=== PATIENT | male | born 1960 | race Caucasian/White ===

== ENCOUNTER 2019-10-29 07:55 | Outpatient (CLI) | payer BC, SELFPAY ==
[2019-10-29 08:19] LABS: Hemoglobin A1C 8.5 % (<5.7)
[2019-10-29 08:32] LABS: Add Urine Microscopic? YES; Appearance Urine Clear (Clear); Bilirubin Urine Negative (Negative); Blood Urine 1+ (Negative); Color Urine Yellow (Yellow); Glucose Urine UA Trace (Negative); Ketones Urine Negative (Negative); Leukocyte Esterase Ur Negative (Negative); Nitrate Urine Negative (Negative); Protein Urine Negative (Negative); Urobilinogen Urine 0.2 mg/dL (0.2-1.0); pH Urine 5.5 (5.0-8.0)
[2019-10-29 08:38] LABS: Bacteria Urine None seen /hpf; RBC Urine 0-2 /hpf (0-2); WBC Urine 0-3 /hpf (0-3)
[2019-10-29 09:16] LABS: Creatinine Urine 77.84 mg/dL (40-278)
[2019-10-29 09:19] LABS: MALB Creatinine Ratio 180.8 mg/g (0-30); Microalbumin Urine Random 140.8 mg/L
[2019-10-29 09:34] LABS: Alanine Aminotransferase 43 U/L (16-63); Albumin Level 3.9 g/dL (3.4-5.0); Alkaline Phosphatase 54 U/L (46-116); Anion Gap 16.4 mmol/L (7-16); Aspartate Amino Transferase 31 U/L (15-37); Bilirubin,Total 0.4 mg/dL (0.00-1.00); Blood Urea Nitrogen 29 mg/dL (7-18); Calcium 9.2 mg/dL (8.5-10.1); Carbon Dioxide 26 mmol/L (21-32); Chloride 101 mmol/L (98-108); Cholesterol 180 mg/dL (0-200); Creatine Kinase 128 U/L (39-308); Estimated Glomerular Filt Rate > 60; Glucose 192 mg/dL (70-99); HDL Direct 35 mg/dL (40-60); LDL Cholesterol Calculated 83 mg/dL (<130); Osmolality Calculated 298 mOsm/kg (285-295); Potassium 4.4 mmol/L (3.5-5.1); Sodium 139 mmol/L (136-145); Total Protein 8.1 g/dL (6.4-8.2); Triglycerides 311 mg/dL (0-150); Uric Acid 5.7 mg/dL (3.5-7.2)
== END 2019-10-29 07:56 | disposition home or self-care (01) ==
LOC: CHSLAB 07:57
PROVIDERS: PCP Internal Medicine; Visit Provider Internal Medicine
DX: E79.0 Hyperuricemia without signs of inflammatory arthritis and tophaceous disease (principal); E11.65 Type 2 diabetes mellitus with hyperglycemia
CPT/HCPCS: 36415; 80053; 80061; 81001; 82043; 82550; 83036; 84550

== ENCOUNTER 2019-11-09 07:05 | Outpatient (CLI) | payer BC, SELFPAY ==
--- NOTE | 2019-11-09 07:21 | EST_ITS ---
Patient Info Name: Sydney Veloz Age: 59 years : 1960 Gender: Male Ht: 69 in Wt: 220 lbs BSA: 2.24 m2 HR: 78 bpm BP: 134 / 72 mmHg Technical Quality: Good Exam Date: 11/09/2019 8:28 AM Exam Location: [facility] Pulmonary Patient Status: Outpatient Admit Date: 11/09/2019 Staff Ordering Physician: Manuel Easton DO Furniture Rental Consultant: Rico Darby RDCS, RT Attending Provider: MANUEL EASTON Referring Physician: Best RAYA; Exam Type: CA stress echo Study Info Indications R07.89 - Other chest pain Treadmill exercise stress echocardiogram is performed. Summary 1. 1. Negative Edgard exercise stress test for ischemic ST changes by ECG criteria. 2. 2. Good functional capacity, achieving 10 METS of workload. 3. 3. Hypertensive response to exercise. 4. 4. Appropriate HR response to exercise. 5. 5. Appropriate HR recovery at 1 minute post exercise. 6. 6. Negative stress echocardiogram for ischemia by wall motion analysis. 7. 7. Patient informed of the above results. Stress Echo Findings Left Ventricle Appropriate increase in LV endocardial thickening with systole. Appropriate augmentation of contractility with systole. No wall motion abnormality. Left Ventricle Normal LV systolic function, no wall motion abnormality. Protocol: Edgard Stress ECG Details Stage: REST Duration (min): 0 min : 34 sec Speed (mph): 0.0 Grade (%): 0 HR (bpm): 75 SBP (mmHg): --- DBP (mmHg): --- METS: --- Stage: REST Duration (min): 7 min : 14 sec Speed (mph): 0.0 Grade (%): 0 HR (bpm): 87 SBP (mmHg): 134 DBP (mmHg): 72 METS: --- Stage: STAGE 1 Duration (min): 1 min : 0 sec Speed (mph): 1.7 Grade (%): 10 HR (bpm): 109 SBP (mmHg): 134 DBP (mmHg): 72 METS: --- Stage: STAGE 1 Duration (min): 2 min : 0 sec Speed (mph): 1.7 Grade (%): 10 HR (bpm): 119 SBP (mmHg): 134 DBP (mmHg): 72 METS: --- Stage: STAGE 1 Duration (min): 3 min : 0 sec Speed (mph): 1.7 Grade (%): 10 HR (bpm): 121 SBP (mmHg): 172 DBP (mmHg): 60 METS: --- Stage: STAGE 2 Duration (min): 1 min : 0 sec Speed (mph): 2.5 Grade (%): 12 HR (bpm): 132 SBP (mmHg): 172 DBP (mmHg): 60 METS: --- Stage: STAGE 2 Duration (min): 2 min : 0 sec Speed (mph): 2.5 Grade (%): 12 HR (bpm): 136 SBP (mmHg): 168 DBP (mmHg): 59 METS: --- Stage: STAGE 2 Duration (min): 3 min : 0 sec Speed (mph): 2.5 Grade (%): 12 HR (bpm): 143 SBP (mmHg): 168 DBP (mmHg): 59 METS: --- Stage: STAGE 3 Duration (min): 1 min : 0 sec Speed (mph): 3.4 Grade (%): 14 HR (bpm): 149 SBP (mmHg): 176 DBP (mmHg): 68 METS: --- Stage: STAGE 3 Duration (min): 2 min : 0 sec Speed (mph): 3.4 Grade (%): 14 HR (bpm): 153 SBP (mmHg): 176 DBP (mmHg): 68 METS: --- Stage: STAGE 3 Duration (min): 2 min : 1 sec Speed (mph): 0.0 G
--- NOTE | 2019-11-09 07:21 | ECHO_ITS ---
Patient Info Name: Sydney Veloz Age: 59 years : 1960 Gender: Male Ht: 69 in Wt: 220 lbs BSA: 2.24 m2 HR: 85 bpm BP: 134 / 72 mmHg Technical Quality: Good Exam Date: 11/09/2019 7:58 AM Exam Location: [facility] Pulmonary Patient Status: Outpatient Admit Date: 11/09/2019 Staff Ordering Physician: Manuel Jewell DO Web User Experience Strategist: Rico Darby RDCS, RT Attending Provider: Manuel Jewell DO Referring Physician: Best RAYA; Exam Type: CA echo doppler color flow Study Info Indications R07.89 - Other chest pain Complete two-dimensional, color flow and Doppler transthoracic echocardiogram is performed. Summary 1. Left ventricular chamber dimension is normal. 2. Left ventricular systolic function is normal, estimated at 60-65%. 3. There is mildly increased left ventricular wall thickness. 4. The left ventricular diastolic function is grade I diastolic dysfunction. 5. E/e' 7 is not elevated. 6. Global longitudinal strain is mildly abnormal at -16.4%. 7. Dilated inferior vena cava with >50% collapse upon inspiration consistent with elevated right atrial pressure, 10 mmHg. Left Ventricle E/e' 7 is not elevated. Global longitudinal strain is mildly abnormal at -16.4%. Left ventricular chamber dimension is normal. Left ventricular systolic function is normal, estimated at 60-65%. There is mildly increased left ventricular wall thickness. The left ventricular diastolic function is grade I diastolic dysfunction. Right Ventricle Right ventricular chamber dimension is normal. Right ventricular systolic function is normal. Left Atria Left atrial chamber dimension is normal. Right Atria Right atrial chamber dimension is normal. Aortic Valve The aortic valve is trileaflet. There is no aortic valve stenosis. There is no aortic valve regurgitation. Pulmonic Valve There is no pulmonic regurgitation. Mitral Valve There is no mitral valve stenosis. There is no mitral valve regurgitation. Tricuspid Valve There is no tricuspid valve regurgitation. Pericardium/Pleural There is no pericardial effusion. Inferior Vena Cava Dilated inferior vena cava with >50% collapse upon inspiration consistent with elevated right atrial pressure, 10 mmHg. Aorta The aortic root size at the sinus of Valsalva is normal. Left Ventricular Outflow Tract Name Value Normal LVOT 2D LVOT Diameter 2.2 cm LVOT Doppler LVOT Peak Gradient 5 mmHg LVOT Mean Gradient 2 mmHg LVOT VTI 20 cm LVOT VTI/AV VTI Ratio 0.9 LVOT Stroke Volume 76 ml LVOT CO 6.5 l/min LVOT CI 2.9 l/min/m2 Pulmonic Valve Name Value Normal PV Doppler PV Peak Gradient
== END 2019-11-09 07:06 | disposition home or self-care (01) ==
PROVIDERS: PCP Internal Medicine; Visit Provider Internal Medicine Cardiovascular Disease
DX: R06.09 Other forms of dyspnea (principal); R07.9 Chest pain, unspecified
CPT/HCPCS: 93306; 93351

== ENCOUNTER 2019-11-11 06:31 | Day surgery (SDC) | payer BC, SELFPAY ==
[2019-11-11 06:56] LABS: Glucose Point of Care 204 (65-105)
[2019-11-15 14:15] LABS: Glucose Point of Care 194 (65-105)
== END 2019-11-11 08:56 | disposition home or self-care (01) ==
LOC: CHSSURGERY 06:32
PROVIDERS: PCP Internal Medicine; Visit Provider Surgery
DX: Z12.11 Encounter for screening for malignant neoplasm of colon (principal); Z86.010 Personal history of colon polyps; K62.1 Rectal polyp
CPT/HCPCS: 45384; 45380; 812; 88305; J2704; J7120

== ENCOUNTER 2020-01-31 08:38 | Outpatient (CLI) | payer BC, SELFPAY ==
[2020-01-31 09:06] LABS: Hemoglobin A1C 7.6 % (<5.7)
[2020-01-31 09:57] LABS: Anion Gap 15.3 mmol/L (7-16); Blood Urea Nitrogen 47 mg/dL (7-18); Calcium 9.2 mg/dL (8.5-10.1); Carbon Dioxide 25 mmol/L (21-32); Chloride 101 mmol/L (98-108); Estimated Glomerular Filt Rate 57; Glucose 147 mg/dL (70-99); Osmolality Calculated 299 mOsm/kg (285-295); Potassium 4.3 mmol/L (3.5-5.1); Sodium 137 mmol/L (136-145)
== END 2020-01-31 08:39 | disposition home or self-care (01) ==
LOC: CHSLAB 08:40
PROVIDERS: PCP Internal Medicine; Visit Provider Internal Medicine
DX: E11.65 Type 2 diabetes mellitus with hyperglycemia (principal)
CPT/HCPCS: 36415; 80048; 83036

== ENCOUNTER 2020-02-23 12:12 | Outpatient (CLI) | payer BC, SELFPAY ==
[2020-02-23 12:52] LABS: Anion Gap 14.3 mmol/L (7-16); Blood Urea Nitrogen 27 mg/dL (7-18); Calcium 8.9 mg/dL (8.5-10.1); Carbon Dioxide 26 mmol/L (21-32); Chloride 102 mmol/L (98-108); Estimated Glomerular Filt Rate 60; Glucose 226 mg/dL (70-99); Osmolality Calculated 298 mOsm/kg (285-295); Potassium 4.3 mmol/L (3.5-5.1); Sodium 138 mmol/L (136-145)
== END 2020-02-23 12:13 | disposition home or self-care (01) ==
LOC: CHSLAB 12:13
PROVIDERS: PCP Internal Medicine; Visit Provider Internal Medicine
DX: E86.0 Dehydration (principal)
CPT/HCPCS: 36415; 80048

== ENCOUNTER 2020-05-12 10:02 | Outpatient (CLI) | payer BC, SELFPAY ==
[2020-05-12 10:26] LABS: Basophils Absolute Auto 0.04 K/mm3 (0.00-0.10); Basophils Percent Auto 0.6 % (0.0-1.0); Eosinophils Absolute Auto 0.25 K/mm3 (0.02-0.50); Eosinophils Percent Auto 3.6 % (1.0-6.0); Hematocrit 44.8 % (40.0-54.0); Hemoglobin 14.7 g/dL (14.0-18.0); Immature Granulocyte Absolute 0.02 K/mm3 (0.00-0.00); Immature Granulocyte Percent A 0.3 % (0.0-0.0); Lymphocytes Absolute Auto 2.05 K/mm3 (1.10-4.50); Lymphocytes Percent Auto 29.3 % (18.0-42.0); Mean Corpuscular HGB Conc 32.8 g/dL (32.0-36.0); Mean Corpuscular Hemoglobin 32.8 pg (27.0-31.0); Mean Platelet Volume 10.4 fl (8.7-11.0); Monocytes Absolute Auto 0.91 K/mm3 (0.10-0.90); Neutrophils Absolute Auto 3.7 K/mm3 (1.7-7.2); Neutrophils Percent Auto 53.2 % (50.0-70.0); Platelet Count Result 168 K/mm3 (150-420); Red Blood Count 4.48 M/mm3 (4.70-6.10); Red Cell Distribution Width 12.6 % (11.6-14.4)
[2020-05-12 10:33] LABS: Add Urine Microscopic? YES; Appearance Urine Clear (Clear); Bilirubin Urine Negative (Negative); Blood Urine Negative (Negative); Color Urine Yellow (Yellow); Glucose Urine UA Negative (Negative); Ketones Urine Negative (Negative); Leukocyte Esterase Ur Negative LEU/UL (Negative); Nitrate Urine Negative (Negative); Protein Urine Trace (Negative); Specific Grav Ur 1.025 (1.010-1.020); Urobilinogen Urine 0.2 mg/dL (0.2-1.0); pH Urine 5.5 (5.0-8.0)
[2020-05-12 10:38] LABS: Hemoglobin A1C 5.9 % (<5.7)
[2020-05-12 10:45] LABS: RBC Urine 0-2 /hpf (0-2)
[2020-05-12 10:46] LABS: Bacteria Urine Trace /hpf; Mucus Urine Few /lpf; Squamous Epithelial Cell Urine Occasional /hpf (Few); WBC Urine 0-3 /hpf (0-3)
[2020-05-12 10:53] LABS: Alanine Aminotransferase 32 U/L (16-63); Albumin Level 3.7 g/dL (3.4-5.0); Alkaline Phosphatase 54 U/L (46-116); Anion Gap 7 mmol/L (8-16); Aspartate Amino Transferase 21 U/L (15-37); Bilirubin,Total 0.4 mg/dL (0.00-1.00); Blood Urea Nitrogen 27 mg/dL (7-18); Calcium 8.7 mg/dL (8.5-10.1); Carbon Dioxide 28 mmol/L (21-32); Chloride 104 mmol/L (98-108); Cholesterol 150 mg/dL (0-200); Creatine Kinase 100 U/L (39-308); Estimated Glomerular Filt Rate > 60; Glucose 111 mg/dL (70-99); HDL Direct 39 mg/dL (40-60); LDL Cholesterol Calculated 88 mg/dL (<130); Osmolality Calculated 294 mOsm/kg (285-295); Potassium 4.8 mmol/L (3.5-5.1); Sodium 139 mmol/L (136-145); Total Protein 7.8 g/dL (6.4-8.2); Triglycerides 114 mg/dL (0-150); Uric Acid 6.2 mg/dL (3.5-7.2)
[2020-05-12 10:58] LABS: Creatinine Urine 109.18 mg/dL (40-278)
[2020-05-12 11:02] LABS: MALB Creatinine Ratio 100.2 mg/g (0-30); Microalbumin Urine Random 109.4 mg/L
== END 2020-05-12 10:03 | disposition home or self-care (01) ==
PROVIDERS: PCP Internal Medicine; Visit Provider Internal Medicine
DX: E79.0 Hyperuricemia without signs of inflammatory arthritis and tophaceous disease (principal); I10 Essential (primary) hypertension; E78.5 Hyperlipidemia, unspecified; E11.65 Type 2 diabetes mellitus with hyperglycemia
CPT/HCPCS: 36415; 80053; 80061; 81001; 82043; 82550; 83036; 84550; 85025

== ENCOUNTER 2020-11-10 07:02 | Outpatient (CLI) | payer BC, SELFPAY ==
--- NOTE | ~2020-11-10 | CT_ITS ---
EXAMINATION: CT abdomen pelvis w con DATE: 11/10/2020 12:06 INDICATION: Acute abdominal pain. Nausea and diarrhea. TECHNIQUE: Computed tomography (CT) of the abdomen and pelvis was performed with 100 cc Omnipaque 350 intravenous contrast. The dose-length product was 975.46 mGy-cm. Automated exposure control and iter ative reconstruction technique were employed. COMPARISON: CT dated 03/31/2019 FINDINGS: Lung bases are unremarkable. Heart size normal. No significant pleural or pericardial effus ion the liver, spleen, pancreas, right adrenal gland and left kidney are unremarkable. There are smal l right renal cysts, largest measuring 1.7 cm. No significant change to left adrenal myelolipoma chan uring 6 cm. Status post cholecystectomy. Nonobstructive bowel gas pattern. Colonic diverticulosis wit hout evidence for diverticulitis. Normal appendix. No abnormal pelvic masses or fluid collections. Mi ldly prominent prostate gland. Moderate lumbar spondylosis at L5-S1. No acute osseous abnormality. No lymphadenopathy. No free air or free fluid. IMPRESSION: 1. No acute abdominal abnormality. 2: Stable 6 cm left adrenal myelolipoma. Reviewed, dictated and finalized at location A. ATTENDANT
[2020-11-10 07:21] LABS: Basophils Absolute Auto 0.05 K/mm3 (0.00-0.10); Basophils Percent Auto 0.6 % (0.0-1.0); Eosinophils Absolute Auto 0.75 K/mm3 (0.02-0.50); Eosinophils Percent Auto 9.3 % (1.0-6.0); Hematocrit 44.8 % (40.0-54.0); Hemoglobin 14.8 g/dL (14.0-18.0); Immature Granulocyte Absolute 0.06 K/mm3 (0.00-0.00); Immature Granulocyte Percent A 0.7 % (0.0-0.0); Lymphocytes Absolute Auto 2.56 K/mm3 (1.10-4.50); Lymphocytes Percent Auto 31.6 % (18.0-42.0); Mean Corpuscular Hemoglobin 33.5 pg (27.0-31.0); Mean Corpuscular Volume 101.4 fL (78.0-102.0); Mean Platelet Volume 10.3 fl (8.7-11.0); Monocytes Absolute Auto 0.84 K/mm3 (0.10-0.90); Monocytes Percent Auto 10.4 % (2.0-11.0); Neutrophils Absolute Auto 3.8 K/mm3 (1.7-7.2); Neutrophils Percent Auto 47.4 % (50.0-70.0); Platelet Count Result 213 K/mm3 (150-420); Red Blood Count 4.42 M/mm3 (4.70-6.10); Red Cell Distribution Width 12.9 % (11.6-14.4)
[2020-11-10 07:57] LABS: Hemoglobin A1C 5.8 % (<5.7)
[2020-11-10 08:05] LABS: White Blood Count 8.1 K/mm3 (4.8-10.8)
[2020-11-10 08:16] LABS: Alanine Aminotransferase 25 U/L (16-63); Albumin Level 3.6 g/dL (3.4-5.0); Alkaline Phosphatase 49 U/L (46-116); Anion Gap 7 mmol/L (8-16); Aspartate Amino Transferase 28 U/L (15-37); Bilirubin,Total 0.4 mg/dL (0.00-1.00); Blood Urea Nitrogen 40 mg/dL (7-18); Calcium 9.5 mg/dL (8.5-10.1); Carbon Dioxide 27 mmol/L (21-32); Chloride 103 mmol/L (98-108); Cholesterol 141 mg/dL (0-200); Creatine Kinase 139 U/L (39-308); Estimated Glomerular Filt Rate > 60; Glucose 115 mg/dL (70-99); HDL Direct 36 mg/dL (40-60); LDL Cholesterol Calculated 94 mg/dL (<130); Osmolality Calculated 294 mOsm/kg (285-295); Potassium 5.4 mmol/L (3.5-5.1); Prostate Specific Antigen 1.9 ng/mL (< OR = 4.0); Sodium 137 mmol/L (136-145); Total Protein 7.5 g/dL (6.4-8.2); Triglycerides 56 mg/dL (0-150); Uric Acid 5.6 mg/dL (3.5-7.2)
[2020-11-10 08:23] LABS: Creatinine Urine 89.71 mg/dL (40-278); MALB Creatinine Ratio 42.6 mg/g (0-30); Microalbumin Urine Random 38.3 mg/L
[2020-11-10 08:28] LABS: Add Urine Microscopic? NO; Appearance Urine Clear (Clear); Bilirubin Urine Negative (Negative); Blood Urine Negative (Negative); Color Urine Yellow (Yellow); Glucose Urine UA Negative (Negative); Ketones Urine Negative (Negative); Leukocyte Esterase Ur Negative LEU/UL (Negative); Nitrate Urine Negative (Negative); Protein Urine Negative (Negative); Specific Grav Ur 1.025 (1.010-1.020); Urobilinogen Urine 0.2 mg/dL (0.2-1.0)
[2020-11-10 11:43] LABS: Occult Blood Negative (Negative)
[2020-11-19 08:27] LABS: Gliadin AB, IgG 4 Units (<20); Reticulin IgA Negative (Negative); TTG IGA AB 1 U/mL (<4)
== END 2020-11-10 07:03 | disposition home or self-care (01) ==
PROVIDERS: PCP Internal Medicine; Visit Provider Internal Medicine
DX: R10.9 Unspecified abdominal pain (principal); K92.1 Melena; R19.7 Diarrhea, unspecified; E79.0 Hyperuricemia without signs of inflammatory arthritis and tophaceous disease; I10 Essential (primary) hypertension; E11.65 Type 2 diabetes mellitus with hyperglycemia; Z12.5 Encounter for screening for malignant neoplasm of prostate
CPT/HCPCS: 36415; 74177; 80053; 80061; 81003; 82043; 82272; 82550; 83036; 83516; 84153; 84550; 85025; 86255; 87045; 87046; 87324; 87427; G0103; Q9967

== ENCOUNTER 2021-03-21 07:50 | Outpatient (CLI) | payer BC, SELFPAY ==
--- NOTE | ~2021-03-21 | XR_ITS ---
XR chest 2V DATE: 03/21/2021 08:17 INDICATION: Hemoptysis, chest pain, shortness of breath. Smoker. TECHNIQUE: PA and lateral views COMPARISON: 03/31/2019 CTA chest 03/30/2019 2 view chest FINDINGS: Normal heart size. No hilar or mediastinal enlargement. No pulmonary infiltrate or consolid ation, pleural effusion or pulmonary vascular congestion or pneumothorax. Degenerative spurring of the thoracic spine. IMPRESSION: No active cardiopulmonary disease Reviewed, dictated and finalized at location A.
[2021-03-21 08:05] LABS: Hematocrit 43.1 % (40.0-54.0); Hemoglobin 14.4 g/dL (14.0-18.0); Mean Corpuscular HGB Conc 33.4 g/dL (32.0-36.0); Mean Corpuscular Hemoglobin 33.3 pg (27.0-31.0); Mean Corpuscular Volume 99.5 fL (78.0-102.0); Mean Platelet Volume 10.1 fl (8.7-11.0); Platelet Count Result 155 K/mm3 (150-420); Red Blood Count 4.33 M/mm3 (4.70-6.10); Red Cell Distribution Width 12.3 % (11.6-14.4); White Blood Count 6.4 K/mm3 (4.8-10.8)
[2021-03-21 09:02] LABS: Band Neutrophils Percent 0 % (0-6); Basophils Absolute Manual 0.06 K/mm3 (0-0.1); Basophils Percent Manual 1 % (0-1); Eosinophils Absolute Manual 0.44 K/mm3 (0.02-0.5); Eosinophils Percent Manual 7 % (1-6); Lymphocytes Absolute Manual 2.17 K/mm3 (1.1-4.5); Lymphocytes Percent Manual 34 % (18-44); Monocytes Absolute Manual 0.64 K/mm3 (0.1-0.90); Monocytes Percent Manual 10 % (3-9); Neutrophils Absolute Manual 3.07 K/mm3 (1.3-6.7); Neutrophils Percent Manual 48 % (46-73); Platelet Estimate Adequate (Adequate); Total Cells Counted 100
[2021-03-21 09:15] LABS: Albumin Level 3.6 g/dL (3.4-5.0); Alkaline Phosphatase 54 U/L (46-116); Anion Gap 7 mmol/L (8-16); Carbon Dioxide 29 mmol/L (21-32); Chloride 107 mmol/L (98-108); Estimated Glomerular Filt Rate > 60; Potassium 4.5 mmol/L (3.5-5.1); Sodium 143 mmol/L (136-145)
[2021-03-21 09:28] LABS: Alanine Aminotransferase 30 U/L (16-63); Aspartate Amino Transferase 21 U/L (15-37); Bilirubin,Total 0.3 mg/dL (0.00-1.00); Blood Urea Nitrogen 36 mg/dL (7-18); Calcium 9.1 mg/dL (8.5-10.1); Glucose 127 mg/dL (70-99); Osmolality Calculated 306 mOsm/kg (285-295); Total Protein 7.4 g/dL (6.4-8.2)
[2021-03-22 11:19] LABS: Free T4 Free Thyroxine 0.89 ng/dL (0.76-1.46); Magnesium 2.1 mg/dL (1.8-2.4); Thyroid Stimulating Hormone 2.13 uIU/mL (0.36-3.74)
== END 2021-03-21 07:51 | disposition home or self-care (01) ==
LOC: CHSLAB 07:53
PROVIDERS: PCP Internal Medicine; Visit Provider Internal Medicine
DX: R04.2 Hemoptysis (principal); R53.83 Other fatigue
CPT/HCPCS: 36415; 71046; 80053; 83735; 84439; 84443; 85025

== ENCOUNTER 2021-03-26 07:59 | Outpatient (CLI) | payer BC, SELFPAY ==
--- NOTE | ~2021-03-26 | CT_ITS ---
EXAMINATION: CT diagnostic chest w con EXAM DATE: 03/26/2021 08:32 INDICATION: Hemoptysis, right midsternal chest pain. Symptoms one week. TECHNIQUE: Spiral CT of the chest following intravenous injection of 75 mL Omnipaque 350. Axial, cor onal and sagittal images of the chest were reviewed. Coronal maximum intensity pixel images of chest reviewed. The dose-length product (DLP) for this examination was 397.91 mGy-cm. The exposure was t ailored according to patient size (auto mA exposure control), and iterative reconstruction (ASIR) was used as additional dose reduction technique. Comparison is made to prior examination from 03/31/2019. FINDINGS: The lungs are clear. There are no pleural or pericardial effusions. There is 2-3 mm op acity in left upper lobe superior segmental bronchus (axial images 44 and 45), new compared to prior study. Could be small amount of debris, but early bronchogenic carcinoma also possible. Recommend 3 m onth follow-up chest CT. There is mild emphysema. There is no mediastinal, hilar or axillary lymphade nopathy. There is no pneumothorax. Heart normal in size. There is mild coronary arterial calcif ication, arterial sclerosis. Left adrenal myelolipoma measuring 6.4 cm, was about 6.0 on prior study 2019. These are sometimes resected when they reach this size, although only tiny wisps of soft tissue density are present within this. Cholecystectomy. There is thoracic spondylosis without osteoblasti c or osteolytic lesions identified. IMPRESSION: 1. Small left upper lobe superior segmental endobronchial opacity; 3 month follow-up chest CT withou t contrast indicated. 2. Mild emphysema. 3. Left adrenal 6.4 cm myelolipoma. Reviewed, dictated and finalized at location B. IMPRESSION: 1. Small left upper lobe superior segmental endobronchial opacity; 3 month fol low-up chest CT without contrast indicated. 2. Mild emphysema. 3. Left adrenal 6.4 cm myelolipoma.
== END 2021-03-26 08:00 | disposition home or self-care (01) ==
LOC: CHSIMG 08:01
PROVIDERS: PCP Internal Medicine; Visit Provider Internal Medicine
DX: R04.2 Hemoptysis (principal)
CPT/HCPCS: 71260; Q9967

== ENCOUNTER 2021-06-22 08:01 | Outpatient (CLI) | payer BC, SELFPAY ==
[2021-06-22 08:15] LABS: Appearance Urine Clear (Clear); Basophils Absolute Auto 0.03 K/mm3 (0.00-0.10); Basophils Percent Auto 0.5 % (0.0-1.0); Bilirubin Urine Negative (Negative); Color Urine Light Yellow (Yellow); Eosinophils Absolute Auto 0.57 K/mm3 (0.02-0.50); Eosinophils Percent Auto 9.4 % (1.0-6.0); Glucose Urine UA Negative (Negative); Hematocrit 43.8 % (40.0-54.0); Hemoglobin 14.9 g/dL (14.0-18.0); Immature Granulocyte Absolute 0.02 K/mm3 (0.00-0.00); Immature Granulocyte Percent A 0.3 % (0.0-0.0); Ketones Urine Negative (Negative); Leukocyte Esterase Ur Negative LEU/UL (Negative); Lymphocytes Absolute Auto 1.48 K/mm3 (1.10-4.50); Lymphocytes Percent Auto 24.5 % (18.0-42.0); Mean Corpuscular Hemoglobin 33.5 pg (27.0-31.0); Mean Corpuscular Volume 98.4 fL (78.0-102.0); Mean Platelet Volume 9.9 fl (8.7-11.0); Monocytes Absolute Auto 0.85 K/mm3 (0.10-0.90); Neutrophils Absolute Auto 3.1 K/mm3 (1.7-7.2); Neutrophils Percent Auto 51.3 % (50.0-70.0); Nitrate Urine Negative (Negative); Platelet Count Result 159 K/mm3 (150-420); Protein Urine Trace (Negative); Red Blood Count 4.45 M/mm3 (4.70-6.10); Urobilinogen Urine 0.2 mg/dL (0.2-1.0); White Blood Count 6.1 K/mm3 (4.8-10.8)
[2021-06-22 08:43] LABS: Add Urine Microscopic? YES; Bacteria Urine None seen /hpf; Blood Urine Trace-lysed (Negative); RBC Urine 0-2 /hpf (0-2); WBC Urine None seen /hpf (0-3)
[2021-06-22 08:57] LABS: Creatinine Urine 82.13 mg/dL (40-278)
[2021-06-22 09:02] LABS: MALB Creatinine Ratio 148.3 mg/g (0-30); Microalbumin Urine Random 121.8 mg/L
[2021-06-22 09:15] LABS: Alanine Aminotransferase 40 U/L (16-63); Albumin Level 3.7 g/dL (3.4-5.0); Alkaline Phosphatase 58 U/L (46-116); Anion Gap 8 mmol/L (8-16); Aspartate Amino Transferase 24 U/L (15-37); Bilirubin,Total 0.5 mg/dL (0.00-1.00); Blood Urea Nitrogen 27 mg/dL (7-18); Calcium 8.9 mg/dL (8.5-10.1); Carbon Dioxide 29 mmol/L (21-32); Chloride 104 mmol/L (98-108); Cholesterol 173 mg/dL (0-200); Creatine Kinase 186 U/L (39-308); Estimated Glomerular Filt Rate > 60; Glucose 106 mg/dL (70-99); HDL Direct 46 mg/dL (40-60); LDL Cholesterol Calculated 117 mg/dL (<130); Osmolality Calculated 297 mOsm/kg (285-295); Potassium 4.6 mmol/L (3.5-5.1); Sodium 141 mmol/L (136-145); Total Protein 7.5 g/dL (6.4-8.2); Triglycerides 52 mg/dL (0-150)
== END 2021-06-22 08:02 | disposition home or self-care (01) ==
LOC: CHSLAB 08:03
PROVIDERS: PCP Internal Medicine; Visit Provider Internal Medicine
DX: E11.65 Type 2 diabetes mellitus with hyperglycemia (principal); E78.5 Hyperlipidemia, unspecified; I10 Essential (primary) hypertension
CPT/HCPCS: 36415; 80053; 80061; 81001; 82043; 82550; 83036; 85025

== ENCOUNTER 2021-10-17 10:38 | Outpatient (CLI) | payer BC, SELFPAY ==
--- NOTE | ~2021-10-17 | XR_ITS ---
XR hand RT min 3V DATE: 10/17/2021 11:09 INDICATION: First and second digit pain, history of arthritis of third digit. TECHNIQUE: 3 views COMPARISON: 10/07/2016 right hand FINDINGS: There is severe and moderately severe osteoarthritis at second and third metacarpophalangea l joints, respectively. There is osteoarthritis at the interphalangeal joint of the first digit. Previously reported old healed fracture deformity of proximal phalanx, third digit. No recent fracture or dislocation, periosteal reaction or bone destruction, erosive change or chondro calcinosis. IMPRESSION: Old fracture deformity of proximal phalanx of third digit Polyarticular osteoarthritis Reviewed, dictated and finalized at location B. STICKER
--- NOTE | ~2021-10-17 | XR_ITS ---
XR hand LT min 3V DATE: 10/17/2021 11:08 INDICATION: Pain and swelling at distal third and fourth metacarpal areas TECHNIQUE: 3 views COMPARISON: None FINDINGS: There is osteoarthritic change including joint space and spurring at the second and third m etacarpophalangeal joints. There is osteophytic change at the interphalangeal joint of the first digi t. No fracture, dislocation, periosteal reaction or bone destruction is detected. IMPRESSION: Polyarticular osteoarthritis Reviewed, dictated and finalized at location B. CTOR OF PLACEMENT
[2021-10-17 10:52] LABS: Basophils Absolute Auto 0.02 K/mm3 (0.00-0.10); Basophils Percent Auto 0.3 % (0.0-1.0); Eosinophils Absolute Auto 0.21 K/mm3 (0.02-0.50); Eosinophils Percent Auto 3.3 % (1.0-6.0); Hematocrit 43.5 % (40.0-54.0); Hemoglobin 15.2 g/dL (14.0-18.0); Immature Granulocyte Absolute 0.02 K/mm3 (0.00-0.00); Immature Granulocyte Percent A 0.3 % (0.0-0.0); Lymphocytes Absolute Auto 1.76 K/mm3 (1.10-4.50); Lymphocytes Percent Auto 27.4 % (18.0-42.0); Mean Corpuscular HGB Conc 34.9 g/dL (32.0-36.0); Mean Corpuscular Hemoglobin 34.8 pg (27.0-31.0); Mean Corpuscular Volume 99.5 fL (78.0-102.0); Mean Platelet Volume 10.3 fl (8.7-11.0); Monocytes Absolute Auto 0.92 K/mm3 (0.10-0.90); Monocytes Percent Auto 14.3 % (2.0-11.0); Neutrophils Absolute Auto 3.5 K/mm3 (1.7-7.2); Neutrophils Percent Auto 54.4 % (50.0-70.0); Platelet Count Result 148 K/mm3 (150-420); Red Blood Count 4.37 M/mm3 (4.70-6.10); Red Cell Distribution Width 12.9 % (11.6-14.4); White Blood Count 6.4 K/mm3 (4.8-10.8)
[2021-10-17 11:23] LABS: Anion Gap 11 mmol/L (8-16); Blood Urea Nitrogen 27 mg/dL (7-18); Carbon Dioxide 26 mmol/L (21-32); Chloride 102 mmol/L (98-108); Estimated Glomerular Filt Rate > 60; Glucose 158 mg/dL (70-99); Osmolality Calculated 296 mOsm/kg (285-295); Potassium 4.2 mmol/L (3.5-5.1); Sodium 139 mmol/L (136-145); Uric Acid 5.9 mg/dL (3.5-7.2)
[2021-10-17 11:25] LABS: CRP < 0.2 mg/dL (0.0-0.9); RFT Charge Test YES; Rheumatoid Factor Screen Positive (Negative); Rheumatoid Factor Titer 1:4/40 (Negative)
[2021-10-17 11:51] LABS: Erythrocyte Sedimentation Rate 34 mm/hr (0-20)
[2021-10-19 21:17] LABS: Anti Nuclear Antibody Titer 1:40 (Negative)
== END 2021-10-17 10:39 | disposition home or self-care (01) ==
LOC: CHSLAB 10:41
PROVIDERS: PCP Internal Medicine; Visit Provider Internal Medicine
DX: M79.642 Pain in left hand (principal); M79.641 Pain in right hand; R21 Rash and other nonspecific skin eruption
CPT/HCPCS: 36415; 73130; 80048; 84550; 85025; 85652; 86038; 86039; 86140; 86430; 86431; 87102; 87206

== ENCOUNTER 2021-12-17 08:18 | Outpatient (CLI) | payer BC, SELFPAY ==
[2021-12-17 08:32] LABS: Basophils Absolute Auto 0.06 K/mm3 (0.00-0.10); Basophils Percent Auto 0.9 % (0.0-1.0); Eosinophils Absolute Auto 0.42 K/mm3 (0.02-0.50); Eosinophils Percent Auto 6.3 % (1.0-6.0); Hemoglobin 14.2 g/dL (14.0-18.0); Immature Granulocyte Absolute 0.03 K/mm3 (0.00-0.00); Immature Granulocyte Percent A 0.4 % (0.0-0.0); Lymphocytes Absolute Auto 2.42 K/mm3 (1.10-4.50); Mean Corpuscular HGB Conc 33.8 g/dL (32.0-36.0); Mean Corpuscular Hemoglobin 34.1 pg (27.0-31.0); Mean Corpuscular Volume 100.7 fL (78.0-102.0); Mean Platelet Volume 10.3 fl (8.7-11.0); Monocytes Absolute Auto 0.85 K/mm3 (0.10-0.90); Monocytes Percent Auto 12.6 % (2.0-11.0); Neutrophils Absolute Auto 2.9 K/mm3 (1.7-7.2); Neutrophils Percent Auto 43.8 % (50.0-70.0); Platelet Count Result 166 K/mm3 (150-420); Red Blood Count 4.17 M/mm3 (4.70-6.10); Red Cell Distribution Width 13.3 % (11.6-14.4); White Blood Count 6.7 K/mm3 (4.8-10.8)
[2021-12-17 08:33] LABS: Appearance Urine Clear (Clear); Bilirubin Urine Negative (Negative); Color Urine Light Yellow (Yellow); Glucose Urine UA Negative (Negative); Ketones Urine Negative (Negative); Leukocyte Esterase Ur Negative (Negative); Nitrate Urine Negative (Negative); Protein Urine Negative (Negative); Urobilinogen Urine 0.2 mg/dL (0.2-1.0); pH Urine 6.5 (5.0-8.0)
[2021-12-17 08:39] LABS: Add Urine Microscopic? YES; Bacteria Urine Trace /hpf; Blood Urine Trace-Intact (Negative); RBC Urine None seen /hpf (0-2); WBC Urine None seen /hpf (0-3)
[2021-12-17 08:58] LABS: Creatinine Urine 69.89 mg/dL (40-278)
[2021-12-17 09:01] LABS: MALB Creatinine Ratio 157.5 mg/g (0-30); Microalbumin Urine Random 110.1 mg/L
[2021-12-17 09:10] LABS: Alanine Aminotransferase 36 U/L (16-63); Albumin Level 3.6 g/dL (3.4-5.0); Alkaline Phosphatase 53 U/L (46-116); Anion Gap 10 mmol/L (8-16); Aspartate Amino Transferase 24 U/L (15-37); Bilirubin,Total 0.3 mg/dL (0.00-1.00); Blood Urea Nitrogen 28 mg/dL (7-18); Calcium 8.9 mg/dL (8.5-10.1); Carbon Dioxide 26 mmol/L (21-32); Chloride 104 mmol/L (98-108); Cholesterol 156 mg/dL (0-200); Creatine Kinase 112 U/L (39-308); Estimated Glomerular Filt Rate > 60; Glucose 120 mg/dL (70-99); HDL Direct 42 mg/dL (40-60); LDL Cholesterol Calculated 100 mg/dL (<130); Osmolality Calculated 296 mOsm/kg (285-295); Potassium 4.8 mmol/L (3.5-5.1); Prostate Specific Antigen 1.8 ng/mL (< OR = 4.0); Sodium 140 mmol/L (136-145); Total Protein 7.5 g/dL (6.4-8.2); Triglycerides 70 mg/dL (0-150); Uric Acid 6.3 mg/dL (3.5-7.2)
== END 2021-12-17 08:19 | disposition home or self-care (01) ==
LOC: CHSLAB 08:20
PROVIDERS: PCP Internal Medicine; Visit Provider Internal Medicine
DX: E79.0 Hyperuricemia without signs of inflammatory arthritis and tophaceous disease (principal); I10 Essential (primary) hypertension; E78.2 Mixed hyperlipidemia; J44.9 Chronic obstructive pulmonary disease, unspecified; E11.65 Type 2 diabetes mellitus with hyperglycemia; Z12.5 Encounter for screening for malignant neoplasm of prostate
CPT/HCPCS: 36415; 80053; 80061; 81001; 82043; 82550; 83036; 84153; 84550; 85025; G0103

== ENCOUNTER 2022-04-03 09:32 | Outpatient (CLI) | payer BC, SELFPAY ==
--- NOTE | ~2022-04-03 | CT_ITS ---
EXAMINATION:CT diagnostic chest wo con DATE: 04/03/2022 09:55 INDICATION: Left upper lobe endobronchial mass. TECHNIQUE: Computed tomography (CT) of the chest was performed without intravenous contrast. Automate d exposure control and iterative reconstruction technique were employed. The dose-length product (DLP ) was 487.21 mGy-cm. COMPARISON: Chest CT 03/26/2021 FINDINGS: There is mild emphysema. There is no endobronchial mass. No pleural effusion. The heart siz e is normal. There are coronary artery calcifications. No pericardial effusion. There is diffuse hepa tic steatosis. There is a 6.4 cm mass containing fat in left adrenal gland, consistent with a myeloli christine. There are changes of cholecystectomy. There is mild thoracic spondylosis. IMPRESSION: 1. No endobronchial mass. 2. Mild emphysema. Reviewed, dictated and finalized at location A.
== END 2022-04-03 09:33 | disposition home or self-care (01) ==
LOC: CHSIMG 09:34
PROVIDERS: PCP Internal Medicine; Visit Provider Internal Medicine
DX: R91.8 Other nonspecific abnormal finding of lung field (principal)
CPT/HCPCS: 71250

== ENCOUNTER 2022-05-11 10:35 | Outpatient (CLI) | payer BC, SELFPAY ==
[2022-05-11 10:58] LABS: Anion Gap 10 mmol/L (8-16); Blood Urea Nitrogen 32 mg/dL (7-18); Calcium 8.7 mg/dL (8.5-10.1); Carbon Dioxide 27 mmol/L (21-32); Chloride 101 mmol/L (98-108); Estimated Glomerular Filt Rate 60; Glucose 213 mg/dL (70-99); Osmolality Calculated 298 mOsm/kg (285-295); Potassium 3.8 mmol/L (3.5-5.1); Sodium 138 mmol/L (136-145)
== END 2022-05-11 10:36 | disposition home or self-care (01) ==
LOC: CHSLAB 10:37
PROVIDERS: PCP Internal Medicine; Visit Provider Internal Medicine
DX: I10 Essential (primary) hypertension (principal)
CPT/HCPCS: 36415; 80048

== ENCOUNTER 2022-06-06 08:15 | Outpatient (CLI) | payer BC, SELFPAY ==
[2022-06-06 08:34] LABS: Appearance Urine Clear (Clear); Bilirubin Urine Negative (Negative); Glucose Urine UA Negative (Negative); Ketones Urine Negative (Negative); Leukocyte Esterase Ur Negative (Negative); Nitrate Urine Negative (Negative); Protein Urine Negative (Negative); Specific Grav Ur 1.015 (1.010-1.020); Urobilinogen Urine 0.2 mg/dL (0.2-1.0)
[2022-06-06 08:35] LABS: Basophils Absolute Auto 0.04 K/mm3 (0.00-0.10); Basophils Percent Auto 0.6 % (0.0-1.0); Eosinophils Absolute Auto 0.35 K/mm3 (0.02-0.50); Eosinophils Percent Auto 4.9 % (1.0-6.0); Hematocrit 39.7 % (40.0-54.0); Hemoglobin 13.7 g/dL (14.0-18.0); Immature Granulocyte Absolute 0.04 K/mm3 (0.00-0.00); Immature Granulocyte Percent A 0.6 % (0.0-0.0); Lymphocytes Absolute Auto 2.08 K/mm3 (1.10-4.50); Lymphocytes Percent Auto 29.2 % (18.0-42.0); Mean Corpuscular HGB Conc 34.5 g/dL (32.0-36.0); Mean Corpuscular Hemoglobin 34.5 pg (27.0-31.0); Mean Platelet Volume 10.4 fl (8.7-11.0); Monocytes Absolute Auto 0.97 K/mm3 (0.10-0.90); Monocytes Percent Auto 13.6 % (2.0-11.0); Neutrophils Absolute Auto 3.6 K/mm3 (1.7-7.2); Neutrophils Percent Auto 51.1 % (50.0-70.0); Platelet Count Result 190 K/mm3 (150-420); Red Blood Count 3.97 M/mm3 (4.70-6.10); Red Cell Distribution Width 13.1 % (11.6-14.4); White Blood Count 7.1 K/mm3 (4.8-10.8)
[2022-06-06 08:45] LABS: Color Urine Light Yellow (Yellow)
[2022-06-06 08:46] LABS: Add Urine Microscopic? YES; Bacteria Urine None seen /hpf; Blood Urine Trace-lysed (Negative); RBC Urine None seen /hpf (0-2); WBC Urine None seen /hpf (0-3)
[2022-06-06 08:52] LABS: Creatinine Urine 86.79 mg/dL (40-278); MALB Creatinine Ratio 101.6 mg/g (0-30); Microalbumin Urine Random 88.2 mg/L
[2022-06-06 08:54] LABS: Hemoglobin A1C 6.5 % (<5.7)
[2022-06-06 09:31] LABS: Alanine Aminotransferase 35 U/L (16-63); Albumin Level 3.8 g/dL (3.4-5.0); Alkaline Phosphatase 48 U/L (46-116); Anion Gap 9 mmol/L (8-16); Aspartate Amino Transferase 26 U/L (15-37); Bilirubin,Total 0.3 mg/dL (0.00-1.00); Blood Urea Nitrogen 34 mg/dL (7-18); Calcium 9.2 mg/dL (8.5-10.1); Carbon Dioxide 25 mmol/L (21-32); Chloride 104 mmol/L (98-108); Cholesterol 176 mg/dL (0-200); Creatine Kinase 212 U/L (39-308); Estimated Glomerular Filt Rate 56; Free T3 4.02 pg/mL (2.18-3.98); Free T4 Free Thyroxine 0.94 ng/dL (0.76-1.46); Glucose 119 mg/dL (70-99); HDL Direct 39 mg/dL (40-60); LDL Cholesterol Calculated 103 mg/dL (<130); Osmolality Calculated 294 mOsm/kg (285-295); Potassium 5.1 mmol/L (3.5-5.1); Sodium 138 mmol/L (136-145); Thyroid Stimulating Hormone 3.08 uIU/mL (0.36-3.74); Total Protein 7.6 g/dL (6.4-8.2); Triglycerides 170 mg/dL (0-150); Uric Acid 5.5 mg/dL (3.5-7.2)
== END 2022-06-06 08:16 | disposition home or self-care (01) ==
LOC: CHSLAB 08:16
PROVIDERS: PCP Internal Medicine; Visit Provider Internal Medicine
DX: R21 Rash and other nonspecific skin eruption (principal); E78.2 Mixed hyperlipidemia; I10 Essential (primary) hypertension; E79.0 Hyperuricemia without signs of inflammatory arthritis and tophaceous disease; E11.65 Type 2 diabetes mellitus with hyperglycemia
CPT/HCPCS: 36415; 80053; 80061; 81001; 82043; 82550; 83036; 84439; 84443; 84481; 84550; 85025

== ENCOUNTER 2022-06-18 10:27 | Outpatient (CLI) | payer BC, SELFPAY ==
--- NOTE | ~2022-06-18 | XR_ITS ---
EXAM: XR knee RT min 4V, XR knee LT min 4V DATE: 06/18/2022 10:54 HISTORY: bilateral knee pain . COMPARISON: 02/20/2018. FINDINGS: Normal mineralization. No fracture or dislocation. No lytic or blastic lesion. Moderate bi lateral medial joint space narrowing. Mild tricompartmental osteophytosis. No erosion or periosteal c hange. Soft tissues within normal limits. IMPRESSION: Bilateral tricompartmental knee osteoarthritis, moderate in the medial compartments. Reviewed, dictated and finalized at location K. IMPRESSION: Bilateral tricompartmental knee osteoarthritis, moderate in the med ial compartments.
== END 2022-06-18 10:28 | disposition home or self-care (01) ==
PROVIDERS: PCP Internal Medicine; Visit Provider Orthopaedic Surgery
DX: M25.562 Pain in left knee (principal); M25.561 Pain in right knee
CPT/HCPCS: 73562; 73564

== ENCOUNTER 2022-12-05 08:20 | Outpatient (CLI) | payer BC, SELFPAY ==
[2022-12-05 08:44] LABS: Basophils Absolute Auto 0.04 K/mm3 (0.00-0.10); Basophils Percent Auto 0.7 % (0.0-1.0); Eosinophils Absolute Auto 0.24 K/mm3 (0.02-0.50); Eosinophils Percent Auto 4.2 % (1.0-6.0); Hematocrit 39.1 % (40.0-54.0); Hemoglobin 13.1 g/dL (14.0-18.0); Immature Granulocyte Absolute 0.01 K/mm3 (0.00-0.00); Immature Granulocyte Percent A 0.2 % (0.0-0.0); Lymphocytes Absolute Auto 1.48 K/mm3 (1.10-4.50); Lymphocytes Percent Auto 26.1 % (18.0-42.0); Mean Corpuscular HGB Conc 33.5 g/dL (32.0-36.0); Mean Corpuscular Hemoglobin 33.7 pg (27.0-31.0); Mean Corpuscular Volume 100.5 fL (78.0-102.0); Mean Platelet Volume 10.1 fl (8.7-11.0); Monocytes Absolute Auto 0.65 K/mm3 (0.10-0.90); Monocytes Percent Auto 11.5 % (2.0-11.0); Neutrophils Absolute Auto 3.2 K/mm3 (1.7-7.2); Neutrophils Percent Auto 57.3 % (50.0-70.0); Platelet Count Result 152 K/mm3 (150-420); Red Blood Count 3.89 M/mm3 (4.70-6.10); White Blood Count 5.7 K/mm3 (4.8-10.8)
[2022-12-05 08:56] LABS: Appearance Urine Clear (Clear); Bilirubin Urine Negative (Negative); Blood Urine Trace-Intact (Negative); Color Urine Light Yellow (Yellow); Glucose Urine UA Negative (Negative); Ketones Urine Negative (Negative); Leukocyte Esterase Ur Negative LEU/UL (Negative); Nitrate Urine Negative (Negative); Protein Urine Negative (Negative); Urobilinogen Urine 0.2 mg/dL (0.2-1.0)
[2022-12-05 09:00] LABS: Add Urine Microscopic? YES; Hemoglobin A1C 6.3 % (<5.7); RBC Urine 0-2 /hpf (0-2); WBC Urine 0-3 /hpf (0-3)
[2022-12-05 09:01] LABS: Bacteria Urine None seen /hpf; Squamous Epithelial Cell Urine Rare /hpf (Few)
[2022-12-05 09:38] LABS: Alanine Aminotransferase 31 U/L (16-63); Albumin Level 3.7 g/dL (3.4-5.0); Alkaline Phosphatase 46 U/L (46-116); Anion Gap 9 mmol/L (8-16); Aspartate Amino Transferase 25 U/L (15-37); Bilirubin,Total 0.3 mg/dL (0.00-1.00); Blood Urea Nitrogen 40 mg/dL (7-18); Carbon Dioxide 24 mmol/L (21-32); Chloride 107 mmol/L (98-108); Cholesterol 152 mg/dL (0-200); Estimated Glomerular Filt Rate > 60; Free T3 3.64 pg/mL (2.18-3.98); Free T4 Free Thyroxine 0.86 ng/dL (0.76-1.46); Glucose 120 mg/dL (70-99); HDL Direct 41 mg/dL (40-60); LDL Cholesterol Calculated 84 mg/dL (<130); Osmolality Calculated 300 mOsm/kg (285-295); Potassium 5.4 mmol/L (3.5-5.1); Prostate Specific Antigen 1.8 ng/mL (< OR = 4.0); Sodium 140 mmol/L (136-145); Thyroid Stimulating Hormone 3.34 uIU/mL (0.36-3.74); Total Protein 7.7 g/dL (6.4-8.2); Triglycerides 133 mg/dL (0-150)
== END 2022-12-05 08:21 | disposition home or self-care (01) ==
LOC: CHSLAB 08:31
PROVIDERS: PCP Internal Medicine; Visit Provider Internal Medicine
DX: I10 Essential (primary) hypertension (principal); N40.1 Benign prostatic hyperplasia with lower urinary tract symptoms; E11.65 Type 2 diabetes mellitus with hyperglycemia; R53.82 Chronic fatigue, unspecified
CPT/HCPCS: 36415; 80053; 80061; 81001; 83036; 84153; 84439; 84443; 84481; 85025

== ENCOUNTER 2022-12-20 11:02 | Outpatient (CLI) | payer BC, SELFPAY ==
[2022-12-20 11:15] LABS: Immature Reticulocyte Fraction 7.5 % (2.0-16.52); Reticulocyte Hemoglobin Conten 37.5 pg (28.0-35.0); Reticulocytes Absolute 0.09 M/mm3 (0.02-0.1)
[2022-12-20 12:38] LABS: Ferritin 327 ng/mL (26-388); Iron 83 ug/dL (65-175); Vitamin B12 465 pg/mL (193-986)
[2022-12-25 21:13] LABS: Red Blood Cell Folate 683 ng/mL RBC (>280)
== END 2022-12-20 11:03 | disposition home or self-care (01) ==
LOC: CHSLAB 11:03
PROVIDERS: PCP Internal Medicine; Visit Provider Internal Medicine
DX: D64.9 Anemia, unspecified (principal)
CPT/HCPCS: 36415; 82607; 82728; 82747; 83540; 85046

== ENCOUNTER 2022-12-21 11:46 | Outpatient (CLI) | payer BC, SELFPAY ==
[2022-12-21 12:05] LABS: Occult Blood Negative (Negative)
[2022-12-21 12:05] LABS: Occult Blood Negative (Negative)
== END 2022-12-21 11:47 | disposition home or self-care (01) ==
LOC: CHSLAB 11:48
PROVIDERS: PCP Internal Medicine; Visit Provider Internal Medicine
DX: D64.9 Anemia, unspecified (principal)
CPT/HCPCS: 82272

== ENCOUNTER 2023-01-21 11:29 | Outpatient (CLI) | payer BC, SELFPAY ==
[2023-01-21 11:56] LABS: Basophils Absolute Auto 0.04 K/mm3 (0.00-0.10); Basophils Percent Auto 0.6 % (0.0-1.0); Eosinophils Absolute Auto 0.22 K/mm3 (0.02-0.50); Eosinophils Percent Auto 3.3 % (1.0-6.0); Hematocrit 39.3 % (40.0-54.0); Hemoglobin 13.4 g/dL (14.0-18.0); Immature Granulocyte Absolute 0.03 K/mm3 (0.00-0.00); Immature Granulocyte Percent A 0.5 % (0.0-0.0); Lymphocytes Absolute Auto 1.76 K/mm3 (1.10-4.50); Lymphocytes Percent Auto 26.5 % (18.0-42.0); Mean Corpuscular HGB Conc 34.1 g/dL (32.0-36.0); Mean Corpuscular Hemoglobin 34.2 pg (27.0-31.0); Mean Corpuscular Volume 100.3 fL (78.0-102.0); Mean Platelet Volume 10.6 fl (8.7-11.0); Monocytes Absolute Auto 0.82 K/mm3 (0.10-0.90); Monocytes Percent Auto 12.3 % (2.0-11.0); Neutrophils Absolute Auto 3.8 K/mm3 (1.7-7.2); Neutrophils Percent Auto 56.8 % (50.0-70.0); Platelet Count Result 187 K/mm3 (150-420); Red Blood Count 3.92 M/mm3 (4.70-6.10); White Blood Count 6.7 K/mm3 (4.8-10.8)
[2023-01-21 12:47] LABS: Ferritin 396 ng/mL (26-388); Iron 140 ug/dL (65-175)
== END 2023-01-21 11:30 | disposition home or self-care (01) ==
LOC: CHSLAB 11:31
PROVIDERS: PCP Internal Medicine; Visit Provider Internal Medicine
DX: D64.9 Anemia, unspecified (principal)
CPT/HCPCS: 36415; 82728; 83540; 85025

== ENCOUNTER 2023-01-23 14:43 | Outpatient (CLI) | payer BC, SELFPAY ==
--- NOTE | ~2023-01-23 | XR_ITS ---
EXAMINATION: XR chest 2V 01/23/2023 15:06 INDICATION: Cough for 2 weeks PROCEDURE: 2 view chest COMPARISON: Comparison to multiple prior studies sequentially, with oldest reviewed study dated 07/02. FINDINGS: The lungs are clear. The cardiomediastinal silhouette is within normal limits. There are no pleural effusions. There is no pneumothorax suspected. IMPRESSION: 1: NO ACUTE CARDIOPULMONARY DISEASE. Reviewed, dictated and finalized at location L.
[2023-01-23 15:00] LABS: Basophils Absolute Auto 0.04 K/mm3 (0.00-0.10); Basophils Percent Auto 0.5 % (0.0-1.0); Eosinophils Absolute Auto 0.31 K/mm3 (0.02-0.50); Eosinophils Percent Auto 3.9 % (1.0-6.0); Hemoglobin 14.2 g/dL (14.0-18.0); Immature Granulocyte Absolute 0.03 K/mm3 (0.00-0.00); Immature Granulocyte Percent A 0.4 % (0.0-0.0); Lymphocytes Percent Auto 26.4 % (18.0-42.0); Mean Corpuscular HGB Conc 33.8 g/dL (32.0-36.0); Mean Corpuscular Hemoglobin 33.8 pg (27.0-31.0); Mean Platelet Volume 10.3 fl (8.7-11.0); Monocytes Absolute Auto 1.16 K/mm3 (0.10-0.90); Monocytes Percent Auto 14.6 % (2.0-11.0); Neutrophils Absolute Auto 4.3 K/mm3 (1.7-7.2); Neutrophils Percent Auto 54.2 % (50.0-70.0); Platelet Count Result 194 K/mm3 (150-420); Red Cell Distribution Width 12.9 % (11.6-14.4)
[2023-01-23 15:16] LABS: Alanine Aminotransferase 45 U/L (16-63); Albumin Level 3.7 g/dL (3.4-5.0); Alkaline Phosphatase 49 U/L (46-116); Anion Gap 9 mmol/L (8-16); Aspartate Amino Transferase 21 U/L (15-37); Bilirubin,Total 0.2 mg/dL (0.00-1.00); Blood Urea Nitrogen 41 mg/dL (7-18); Calcium 9.2 mg/dL (8.5-10.1); Carbon Dioxide 24 mmol/L (21-32); Chloride 106 mmol/L (98-108); Estimated Glomerular Filt Rate 48; Glucose 127 mg/dL (70-99); Osmolality Calculated 300 mOsm/kg (285-295); Potassium 5.2 mmol/L (3.5-5.1); Sodium 139 mmol/L (136-145); Total Protein 8.5 g/dL (6.4-8.2)
== END 2023-01-23 14:44 | disposition home or self-care (01) ==
LOC: CHSLAB 14:45
PROVIDERS: PCP Internal Medicine; Visit Provider Internal Medicine
DX: R05.9 Cough, unspecified (principal); R06.00 Dyspnea, unspecified
CPT/HCPCS: 36415; 71046; 80053; 85025

== ENCOUNTER 2023-01-31 09:10 | Outpatient (CLI) | payer BC, SELFPAY ==
[2023-01-31 10:24] LABS: Anion Gap 8 mmol/L (8-16); Blood Urea Nitrogen 30 mg/dL (7-18); Carbon Dioxide 26 mmol/L (21-32); Chloride 105 mmol/L (98-108); Estimated Glomerular Filt Rate > 60; Glucose 122 mg/dL (70-99); Osmolality Calculated 295 mOsm/kg (285-295); Potassium 4.7 mmol/L (3.5-5.1); Sodium 139 mmol/L (136-145)
== END 2023-01-31 09:11 | disposition home or self-care (01) ==
PROVIDERS: PCP Internal Medicine; Visit Provider Internal Medicine
DX: E86.0 Dehydration (principal)
CPT/HCPCS: 36415; 80048

== ENCOUNTER 2023-04-17 09:18 | Outpatient (CLI) | payer BC, SELFPAY ==
[2023-04-17 09:37] LABS: Basophils Absolute Auto 0.02 K/mm3 (0.00-0.10); Basophils Percent Auto 0.3 % (0.0-1.0); Eosinophils Percent Auto 6.6 % (1.0-6.0); Hematocrit 42.4 % (40.0-54.0); Hemoglobin 13.8 g/dL (14.0-18.0); Immature Granulocyte Absolute 0.03 K/mm3 (0.00-0.00); Immature Granulocyte Percent A 0.4 % (0.0-0.0); Lymphocytes Absolute Auto 1.81 K/mm3 (1.10-4.50); Lymphocytes Percent Auto 23.8 % (18.0-42.0); Mean Corpuscular HGB Conc 32.5 g/dL (32.0-36.0); Mean Corpuscular Hemoglobin 33.3 pg (27.0-31.0); Mean Corpuscular Volume 102.2 fL (78.0-102.0); Mean Platelet Volume 10.2 fl (8.7-11.0); Monocytes Absolute Auto 0.98 K/mm3 (0.10-0.90); Monocytes Percent Auto 12.9 % (2.0-11.0); Neutrophils Absolute Auto 4.3 K/mm3 (1.7-7.2); Platelet Count Result 176 K/mm3 (150-420); Red Blood Count 4.15 M/mm3 (4.70-6.10); White Blood Count 7.6 K/mm3 (4.8-10.8)
[2023-04-17 10:52] LABS: Anion Gap 10 mmol/L (8-16); Blood Urea Nitrogen 38 mg/dL (7-18); Calcium 8.9 mg/dL (8.5-10.1); Carbon Dioxide 25 mmol/L (21-32); Chloride 109 mmol/L (98-108); Estimated Glomerular Filt Rate 56; Glucose 146 mg/dL (70-99); Osmolality Calculated 310 mOsm/kg (285-295); Potassium 4.9 mmol/L (3.5-5.1); Sodium 144 mmol/L (136-145)
[2023-04-17 10:58] LABS: Hemoglobin A1C 6.5 % (<5.7)
== END 2023-04-17 09:19 | disposition home or self-care (01) ==
LOC: CHSLAB 09:20
PROVIDERS: PCP Internal Medicine; Visit Provider Internal Medicine
DX: D64.0 Hereditary sideroblastic anemia (principal); E11.65 Type 2 diabetes mellitus with hyperglycemia
CPT/HCPCS: 36415; 80048; 83036; 85025

== ENCOUNTER 2023-05-06 10:30 | Outpatient (CLI) | payer BC, SELFPAY ==
--- NOTE | ~2023-05-06 | CT_ITS ---
EXAMINATION: CT lung screening DATE: 05/06/2023 10:44 INDICATION: Personal history of nicotine dependence, prior smoker with 40 to pack year history TECHNIQUE: Computed tomography (CT) of the chest was performed without intravenous contrast. The dose -length product (DLP) was 230.88 mGy-cm. Automated exposure control and iterative reconstruction tech [employer] were employed. COMPARISON: 04/03/2022 FINDINGS: There is mild emphysema. There is a 2 mm nodule of the right lower lobe. The lungs are free of acute opacities. No pleural effusion or pneumothorax. No pathologically enlarged thoracic lymph n odes are identified. The heart size is normal. Bilateral gynecomastia is noted. There is mild thoraci c spondylosis. There is a 6.4 cm fat attenuation mass of the left adrenal gland, consistent with a my elolipoma. IMPRESSION: 1. Lung-RADS category 2: Benign appearance or behavior. Continue annual screening with noncontrast lo w-dose chest CT in 12 months. Reviewed, dictated and finalized at location L. IMPRESSION: 1. Lung-RADS category 2: Benign appearance or behavior. Continue annual screeni ng with noncontrast low-dose chest CT in 12 months.
== END 2023-05-06 10:31 | disposition home or self-care (01) ==
LOC: CHSIMG 10:32
PROVIDERS: PCP Internal Medicine; Visit Provider Internal Medicine
DX: Z12.2 Encounter for screening for malignant neoplasm of respiratory organs (principal); Z87.891 Personal history of nicotine dependence
CPT/HCPCS: 71271

== ENCOUNTER 2023-08-07 10:12 | Outpatient (CLI) | payer BC, SELFPAY ==
--- NOTE | ~2023-08-07 | XR_ITS ---
Right Knee Technique: AP, lateral, and sunrise views were obtained. Clinical History: Pain Findings: No fracture or dislocation is seen. Osseous alignment is anatomic. Minimal spurring at the patella, medial joint line, and intercondylar notch noted. Soft tissues are unremarkable. No joint ef fusion is seen. Impression: Minimal degenerative spurring, as above. Reviewed, dictated and finalized at location . WASHER Impression: Minimal degenerative spurring, as above.
[2023-08-07 10:28] LABS: Basophils Absolute Auto 0.04 K/mm3 (0.00-0.10); Basophils Percent Auto 0.8 % (0.0-1.0); Eosinophils Absolute Auto 0.29 K/mm3 (0.02-0.50); Eosinophils Percent Auto 5.5 % (1.0-6.0); Hematocrit 41.2 % (40.0-54.0); Hemoglobin 13.9 g/dL (14.0-18.0); Immature Granulocyte Absolute 0.02 K/mm3 (0.00-0.00); Immature Granulocyte Percent A 0.4 % (0.0-0.0); Lymphocytes Absolute Auto 1.26 K/mm3 (1.10-4.50); Lymphocytes Percent Auto 23.9 % (18.0-42.0); Mean Corpuscular HGB Conc 33.7 g/dL (32.0-36.0); Mean Corpuscular Hemoglobin 34.1 pg (27.0-31.0); Mean Platelet Volume 10.1 fl (8.7-11.0); Monocytes Absolute Auto 0.66 K/mm3 (0.10-0.90); Monocytes Percent Auto 12.5 % (2.0-11.0); Neutrophils Percent Auto 56.9 % (50.0-70.0); Platelet Count Result 159 K/mm3 (150-420); Red Blood Count 4.08 M/mm3 (4.70-6.10); Red Cell Distribution Width 12.8 % (11.6-14.4); White Blood Count 5.3 K/mm3 (4.8-10.8)
[2023-08-07 10:31] LABS: Appearance Urine Clear (Clear); Bilirubin Urine Negative (Negative); Blood Urine Trace-Intact (Negative); Color Urine Yellow (Yellow); Glucose Urine UA 1+ (Negative); Ketones Urine Negative (Negative); Leukocyte Esterase Ur Negative (Negative); Nitrate Urine Negative (Negative); Protein Urine 1+ (Negative); Specific Grav Ur 1.015 (1.010-1.020); Urobilinogen Urine 0.2 mg/dL (0.2-1.0); pH Urine 6.5 (5.0-8.0)
[2023-08-07 10:42] LABS: Add Urine Microscopic? YES; Bacteria Urine Rare /hpf; RBC Urine None seen /hpf (0-2); Squamous Epithelial Cell Urine Occasional /hpf (Few); WBC Urine None seen /hpf (0-3)
[2023-08-07 10:53] LABS: Creatinine Urine 91.12 mg/dL (40-278)
[2023-08-07 10:54] LABS: MALB Creatinine Ratio 242.3 mg/g (0-30); Microalbumin Urine Random 220.8 mg/L
[2023-08-07 10:56] LABS: Hemoglobin A1C 6.2 % (<5.7)
[2023-08-07 12:30] LABS: Erythrocyte Sedimentation Rate 44 mm/hr (0-20)
[2023-08-07 12:37] LABS: Alanine Aminotransferase 38 U/L (16-63); Albumin Level 3.5 g/dL (3.4-5.0); Alkaline Phosphatase 49 U/L (46-116); Anion Gap 6 mmol/L (8-16); Aspartate Amino Transferase 25 U/L (15-37); Bilirubin,Total 0.3 mg/dL (0.00-1.00); Blood Urea Nitrogen 26 mg/dL (7-18); CRP 0.5 mg/dL (0.0-0.9); Calcium 8.8 mg/dL (8.5-10.1); Carbon Dioxide 28 mmol/L (21-32); Chloride 102 mmol/L (98-108); Estimated Glomerular Filt Rate 55; Glucose 186 mg/dL (70-99); Osmolality Calculated 291 mOsm/kg (285-295); Potassium 4.5 mmol/L (3.5-5.1); Sodium 136 mmol/L (136-145); Total Protein 7.5 g/dL (6.4-8.2)
== END 2023-08-07 10:13 | disposition home or self-care (01) ==
LOC: CHSIMG 10:15
PROVIDERS: PCP Internal Medicine; Visit Provider Internal Medicine
DX: E79.0 Hyperuricemia without signs of inflammatory arthritis and tophaceous disease (principal); E11.65 Type 2 diabetes mellitus with hyperglycemia; E78.2 Mixed hyperlipidemia
CPT/HCPCS: 36415; 73564; 80053; 81001; 82043; 83036; 84550; 85025; 85652; 86140

== ENCOUNTER 2023-09-08 09:57 | Outpatient (CLI) | payer BC, SELFPAY ==
[2023-09-08 10:14] LABS: Appearance Urine Clear (Clear); Bilirubin Urine Negative (Negative); Color Urine Light Yellow (Yellow); Glucose Urine UA Negative (Negative); Ketones Urine Negative (Negative); Leukocyte Esterase Ur Negative LEU/UL (Negative); Nitrate Urine Negative (Negative); Protein Urine Trace (Negative); Urobilinogen Urine 0.2 mg/dL (0.2-1.0)
[2023-09-08 10:18] LABS: Add Urine Microscopic? YES; Bacteria Urine Trace /hpf; Blood Urine Trace-lysed (Negative); RBC Urine None seen /hpf (0-2); WBC Urine None seen /hpf (0-3)
[2023-09-08 10:59] LABS: Anion Gap 11 mmol/L (8-16); Blood Urea Nitrogen 37 mg/dL (7-18); Calcium 9.3 mg/dL (8.5-10.1); Carbon Dioxide 25 mmol/L (21-32); Chloride 104 mmol/L (98-108); Estimated Glomerular Filt Rate 55; Glucose 147 mg/dL (70-99); Osmolality Calculated 301 mOsm/kg (285-295); Potassium 4.2 mmol/L (3.5-5.1); Sodium 140 mmol/L (136-145)
== END 2023-09-08 09:58 | disposition home or self-care (01) ==
LOC: CHSLAB 09:59
PROVIDERS: PCP Internal Medicine; Visit Provider Internal Medicine
DX: E86.0 Dehydration (principal); N39.0 Urinary tract infection, site not specified
CPT/HCPCS: 36415; 80048; 81001

== ENCOUNTER 2023-10-28 14:26 | Outpatient (CLI) | payer BC, SELFPAY ==
[2023-10-28 15:28] LABS: Anion Gap 12 mmol/L (8-16); Blood Urea Nitrogen 29 mg/dL (7-18); Calcium 9.1 mg/dL (8.5-10.1); Carbon Dioxide 25 mmol/L (21-32); Chloride 102 mmol/L (98-108); Estimated Glomerular Filt Rate 55; Glucose 88 mg/dL (70-99); Osmolality Calculated 292 mOsm/kg (285-295); Potassium 4.4 mmol/L (3.5-5.1); Sodium 139 mmol/L (136-145)
== END 2023-10-28 14:27 | disposition home or self-care (01) ==
LOC: CHSLAB 14:27
PROVIDERS: PCP Internal Medicine; Visit Provider Internal Medicine
DX: I10 Essential (primary) hypertension (principal)
CPT/HCPCS: 36415; 80048

== ENCOUNTER 2023-12-05 10:38 | Outpatient (CLI) | payer BC, SELFPAY ==
[2023-12-05 10:58] LABS: Hematocrit 44.4 % (37.0-46.0); Hemoglobin 14.8 g/dL (12.4-15.3); Mean Corpuscular HGB Conc 33.3 g/dL (32-36); Mean Corpuscular Hemoglobin 33.1 pg (27.0-31.0); Mean Corpuscular Volume 99.3 fL (78.0-102.0); Platelet Count Result 184 K/mm3 (150-420); Red Blood Count 4.47 M/mm3 (4.70-6.10); Red Cell Distribution Width 13.2 % (11.6-14.4); White Blood Count 6.9 K/mm3 (4.8-10.8)
[2023-12-05 11:00] LABS: Appearance Urine Clear (Clear); Bilirubin Urine Negative (Negative); Blood Urine Negative (Negative); Color Urine Yellow (Yellow); Glucose Urine UA Negative (Negative); Ketones Urine Negative (Negative); Leukocyte Esterase Ur Negative (Negative); Nitrate Urine Negative (Negative); Protein Urine 1+ (Negative); Specific Grav Ur 1.025 (1.010-1.020); Urobilinogen Urine 0.2 mg/dL (0.2-1.0)
[2023-12-05 11:06] LABS: Add Urine Microscopic? NO; Bacteria Urine None seen /hpf; RBC Urine None seen /hpf (0-2); WBC Urine None seen /hpf (0-3)
[2023-12-05 11:54] LABS: Alanine Aminotransferase 36 U/L (16-63); Albumin Level 3.7 g/dL (3.4-5.0); Alkaline Phosphatase 52 U/L (46-116); Anion Gap 11 mmol/L (4-12); Aspartate Amino Transferase 20 U/L (15-37); Bilirubin,Total 0.4 mg/dL (0.00-1.00); Blood Urea Nitrogen 30 mg/dL (7-18); Carbon Dioxide 24 mmol/L (21-32); Chloride 104 mmol/L (98-108); Cholesterol 153 mg/dL (0-200); Creatine Kinase 53 U/L (39-308); Estimated Glomerular Filt Rate > 60; Ferritin 295 ng/mL (26-388); Free T3 3.58 pg/mL (2.18-3.98); Glucose 129 mg/dL (70-99); HDL Direct 49 mg/dL (40-60); Iron 98 ug/dL (65-175); LDL Cholesterol Calculated 75 mg/dL (<130); Osmolality Calculated 296 mOsm/kg (285-295); Potassium 4.5 mmol/L (3.5-5.1); Prostate Specific Antigen 2.8 ng/mL (< OR = 4.0); Sodium 139 mmol/L (136-145); Thyroid Stimulating Hormone 3.25 uIU/mL (0.36-3.74); Total Protein 7.5 g/dL (6.4-8.2); Triglycerides 143 mg/dL (0-150); Uric Acid 6.3 mg/dL (3.5-7.2)
[2023-12-06 17:49] LABS: Basophils Absolute Auto 0.05 K/mm3 (0.00-0.10); Basophils Percent Auto 0.7 % (0.0-1.0); Eosinophils Absolute Auto 0.35 K/mm3 (0.02-0.50); Eosinophils Percent Auto 5.2 % (1.0-6.0); Free T4 Free Thyroxine 0.97 ng/dL (0.76-1.46); Immature Granulocyte Absolute 0.04 K/mm3 (0.00-0.00); Immature Granulocyte Percent A 0.6 % (0.0-0.0); Lymphocytes Absolute Auto 1.69 K/mm3 (1.10-4.50); Lymphocytes Percent Auto 25.1 % (18.0-42.0); Monocytes Absolute Auto 0.73 K/mm3 (0.10-0.90); Monocytes Percent Auto 10.8 % (2.0-11.0); Neutrophils Absolute Auto 3.88 K/mm3 (1.70-7.20); Neutrophils Percent Auto 57.6 % (50.0-70.0)
== END 2023-12-05 10:39 | disposition home or self-care (01) ==
LOC: CHSLAB 10:44
PROVIDERS: PCP Internal Medicine; Visit Provider Internal Medicine
DX: I10 Essential (primary) hypertension (principal); E78.2 Mixed hyperlipidemia; E11.9 Type 2 diabetes mellitus without complications; D86.9 Sarcoidosis, unspecified; N18.2 Chronic kidney disease, stage 2 (mild)
CPT/HCPCS: 36415; 80053; 80061; 81003; 82550; 82728; 83540; 84153; 84439; 84443; 84481; 84550; 85025; 85027; G0103

== ENCOUNTER 2024-05-25 10:23 | Outpatient (CLI) | payer BC, SELFPAY ==
[2024-05-25 10:46] LABS: Mean Corpuscular HGB Conc 34.1 g/dL (32-36); Mean Corpuscular Hemoglobin 33.6 pg (27.0-31.0); Mean Corpuscular Volume 98.3 fL (78.0-102.0); Mean Platelet Volume 9.7 fl (8.7-11.0); Platelet Count Result 155 K/mm3 (150-420); Red Blood Count 4.17 M/mm3 (4.70-6.10); Red Cell Distribution Width 13.2 % (11.6-14.4); White Blood Count 6.9 K/mm3 (4.8-10.8)
[2024-05-25 10:47] LABS: Add Urine Microscopic? YES; Appearance Urine Clear (Clear); Bilirubin Urine Negative (Negative); Blood Urine Negative (Negative); Color Urine Light Yellow (Yellow); Glucose Urine UA Negative (Negative); Ketones Urine Negative (Negative); Leukocyte Esterase Ur Negative (Negative); Nitrate Urine Negative (Negative); Protein Urine 2+ (Negative); Specific Grav Ur 1.025 (1.010-1.020); Urobilinogen Urine 0.2 mg/dL (0.2-1.0); pH Urine 6.5 (5.0-8.0)
[2024-05-25 10:56] LABS: Bacteria Urine Trace /hpf; RBC Urine None seen /hpf (0-2); Squamous Epithelial Cell Urine Occasional /hpf (Few); WBC Urine None seen /hpf (0-3)
[2024-05-25 11:29] LABS: Band Neutrophils Percent 0 % (0-6); Eosinophils Absolute Manual 0.69 K/mm3 (0.02-0.50); Eosinophils Percent Manual 10 % (1-6); Lymphocytes Absolute Manual 1.86 K/mm3 (1.1-4.5); Lymphocytes Percent Manual 27 % (18-44); Monocytes Absolute Manual 0.89 K/mm3 (0.1-0.90); Monocytes Percent Manual 13 % (3-9); Neutrophils Absolute Manual 3.45 K/mm3 (1.3-6.7); Neutrophils Percent Manual 50 % (46-73); Platelet Estimate Adequate (Adequate); Total Cells Counted 100
[2024-05-25 12:47] LABS: Alanine Aminotransferase 34 U/L (16-63); Albumin Level 3.4 g/dL (3.4-5.0); Alkaline Phosphatase 42 U/L (46-116); Anion Gap 6 mmol/L (4-12); Aspartate Amino Transferase 23 U/L (15-37); Bilirubin,Total 0.4 mg/dL (0.00-1.00); Blood Urea Nitrogen 23 mg/dL (7-18); Calcium 8.9 mg/dL (8.5-10.1); Carbon Dioxide 30 mmol/L (21-32); Chloride 101 mmol/L (98-108); Cholesterol 153 mg/dL (0-200); Creatine Kinase 74 U/L (39-308); Estimated Glomerular Filt Rate 57; Free T3 3.35 pg/mL (2.18-3.98); Free T4 Free Thyroxine 0.96 ng/dL (0.76-1.46); Glucose 124 mg/dL (70-99); HDL Direct 49 mg/dL (40-60); LDL Cholesterol Calculated 84 mg/dL (<130); Osmolality Calculated 288 mOsm/kg (285-295); Potassium 4.3 mmol/L (3.5-5.1); Sodium 137 mmol/L (136-145); Thyroid Stimulating Hormone 2.03 uIU/mL (0.36-3.74); Total Protein 7.2 g/dL (6.4-8.2); Triglycerides 101 mg/dL (0-150)
== END 2024-05-25 10:24 | disposition home or self-care (01) ==
LOC: CHSLAB 10:25
PROVIDERS: PCP Internal Medicine; Visit Provider Internal Medicine
DX: E79.0 Hyperuricemia without signs of inflammatory arthritis and tophaceous disease (principal); I10 Essential (primary) hypertension; E78.2 Mixed hyperlipidemia; E11.42 Type 2 diabetes mellitus with diabetic polyneuropathy; L20.84 Intrinsic (allergic) eczema
CPT/HCPCS: 36415; 80053; 80061; 81001; 82550; 84439; 84443; 84481; 85025

== ENCOUNTER 2024-06-09 13:24 | Outpatient (CLI) | payer BC, SELFPAY ==
--- NOTE | ~2024-06-09 | CT_ITS ---
EXAMINATION:CT lung screening DATE: 06/09/2024 13:47 INDICATION: Personal history of nicotine dependence. TECHNIQUE: Computed tomography (CT) of the chest was performed without intravenous contrast. Automate d exposure control and iterative reconstruction technique were employed. The dose-length product (DLP ) was 176.19 mGy-cm. COMPARISON: Chest CT 05/06/2023 FINDINGS: There is mild emphysema. There is a 2 mm nodule in left upper lobe. No pleural effusion. Th e heart size is normal. No pericardial effusion. There are calcifications of the aortic valve. There is a 6.2 cm mass containing fat in left adrenal gland, consistent with a myelolipoma. There is mild t horacic spondylosis. IMPRESSION: 1. Lung-RADS category 2: Benign appearance or behavior. Continue annual screening with noncontrast lo w-dose chest CT in 12 months. Reviewed, dictated and finalized at location A. IMPRESSION: 1. Lung-RADS category 2: Benign appearance or behavior. Continue annual screeni ng with noncontrast low-dose chest CT in 12 months.
== END 2024-06-09 13:25 | disposition home or self-care (01) ==
LOC: CHSIMG 13:25
PROVIDERS: PCP Internal Medicine; Visit Provider Internal Medicine
DX: Z12.2 Encounter for screening for malignant neoplasm of respiratory organs (principal); Z87.891 Personal history of nicotine dependence
CPT/HCPCS: 71271

== ENCOUNTER 2024-09-02 11:07 | Outpatient (CLI) | payer BC, MEDICARE, SELFPAY ==
[2024-09-02 12:36] LABS: Alanine Aminotransferase 26 U/L (16-63); Aspartate Amino Transferase 15 U/L (15-37)
== END 2024-09-02 11:08 | disposition home or self-care (01) ==
PROVIDERS: PCP Internal Medicine; Visit Provider Internal Medicine
DX: Z79.899 Other long term (current) drug therapy (principal)
CPT/HCPCS: 36415; 84450; 84460

== ENCOUNTER 2024-10-30 09:27 | Outpatient (CLI) | payer BC, MEDICARE, SELFPAY ==
[2024-10-30 09:47] LABS: Basophils Absolute Auto 0.05 K/mm3 (0.00-0.10); Basophils Percent Auto 0.6 % (0.0-1.0); Eosinophils Absolute Auto 0.73 K/mm3 (0.02-0.50); Eosinophils Percent Auto 9.3 % (1.0-6.0); Hematocrit 41.9 % (37.0-46.0); Hemoglobin 13.8 g/dL (12.4-15.3); Immature Granulocyte Absolute 0.03 K/mm3 (0.00-0.00); Immature Granulocyte Percent A 0.4 % (0.0-0.0); Lymphocytes Absolute Auto 1.91 K/mm3 (1.10-4.50); Lymphocytes Percent Auto 24.2 % (18.0-42.0); Mean Corpuscular HGB Conc 32.9 g/dL (32-36); Mean Corpuscular Hemoglobin 32.9 pg (27.0-31.0); Mean Corpuscular Volume 99.8 fL (78.0-102.0); Mean Platelet Volume 10.2 fl (8.7-11.0); Monocytes Absolute Auto 1.01 K/mm3 (0.10-0.90); Monocytes Percent Auto 12.8 % (2.0-11.0); Neutrophils Absolute Auto 4.15 K/mm3 (1.70-7.20); Neutrophils Percent Auto 52.7 % (50.0-70.0); Platelet Count Result 193 K/mm3 (150-420); Red Cell Distribution Width 13.3 % (11.6-14.4); White Blood Count 7.9 K/mm3 (4.8-10.8)
[2024-10-30 09:56] LABS: Add Urine Microscopic? YES; Appearance Urine Clear (Clear); Bacteria Urine Rare /hpf; Bilirubin Urine Negative (Negative); Blood Urine Trace-intact (Negative); Color Urine Light Yellow (Yellow); Glucose Urine UA Negative (Negative); Ketones Urine Negative (Negative); Leukocyte Esterase Ur Negative (Negative); Nitrate Urine Negative (Negative); Protein Urine 2+ (Negative); RBC Urine None seen /hpf (0-2); Specific Grav Ur 1.025 (1.010-1.020); Urobilinogen Urine 0.2 mg/dL (0.2-1.0); WBC Urine None seen /hpf (0-3); pH Urine 5.5 (5.0-8.0)
[2024-10-30 10:15] LABS: Creatinine Urine 129.55 mg/dL (40-278)
[2024-10-30 10:16] LABS: MALB Creatinine Ratio 308.7 mg/g (0-30); Microalbumin Urine Random > 400.0 mg/L
[2024-10-30 10:50] LABS: Alanine Aminotransferase 31 U/L (16-63); Albumin Level 3.5 g/dL (3.4-5.0); Alkaline Phosphatase 56 U/L (46-116); Anion Gap 11 mmol/L (4-12); Aspartate Amino Transferase 25 U/L (15-37); Bilirubin,Total 0.3 mg/dL (0.00-1.00); Blood Urea Nitrogen 26 mg/dL (7-18); Calcium 9.1 mg/dL (8.5-10.1); Carbon Dioxide 29 mmol/L (21-32); Chloride 103 mmol/L (98-108); Cholesterol 141 mg/dL (0-200); Creatine Kinase 82 U/L (39-308); Estimated Glomerular Filt Rate > 60; Free T4 Free Thyroxine 0.83 ng/dL (0.76-1.46); Glucose 122 mg/dL (70-99); HDL Direct 47 mg/dL (40-60); LDL Cholesterol Calculated 78 mg/dL (<130); Osmolality Calculated 301 mOsm/kg (285-295); Potassium 4.1 mmol/L (3.5-5.1); Prostate Specific Antigen 2.1 ng/mL (< OR = 4.0); Sodium 143 mmol/L (136-145); Thyroid Stimulating Hormone 2.16 uIU/mL (0.36-3.74); Total Protein 7.3 g/dL (6.4-8.2); Triglycerides 81 mg/dL (0-150); Uric Acid 6.7 mg/dL (3.5-7.2)
== END 2024-10-30 09:28 | disposition home or self-care (01) ==
LOC: CHSLAB 09:31
PROVIDERS: PCP Internal Medicine; Visit Provider Nurse Practitioner Family
DX: I10 Essential (primary) hypertension (principal); E78.2 Mixed hyperlipidemia; E79.0 Hyperuricemia without signs of inflammatory arthritis and tophaceous disease; J31.0 Chronic rhinitis; R53.82 Chronic fatigue, unspecified
CPT/HCPCS: 36415; 80053; 80061; 81001; 82043; 82550; 84153; 84439; 84443; 84550; 85025; G0103

== ENCOUNTER 2024-11-18 12:43 | Outpatient (CLI) | payer BC, MEDICARE, SELFPAY ==
--- NOTE | ~2024-11-18 | US_ITS ---
EXAMINATION: US carotid duplex BI DATE: 11/18/2024 13:28 INDICATION: Right carotid bruit TECHNIQUE: Grayscale, color Doppler, and pulsed Doppler images of the cervical carotid arteries were obtained. The degree of vessel stenosis is placed in one of the following categories: normal, <50%, 5 0-69%, >=70% but less than near-occlusion, near-occlusion, or total occlusion. Note that percent sten osis relative to normal distal artery lumen diameter is indirectly measured from velocity measurement s as described by Familia, et al. Radiology 2003; 229:340-346. Notes: Normal: Peak systolic velocity <125 centimeters/sec and no plaque <50%. Peak systolic velocity <125 ( EDV <40; ICA/CCA PSV ratio <2.0; used these factors only a tandem lesions or low cardiac output or co ntralateral disease) 50-69 %: PSV 125-230 (EDV 40-100; ratio 2-4) >= 70% but less than near occlusion: PSV greater than 230 (EDV > 100; ratio> 4.0) Near Occlusion: PSV that is variable; markedly narrowed lumen Occlusion: Absent flow on color/spectral Doppler and no lumen on jones scale. COMPARISON: None. FINDINGS: RIGHT: The right common carotid artery (CCA) peak systolic velocity (PSV) is 92 cm/s. The right internal car otid artery (ICA) PSV is 98 cm/s. The right ICA end-diastolic velocity (EDV) is 13 cm/s. The right IC A/CCA PSV ratio is 1.1. The external carotid artery (ECA) PSV is 116 cm/s. There is antegrade flow in the right vertebral artery. LEFT: The left CCA PSV is 113 cm/s. The left ICA PSV is 127 cm/s. The left ICA EDV is 48 cm/s. The left ICA /CCA PSV ratio is 1.1. The ECA PSV is 111 cm/s. There is antegrade flow in the left vertebral artery . IMPRESSION: 1. Less than 50% stenosis in the right internal carotid artery by sonographic criteria. 2. 50-69% stenosis in the left internal carotid artery by sonographic criteria. Reviewed, dictated and finalized at location B. IMPRESSION: 1. Less than 50% stenosis in the right internal carotid artery by sonographic c riteria. 2. 50-69% stenosis in the left internal carotid artery by sonographic criteria.
--- NOTE | ~2024-11-18 | US_ITS ---
EXAMINATION: US arterial ankle brachial ind DATE: 11/18/2024 13:27 INDICATION: Peripheral arterial occlusive disease TECHNIQUE: Segmental pressures and plethysmographic and Doppler waveforms of the brachial and lower e xtremity arteries were obtained. COMPARISON: None. FINDINGS: Right and left brachial artery pressures of 174 mm Hg and 183 mm Hg, respectively, are concordant (no rmal difference <= 30 mmHg). The right ankle-brachial index (CESAR) is 1.17 (normal >= 0.9-1.0). The right great toe-brachial index (TBI) is 0.90 (normal >= 0.65). Arterial Doppler waveforms are triphasic with brisk systolic upstroke s at both right posterior tibial and dorsalis pedis arteries. The left CESAR is 1.15. The left TBI is 0.81. Arterial Doppler waveforms are triphasic at the left post erior tibial artery and biphasic at the left dorsalis pedis artery, both with brisk systolic upstroke s. IMPRESSION: 1. No significant arterial occlusive disease to either lower limb with normal bilateral ABIs and TBIs . Reviewed, dictated and finalized at location A. IMPRESSION: 1. No significant arterial occlusive disease to either lower limb with normal b ilateral ABIs and TBIs.
--- OUTSIDE RECORDS SUMMARY | 2024-11-18 13:05 | XMS_ITS | Clinical Summary ---
Author Organization [facility] Address [address] [place] [address] Care Team Providers Care Assembly Manager Name Role Phone Unavailable Primary Care Provider Unavailabl e Source Comments [facility],non-owned Affiliates and Associated Physician Practices is amultiple site organization consisting of ambulatory clinics and hospital sitesin [place], [place]. This disclosure is being madepursuant to the Care Everywhere program and may not contain all information available regarding this patient. Last updated 18.[facility] [employer] Social History Tobacco Use Types Packs/Day Years Used Date Smoking Tobacco: Never Assessed Sex and Gender Information Value Date Recorded Sex Assigned at Not on file Gender Identity Not on file Sexual Orientation Not on file Plan of Treatment Health Maintenance Due Date Last Done Comments COLOGUARD (AGES 45-75) - COL ON CA SCREENING 1960 COLON MONITORING 1960 COLONOSCOPY - COLON CA SCREENING 1960 CT COLONOGRAPHY - COLON CA SCREENING 1960 Colorectal Cancer Screening 1960 FIT - COLON CA SCREENING 1960 FLEX SIG - COLON CA SCREENING 1960 LIPID TESTING 1960 HIV SCREENING 1973 HEPATITIS C SCREENING 10/29/1976 DTAP/TDAP/TD VACCINES (1 - Tdap) 1977 PNEUMOCOCCAL VACCINE 50+ (1 of 1 - PCV) 2008 ZOSTER VACCINE (1 of 2) 2008 COVID-19 VACCINE ( - 2023-2 5 season) 2024 INFLUENZA VACCINE (#1) 2024 DEPRESSION SCREENING 09/01/2024 Respiratory Syncytial Virus (RSV) Vaccine Pt: or over 60 yrs (1 - 1-dose 75+ series) 2033 HEPATITIS B VACCINE Aged Out No longe r eligible based on patient's age to complete this topic HIB VACCINE Aged Out No longer eligi ble based on patient's age to complete this topic HPV VACCINE Aged Out No longer eligi ble based on patient's age to complete this topic MENINGOCOCCAL (Group B) VACC INE SHARED DECISION-MAKING Aged Out No longer eligibl e based on patient's age to complete this topic MENINGOCOCCAL GROUPS A/C/Y/W VACCINE Aged Out No longer eligible b ased on patient's age to complete this topic
--- OUTSIDE RECORDS SUMMARY | 2024-11-18 13:05 | XMS_ITS | Clinical Summary ---
Author Organization [facility] Address [address] [place] [address] Care Team Providers Care Job Compositor Name Role Phone Mitra Garcia MD Primary Care Provider [phone] Allergies No known active allergies Medications fenofibrate (TRIGLIDE) 160 mg tablet Take 1 tablet (160 mg total) by mouth daily 1 Active meloxicam (MOBIC) 15 mg tablet Take 1 tablet (15 mg total) by mouth daily 1 Active tamsulosin (FLOMAX) 0.4 mg extended release capsule Take 1 capsule (0.4 mg total) by mouth daily 1 Active allopurinoL (ZYLOPRIM) 100 mg tablet Take 1 tablet (100 mg total) by mouth daily Active lisinopril-hyd roCHLOROthiazi de (ZESTORETIC) 20-12.5 mg per tabletIndicati ons:hypertensi on Take 1 tablet by mouth daily Active aspirin 81 mg enteric coated tablet Take 1 tablet (81 mg total) by mouth daily Active diltiaZEM CD (CARDIZEM CD) 360 mg 24 hr capsule 3 Active indapamide (LOZOL) 2.5 mg tablet 3 Active FreeStyle Mary 3 Sensor deviceIndicati ons:Type 2 diabetes mellitus with microalbuminur ia, with long-term current use of insulin (HCC) One sensor every 14 days 2 each 11 4 Active insulin glargine (SEMGLEE-yfgn) 100 unit/mL (3 mL) pen for injection Inject 40 Units under the skin nightly 45 mL 2 4 Active albuterol HFA (PROVENTIL HFA,VENTOLIN HFA,PROAIR HFA) 90 mcg/actuation inhaler 4 Active carvediloL (COREG) 25 mg tablet 4 Active clotrimazole-b etamethasone (LOTRISONE) cream 1 Application every 12 hours 4 Active Trelegy Ellipta 100-62.5-25 mcg inhaler 4 Active Monovisc 88 mg/4 mL syringe 4 Active lisinopriL (PRINIVIL,ZEST RIL) 40 mg tablet 4 Active BD Leah 2nd Gen Pen Needle 32 gauge x 5/32 needle 4 Active zolpidem (AMBIEN) 5 mg tablet 4 Active indapamide (LOZOL) 1.25 mg tablet 4 Active blood-glucose sensor device One sensor every 14 days 2 each 11 4 Active atorvastatin (LIPITOR) 20 mg tabletIndicati ons:Hyperlipid emia associated with type 2 diabetes mellitus (HCC) TAKE ONE TABLET BY MOUTH BEDTIME 90 tablet 3 5 Active HumaLOG 100 unit/mL pen for injection INJECT 15 UNITS UNDER THE SKIN 3 (THREE) TIMES A DAY WITH MEALS SLIDING SCALE 15 mL 3 5 Active fluticasone propionate (FLONASE) 50 mcg/actuation nasal spray 5 Active ipratropium (ATROVENT) 42 mcg (0.06 %) nasal spray 5 Active terbinafine (LamiSIL) 250 mg tablet 4 Active zolpidem CR (AMBIEN CR) 12.5 mg CR tablet 5 Active tirzepatide (Mounjaro) 2.5 mg/0.5 mL pen injector injectionIndic ations:type 2 diabetes mellitus Inject 0.5 mL (2.5 mg total) under the skin once a week 2 mL 11 5 10/18/19 26 Active LANTUS 100 unit/mL (3 mL) pen for injection Inject 40 Units under the skin With main meal 1 09/17/19 24 Discontin ued(Thera py completed ) Active Problems Patient Care Coordination No te Formatting of this note migh t be different from the original. Referring provider: Dr. Mitra Garcia Mr. Sydney Veloz is a 60-year-old with a lung nodule. The patient initially presented scented with symptoms of hemoptysis and right midsternal chest pain. On 03/26/2021 the patient underwent a chest CT with IV contrast which noted a new 2-3 mm opacity in the left upper lobe superior segmental bronchus. This was new compared to the prior study. This could be a small amount of debris but early bronchogenic carcinoma as possible. Patient is a former smoker who quit in July 2019. He has a history of a DVT in the past. Problem Noted Date Diagnosed Date Type 2 diabetes mellitus wit h microalbuminuria, with long-term current use of insulin 09/17/2023 Assessment & Plan (10/18/2024 1:34 PM PERINATAL EDUCATOR): Chronic problem. A1c improved from 6.1% 08/07/04/07/2423 to now 5.7% without hypoglycemia. Would like to switch back to Mounjaro for weight loss. Will finish out his Trulicity & then switch to Mounjaro. Will send me a mychart after week 2 or 3 to see if he wants to stay at 2.5mg or increase to 5mg. Reviewed GI symptoms as possibility. May need to start decreasin insulin once Mounjaro started. -If lows overnight: decrease lantus by 2 units weekly. -If lows after meals: decrease humalog (depending on blood sugar). May need 5 units lower depending on carb intake. Current medications: Mounjaro 2.5mg weekly Semglee 40 units daily Humalog 15 units with meals DM eye exam (09/2023). Has appt 10/25/24 at [facility]. Letter sent to get copy of report. Will update labs. Does not mychart. Verified phone #/address to contact re: results. Discussed with Sydney Veloz: Strive for regular exercise (30min most days) and diet (get at least 4-5 servings of fruit and veggies daily, avoid processed foods, increase lean protein intake and decrease carb portions as well as fruit juices, regular soda & desserts). Watch carbs and simple sugars. Check the blood sugar: Freestyle mary 3. Check the feet daily for skin breakdown and infection. Assessment & Plan (04/07/2024 3:02 PM CDT): Chronic problem. A1c improved from 6.2% 08/07/23 to now 6.1%. Decrease Semglee 2 units weekly if you're having consistent lows. Current medications: Trulicity 1.5mg weekly Semglee 40 units daily Humalog 15 units with meals UTD on DM eye exam (09/2023) UTD on labs. Discussed with Sydney Veloz: Strive for regular exercise (30min most days) and diet (get at least 4-5 servings of fruit and veggies daily, avoid processed foods, increase lean protein intake and decrease carb portions as well as fruit juices, regular soda & desserts). Watch carbs and simple sugars. Check the blood sugar: Freestyle mary 3. Check the feet daily for skin breakdown and infection. Assessment & Plan (09/17/2023 10:44 AM PERINATAL EDUCATOR): Chronic, overall well controlled A1c 6.2% Counseled on diet and exercise Advised to increase healthy lifestyle habits Patient willing to try GLP 1 agonist therapy Start Mounjaro 2.5 mg subQ weekly for 4 weeks then increase to 5 mg subQ weekly ( discussed about mechanism of action, side effects, benefits ) Also send prescription for freestyle Mary 3 sensor Advised to cutback on insulin doses to keep his blood sugars between 90-130 range Labs up to date Will try to obtain patient last eye exam Advised to see electromechanical engineer Follow-up in 6 months Hyperlipidemia associated with type 2 diabetes delilah hinojosa 09/17/2023 Assessment & Plan (10/18/2024 1:09 PM PERINATAL EDUCATOR): Chronic problem. Controlled on current Atorvastatin 20mg & fenofibrate 160mg. Last lipid panel: 08/07/23 LDL=>160, MK=489. Will update labs. Does not mychart. Verified phone #/address to contact re: results. Assessment & Plan (04/07/2024 2:48 PM CDT): Chronic problem. Controlled on current Atorvastatin 20mg & fenofibrate 160mg. Last lipid panel: 08/07/23 LDL=>160, ZB=397. Assessment & Plan (09/17/2023 10:43 AM PERINATAL EDUCATOR): Start pt on statin therapy Continue Fenofibrate Hypertension associated with diabetes 09/17/2023 Assessment & Plan (10/18/2024 1:08 PM PERINATAL EDUCATOR): Chronic problem. Controlled on current lisinopril 40mg daily, diltiazem CD 360mg daily, lozol 2.5mg daily, carvedilol 25mg bid Will update labs. Does not mychart. Verified phone #/address to contact re: results. Assessment & Plan (04/07/2024 2:47 PM CDT): Chronic problem. Controlled on current lisinopril-HCTZ 20-12.5mg daily, diltiazem CD 360mg daily, lozol 2.5mg daily Assessment & Plan (09/17/2023 10:43 AM PERINATAL EDUCATOR): Chronic, well controlled Continue lisinopril/hydrochlorothiazide Class 1 obesity due to exces s calories with serious comorbidity and body mass index (BMI) of 34.0 to 34.9 in adult 09/17/2023 Assessment & Plan (09/17/2023 10:43 AM PERINATAL EDUCATOR): Chronic, progressively worsening Counseled on diet and exercise Hemoptysis 04/06/2021 Overview (04/06/2021): Added automatically from request for surgery [id number] Encounters Date Type Department Care Team Description 11/02/2024 Results Follow-Up [facility] Medical [facility] Diabetes and Endocrinology [address] [place] [phone] Fely Faust NP 10/22/2024 Telephone [facility] Diabetes and Endocrinology [address] [place] [phone] Fely Faust NP Prior Auth ([place]) 10/18/2024 1:00 PM PERINATAL EDUCATOR Office Visit [facility] Diabetes and Endocrinology [address] [place] [phone] Fely Faust NP Type 2 diabetes mellitus with microalbuminuria, with long-term current use of insulin (HCC) (Primary Dx); Hypertension associated with diabetes (HCC); Hyperlipidemia associated with type 2 diabetes mellitus (HCC) 10/18/2024 Telephone [facility] Diabetes and Endocrinology [address] [place] [phone] Fely Faust NP Lab orders from Last 3 Months Surgical History Surgery Date Site/Laterality Comments CHOLECYSTECTOMY 09/01/2015 - 08/31/2016 TONSILLECTOMY EAR SURGERY whole in ear tdrum Medical History Medical History Date Comments Sleep apnea Mixed hyperlipidemia DM2 (diabetes mellitus, type 2) (HCC) HTN (hypertension) TAMRA (obstructive sleep apnea) BPH with obstruction/lower u rinary tract symptoms 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 2-3 times a week 04/18/2021 Q2: How many drinks containi ng alcohol do you have on a typical day when you are drinking? 1 or 2 04/18/2021 Q3: How often do you have si x or more drinks on one occasion? Never 04/18/2021 Sex and Gender Information Value Date Recorded Sex Assigned at Not on file Legal Sex Male 12:31 AM PERINATAL EDUCATOR Gender Identity Not on file Sexual Orientation Not on file Obstetrics History Last Filed Vital Signs Vital Sign Reading Time Taken Comments Blood Pressure 136/86 10/18/2024 12:56 PM PERINATAL EDUCATOR Pulse 80 10/18/2024 12:56 PM PERINATAL EDUCATOR Temperature 36.1 C (97 F) 04/18/2021 10:25 AM CDT Respiratory Rate 18 10/18/2024 12:56 PM PERINATAL EDUCATOR Oxygen Saturation 94% 04/18/2021 11:30 AM CDT Inhaled Oxygen Concentration - - Weight 102.5 kg (226 lb) 10/18/2024 12:56 PM PERINATAL EDUCATOR Height 175.3 cm (5' 9.02 ) 10/18/2024 12:[address] Body Mass Index 33.36 10/18/2024 12:56 PM PERINATAL EDUCATOR Plan of Treatment Health Maintenance Due Date Last Done Comments Colon Cancer Screening-Colonoscopy 1960 Depression Screening 1958 Hepatitis C Screening 1958 Prostate Cancer Screening-PSA 1958 DTaP/Tdap/Td Vaccine (1 - Tdap) 1969 Hepatitis B Screening 1976 Lung Cancer Screening 2008 Pneumococcal vaccine 65+ (3 of 3 - PCV20 or PCV21) 06/17/2021 06/17/2016, 06/07/2015 Fall Risk Assessment 04/18/2022 04/18/2021 Abdominal Aortic Aneurysm (A AA) Screen 11/04/2023 Well Visit 65+ 11/04/2023 Influenza Vaccine (#1) 2024 , 07/28/2019, 06/24/2018, Additional history exists Dilated Eye Exam 09/24/2024 09/24/2023 Hemoglobin A1C 04/17/2025 10/18/2024, 08/0 03/2024, 08/07/2023 Foot Exam 10/18/2025 10/18/2024, 09/17/2023 Albumin Creatinine Ratio, Urine 10/30/2025 Lipid Panel 10/30/2025 10/30/2024, 09/01, 09/17/2023, Additional history exists eGFR 10/30/2025 10/30/2024 Zoster Vaccine Completed 08/28/2020, 05/22/2020 Procedures Procedure Name Priority Date/Time Associated Diagnosis Comments ALBUMIN CREATININE RATIO, URINE Routine 10/30/2024 9:41 AM PERINATAL EDUCATOR Type 2 diabetes mellitus with microalbuminuria, with long-term current use of insulin (HCC) COMPREHENSIVE METABOLIC PANEL Routine 10/30/2024 9:41 AM PERINATAL EDUCATOR Type 2 diabetes mellitus with microalbuminuria, with long-term current use of insulin (HCC) Hypertension associated with diabetes (HCC) LIPID PANEL Routine 10/30/2024 9:41 AM PERINATAL EDUCATOR Type 2 diabetes mellitus with microalbuminuria, with long-term current use of insulin (HCC) Hyperlipidemia associated with type 2 diabetes mellitus (HCC) POCT GLUCOSE Routine 10/18/2024 1:00 PM PERINATAL EDUCATOR Type 2 diabetes mellitus with microalbuminuria, with long-term current use of insulin (HCC) POCT HEMOGLOBIN A1C Routine 10/18/2024 1 :00 PM PERINATAL EDUCATOR Type 2 diabetes mellitus with microalbuminuria, with long-term current use of insulin (HCC) DIABETES EYE EXAM Routine 09/24/2023 8:05 AM PERINATAL EDUCATOR from Last 3 Months or Most Recently Relevant to Health Maintenance Results * (ABNORMAL) Albumin Creatinine Ratio, Urine (10/30/2024 9:41 AM PERINATAL EDUCATOR) SCRIBED Creatinine, Urine 129.55 40 - 278 EXTERNAL LAB SCRIBED Microalbumin >400.0 NA - NA EXTERNAL LAB SCRIBED Microalb/Creat Ratio 308.7(A) 0 - 30 EXTERNAL LAB Urine 10/30/2024 9:41 AM PERINATAL EDUCATOR us Fely Faust NP LAB URINE ORDERABLES Michaela grace Result EXTERNAL LAB * Lipid panel (10/30/2024 9:41 AM PERINATAL EDUCATOR) SCRIBED Cholesterol, Total 141 0 - 200 EXTERNAL LAB SCRIBED HDL 47 40 - 60 EXTERNAL LAB SCRIBED LDL 74 <130 - NA EXTERNAL LAB SCRIBED Triglycerides 81 0 - 150 EXTERNAL LAB Blood 10/30/2024 9:41 AM PERINATAL EDUCATOR us Fely Faust NP LAB BLOOD ORDERABLES Michaela l Result EXTERNAL LAB * (ABNORMAL) Comprehensive metabolic panel (10/30/2024 9:41 AM PERINATAL EDUCATOR) SCRIBED Sodium 143 136 - 145 mmol/L EXTERNAL LAB SCRIBED Potassium 4.1 3.5 - 5.1 mmol/L EXTERNAL LAB SCRIBED Chloride 103 98 - 108 mmol/L EXTERNAL LAB SCRIBED Carbon Dioxide 29 21 - 32 mmol/L EXTERNAL LAB SCRIBED Anion Gap 11 4 - 12 mmol/L EXTERNAL LAB SCRIBED Urea Nitrogen (BUN) 26(A) 7 - 18 mg/dl EXTERNAL LAB SCRIBED Creatinine 1.20 0.70 - 1.30 mg/dl EXTERNAL LAB SCRIBED Glucose 122(A) 70 - 99 mg/dl EXTERNAL LAB SCRIBED Calcium 9.1 8.5 - 10.1 mg/dl EXTERNAL LAB SCRIBED Bilirubin 0.3 0.00 - 1.00 mg/dl EXTERNAL LAB SCRIBED Plasma Protein 7.3 6.4 - 8.2 g/dl EXTERNAL LAB SCRIBED Albumin 3.5 3.4 - 5.0 g/dl EXTERNAL LAB SCRIBED Alkaline Phosphatase 56 46 - 116 Units/L EXTERNAL LAB SCRIBED Alanine Transaminase (ALT) 31 16 - 63 Units/L EXTERNAL LAB SCRIBED Aspartate Transaminase (AST) 25 15 - 37 Units/L EXTERNAL LAB SCRIBED eGFR in NonAfrican Tunisian >60 >=60 - NA EXTERNAL LAB Blood 10/30/2024 9:41 AM PERINATAL EDUCATOR us Fely Faust NP LAB BLOOD ORDERABLES Michaela l Result EXTERNAL LAB * (ABNORMAL) POCT hemoglobin A1c (10/18/2024 1:00 PM PERINATAL EDUCATOR) Hemoglobin A1C, POC 5.7 4.0 - 5.6 % Blood 10/18/2024 1:00 PM PERINATAL EDUCATOR Fely Faust NP POINT OF CARE TEST ORDERA BLES Final Result * (ABNORMAL) POCT glucose (10/18/2024 1:00 PM PERINATAL EDUCATOR) Glucose Blood, POC 166 mg/dL Blood 10/18/2024 1:00 PM PERINATAL EDUCATOR us Fely Faust NP POINT OF CARE TEST ORDERA BLES Final Result * (ABNORMAL) DIABETES EYE EXAM (09/24/2023 8:05 AM PERINATAL EDUCATOR) Historical Provider HEALTH MAINTENANCE Final Result from Last 3 Months or Most Recently Relevant to Health Maintenance Insurance [employer] OOS [employer] OOS Care Teams Job Compositor Relationship Specialty Start Date End Date Mitra Garcia MD [address] [place] [address] PCP - General 06/29/07
--- OUTSIDE RECORDS SUMMARY | 2024-11-18 13:05 | XMS_ITS | Referral Summary ---
Author Organization [facility] Address [facility] [place] [address] Care Team Providers Care Returned Goods Receiving Clerk Name Role Phone Mitra Garcia MD Primary Care Provider Encounters Date Type Department Care Team Description 11/02/2024 Results Follow-Up [facility] Diabetes and Endocrinology [address] [place] [phone] Fely Faust NP 10/22/2024 Telephone [facility] Diabetes and Endocrinology [address] [place] [phone] Fely Faust NP Prior Auth (Mounjaro) 10/18/2024 Telephone [facility] Diabetes and Endocrinology [address] [place] [phone] Fely Faust NP Lab orders 10/18/2024 1:00 PM SPONSORSHIP MANAGER Office Visit [facility] Diabetes and Endocrinology [address] [place] [phone] Fely Faust NP Type 2 diabetes mellitus with microalbuminuria, with long-term current use of insulin (HCC) (Primary Dx); Hypertension associated with diabetes (HCC); Hyperlipidemia associated with type 2 diabetes mellitus (HCC) from Last 3 Months Allergies No known active allergies Medications fenofibrate (TRIGLIDE) 160 mg tablet Take 1 tablet (160 mg total) by mouth daily Active meloxicam (MOBIC) 15 mg tablet Take [...] One sensor every 14 days 2 each 4 Active insulin glargine (SEMGLEE-yfgn) 100 unit/mL [...] 09/17/2023 Assessment & Plan (10/18/2024 1:34 PM SPONSORSHIP MANAGER): Chronic problem. A1c improved from 6.1% 08/07/04/07/2423 [...] eye exam (09/2023). Has appt 10/25/24 at [facility]. Letter sent to get copy of report. [...] infection. Assessment & Plan (09/17/2023 10:44 AM SPONSORSHIP MANAGER): Chronic, overall well controlled A1c 6.2% Counseled [...] patient last eye exam Advised to see display fabricator Follow-up in 6 months Hyperlipidemia associated with type 2 diabetes delilah hinojosa 09/17/2023 Assessment & Plan (10/18/2024 1:09 PM SPONSORSHIP MANAGER): Chronic problem. Controlled on current Atorvastatin 20mg & fenofibrate 160mg. Last lipid panel: 08/07/23 LDL=>160, VS=291. Will update labs. Does not mychart. Verified phone #/address to contact re: results. Assessment & Plan (04/07/2024 2:48 PM CDT): Chronic problem. Controlled on current Atorvastatin 20mg & fenofibrate 160mg. Last lipid panel: 08/07/23 LDL=>160, MW=447. Assessment & Plan (09/17/2023 10:43 AM SPONSORSHIP MANAGER): Start pt on statin therapy Continue Fenofibrate Hypertension associated with diabetes 09/17/2023 Assessment & Plan (10/18/2024 1:08 PM SPONSORSHIP MANAGER): Chronic problem. Controlled on current lisinopril 40mg daily, diltiazem CD 360mg daily, lozol 2.5mg daily, carvedilol 25mg bid Will update labs. Does not mychart. Verified phone #/address to contact re: results. Assessment & Plan (04/07/2024 2:47 PM CDT): Chronic problem. Controlled on current lisinopril-HCTZ 20-12.5mg daily, diltiazem CD 360mg daily, lozol 2.5mg daily Assessment & Plan (09/17/2023 10:43 AM SPONSORSHIP MANAGER): Chronic, well controlled Continue lisinopril/hydrochlorothiazide Class 1 obesity due to exces s calories with serious comorbidity and body mass index (BMI) of 34.0 to 34.9 in adult 09/17/2023 Assessment & Plan (09/17/2023 10:43 AM SPONSORSHIP MANAGER): Chronic, progressively worsening Counseled on diet and exercise Hemoptysis 04/06/2021 Overview (04/06/2021): Added automatically from request for surgery [id number] Social History Tobacco Use Types Packs/Day Years Used Date Smoking Tobacco: Former Cigarettes 1 43 1 976 - 2018 Smokeless Tobacco: Never AUDIT-C Answer Date Recorded [...] on file Legal Sex Male 12:31 AM SPONSORSHIP MANAGER Gender Identity Not on file Sexual Orientation Not on file Last Filed Vital Signs Vital Sign Reading Time Taken Comments Blood Pressure 136/86 10/18/2024 12:56 PM SPONSORSHIP MANAGER Pulse 80 10/18/2024 12:56 PM SPONSORSHIP MANAGER Temperature 36.1 C (97 F) 04/18/2021 10:25 AM CDT Respiratory Rate 18 10/18/2024 12:56 PM SPONSORSHIP MANAGER Oxygen Saturation 94% 04/18/2021 11:30 AM CDT Inhaled Oxygen Concentration - - Weight 102.5 kg (226 lb) 10/18/2024 12:56 PM SPONSORSHIP MANAGER Height 175.3 cm (5' 9.02 ) 10/18/2024 12:[address] Body Mass Index 33.36 10/18/2024 12:56 PM SPONSORSHIP MANAGER Plan of Treatment Not on file Procedures Procedure Name Priority Date/Time Associated Diagnosis Comments ALBUMIN CREATININE RATIO, URINE Routine 10/30/2024 9:41 AM SPONSORSHIP MANAGER Type 2 diabetes mellitus with microalbuminuria, with long-term current use of insulin (HCC) COMPREHENSIVE METABOLIC PANEL Routine 10/30/2024 9:41 AM SPONSORSHIP MANAGER Type 2 diabetes mellitus with microalbuminuria, with long-term current use of insulin (HCC) Hypertension associated with diabetes (HCC) LIPID PANEL Routine 10/30/2024 9:41 AM SPONSORSHIP MANAGER Type 2 diabetes mellitus with microalbuminuria, with long-term current use of insulin ([facility]) Hyperlipidemia associated with type 2 diabetes mellitus (HCC) POCT GLUCOSE Routine 10/18/2024 1:00 PM SPONSORSHIP MANAGER Type 2 diabetes mellitus with microalbuminuria, with long-term current use of insulin ([facility]) POCT HEMOGLOBIN A1C Routine 10/18/2024 1 :00 PM SPONSORSHIP MANAGER Type 2 diabetes mellitus with microalbuminuria, with long-term current use of insulin ([facility]) DIABETES EYE EXAM Routine 09/24/2023 8:05 AM SPONSORSHIP MANAGER from Last 3 Months or Most Recently Relevant to Health Maintenance Results * (ABNORMAL) Albumin Creatinine Ratio, Urine (10/30/2024 9:41 AM SPONSORSHIP MANAGER) SCRIBED Creatinine, Urine 129.55 40 - 278 EXTERNAL LAB SCRIBED Microalbumin >400.0 NA - NA EXTERNAL LAB SCRIBED Microalb/Creat Ratio 308.7(A) 0 - 30 EXTERNAL LAB Urine 10/30/2024 9:41 AM SPONSORSHIP MANAGER us Fely Faust NP LAB URINE ORDERABLES Michaela grace Result EXTERNAL LAB * Lipid panel (10/30/2024 9:41 AM SPONSORSHIP MANAGER) SCRIBED Cholesterol, Total 141 0 - 200 EXTERNAL LAB SCRIBED HDL 47 40 - 60 EXTERNAL LAB SCRIBED LDL 74 <130 - NA EXTERNAL LAB SCRIBED Triglycerides 81 0 - 150 EXTERNAL LAB Blood 10/30/2024 9:41 AM SPONSORSHIP MANAGER us Fely Faust ARCH SUPPORT TECHNICIAN LAB BLOOD ORDERABLES Michaela l Result EXTERNAL LAB * (ABNORMAL) Comprehensive metabolic panel (10/30/2024 9:41 AM SPONSORSHIP MANAGER) SCRIBED Sodium 143 136 - 145 mmol/L [...] Units/L EXTERNAL LAB SCRIBED eGFR in NonAfrican Samoan >60 >=60 - NA EXTERNAL LAB Blood 10/30/2024 9:41 AM SPONSORSHIP MANAGER us Fely Faust ARCH SUPPORT TECHNICIAN LAB BLOOD ORDERABLES Michaela l Result EXTERNAL LAB * (ABNORMAL) POCT hemoglobin A1c (10/18/2024 1:00 PM SPONSORSHIP MANAGER) Hemoglobin A1C, POC 5.7 4.0 - 5.6 % Blood 10/18/2024 1:00 PM SPONSORSHIP MANAGER Fely Faust ARCH SUPPORT TECHNICIAN POINT OF CARE TEST ORDERA BLES Final Result * (ABNORMAL) POCT glucose (10/18/2024 1:00 PM SPONSORSHIP MANAGER) Glucose Blood, POC 166 mg/dL Blood 10/18/2024 1:00 PM SPONSORSHIP MANAGER us Fely Faust NP POINT OF CARE TEST ORDERA BLES Final Result * (ABNORMAL) DIABETES EYE EXAM (09/24/2023 8:05 AM SPONSORSHIP MANAGER) Historical Provider HEALTH MAINTENANCE Final Result from Last 3 Months or Most Recently Relevant to Health Maintenance Insurance [employer] OOS [employer] O[employer] Care Teams Returned Goods Receiving Clerk Relationship Specialty Start Date End Date Mitra Garcia MD [address] [place] [address] PCP - General 06/29/07
== END 2024-11-18 12:44 | disposition home or self-care (01) ==
PROVIDERS: PCP Internal Medicine; Visit Provider Internal Medicine
DX: I73.9 Peripheral vascular disease, unspecified (principal); I77.89 Other specified disorders of arteries and arterioles; I65.23 Occlusion and stenosis of bilateral carotid arteries
CPT/HCPCS: 93880; 93922

== ENCOUNTER 2024-12-22 09:37 | Outpatient (CLI) | payer BC, MEDICARE, SELFPAY ==
--- NOTE | 2024-12-22 09:37 | PC.NURSE ---
Report to the Outpatient Waiting Room, entrance under the green pavilion located off [facility], at time __6:00AM on date ___01/05/25____. Planned Procedure Time: __7:30AM .? Time changes happen often and if your time is changed the preop area will call you the afternoon before. - You and your visitor will be asked to self-screen and do not enter if you have any COVID symptoms. Please call surgeon if you need to reschedule. - A mask is optional within the hospital at this time. Patients may have clear liquids (water, carbonated beverages, clear teas, apple juice) until 3 hours prior to surgery (4:30AM) with a maximum of 20 ounces. - No food from midnight until time of surgery and no smoking, or chewing tobacco (or any form of nicotine). No chewing gum, candy or mints. Take only the following medications with a SIP of water on the morning of surgery: ____TRELEGY ELLIPTA INHALER, CARVEDILOL, DILTIAZEM, HYDRALAZINE. MAY USE ALBUTEROL INHALER AND TRAMADOL NEEDED. DO NOT STOP ANY OF YOUR OTHER PRESCRIPTION MEDICATIONS PRIOR TO SURGERY EXCEPT THE FOLLOWING Hold all vitamins and supplements for 3 days per anesthesiologist.-01/01/25 Medications to discontinue per physician HOLD ASPIRIN AND NSAIDS(MELOXICAM, ADVIL) 7 DAYS PRE-OP PER DR VILLA Date to take last dose 12/28/24 Please no make-up, nail serbian, hairspray, perfume, deodorant, or body powder the day of surgery.? No jewelry (including any body piercings) or valuables the day of surgery, leave them at home.? Please take a shower or bath the night before, or the morning of, surgery with an antibacterial soap.? Wear comfortable, loose fitting clothing.? - Jewelry must be removed prior to entering the operating room.? Rings and piercings that are not removed may be cut off. - The hospital will not accept responsibility for valuables.? - Please leave all valuables, including medications, at home the day of surgery. If you are going home after surgery, a licensed escort vehicle driver must drive you home.? - NO public transportation without another adult if you receive anesthesia. - We recommend that an adult stay with you for 24 hours following discharge. - We also recommend that you do not drive, make important decision, drink alcoholic beverages, or take any drugs that were not prescribed by your health care provider for at least 24 hours after your discharge time. Follow any additional instructions given to you from your surgeon. Telephone instructions given to ____PATIENT and asked if any additional questions and then verbalized understanding. Patient advised to call surgeon office or pre surgery nurse liaison [phone] if any additional questions.
--- OUTSIDE RECORDS SUMMARY | 2024-12-22 10:54 | XMS_ITS | Clinical Summary ---
Author Organization [facility] Address [facility] [place] [address] Care Team Providers Care Billet Checker Name Role Phone Mitra Garcia MD Primary Care Provider + [phone] Allergies No known active allergies Medications fenofibrate (TRIGLIDE) 160 mg tablet Take 1 tablet (160 mg total) by mouth daily 03/22/20 21 Active meloxicam (MOBIC) 15 mg tablet Take 1 tablet (15 mg total) by mouth daily 03/22/20 21 Active tamsulosin (FLOMAX) 0.4 mg extended release capsule Take 1 capsule (0.4 mg total) by mouth daily 03/22/20 21 Active allopurinoL (ZYLOPRIM) 100 mg tablet Take 1 tablet (100 mg total) by mouth daily Active lisinopril-hy droCHLOROthia zide (ZESTORETIC) 20-12.5 mg per tabletIndicat ions:hyperten rosemarie Take 1 tablet by mouth daily Active aspirin 81 mg enteric coated tablet Take 1 tablet (81 mg total) by mouth daily Active diltiaZEM CD (CARDIZEM CD) 360 mg 24 hr capsule 08/22/20 23 Active indapamide (LOZOL) 2.5 mg tablet 08/22/20 23 Active FreeStyle Mary 3 Sensor deviceIndicat ions:Type 2 diabetes mellitus with microalbuminu chano, with long-term current use of insulin (HCC) One sensor every 14 days 2 each 09/17/19 24 Active insulin glargine (SEMGLEE-yfgn ) 100 unit/mL (3 mL) pen for injection Inject 40 Units under the skin nightly 45 mL 2 03/05/20 24 Active albuterol HFA (PROVENTIL HFA,VENTOLIN HFA,PROAIR HFA) 90 mcg/actuation inhaler 03/13/20 24 Active carvediloL (COREG) 25 mg tablet 03/30/20 24 Active clotrimazole- betamethasone (LOTRISONE) cream 1 Application every 12 hours 12/04/19 24 Active Trelegy Ellipta 100-62.5-25 mcg inhaler 03/29/20 24 Active Monovisc 88 mg/4 mL syringe 04/06/20 24 Active lisinopriL (PRINIVIL,ZES TRIL) 40 mg tablet 03/29/20 24 Active BD Leah 2nd Gen Pen Needle 32 gauge x 32 needle 03/03/20 24 Active zolpidem (AMBIEN) 5 mg tablet 03/05/20 24 Active indapamide (LOZOL) 1.25 mg tablet 03/29/20 24 Active blood-glucose sensor device One sensor every 14 days 2 each 11 07/07/20 24 Active atorvastatin (LIPITOR) 20 mg tabletIndicat ions:Hyperlip idemia associated with type 2 diabetes mellitus (HCC) TAKE ONE TABLET BY MOUTH BEDTIME 90 tablet 3 09/15/19 25 Active HumaLOG 100 unit/mL pen for injection INJECT 15 UNITS UNDER THE SKIN 3 (THREE) TIMES A DAY WITH MEALS SLIDING SCALE 15 mL 3 10/18/19 25 Active fluticasone propionate (FLONASE) 50 mcg/actuation nasal spray 09/15/19 25 Active ipratropium (ATROVENT) 42 mcg (0.06 %) nasal spray 09/15/19 25 Active terbinafine (LamiSIL) 250 mg tablet 08/06/20 24 Active zolpidem CR (AMBIEN CR) 12.5 mg CR tablet 10/10/19 25 Active Mounjaro 2.5 mg/0.5 mL pen injector injectionIndi cations:type 2 diabetes mellitus INJECT 0.5 ML (2.5 MG TOTAL) UNDER THE SKIN ONCE A WEEK 2 mL 11 12/18/19 25 026 Active LANTUS 100 unit/mL (3 mL) pen for injection Inject 40 Units under the skin With main meal 03/20/20 21 024 Discontinued(Th erapy completed) tirzepatide (Mounjaro) 2.5 mg/0.5 mL pen injector injectionIndi cations:type 2 diabetes mellitus Inject 0.5 mL (2.5 mg total) under the skin once a week 2 mL 11 10/18/19 25 025 Discontinued Active Problems Patient Care Coordination No te [...] 09/17/2023 Assessment & Plan (10/18/2024 1:34 PM COMPLIANCE OFFICER): Chronic problem. A1c improved from 6.1% 08/07/04/07/2423 [...] eye exam (09/2023). Has appt 10/25/24 at [facility]. Letter sent to get copy of report. [...] simple sugars. Check the blood sugar: Freestyle amry 3. Check the feet daily for skin breakdown and infection. Assessment & Plan (09/17/2023 10:44 AM COMPLIANCE OFFICER): Chronic, overall well controlled A1c 6.2% Counseled [...] patient last eye exam Advised to see arson and bomb investigator Follow-up in 6 months Hyperlipidemia associated with type 2 diabetes delilah hinojosa 09/17/2023 Assessment & Plan (10/18/2024 1:09 PM COMPLIANCE OFFICER): Chronic problem. Controlled on current Atorvastatin 20mg & fenofibrate 160mg. Last lipid panel: 08/07/23 LDL=>160, TS=684. Will update labs. Does not mychart. Verified phone #/address to contact re: results. Assessment & Plan (04/07/2024 2:48 PM CDT): Chronic problem. Controlled on current Atorvastatin 20mg & fenofibrate 160mg. Last lipid panel: 08/07/23 LDL=>160, BE=305. Assessment & Plan (09/17/2023 10:43 AM COMPLIANCE OFFICER): Start pt on statin therapy Continue Fenofibrate Hypertension associated with diabetes 09/17/2023 Assessment & Plan (10/18/2024 1:08 PM COMPLIANCE OFFICER): Chronic problem. Controlled on current lisinopril 40mg daily, diltiazem CD 360mg daily, lozol 2.5mg daily, carvedilol 25mg bid Will update labs. Does not mychart. Verified phone #/address to contact re: results. Assessment & Plan (04/07/2024 2:47 PM CDT): Chronic problem. Controlled on current lisinopril-HCTZ 20-12.5mg daily, diltiazem CD 360mg daily, lozol 2.5mg daily Assessment & Plan (09/17/2023 10:43 AM COMPLIANCE OFFICER): Chronic, well controlled Continue lisinopril/hydrochlorothiazide Class 1 obesity due to exces s calories with serious comorbidity and body mass index (BMI) of 34.0 to 34.9 in adult 09/17/2023 Assessment & Plan (09/17/2023 10:43 AM COMPLIANCE OFFICER): Chronic, progressively worsening Counseled on diet and exercise Hemoptysis 04/06/2021 Overview (04/06/2021): Added automatically from request for surgery [id number] Encounters Date Type Department Care Team Description 12/08/2024 Telephone [facility] Diabetes and Endocrinology [address] [place] [phone] Fely Faust NP surgical clearance request 11/02/2024 Results Follow-Up [facility] Diabetes and Endocrinology [address] [place] [phone] Fely Faust NP 10/22/2024 Telephone [facility] Diabetes and Endocrinology [address] [place] [phone] Fely Faust NP Prior Auth (Mounjaro) 10/18/2024 1:00 PM COMPLIANCE OFFICER Office Visit [facility] Diabetes and Endocrinology [address] [place] [phone] Fely Faust NP Type 2 diabetes mellitus with microalbuminuria, with long-term current use of insulin (HCC) (Primary Dx); Hypertension associated with diabetes (HCC); Hyperlipidemia associated with type 2 diabetes mellitus (HCC) 10/18/2024 Telephone [facility] Diabetes and Endocrinology [address] [place] [phone] Fely Faust NP Lab orders from Last 3 Months Surgical History Surgery Date Site/Laterality Comments CHOLECYSTECTOMY 09/01/2015 - 08/31/2016 TONSILLECTOMY EAR SURGERY whole in ear tdrum Medical History Medical History Date Comments Sleep apnea Mixed hyperlipidemia DM2 (diabetes mellitus, type 2) (HCC) HTN (hypertension) TAMRA (obstructive sleep apnea) BPH with obstruction/lower u rinary tract symptoms 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 Adrenal myelolipoma L adrenal my elolipoma measuring [...] on file Legal Sex Male 12:31 AM COMPLIANCE OFFICER Gender Identity Not on file Sexual Orientation Not on file Obstetrics History Last Filed Vital Signs Vital Sign Reading Time Taken Comments Blood Pressure 136/86 10/18/2024 12:56 PM COMPLIANCE OFFICER Pulse 80 10/18/2024 12:56 PM COMPLIANCE OFFICER Temperature 36.1 C (97 F) 04/18/2021 10:25 AM CDT Respiratory Rate 18 10/18/2024 12:56 PM COMPLIANCE OFFICER Oxygen Saturation 94% 04/18/2021 11:30 AM CDT Inhaled Oxygen Concentration - - Weight 102.5 kg (226 lb) 10/18/2024 12:56 PM COMPLIANCE OFFICER Height 175.3 cm (5' 9.02 ) 10/18/2024 12:[address] Body Mass Index 33.36 10/18/2024 12:56 PM COMPLIANCE OFFICER Plan of Treatment Health Maintenance Due Date [...] AA) Screen 11/04/2023 Well Visit 65+ 11/04/2023 Dilated Eye Exam 09/24/2024 09/24/2023 Hemoglobin A1C 04/17/2025 10/18/2024, 08/0 03/2024, 08/07/2023 Influenza Vaccine (Season Ended) 2025 05/22/2020, 07/28/2019, 06/24/2018, Additional history exists Foot Exam 10/18/2025 10/18/2024, 09/17/2023 Albumin Creatinine Ratio, Urine 10/30/2025 Lipid Panel 10/30/2025 10/30/2024, 09/01, 09/17/2023, Additional history exists eGFR 10/30/2025 10/30/2024 Zoster Vaccine Completed 08/28/2020, 05/22/2020 Procedures Procedure Name Priority Date/Time Associated Diagnosis Comments ALBUMIN CREATININE RATIO, URINE Routine 10/30/2024 9:41 AM COMPLIANCE OFFICER Type 2 diabetes mellitus with microalbuminuria, with long-term current use of insulin (HCC) COMPREHENSIVE METABOLIC PANEL Routine 10/30/2024 9:41 AM COMPLIANCE OFFICER Type 2 diabetes mellitus with microalbuminuria, with long-term current use of insulin (HCC) Hypertension associated with diabetes (HCC) LIPID PANEL Routine 10/30/2024 9:41 AM COMPLIANCE OFFICER Type 2 diabetes mellitus with microalbuminuria, with long-term current use of insulin (HCC) Hyperlipidemia associated with type 2 diabetes mellitus (HCC) POCT GLUCOSE Routine 10/18/2024 1:00 PM COMPLIANCE OFFICER Type 2 diabetes mellitus with microalbuminuria, with long-term current use of insulin (HCC) POCT HEMOGLOBIN A1C Routine 10/18/2024 1 :00 PM COMPLIANCE OFFICER Type 2 diabetes mellitus with microalbuminuria, with long-term current use of insulin ([facility]) DIABETES EYE EXAM Routine 09/24/2023 8:05 AM COMPLIANCE OFFICER from Last 3 Months or Most Recently Relevant to Health Maintenance Results * (ABNORMAL) Albumin Creatinine Ratio, Urine (10/30/2024 9:41 AM COMPLIANCE OFFICER) SCRIBED Creatinine, Urine 129.55 40 - 278 EXTERNAL LAB SCRIBED Microalbumin >400.0 NA - NA EXTERNAL LAB SCRIBED Microalb/Creat Ratio 308.7(A) 0 - 30 EXTERNAL LAB Urine 10/30/2024 9:41 AM COMPLIANCE OFFICER us Fely Fuast [facility] LAB URINE ORDERABLES Michaela l Result EXTERNAL LAB * Lipid panel (10/30/2024 9:41 AM COMPLIANCE OFFICER) SCRIBED Cholesterol, Total 141 0 - 200 EXTERNAL LAB SCRIBED HDL 47 40 - 60 EXTERNAL LAB SCRIBED LDL 74 <130 - NA EXTERNAL LAB SCRIBED Triglycerides 81 0 - 150 EXTERNAL LAB Blood 10/30/2024 9:41 AM COMPLIANCE OFFICER us Fely Kaity Faust [facility] LAB BLOOD ORDERABLES Michaela l Result Performing Organization Address [facility]/ZIP Co de Phone Number EXTERNAL LAB * (ABNORMAL) Comprehensive metabolic panel (10/30/2024 9:41 AM COMPLIANCE OFFICER) SCRIBED Sodium 143 136 - 145 mmol/L [...] Units/L EXTERNAL LAB SCRIBED eGFR in NonAfrican Latvian >60 >=60 - NA EXTERNAL LAB Blood 10/30/2024 9:41 AM COMPLIANCE OFFICER us Fely Faust [facility] LAB BLOOD ORDERABLES Michaela l Result EXTERNAL LAB * (ABNORMAL) POCT hemoglobin A1c (10/18/2024 1:00 PM COMPLIANCE OFFICER) Hemoglobin A1C, POC 5.7 4.0 - 5.6 % Blood 10/18/2024 1:00 PM COMPLIANCE OFFICER us Felynamita Faust NP POINT OF CARE TEST ORDERA BLES Final Result * (ABNORMAL) POCT glucose (10/18/2024 1:00 PM COMPLIANCE OFFICER) Glucose Blood, POC 166 mg/dL Blood 10/18/2024 1:00 PM COMPLIANCE OFFICER us Fely Faust NP POINT OF CARE TEST ORDERA BLES Final Result * (ABNORMAL) DIABETES EYE EXAM (09/24/2023 8:05 AM COMPLIANCE OFFICER) Historical Provider HEALTH MAINTENANCE Final Result from Last 3 Months or Most Recently Relevant to Health Maintenance Insurance [employer] Care Teams Billet Checker Relationship Specialty Start Date End Date Mitra Garcia MD [address] [place] [address] PCP - General 06/29/07
--- OUTSIDE RECORDS SUMMARY | 2024-12-22 10:54 | XMS_ITS | Patient Health Record ---
Author Organization [facility] Address [address] [place], [place] [id number] Care Team Providers Care Hog Worker Name Role Phone GRADY LINN Unavailable [phone] Mitra Garcia Unavailable Unavailable VIRY FIGUEROA Unavailable [phone] Allergies No Known Allergies Reason For Referral No Information Medications Medication SIG (Take, Route, Frequency, Duration) Notes Start Date End Date Status Clotrimazole-Betamethasone 1-0.05 % 1 application Externally Twice a day 08/19/2024 Active Clotrimazole-Betamethasone 1-0.05 % 1 application Externally Twice a day 12/04/2023 Active Vital Signs Height-cm 175.26 cm 02/05/2024 Weight-kg 103.42 kg 02/05/2024 Height 69 in 02/05/2024 Weight 228 lbs 02/05/2024 BMI 33.67 kg/m2 02/05/2024 Encounters Encounter Location Date Provider Diagnosis [facility] [address] [place], [place] [id number] 08/19/2024 VIRY FIGUEROA Tinea unguium B35.1 ; Pain in left toe(s) M79.675 ; Pain in right toe(s) M79.674 ; Unspecified atherosclerosis of chilkat arteries of extremities, bilateral legs I70.203 ; Acquired keratosis [keratoderma] palmaris et plantaris L85.1 and Type 2 diabetes mellitus with diabetic peripheral angiopathy without gangrene E11.[address] [id number] 02/05/2024 VIRY FIGUEROA Other hammer toe(s) (acquired), right foot M20.41 ; Tinea unguium B35.1 ; Other hammer toe(s) (acquired), left foot M20.42 ; Acquired keratosis [keratoderma] palmaris et plantaris L85.1 ; Unspecified atherosclerosis of chilkat arteries of extremities, bilateral legs I70.203 ; Pain in left toe(s) M79.675 ; Pain in right toe(s) M79.674 ; Pain in right foot M79.671 ; Pain in left foot M79.672 and Type 2 diabetes mellitus with diabetic peripheral angiopathy without gangrene E11.[address] [id number] 04/08/2024 VIRY FIGUEROA Other hammer toe(s) (acquired), right foot M20.41 ; Tinea unguium B35.1 ; Other hammer toe(s) (acquired), left foot M20.42 ; Acquired keratosis [keratoderma] palmaris et plantaris L85.1 ; Unspecified atherosclerosis of chilkat arteries of extremities, bilateral legs I70.203 ; Pain in left toe(s) M79.675 ; Pain in right toe(s) M79.674 ; Pain in right foot M79.671 ; Pain in left foot M79.672 and Type 2 diabetes mellitus with diabetic peripheral angiopathy without gangrene E11.51 [facility] [address] [place], [place] [id number] 06/17/2024 VIRY FIGUEROA Tinea unguium B35.1 ; Pain in left toe(s) M79.675 ; Pain in right toe(s) M79.674 ; Unspecified atherosclerosis of chilkat arteries of extremities, bilateral legs I70.203 ; Acquired keratosis [keratoderma] palmaris et plantaris L85.1 and Type 2 diabetes mellitus with diabetic peripheral angiopathy without gangrene E11.[address] [id number] 10/21/2024 GRADY LINN Tinea unguium B35.1 ; Acquired keratosis [keratoderma] palmaris et plantaris L85.1 ; Atherosclerosis of chilkat arteries of extremities with intermittent claudication, bilateral legs I70.213 ; Pain in right foot M79.671 and Pain in left foot M79.672 Assessments Encounter Date Diagnosis (ICD Code) Assessment Notes Treatment Notes Treatment Clinical Notes Section Notes 02/05/2024 Tinea unguium (ICD-10 - B35.1) Aseptic debridement of elongated thickened nails x 10 using sterile nippers, nails were debrided in length and thickness by 30% utilizing a nail nipper without incident. The patient was educated regarding all treatment options that include topical and oral antifungal treatments. I discussed the options of taking a sample of the nail to confirm diagnosis. Nail clippings were not sent for pathology analysis. The patient was educated why and how the fungal infection evolved in their feet and the patient was given information regarding how to prevent further infection. The patient was told to keep feet dry and change socks. The patient was told to be careful with old shoes and excessive sweating. The patient was educated regarding both OTC and prescription treatments. 02/05/2024 Other hammer toe(s) (acquired), right foot (ICD-10 - M20.41) The patient was educated regarding how to mechanically stabilize their deformity. The patient was given education about shoe recommendations specific for the condition. The patient was educated about custom orthotics and how appropriate shoes and orthotics can prevent further worsening of the deformity. The patient was educated about how bad shoe habits can worsen the condition. NSAIDS, P.T., injections and other conservative treatments were discussed. Both surgical and non surgical treatments were discussed, but conservative options were emphasized. 04/08/2024 Tinea unguium (ICD-10 - B35.1) Aseptic debridement of elongated thickened nails x 10 using sterile nippers, nails were debrided in length and thickness by 30% utilizing a nail nipper without incident. The patient was educated regarding all treatment options that include topical and oral antifungal treatments. I discussed the options of taking a sample of the nail to confirm diagnosis. Nail clippings were not sent for pathology analysis. The patient was educated why and how the fungal infection evolved in their feet and the patient was given information regarding how to prevent further infection. The patient was told to keep feet dry and change socks. The patient was told to be careful with old shoes and excessive sweating. The patient was educated regarding both OTC and prescription treatments. 04/08/2024 Other hammer toe(s) (acquired), right foot (ICD-10 - M20.41) The patient was educated regarding how to mechanically stabilize their deformity. The patient was given education about shoe recommendations specific for the condition. The patient was educated about custom orthotics and how appropriate shoes and orthotics can prevent further worsening of the deformity. The patient was educated about how bad shoe habits can worsen the condition. NSAIDS, P.T., injections and other conservative treatments were discussed. Both surgical and non surgical treatments were discussed, but conservative options were emphasized. 06/17/2024 Tinea unguium (ICD-10 - B35.1) Aseptic debridement of elongated thickened nails x 10 using sterile nippers, nails were debrided in length and thickness by 30% utilizing a nail nipper without incident. The patient was educated regarding all treatment options that include topical and oral antifungal treatments. I discussed the options of taking a sample of the nail to confirm diagnosis. Nail clippings were not sent for pathology analysis. The patient was educated why and how the fungal infection evolved in their feet and the patient was given information regarding how to prevent further infection. The patient was told to keep feet dry and change socks. The patient was told to be careful with old shoes and excessive sweating. The patient was educated regarding both OTC and prescription treatments. 06/17/2024 Pain in left toe(s) (ICD-10 - M79.675) 08/19/2024 Tinea unguium (ICD-10 - B35.1) Aseptic debridement of elongated thickened nails x 10 using sterile nippers, nails were debrided in length and thickness by 30% utilizing a nail nipper without incident. The patient was educated regarding all treatment options that include topical and oral antifungal treatments. I discussed the options of taking a sample of the nail to confirm diagnosis. Nail clippings were not sent for pathology analysis. The patient was educated why and how the fungal infection evolved in their feet and the patient was given information regarding how to prevent further infection. The patient was told to keep feet dry and change socks. The patient was told to be careful with old shoes and excessive sweating. The patient was educated regarding both OTC and prescription treatments. 08/19/2024 Pain in left toe(s) (ICD-10 - M79.675) 10/21/2024 Tinea unguium (ICD-10 - B35.1) Nails 1-5 Bilateral were debrided extensively with nail nippers and emery board, reducing length and girth to pink healthy tissue with any subungual debris and necrotic tissue removed 10/21/2024 Acquired keratosis [keratoderma] palmaris et plantaris (ICD-10 - L85.1) A total of 2 corns or calluses, as described in the note above, were cut and pared utilizing a #15 blade 10/21/2024 Atherosclerosis of chilkat arteries of extremities with intermittent claudication, bilateral legs (ICD-10 - I70.213) 06/17/2024 Pain in right toe(s) (ICD-10 - M79.674) 08/19/2024 Pain in right toe(s) (ICD-10 - M79.674) 04/08/2024 Other hammer toe(s) (acquired), left foot (ICD-10 - M20.42) 02/05/2024 Other hammer toe(s) (acquired), left foot (ICD-10 - M20.42) 02/05/2024 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 After removal of overlying extensive hyperkeratosis, healthy tissue was noted and care was taken to assure that no undermining or probing was present. It should be noted that no probing was noted and no infection or drainage was noted. 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 After removal of overlying extensive hyperkeratosis, healthy tissue was noted and care was taken to assure that no undermining or probing was present. It should be noted that no probing was noted and no infection or drainage was noted. 08/19/2024 Unspecified atherosclerosis of chilkat arteries of extremities, bilateral legs (ICD-10 - I70.203) Patient educated on risks and aggravating factors of PVD, including conservative treatment options such as a diet and exercise regimen to aid in slowing progression of vascular disease 06/17/2024 Unspecified atherosclerosis of chilkat arteries of extremities, bilateral legs (ICD-10 - I70.203) Patient educated on risks and aggravating factors of PVD, including conservative treatment options such as a diet and exercise regimen to aid in slowing progression of vascular disease 10/21/2024 Pain in right foot (ICD-10 - M79.671) 10/21/2024 Pain in left foot (ICD-10 - M79.672) 06/17/2024 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 After removal of overlying extensive hyperkeratosis, healthy tissue was noted and care was taken to assure that no undermining or probing was present. It should be noted that no probing was noted and no infection or drainage was noted. 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 After removal of overlying extensive hyperkeratosis, healthy tissue was noted and care was taken to assure that no undermining or probing was present. It should be noted that no probing was noted and no infection or drainage was noted. 04/08/2024 Unspecified atherosclerosis of chilkat arteries of extremities, bilateral legs (ICD-10 - I70.203) Patient educated on risks and aggravating factors of PVD, including conservative treatment options such as a diet and exercise regimen to aid in slowing progression of vascular disease 02/05/2024 Unspecified atherosclerosis of chilkat arteries of extremities, bilateral legs (ICD-10 - I70.203) Patient educated on risks and aggravating factors of PVD, including conservative treatment options such as a diet and exercise regimen to aid in slowing progression of vascular disease 02/05/2024 Pain in left toe(s) (ICD-10 - M79.675) 04/08/2024 Pain in left toe(s) (ICD-10 - M79.675) 08/19/2024 Type 2 diabetes mellitus with diabetic peripheral angiopathy without gangrene (ICD-10 - E11.51) Patient educated on proper diabetic foot care and the importance of tight glycemic control in regards to the prevention of diabetic manifestations and symptomatology in lower extremity. Explained to patient the importance of keeping interdigital spaces dry, not walking bare foot, having supportive shoe gear, using moisturizer to skin on feet daily especially in winter months, and checking feet daily for any new lesions or areas suspicious of trauma infection or ulceration. Explained to patient to return to ED if any change in foot health associated with signs of systemic infection including but not limited to nausea, vomiting, fever. a 06/17/2024 Type 2 diabetes mellitus with diabetic peripheral angiopathy without gangrene (ICD-10 - E11.51) Patient educated on proper diabetic foot care and the importance of tight glycemic control in regards to the prevention of diabetic manifestations and symptomatology in lower extremity. Explained to patient the importance of keeping interdigital spaces dry, not walking bare foot, having supportive shoe gear, using moisturizer to skin on feet daily especially in winter months, and checking feet daily for any new lesions or areas suspicious of trauma infection or ulceration. Explained to patient to return to ED if any change in foot health associated with signs of systemic infection including but not limited to nausea, vomiting, fever. a 04/08/2024 Pain in right toe(s) (ICD-10 - M79.674) 02/05/2024 Pain in right toe(s) (ICD-10 - M79.674) 02/05/2024 Pain in right foot (ICD-10 - M79.671) 04/08/2024 Pain in right foot (ICD-10 - M79.671) 04/08/2024 Pain in left foot (ICD-10 - M79.672) 02/05/2024 Pain in left foot (ICD-10 - M79.672) 04/08/2024 Type 2 diabetes mellitus with diabetic peripheral angiopathy without gangrene (ICD-10 - E11.51) Patient educated on proper diabetic foot care and the importance of tight glycemic control in regards to the prevention of diabetic manifestations and symptomatology in lower extremity. Explained to patient the importance of keeping interdigital spaces dry, not walking bare foot, having supportive shoe gear, using moisturizer to skin on feet daily especially in winter months, and checking feet daily for any new lesions or areas suspicious of trauma infection or ulceration. Explained to patient to return to ED if any change in foot health associated with signs of systemic infection including but not limited to nausea, vomiting, fever. a 02/05/2024 Type 2 diabetes mellitus with diabetic peripheral angiopathy without gangrene (ICD-10 - E11.51) Patient educated on proper diabetic foot care and the importance of tight glycemic control in regards to the prevention of diabetic manifestations and symptomatology in lower extremity. Explained to patient the importance of keeping interdigital spaces dry, not walking bare foot, having supportive shoe gear, using moisturizer to skin on feet daily especially in winter months, and checking feet daily for any new lesions or areas suspicious of trauma infection or ulceration. Explained to patient to return to ED if any change in foot health associated with signs of systemic infection including but not limited to nausea, vomiting, fever. a 06/17/2024 Other The patient was educated regarding how to mechanically stabilize their deformity. The patient was given education about shoe recommendations specific for the condition. The patient was educated about custom orthotics and how appropriate shoes and orthotics can prevent further worsening of the deformity. The patient was educated about how bad shoe habits can worsen the condition. NSAIDS, P.T., injections and other conservative treatments were discussed. Both surgical and non surgical treatments were discussed, but conservative options were emphasized. Plan Of Treatment Next Appt Details Provider Name:ALEXIS HUMPHREY, 12/30/2024 11:20:00 AM, [address] [place] [address], [phone], Insurance Providers Payer Name Payer Address Payer Phone Subscriber Number Group Number Insured Name Patient Relationship to Insured Coverage Start Date Coverage End Date [facility] ([facility]) ATTN CLAIMS [address] [place] [address] [id number] Sydney Veloz Self - patient is the insured
--- OUTSIDE RECORDS SUMMARY | 2024-12-22 10:54 | XMS_ITS ---
Author Organization [facility] Address [address] [place], [place] [address] Care Team Providers Care Slate Worker Name Role Phone GRADY LINN Unavailable [phone] Mitra Garcia Unavailable Unavailable VIRY FIGUERAO Unavailable [phone] REASON FOR VISIT *General care Medications Medication SIG (Take, Route, Frequency, Duration) Notes Start Date End Date Status Clotrimazole-Betamethasone 1-0.05 % 1 application Externally Twice a day 08/19/2024 Active Clotrimazole-Betamethasone 1-0.05 % 1 application Externally Twice a day 12/04/2023 Active Encounters Encounter Location Date Provider Diagnosis [facility] [address] [place], [place] [id number] 08/19/2024 VIRY FIGUEROA Tinea unguium B35.1 ; Pain in left toe(s) M79.675 ; Pain in right toe(s) M79.674 ; Unspecified atherosclerosis of [place] arteries of extremities, bilateral legs I70.203 ; Acquired keratosis [keratoderma] palmaris et plantaris L85.1 and Type 2 diabetes mellitus with diabetic peripheral angiopathy without gangrene E11.51 Assessments Encounter Date Diagnosis (ICD Code) Assessment Notes Treatment Notes Treatment Clinical Notes Section Notes 08/19/2024 Tinea unguium (ICD-10 - B35.1) Aseptic [...] in left toe(s) (ICD-10 - M79.675) 08/19/2024 Pain in right toe(s) (ICD-10 - M79.674) 08/19/2024 Unspecified atherosclerosis of [place] arteries of extremities, bilateral legs (ICD-10 - I70.203) Patient educated on risks and aggravating factors of PVD, including conservative treatment options such as a diet and exercise regimen to aid in slowing progression of vascular disease 08/19/2024 Acquired keratosis [keratoderma] palmaris et plantaris [...] no infection or drainage was noted. 08/19/2024 Type 2 diabetes mellitus with diabetic [...] not limited to nausea, vomiting, fever. a Plan Of Treatment Medication Medication Name Sig Start Date Stop Date Notes Clotrimazole-Betamethasone 1-0.05 % 1 application Externally Twice a day 08/19/2024 Treatment Notes Assessment Notes Tinea unguium Aseptic debridement of elongated thickened nails x [...] educated regarding both OTC and prescription treatments. 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 After removal of overlying extensive hyperkeratosis, healthy tissue was noted and care was taken to assure that no undermining or probing was present. It should be noted that no probing was noted and no infection or drainage was noted. Type 2 diabetes mellitus wit h diabetic peripheral angiopathy without gangrene Patient educated on proper diabetic foot care [...] not limited to nausea, vomiting, fever. a Next Appt Details Follow Up: 3 Months, Reason: Provider Name:ALEXIS HUMPHREY, 12/30/2024 11:20:00 AM, [address] [place] [address], [id number], Progress Notes * Elida VELOZ: 9 (64 yo M)Acc No.[id number]:08/19/2024 Patient: Sydney CAIN Provider: Jerry FIGUEROA :1960 A ge:63 Y S ex:Male Date:08/19/2024 Address[id number] Subjective: * Chief Complaints: * 1 . *General care. * HPI: H PI: General care P atient presents to the office for diabetic foot care. Patient states that their nails are thickened, elongated and painful. Patient states that it is aggravated by shoe gear. Onset is gradual., Patient denies taking prescription blood thinners but does take a daily aspirin., Date last seen by Dr. Garcia was 06/2024., Initials mca. * ROS: G eneral / Constitutional: Patient denies w eakness. R espiratory: Patient denies c hronic cough, shortness of breath, sputum production. C ardiovascular: Patient denies c hest pain, history of NE, irregular heartbeat. M usculoskeletal: Patient denies a rthritis, joint stiffness. ? P eripheral Vascular: Patient denies b lanching of skin, cold extremities, decreased sensation in extremities. S kin: Patient complains of n ail changes, discoloration, fungal nails. N eurologic: Patient denies d izziness, gait abnormality, headache. * Medical History: * Medications: T aking Clotrimazole-Betamethasone 1-0.05 % Cream 1 application Externally Twice a day Objective: * Vitals: * Examination: P hysical Examination: V ascular: Dorsalis Pedis pulse noted at 1/4 right foot and 1/4 left foot and Posterior Tibial pulse noted at 1/4 right foot and 1/4 left foot, Capillary refill times noted to be less than three seconds x ten, Temperature gradient noted to be warm to cool to bilateral foot, pedal hair present to bilateral foot and no varicosities are noted Dermatologic: there are no open lesions, no signs of active clinical infection, no erythema noted, no ecchymoses, nails are elongated thickened and dystrophic with subungual debris x ten, hyperkeratotic tissue plantar fifth metatarsal head bilateral foot Musculoskeletal: there is pain to palpation onto nail plate x ten, no calf pain noted bilaterally, arch height noted at 2/5 non-weight bearing bilaterally, first metatarsophalangeal joint range of motion 30 deg non-weight bearing bilaterally, flexible fifth digit hammer toe deformity noted to bilateral foot reducible with kelikian push up test, pain to palpation sub fifth metatarsal head hyperkeratotic tissue bilateral foot Neurology: protective sensation intact to light touch bilateral digits one through five, vibratory sensation intact to first metatarsophalangeal joint bilaterally. Assessment: * Assessment: 1. T inea unguium - B35.1 (Primary) 2 . P ain in left toe(s) - M79.675 3 . P ain in right toe(s) - M79.674 4 . U nspecified atherosclerosis of [place] arteries of extremities, bilateral legs - I70.203 5 . A cquired keratosis [keratoderma] palmaris et plantaris - L85.1 6 . T ype 2 diabetes mellitus with diabetic peripheral angiopathy without gangrene - E11.51 Plan: * Treatment: 2. U nspecified atherosclerosis of [place] arteries of extremities, bilateral legs Notes: Patient educated on risks and aggravating factors of PVD, including conservative treatment options such as a diet and exercise regimen to aid in slowing progression of vascular disease ? 3. 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 After removal of overlying extensive hyperkeratosis, healthy tissue was noted and care was taken to assure that no undermining or probing was present. It should be noted that no probing was noted and no infection or drainage was noted. 4. T ype 2 diabetes mellitus with diabetic peripheral angiopathy without gangrene Start Clotrimazole-Betamethasone Cream, 1-0.05 %, 1 application, Externally, Twice a day, 1, Refills 2. Notes: Patient educated on proper diabetic foot care [...] not limited to nausea, vomiting, fever. a * Follow Up: 3 Months * Billing Information: * Visit Code: 93924 Office Visit, Est Pt., Level 3. * Procedure Codes: * Electronic signature of REBECCA FIGUEROA DPM on 12/22/2024 at 10:53 AM CDT Sign off status: Pending * Provider: Jerry FIGUEROA Date: 1 10/20/2023 Generated for Ruel fisher/Delano/Myron on: 0 12/22/2024 10:53 AM CDT History and Physical Notes * HPI (History of Present Illness) Category Sub-Category Detail Notes Category Not es HPI General care Patient presents to the office for diabetic foot care. Patient states that their nails are thickened, elongated and painful. Patient states that it is aggravated by shoe gear. Onset is gradual., Patient denies taking prescription blood thinners but does take a daily aspirin., Date last seen by Dr. Garcia was 06/2024., Initials mca Examination Category Sub-Category Detail Notes Category Not es Physical Examination Vascular: Dorsalis Pedis pulse noted at 1/4 right foot and 1/4 left foot and Posterior Tibial pulse noted at 1/4 right foot and 1/4 left foot, Capillary refill times noted to be less than three seconds x ten, Temperature gradient noted to be warm to cool to bilateral foot, pedal hair present to bilateral foot and no varicosities are noted Dermatologic: there are no open lesions, no signs of active clinical infection, no erythema noted, no ecchymoses, nails are elongated thickened and dystrophic with subungual debris x ten, hyperkeratotic tissue plantar fifth metatarsal head bilateral foot Musculoskeletal: there is pain to palpation onto nail plate x ten, no calf pain noted bilaterally, arch height noted at 2/5 non-weight bearing bilaterally, first metatarsophalangeal joint range of motion 30 deg non-weight bearing bilaterally, flexible fifth digit hammer toe deformity noted to bilateral foot reducible with kelikian push up test, pain to palpation sub fifth metatarsal head hyperkeratotic tissue bilateral foot Neurology: protective sensation intact to light touch bilateral digits one through five, vibratory sensation intact to first metatarsophalangeal joint bilaterally
--- OUTSIDE RECORDS SUMMARY | 2024-12-22 10:54 | XMS_ITS | Referral Summary ---
Author Organization [facility] Address [address] [place] [address] Care Team Providers Care Premium Representative Name Role Phone Mitra Garcia MD Primary Care Provider [phone] Encounters Date Type Department Care Team Description 12/08/2024 Telephone [facility] End[facility] [address] [place] [phone] Fely Faust NP surgical clearance request 11/02/2024 Results Follow-Up [facility] Diabetes [facility] Endocr[facility]ology [address] [place] [phone] Fely Faust NP 10/22/2024 Telephone [facility] End[facility] [address] [place] [phone] Fely Faust NP Prior Auth (Mounjaro) 10/18/2024 Telephone [facility] Endocr[facility]ology [address] [place] [phone] Fely Faust NP Lab orders 10/18/2024 1:00 PM PIE CRIMPING MACHINE OPERATOR Office Visit [facility] End[facility] [address] [place] [phone] Fely Faust NP Type 2 diabetes [...] Pen Needle 32 gauge x 5/32 needle 03/03/20 24 Active zolpidem (AMBIEN) 5 mg tablet 03/05/20 24 Active indapamide (LOZOL) 1.25 mg tablet 03/29/20 24 Active blood-glucose sensor device One sensor every 14 days 2 each 07/07/20 24 Active atorvastatin (LIPITOR) 20 mg [...] THE SKIN ONCE A WEEK 2 mL 12/18/19 25 026 Active LANTUS 100 unit/mL (3 mL) pen for injection Inject 40 Units under the skin With main meal 03/20/20 21 024 Discontinued( erapy completed) tirzepatide (Mounjaro) 2.5 mg/0.5 mL pen injector injectionIndi cations:type 2 diabetes mellitus Inject 0.5 mL (2.5 mg total) under the skin once a week 2 mL 10/18/19 25 025 Discontinued Active Problems Patient [...] 09/17/2023 Assessment & Plan (10/18/2024 1:34 PM PIE CRIMPING MACHINE OPERATOR): Chronic problem. A1c improved from 6.1% 04/07/2423 to now 5.7% without hypoglycemia. Would like [...] eye exam (09/2023). Has appt 10/25/24 at [facility]. Letter sent to get copy of [...] infection. Assessment & Plan (09/17/2023 10:44 AM PIE CRIMPING MACHINE OPERATOR): Chronic, overall well controlled A1c 6.2% Counseled [...] patient last eye exam Advised to see scale installer Follow-up in 6 months Hyperlipidemia associated with type 2 diabetes delilah hinojosa 09/17/2023 Assessment & Plan (10/18/2024 1:09 PM PIE CRIMPING MACHINE OPERATOR): Chronic problem. Controlled on current Atorvastatin 20mg & fenofibrate 160mg. Last lipid panel: 08/07/23 LDL=>160, ZU=023. Will update labs. Does not mychart. Verified phone #/address to contact re: results. Assessment & Plan (04/07/2024 2:48 PM CDT): Chronic problem. Controlled on current Atorvastatin 20mg & fenofibrate 160mg. Last lipid panel: 08/07/23 LDL=>160, QI=332. Assessment & Plan (09/17/2023 10:43 AM PIE CRIMPING MACHINE OPERATOR): Start pt on statin therapy Continue Fenofibrate Hypertension associated with diabetes 09/17/2023 Assessment & Plan (10/18/2024 1:08 PM PIE CRIMPING MACHINE OPERATOR): Chronic problem. Controlled on current lisinopril 40mg daily, diltiazem CD 360mg daily, lozol 2.5mg daily, carvedilol 25mg bid Will update labs. Does not mychart. Verified phone #/address to contact re: results. Assessment & Plan (04/07/2024 2:47 PM CDT): Chronic problem. Controlled on current lisinopril-HCTZ 20-12.5mg daily, diltiazem CD 360mg daily, lozol 2.5mg daily Assessment & Plan (09/17/2023 10:43 AM PIE CRIMPING MACHINE OPERATOR): Chronic, well controlled Continue lisinopril/hydrochlorothiazide Class 1 obesity due to exces s calories with serious comorbidity and body mass index (BMI) of 34.0 to 34.9 in adult 09/17/2023 Assessment & Plan (09/17/2023 10:43 AM PIE CRIMPING MACHINE OPERATOR): Chronic, progressively worsening Counseled on diet and exercise Hemoptysis 04/06/2021 Overview (04/06/2021): Added automatically from request for surgery [id number] Social History Tobacco Use Types Packs/Day Years Used Date Smoking Tobacco: Former Cigarettes 1 43 1 2018 Smokeless Tobacco: Never AUDIT-C Answer Date [...] on file Legal Sex Male 12:31 AM PIE CRIMPING MACHINE OPERATOR Gender Identity Not on file Sexual Orientation Not on file Last Filed Vital Signs Vital Sign Reading Time Taken Comments Blood Pressure 136/86 10/18/2024 12:56 PM PIE CRIMPING MACHINE OPERATOR Pulse 80 10/18/2024 12:56 PM PIE CRIMPING MACHINE OPERATOR Temperature 36.1 C (97 F) 04/18/2021 10:25 AM CDT Respiratory Rate 18 10/18/2024 12:56 PM PIE CRIMPING MACHINE OPERATOR Oxygen Saturation 94% 04/18/2021 11:30 AM CDT Inhaled Oxygen Concentration - - Weight 102.5 kg (226 lb) 10/18/2024 12:56 PM PIE CRIMPING MACHINE OPERATOR Height 175.3 cm (5' 9.02 ) 10/18/2024 12:[address] Body Mass Index 33.36 10/18/2024 12:56 PM PIE CRIMPING MACHINE OPERATOR Plan of Treatment Not on file Procedures Procedure Name Priority Date/Time Associated Diagnosis Comments ALBUMIN CREATININE RATIO, URINE Routine 10/30/2024 9:41 AM PIE CRIMPING MACHINE OPERATOR Type 2 diabetes mellitus with microalbuminuria, with long-term current use of insulin (HCC) COMPREHENSIVE METABOLIC PANEL Routine 10/30/2024 9:41 AM PIE CRIMPING MACHINE OPERATOR Type 2 diabetes mellitus with microalbuminuria, with long-term current use of insulin (HCC) Hypertension associated with diabetes (HCC) LIPID PANEL Routine 10/30/2024 9:41 AM PIE CRIMPING MACHINE OPERATOR Type 2 diabetes mellitus with microalbuminuria, with long-term current use of insulin ([facility]) Hyperlipidemia associated with type 2 diabetes mellitus (HCC) POCT GLUCOSE Routine 10/18/2024 1:00 PM PIE CRIMPING MACHINE OPERATOR Type 2 diabetes mellitus with microalbuminuria, with long-term current use of insulin (HCC) POCT HEMOGLOBIN A1C Routine 10/18/2024 1 :00 PM PIE CRIMPING MACHINE OPERATOR Type 2 diabetes mellitus with microalbuminuria, with long-term current use of insulin ([facility]) DIABETES EYE EXAM Routine 09/24/2023 8:05 AM PIE CRIMPING MACHINE OPERATOR from Last 3 Months or Most Recently Relevant to Health Maintenance Results * (ABNORMAL) Albumin Creatinine Ratio, Urine (10/30/2024 9:41 AM PIE CRIMPING MACHINE OPERATOR) SCRIBED Creatinine, Urine 129.55 40 - 278 EXTERNAL LAB SCRIBED Microalbumin >400.0 NA - NA EXTERNAL LAB SCRIBED Microalb/Creat Ratio 308.7(A) 0 - 30 EXTERNAL LAB Urine 10/30/2024 9:41 AM PIE CRIMPING MACHINE OPERATOR us Fely Faust [facility] URINE ORDERABLES Michaela l Result EXTERNAL LAB * Lipid panel (10/30/2024 9:41 AM PIE CRIMPING MACHINE OPERATOR) SCRIBED Cholesterol, Total 141 0 - 200 EXTERNAL LAB SCRIBED HDL 47 40 - 60 EXTERNAL LAB SCRIBED LDL 74 <130 - NA EXTERNAL LAB SCRIBED Triglycerides 81 0 - 150 EXTERNAL LAB Blood 10/30/2024 9:41 AM PIE CRIMPING MACHINE OPERATOR us Fely Faust [employer] [facility] BLOOD ORDERABLES Michaela l Result Performing Organization Address [facility]/ZIP Co de Phone Number EXTERNAL LAB * (ABNORMAL) Comprehensive metabolic panel (10/30/2024 9:41 AM PIE CRIMPING MACHINE OPERATOR) SCRIBED Sodium 143 136 - 145 mmol/L [...] Units/L EXTERNAL LAB SCRIBED eGFR in NonAfrican Wallisian >60 >=60 - NA EXTERNAL LAB Blood 10/30/2024 9:41 AM PIE CRIMPING MACHINE OPERATOR us Fely Faust [employer] [employer] BLOOD ORDERABLES Michaela l Result EXTERNAL LAB * (ABNORMAL) POCT hemoglobin A1c (10/18/2024 1:00 PM PIE CRIMPING MACHINE OPERATOR) Hemoglobin A1C, POC 5.7 4.0 - 5.6 % Blood 10/18/2024 1:00 PM PIE CRIMPING MACHINE OPERATOR us Fely Faust NP POINT OF CARE TEST ORDERA BLES Final Result * (ABNORMAL) POCT glucose (10/18/2024 1:00 PM PIE CRIMPING MACHINE OPERATOR) Glucose Blood, POC 166 mg/dL Blood 10/18/2024 1:00 PM PIE CRIMPING MACHINE OPERATOR Fely Faust NP POINT OF CARE TEST ORDERA BLES Final Result * (ABNORMAL) DIABETES EYE EXAM (09/24/2023 8:05 AM PIE CRIMPING MACHINE OPERATOR) Historical Provider HEALTH MAINTENANCE Final Result from Last 3 Months or Most Recently Relevant to Health Maintenance Insurance [employer] [facility] Address: [facility] [id number] [place] [address] Care Teams Premium Representative Relationship Specialty Start Date End Date Mitra Garcia MD [address] [place] [address] PCP - General 06/29/07
--- OUTSIDE RECORDS SUMMARY | 2024-12-22 10:54 | XMS_ITS ---
Author Organization [facility] Address [address] [place], [place] [id number] Care Team Providers Care Carver And Checkerer Specials Name Role Phone GRADY LINN Unavailable [phone] Mitra Garcia Unavailable Unavailable REASON FOR VISIT Patient presents for at-risk foot care . The patient has painful toenails and calluses that are causing difficulty with ambulation and shoegear. The onset is gradual Medications Medication SIG (Take, Route, Frequency, Duration) Notes Start Date End Date Status Clotrimazole-Betamethasone 1-0.05 % 1 application Externally Twice a day 08/19/2024 Active Clotrimazole-Betamethasone 1-0.05 % 1 application Externally Twice a day 12/04/2023 Active Encounters Encounter Location Date Provider Diagnosis [address] [id number] 10/21/2024 GRADY LINN Tinea unguium B35.1 ; Acquired keratosis [keratoderma] palmaris et plantaris L85.1 ; Atherosclerosis of big sandy arteries of extremities with intermittent claudication, bilateral legs I70.213 ; Pain in right foot M79.671 and Pain in left foot M79.672 Assessments Encounter Date Diagnosis (ICD Code) Assessment Notes Treatment Notes Treatment Clinical Notes Section Notes 10/21/2024 Tinea unguium (ICD-10 - B35.1) Nails [...] utilizing a #15 blade 10/21/2024 Atherosclerosis of big sandy arteries of extremities with intermittent claudication, bilateral legs (ICD-10 - I70.213) 10/21/2024 Pain in right foot (ICD-10 - M79.671) 10/21/2024 Pain in left foot (ICD-10 - M79.672) Plan Of Treatment Treatment Notes Assessment Notes Tinea unguium Nails 1-5 Bilateral were debrided extensively with nail nippers and emery board, reducing length and girth to pink healthy tissue with any subungual debris and necrotic tissue removed Acquired keratosis [keratode rma] palmaris et plantaris A total of 2 corns or calluses, as described in the note above, were cut and pared utilizing a #15 blade Next Appt Details Follow Up: 10 - 12 weeks, Re ason: At-Risk Foot care, sooner if problems develop. Provider Name:ALEXIS HUMPHREY, 12/30/2024 11:20:00 AM, [address] [place] [address], [id number], Progress Notes * Darnell VELOZOB: 9 (64 yo M)Acc No.[id number]:10/21/2024 Patient: Sydney CAIN Provider: Dotty Linn DPM :1960 A ge:63 Y S ex:Male Date:10/21/2024 Address:[id number] Subjective: * Chief Complaints: * Nafisa patricio presents for at-risk foot care . The patient has painful toenails and calluses that are causing difficulty with ambulation and shoegear. The onset is gradual * HPI: H PI: General care Nafisa patricio presents to the office for diabetic foot care. Patient states that their nails are thickened, elongated and painful. Patient states that it is aggravated by shoe gear. Onset is gradual., Patient denies taking prescription blood thinners but does take a daily aspirin., Date last seen by Dr. Garcia was 07/2024., Initials [facility]. * Medical History: * Surgical History: * Hospitalization/Major Diagno stic Procedure: * Medications: T akingClotrimazole-Betamethasone 1-0.05 % Cream 1 application Externally Twice a day Clotrimazole-Betamethasone 1-0.05 % Cream 1 application Externally Twice a day Medication List reviewed and reconciled with the patientTaking Clotrimazole-Betamethasone 1-0.05 % Cream 1 application Externally Twice a day Taking Clotrimazole-Betamethasone 1-0.05 % Cream 1 application Externally Twice a day Medication List reviewed and reconciled with the patient Objective: * Vitals: * Examination: P hysical Examination: General appearance: A lert, pleasant, well-nourished and in no acute distress. D ermatologic: Skin findings: S kin is thin, atrophic and lacking pedal hair. Hypertrophic / hyperkeratotic lesion: p lantar aspect of the 1st metatarsal head of the left and right foot. Nail pathology: N ails 1, 2, 3, 4, and 5 bilateral are elongated, thick, discolored, and dystrophic with subungual debris. They are painful to palpation. ? V ascular: Dorsalis pedis pulse: 1 /4 b ilateral. Posterior tibial pulse: 0 /4 bilateral. Capillary refill: g reater than 3 seconds. Edema: N o edema bilateral. N eurologic: Gross sensation G rossly intact to light touch. There is negative Tinel's sign. M usculoskeletal: Muscle Strength M uscle strength is 5/5 in regards to dorsiflexion, plantarflexion, inversion, and eversion in bilateral lower extremities. ? Assessment: * Assessment: 1. T inea unguium - B35.1 (Primary) 2 . A cquired keratosis [keratoderma] palmaris et plantaris - L85.1 3 . A therosclerosis of big sandy arteries of extremities with intermittent claudication, bilateral legs - I70.213 4 . P ain in right foot - M79.671 5 . P ain in left foot - M79.672 Plan: * Treatment: 2. A cquired keratosis [keratoderma] palmaris et plantaris Notes: A total of 2 corns or calluses, as described in the note above, were cut and pared utilizing a #15 blade * Procedure Codes: * Follow Up: 1 0 - 12 weeks (Reason: At-Risk Foot care, sooner if problems develop.) * Billing Information: * Visit Code: 65500 Office Visit, Est Pt., Level 3. * Procedure Codes: * Sign off status: Completed true * Provider: Dotty Linn DPM Date: 0 10/21/2024 Generated for Ruel fisher/Delano/Myron on: 0 12/22/2024 10:54 AM CDT History and Physical Notes * [...] Date last seen by Dr. Garcia was 07/2024., Initials mca Examination Category Sub-Category Detail Notes Category Not es Dermatologic Skin findings: Skin is thin, at rophic and lacking pedal hair Nail pathology: Nails 1, 2, 3, 4, an d 5 bilateral are elongated, thick, discolored, and dystrophic with subungual debris. They are painful to palpation Hypertrophic / hyperkeratotic lesion: pl cindi aspect of the 1st metatarsal head of the left and right foot Neurologic Gross sensation Grossly intact t o light touch. There is negative Tinel's sign Vascular Dorsalis pedis pulse: 1/4 bilateral Edema: No edema bilateral Capillary refill: greater than 3 secon ds Posterior tibial pulse: 0/4 bilateral Physical Examination General appearance: Alert, pleasant, well-nourished and in no acute distress Musculoskeletal Muscle Strength Muscle strength is 5/5 in regards to dorsiflexion, plantarflexion, inversion, and eversion in bilateral lower extremities
--- OUTSIDE RECORDS SUMMARY | 2024-12-22 10:54 | XMS_ITS | Clinical Summary ---
Author Organization [facility] Address [address] [place] [address] Care Team Providers Care Licensed Surveyor Name Role Phone Unavailable Primary Care Provider Unavailabl e Source Comments [facility],non-owned Affiliates and Associated Physician Practices is amultiple site organization consisting of ambulatory clinics and hospital sitesin [place], [place], [place] and [place]. This disclosure is being madepursuant to the Care Everywhere program and may not contain all information available regarding this patient. Last updated 18.[facility] [employer] Social History Tobacco Use Types Packs/Day Years Used Date Smoking Tobacco: Never Assessed Sex and Gender Information Value Date Recorded Sex Assigned at Not on file Legal Sex Male 10:47 AM CDT Gender Identity Not on file Sexual Orientation [...] VACCINE ( - 2023-2 5 season) 2024 DEPRESSION SCREENING 09/01/2024 INFLUENZA VACCINE (Season Ended) 2025 Respiratory Syncytial Virus (RSV) Vaccine Pt: or [...] on patient's age to complete this topic Insurance [facility]
--- OUTSIDE RECORDS SUMMARY | 2024-12-22 10:54 | XMS_ITS ---
Author Organization [facility] Address [address] [place], [place] [address] Care Team Providers Care Government Auditor Name Role Phone GRADY LINN Unavailable [phone] Mitra Garcia Unavailable Unavailable VIRY FIGUEROA Unavailable [phone] REASON FOR VISIT *General care Medications Medication SIG (Take, Route, Frequency, Duration) Notes Start Date End Date Status Clotrimazole-Betamethasone 1-0.05 % 1 application Externally Twice a day 12/04/2023 Active Encounters Encounter Location Date Provider Diagnosis [address] [place], [place] [id number] 06/17/2024 VIRY FIGUEROA Tinea unguium B35.1 ; Pain in left toe(s) M79.675 ; Pain in right toe(s) M79.674 ; Unspecified atherosclerosis of [place] arteries of extremities, bilateral legs I70.203 ; Acquired keratosis [keratoderma] palmaris et plantaris L85.1 and Type 2 diabetes mellitus with diabetic peripheral angiopathy without gangrene E11.51 Assessments Encounter Date Diagnosis (ICD Code) Assessment Notes Treatment Notes Treatment Clinical Notes Section Notes 06/17/2024 Tinea unguium (ICD-10 - B35.1) Aseptic [...] Pain in left toe(s) (ICD-10 - M79.675) 06/17/2024 Pain in right toe(s) (ICD-10 - M79.674) 06/17/2024 Unspecified atherosclerosis of [place] arteries of extremities, bilateral legs (ICD-10 - I70.203) Patient educated on risks and aggravating factors of PVD, including conservative treatment options such as a diet and exercise regimen to aid in slowing progression of vascular disease 06/17/2024 Acquired keratosis [keratoderma] palmaris et plantaris [...] and no infection or drainage was noted. 06/17/2024 Type 2 diabetes mellitus with diabetic [...] conservative options were emphasized. Plan Of Treatment Treatment Notes Assessment Notes Tinea unguium Aseptic [...] OTC and prescription treatments. Unspecified atherosclerosis of [place] arteries of extremities, bilateral legs Patient educated [...] not limited to nausea, vomiting, fever. a Other The patient was educ ated regarding how to mechanically stabilize their deformity. [...] were discussed, but conservative options were emphasized. Next Appt Details Follow Up: 3 Months, Reason: Provider Name:ALEXIS HUMPHREY, 12/30/2024 11:20:00 AM, [address] [place] [address], [id number], Progress Notes * Darnell VELOZOB: 9 (63 yo M)Acc No.[id number]:06/17/2024 Patient: Sydney CAIN Provider: Jerry FIGUEROA :1960 A ge:63 Y S ex:Male Date:06/17/2024 Address:[address] [place], [place] [id number] Subjective: * Chief Complaints: * 1 . [...] seen by Dr. Garcia was 06/2024., Initials [facility]. * ROS: G eneral / Constitutional: Patient denies w eakness. R espiratory: Patient denies c hronic cough, shortness of breath, sputum production. C ardiovascular: Patient denies c hest pain, history of [place], irregular heartbeat. M usculoskeletal: Patient denies a [...] M79.674 4 . U nspecified atherosclerosis of [place] arteries of extremities, bilateral legs - I70.203 5 . A cquired keratosis [keratoderma] palmaris et plantaris - L85.1 6 . T ype 2 diabetes mellitus with diabetic peripheral angiopathy without gangrene - E11.51 Plan: * Treatment: 2. U nspecified atherosclerosis of [place] arteries of extremities, bilateral legs Notes: Patient [...] mellitus with diabetic peripheral angiopathy without gangrene Notes: Patient educated on proper diabetic foot [...] not limited to nausea, vomiting, fever. a 5. O thers Notes: The patient was educated regarding how to [...] were discussed, but conservative options were emphasized. * Follow Up: 3 Months * Billing Information: * Visit Code: 88878 Office Visit, Est Pt., Level 3. * Procedure Codes: * Sign off status: Completed true * Provider: Jerry FIGUEROA Date: Generated for Ruel fisher/Delano/Myron on: 0 12/22/2024 [...]
[2024-12-22 12:59] LABS: Basophils Percent Auto 0.4 % (0.2-1.2); Eosinophils Absolute Auto 0.5 K/mm3 (0-0.3); Hematocrit 40.1 % (42.0-52.0); Hemoglobin 12.8 g/dL (14.0-18.0); Immature Granulocyte Absolute 0.05 K/mm3 (0.00-0.031); Immature Granulocyte Percent A 0.5 % (0-0.5); Lymphocytes Absolute Auto 1.68 K/mm3 (0.9-3.2); Lymphocytes Percent Auto 17.1 % (18.3-44.2); Mean Corpuscular HGB Conc 31.9 g/dl (32-36); Mean Corpuscular Hemoglobin 32.6 pg (26-34); Mean Platelet Volume 10.4 fl (7.4-10.4); Monocytes Absolute Auto 1.2 K/mm3 (0.1-0.6); Monocytes Percent Auto 11.9 % (2.6-8.5); Neutrophils Absolute Auto 6.4 K/mm3 (1.3-6.7); Neutrophils Percent Auto 65.1 % (45.5-73.1); Platelet Count Result 186 k/mm3 (150-375); Red Blood Count 3.93 M/mm3 (4.6-6.20); Red Cell Distribution Width 13.4 % (11.5-14.5); White Blood Count 9.8 K/mm3 (4.5-10.0)
[2024-12-22 13:05] LABS: Add Urine Microscopic? YES; Appearance Urine Clear (Clear); Bacteria Urine None Seen /hpf; Bilirubin Urine Negative (Negative); Blood Urine Negative (Negative); Color Urine Yellow (Yellow); Glucose Urine UA 1+ mg/dL (Negative); Ketones Urine Negative (Negative); Leukocyte Esterase Ur Negative LEU/UL (Negative); Nitrate Urine Negative (Negative); Non Pathogenic Casts 0-2; Protein Urine 1+ mg/dL (Negative); RBC Urine 0-2 /hpf (0-2); Specific Grav Ur 1.021 (1.001-1.035); Squamous Epithelial Cell Urine None Seen /hpf (Few); Urobilinogen Urine 0.2 mg/dL (<2.0); WBC Urine 0-5 /hpf (0-3); pH Urine 5.5 (5.0-9.0)
[2024-12-22 13:09] LABS: Urine Cotinine NEGATIVE
[2024-12-22 13:17] LABS: Prothrombin Time 13.7 Seconds (11.1-14.7)
[2024-12-22 13:19] LABS: Partial Thromboplastin Time 29.4 Seconds (22.3-36.8)
[2024-12-22 13:51] LABS: Albumin Level 4.3 g/dL (3.5-5.1); Anion Gap 14 mmol/L (4-12); Blood Urea Nitrogen 33 mg/dL (9-20); Calcium 9.3 mg/dL (8.4-10.2); Carbon Dioxide 21 mmol/L (22-30); Chloride 103 mmol/L (98-107); Estimated Glomerular Filt Rate 50; Glucose 147 mg/dL (65-110); Sodium 138 mmol/L (137-145)
[2024-12-22 14:12] LABS: MRSA (PCR) NOT DETECTED (NOT DETECTE)
[2024-12-22 17:29] LABS: Hemoglobin A1C 6.3 % (<5.7)
== END 2024-12-22 09:38 | disposition home or self-care (01) ==
LOC: ANHSURGERY 09:45
PROVIDERS: PCP Internal Medicine; Visit Provider Orthopaedic Surgery
DX: Z01.812 Encounter for preprocedural laboratory examination (principal); M17.12 Unilateral primary osteoarthritis, left knee
CPT/HCPCS: 80048; 80307; 81001; 82040; 83036; 85025; 85610; 85730; 87641

== ENCOUNTER 2025-01-06 16:58 | Observation (INO) | payer MEDICARE, SELFPAY ==
[2024-12-22 10:20] VITALS: BP 133/62; PULSE 77; RESP 16; TEMP 36.9; O2SAT 99; BMI 34.2
--- NOTE | 2024-12-24 08:06 | PC.NURSE ---
Report to the Outpatient Waiting Room, entrance under the green pavilion located off [facility], at time ___6:00AM ____ on date ___01/05/25____. Planned Procedure Time: ___7:30AM .? Time changes happen often and if your time is changed the preop area will call you the afternoon before. - You and your visitor will be asked to self-screen and do not enter if you have any COVID symptoms. Please call surgeon if you need to reschedule. - A mask is optional within the hospital at this time. Patients may have clear liquids (water, carbonated beverages, clear teas, apple juice) until 3 hours prior to surgery (4:30AM) with a maximum of 20 ounces. - No food from midnight until time of surgery and no smoking, or chewing tobacco (or any form of nicotine). No chewing gum, candy or mints. Take only the following medications with a SIP of water on the morning of surgery: ____TRELEGY ELLIPTA INHALER, CARVEDILOL, DILTIAZEM, HYDRALAZINE. MAY USE ALBUTEROL INHALER AND TRAMADOL NEEDED DO NOT STOP ANY OF YOUR OTHER PRESCRIPTION MEDICATIONS PRIOR TO SURGERY EXCEPT THE FOLLOWING Hold all vitamins and supplements for 3 days per anesthesiologist.-LAST DOSE 01/01/25 Medications to discontinue per physician ___HOLD ASPIRIN AND NSAIDS(MELOXICAM) 7 DAYS PRE-OP PER DR VILLA Date to take last dose 12/28/24 Please no make-up, nail haitian, hairspray, perfume, deodorant, or body powder the day of surgery.? No jewelry (including any body piercings) or valuables the day of surgery, leave them at home.? Please take a shower or bath the night before, or the morning of, surgery with an antibacterial soap.? Wear comfortable, loose fitting clothing.? Children are encouraged to wear pajamas. HIBICLENS SHOWERS PER DR VILLA. - Jewelry must be removed prior to entering the operating room.? Rings and piercings that are not removed may be cut off. - The hospital will not accept responsibility for valuables.? - Please leave all valuables, including medications, at home the day of surgery. If you are going home after surgery, a licensed hazmat truck driver must drive you home.? - NO public transportation without another adult if you receive anesthesia. - We recommend that an adult stay with you for 24 hours following discharge. - We also recommend that you do not drive, make important decision, drink alcoholic beverages, or take any drugs that were not prescribed by your health care provider for at least 24 hours after your discharge time. For Pediatric surgeries, we recommend two adults accompany the child home. Follow any additional instructions given to you from your surgeon. Telephone instructions given to ____PATIENT and asked if any additional questions and then verbalized understanding. Patient advised to call surgeon office or pre surgery nurse liaison [phone] if any additional questions.
[2025-01-05] VITALS (17 sets, daily range): BP systolic 93–155; BP diastolic 49–71; PULSE 57–84; RESP 11–23; TEMP 36.1–36.7; O2SAT 93–100
--- OUTSIDE RECORDS SUMMARY | 2025-01-05 00:52 | XMS_ITS ---
Author Organization [facility] Address [address] [place], [place] [address] Care Team Providers Care Cna Ltc Name Role Phone GRADY LINN Unavailable [phone] Mitra Garcia Unavailable Unavailable VIRY FIGUEROA Unavailable [phone] REASON FOR VISIT *General care Medications Medication SIG (Take, Route, Frequency, Duration) Notes Start Date End Date Status Clotrimazole-Betamethasone 1-0.05 % 1 application Externally Twice a day 08/19/2024 Active Clotrimazole-Betamethasone 1-0.05 % 1 application Externally Twice a day 12/04/2023 Active Encounters Encounter Location Date Provider Diagnosis [address] [place], [place] [id number] 08/19/2024 VIRY FIGUEROA Tinea unguium B35.1 ; Pain in left toe(s) M79.675 ; Pain in right toe(s) M79.674 ; Unspecified atherosclerosis of [place] arteries of extremities, bilateral legs I70.203 ; [...] (ICD-10 - M79.674) 08/19/2024 Unspecified atherosclerosis of [place] arteries of extremities, bilateral legs (ICD-10 - [...] OTC and prescription treatments. Unspecified atherosclerosis of [place] arteries of extremities, bilateral legs Patient educated [...] Up: 3 Months, Reason: Provider Name:ALEXIS HUMPHREY, 01/27/2025 10:10:00 AM, [address] [place] [address], [id number], Progress Notes * Elida VELOZ: 9 (64 yo M)Acc No.[id number]:08/19/2024 Patient: Sydney CAIN Provider: Jerry FIGUEROA :1960 A ge:63 Y S ex:Male Date:08/19/2024 Address:[facility] Subjective: * Chief Complaints: * 1 . [...] Patient denies c hest pain, history of [place], irregular heartbeat. M usculoskeletal: Patient denies a [...] M79.674 4 . U nspecified atherosclerosis of [place] arteries of extremities, bilateral legs - I70.203 5 . A cquired keratosis [keratoderma] palmaris et plantaris - L85.1 6 . T ype 2 diabetes mellitus with diabetic peripheral angiopathy without gangrene - E11.51 Plan: * Treatment: 2. U nspecified atherosclerosis of [place] arteries of extremities, bilateral legs Notes: Patient [...] Months * Billing Information: * Visit Code: 64081 Office Visit, Est Pt., Level 3. * Procedure Codes: * Electronic signature of REBECCA FIGUEROA DPM on 01/05/2025 at 12:51 AM CDT Sign off status: Pending * Provider: Jerry FIGUEROA Date: 1 10/20/2023 Generated for Ruel fisher/Delano/Myron on: 0 01/05/2025 12:51 AM CDT History and Physical Notes * [...]
--- OUTSIDE RECORDS SUMMARY | 2025-01-05 00:52 | XMS_ITS | Clinical Summary ---
Author Organization [facility] Address [address] [address] Care Team Providers Care Health Care Law Specialist Name Role Phone Unavailable Primary Care Provider Unavailabl e Source Comments [facility],non-owned Affiliates and Associated Physician Practices is amultiple site organization consisting of ambulatory clinics and hospital sitesin [place], [place], [place] and [place]. This disclosure is being madepursuant to the Care Everywhere program and may not contain all information available regarding this patient. Last updated 18.[facility] [employer] Social History Tobacco Use Types Packs/Day Years [...] COLON CA SCREENING 1960 LIPID TESTING 1960 HEPATITIS C SCREENING 10/29/1976 DTAP/TDAP/TD VACCINES (1 [...] patient's age to complete this topic Insurance [facility]
--- OUTSIDE RECORDS SUMMARY | 2025-01-05 00:52 | XMS_ITS ---
Author Organization [facility] Address [address] [place], [place] [address] Care Team Providers Care Piano Regulator Name Role Phone GRADY LINN Unavailable [phone] Mitra Garcia Unavailable Unavailable REASON FOR VISIT [...] Active Encounters Encounter Location Date Provider Diagnosis [address] [id number] 10/21/2024 GRADY LINN Tinea unguium B35.1 ; Acquired keratosis [keratoderma] palmaris et plantaris L85.1 ; Atherosclerosis of [place] arteries of extremities with intermittent claudication, bilateral [...] utilizing a #15 blade 10/21/2024 Atherosclerosis of [place] arteries of extremities with intermittent claudication, bilateral [...] sooner if problems develop. Provider Name:ALEXIS HUMPHREY, 01/27/2025 10:10:00 AM, [address] [place] [address], [id number], Progress Notes * Darnell VELOZOB: 9 (64 yo M)Acc No.[id number]:10/21/2024 Patient: Sydney CAIN Provider: Dotty Linn DPM :1960 A ge:63 Y S ex:Male Date:10/21/2024 Address:[facility] [address] [id number] Subjective: * Chief Complaints: * Nafisa patricio [...] seen by Dr. Garcia was 07/2024., Initials [facility]. * Medical History: * Surgical History: * [...] - L85.1 3 . A therosclerosis of [place] arteries of extremities with intermittent claudication, bilateral [...] develop.) * Billing Information: * Visit Code: 96643 Office Visit, Est Pt., Level 3. * Procedure Codes: * Sign off status: Completed true * Provider: Dotty Linn DPM Date: 0 10/21/2024 Generated for Ruel fisher/Delano/Myron on: 0 01/05/2025 12:52 AM CDT History and Physical Notes * [...]
--- OUTSIDE RECORDS SUMMARY | 2025-01-05 00:52 | XMS_ITS | Patient Health Record ---
Author Organization [facility] Address [address] [place], [place] [address] Care Team Providers Care Irrigation Worker Name Role Phone GRADY LINN Unavailable [phone] Mitra Garcia Unavailable Unavailable VIRY FIUGEROA Unavailable [phone] ALEXIS LY Unavailable [phone] Allergies No Known Allergies Reason For Referral [...] 02/05/2024 Encounters Encounter Location Date Provider Diagnosis [facility] [address] [place], [place] [id number] 08/19/2024 VIRY FIGUEROA Tinea unguium B35.1 ; Pain in left toe(s) M79.675 ; Pain in right toe(s) M79.674 ; Unspecified atherosclerosis of [place] arteries of extremities, bilateral legs I70.203 ; Acquired keratosis [keratoderma] palmaris et plantaris L85.1 and Type 2 diabetes mellitus with diabetic peripheral angiopathy without gangrene E11.[address] [id number] 02/05/2024 VIRY FIGUEROA Other hammer toe(s) (acquired), right foot M20.41 ; Tinea unguium B35.1 ; Other hammer toe(s) (acquired), left foot M20.42 ; Acquired keratosis [keratoderma] palmaris et plantaris L85.1 ; Unspecified atherosclerosis of [place] arteries of extremities, bilateral legs I70.203 ; Pain in left toe(s) M79.675 ; Pain in right toe(s) M79.674 ; Pain in right foot M79.671 ; Pain in left foot M79.672 and Type 2 diabetes mellitus with diabetic peripheral angiopathy without gangrene E11.[address] [id number] 04/08/2024 VIRY FIGUEROA Other hammer toe(s) (acquired), right foot M20.41 ; Tinea unguium B35.1 ; Other hammer toe(s) (acquired), left foot M20.42 ; Acquired keratosis [keratoderma] palmaris et plantaris L85.1 ; Unspecified atherosclerosis of [place] arteries of extremities, bilateral legs I70.203 ; Pain in left toe(s) M79.675 ; Pain in right toe(s) M79.674 ; Pain in right foot M79.671 ; Pain in left foot M79.672 and Type 2 diabetes mellitus with diabetic peripheral angiopathy without gangrene E11.51 [address] [place], [place] [id number] 06/17/2024 VIRY FIGUEROA Tinea unguium B35.1 ; Pain in left toe(s) M79.675 ; Pain in right toe(s) M79.674 ; Unspecified atherosclerosis of [place] arteries of extremities, bilateral legs I70.203 ; Acquired keratosis [keratoderma] palmaris et plantaris L85.1 and Type 2 diabetes mellitus with diabetic peripheral angiopathy without gangrene E11.[address] [id number] 10/21/2024 GRADY LINN Tinea unguium B35.1 ; Acquired keratosis [keratoderma] palmaris et plantaris L85.1 ; Atherosclerosis of [place] arteries of extremities with intermittent claudication, bilateral [...] utilizing a #15 blade 10/21/2024 Atherosclerosis of [place] arteries of extremities with intermittent claudication, bilateral [...] drainage was noted. 08/19/2024 Unspecified atherosclerosis of [place] arteries of extremities, bilateral legs (ICD-10 - I70.203) Patient educated on risks and aggravating factors of PVD, including conservative treatment options such as a diet and exercise regimen to aid in slowing progression of vascular disease 06/17/2024 Unspecified atherosclerosis of [place] arteries of extremities, bilateral legs (ICD-10 - [...] drainage was noted. 04/08/2024 Unspecified atherosclerosis of [place] arteries of extremities, bilateral legs (ICD-10 - I70.203) Patient educated on risks and aggravating factors of PVD, including conservative treatment options such as a diet and exercise regimen to aid in slowing progression of vascular disease 02/05/2024 Unspecified atherosclerosis of [place] arteries of extremities, bilateral legs (ICD-10 - [...] Treatment Next Appt Details Provider Name:ALEXIS HUMPHREY, 01/27/2025 10:10:00 AM, [address] [place] [address], [id number], Insurance Providers Payer Name Payer Address Payer Phone Subscriber Number Group Number Insured Name Patient Relationship to Insured Coverage Start Date Coverage End Date [facility] ATTN CLAIMS [address] [place] [address] [id number] Sydney Veloz Self - patient is the insured
--- OUTSIDE RECORDS SUMMARY | 2025-01-05 00:52 | XMS_ITS ---
Author Organization [facility] Address [address] [place], [place] [phone] Care Team Providers Care Handwriting Expert Name Role Phone GRADY LINN Unavailable [phone] Mitra Garcia Unavailable Unavailable ALEXIS LY Unavailable [phone] REASON FOR VISIT *General care Encounters Encounter Location Date Provider Diagnosis [address] [id number] 12/30/2024 ALEXIS LY Plan Of Treatment Next Appt Details Provider Name:ALEXIS HUMPHREY, 01/27/2025 10:10:00 AM, [address] [place] [address], [id number], Progress Notes * KALYAN BrittanieDavOB: (64 yo M)Acc No.[id number]:12/30/2024 Patient: Sydney CAIN Provider: Sheldon LY :1960 A ge:64 Y S ex:Male Date:12/30/2024 Address:[address] [place], [id number] Subjective: * Chief Complaints: * 1 . *General care. * Medical History: Objective: * Vitals: Assessment: Plan: * Treatment: * Billing Information: * Visit Code: * Procedure Codes: * Electronic signature of ELIZABETH LY DPM on 01/05/2025 at 12:52 AM CDT Sign off status: Pending * Provider: Sheldon LY Date: 0 12/30/2024 Generated for Ruel Smith/Myron on: 0 01/05/2025 12:52 AM CDT
[2025-01-05] MEDS: TRANEXAMIC ACID 1,000MG/ISO100 1,000 MG/100 ML BAG 200 MG IVPB (07:00)
[2025-01-05] MEDS: ACETAMINOPHEN 500 MG TABLET 1000 MG PO (07:00)
[2025-01-05] MEDS: LACTATED RINGERS 1,000 ML 30 ML IV CONT ×3 (07:00→11:09)
[2025-01-05 07:07] LABS: Glucose Point of Care 138 mg/dl (65-105)
--- NOTE | 2025-01-05 07:16 | P.PNAN_ITS ---
Anes - Initial Pre Proc Eval Procedure: Operation Date: 01/05/25 07:30 Proposed Procedures p Left Total Knee Arthroplasty - Parish Alexandre MD Date/Time: 01/05/25 07:16 Surgeon: Parish Alexandre MD Pre Op Diagnosis: left knee DJD Patient Data Age: 64 Gender: M Height: 1.73 m Weight: 102.3 kg Last Vital Signs Temp 98.5 F 12/22/24 10:20 Pulse 77 12/22/24 10:20 Resp 16 12/22/24 10:20 BP 133/62 12/22/24 10:20 Pulse Ox 99 12/22/24 10:20 O2 Del Method Room Air 12/22/24 10:20 Allergies Allergy/AdvReac Type Severity Reaction Status Date / Time No Known Allergies Allergy Verified 12/27/24 10:07 Home Medications ?Medication ?Instructions ?Recorded ?Confirmed ?Type meloxicam 15 mg tablet 15 mg PO DAILY 09/13/19 12/27/24 History tamsulosin 0.4 mg capsule 0.4 mg PO DAILY 09/13/19 12/27/24 History tramadol 50 mg tablet 50 mg PO Q8H PRN pain #30 tabs 11/12/24 12/27/24 Rx chlorhexidine gluconate 4 % 1 applic topical DAILY #237 mL 12/15/24 12/27/24 Rx topical liquid (Hibiclens) albuterol sulfate 90 mcg/actuation 2 puff inhalation Q4-6H PRN 12/22/24 12/27/24 History aerosol inhaler shortness of breath or wheezing allopurinol 200 mg tablet 200 mg PO QAM 12/22/24 12/27/24 History aspirin 81 mg tablet,delayed 81 mg PO DAILY 12/22/24 12/27/24 History release (Adult Aspirin Regimen) atorvastatin 20 mg tablet 20 mg PO QAM 12/22/24 12/27/24 History carvedilol 25 mg tablet 25 mg PO Q12H 12/22/24 12/27/24 History clotrimazole-betamethasone 1 1 applic topical Q12H PRN ECZEMA 12/22/24 12/27/24 History %-0.05 % topical cream diltiazem HCl 360 mg 360 mg PO QAM 12/22/24 12/27/24 History capsule,extended release 24 hr fenofibrate 160 mg tablet 160 mg PO QAM 12/22/24 12/27/24 History fluticasone fur. 100 mcg-umeclid 1 inh inhalation QA 12/22/24 12/27/24 History 62.5 mcg-vilant 25 mcg inhalat.powder (Trelegy Ellipta) fluticasone propionate 50 2 spray intranasal HS 12/22/24 12/27/24 History mcg/actuation nasal spray,suspension hydralazine 25 mg tablet 25 mg PO Q12H 12/22/24 12/27/24 History indapamide 1.25 mg tablet 1.25 mg PO QAM 12/22/24 12/27/24 History insulin glargine-yfgn 100 unit/mL 34 unit subcut QPM 12/22/24 12/27/24 History (3 mL) subcutaneous pen insulin lispro 100 unit/mL 15 unit subcut AC 12/22/24 12/27/24 History subcutaneous pen (Humalog KwikPen (U-100) Insulin) ipratropium bromide 42 mcg (0.06 2 spray intranasal 12/22/24 12/27/24 History %) nasal spray lisinopril 40 mg tablet 40 mg PO QAM 12/22/24 12/27/24 History multivitamin (Daily Multi-Vitamin 1 tablet PO DAILY 12/22/24 12/27/24 History tablet) pantoprazole 40 mg tablet,delayed 40 mg PO DAILY 12/22/24 12/27/24 History release tirzepatide 2.5 mg/0.5 mL 2.5 mg subcut WEEKLY 12/22/24 12/27/24 History subcutaneous pen injector (Mounjaro) Laboratory Tests 01/05/25 07:02 POC Capillary Glucose 138 H mg/dl (65-105) Patient hx anesthesia problems: none Family hx anesthesia problems: none Results Review: All pre-operative results and documents have been reviewed as part of the pre- operative evaluation. [facility] Past Medical History Medical History Arthritis Essential hypertension Diabetes Abnormal findings on imaging of biliary tract Chondromalacia of right knee Chronic cholecystitis RUQ abdominal pain Surgical History Surgical History History of cholecystectomy Family History Family History Father Diabetes mellitus Family history of gout Family history of arthritis Unknown Asthma Heart disease Lung disease Neuropathy Other Family history of kidney disease Family history of malignant neoplasm Hypertension Social History Social History Social History: caffeine use Smoking packs per day: 1 Smoking cigarettes per day: 20.0 Years smoked: 43 Smoking pack-years: 43.00 Smoking status: Former smoker Tobacco type: cigarettes Smoking end date: 03/01/20 Alcohol intake: current Drinks per week: 3 Substance use type: does not use Living arrangements: with family Additional living arrangements comments: Occupation/Education: occupation Additional occupation/education comments: [employer] Gender identity (if verbalized by the patient): Male Spiritual care concerns: No Anes - Eval Final PreProcedure Day of Procedure 01/05/25 07:16 Patient weight: obese Lungs: normal air movement Airway: Mallampati scale class II Neurological: alert and oriented Last oral intake: >/= 8 hours ASA classification: III Emergent: no Anesthetic plan: proceed Anesthesia type and monitoring: general ETT and standard monitoring Results Review: All pre-operative results and documents have been reviewed as part of the pre- operative evaluation. HTN, hyperlipidemia, DM fsbs 138, EKG w NSR. Informed Consent: The patient's anesthetic plan and its attendant risks and benefits were discussed with the patient/family/POA. Questions were solicited and answers provided to the satisfaction of the patient/family/POA.
--- NOTE | 2025-01-05 07:21 | WPDHPUPDATE1 ---
History and Physical Update Update Date/Time: 01/05/25 07:21 History and Physical has been reviewed, including an updated exam of the patient. There are NO changes in the patient's condition. Risks, benefits, and alternatives have been discussed and questions answered. Patient agrees to proceed with procedure.
[2025-01-05] MEDS: ceFAZolin 2 GM/D5W 50 ML 2 GM/50 ML BAG IVPB ×2 (08:27→17:02)
[2025-01-05] MEDS: SODIUM CHLORIDE 0.9% IV 37.7 ML, MORPHINE SULFATE INJ (*CRX) 2 MG, ROPivacaine HCL 1% 2... INFILTRATE (08:28)
--- NOTE | 2025-01-05 08:38 | WPDANESPNB ---
Anes - Peripheral Nerve Block Date/Time: 01/05/25 08:38 I have discussed with the patient/family/POA the placement of a peripheral nerve block for post-operative pain management, including associated risks, benefits, complications, and side effects. Alternative methods of post-operative analgesia were detailed. Questions were solicited and answers provided to the satisfaction of the patient/family/POA. Time-Out: A pre-procedural Time-Out was completed immediately before starting the procedure and confirmed: Patient Identification, Site, Procedure, Patient Position and the Availability of Requisite Equipment. Clinical Indications: Acute post-operative pain management requested by the operative surgeon. Nerve Block Insertion Note Anes-nerve block: adductor canal left Patient position: supine Skin prep: chlorhexidine Needle: 22 gauge, stimulating, insulated echogenic needle. Needle length: 80 mm Technique: ultrasound Injectate: other (Bupiv 0.5% 20 mls. ) Observations: tolerated well Complications: none Procedure start time:: 722 Procedure end time:: 728
[2025-01-05] MEDS: TRANEXAMIC ACID 1,000 MG/10 ML AMPUL 1000 MG IV PUSH (09:55)
--- NOTE | 2025-01-05 10:07 | W.PM.PROC2 ---
Procedure Note - Detailed Date of Procedure 01/05/25 Pre-op Diagnosis left knee DJD Post-op Diagnosis Same Procedure Performed L TKA Surgeon Parish Alexandre MD Anesthesia General Description of Procedure THE LEFT KNEE WAS PREPPED AND DRAPED IN THE STERILE FASHION. THERE WAS A 10 DEGREE FLEXION CONTRACTURE. A MIDLINE SKIN INCISION WAS MADE. A MEDIAL PARAPATELLAR ARTHROTOMY WAS MADE. THE PATELLA WAS EVERTED. THERE WAS TRICOMPARTMENT DJD. THERE WAS MINIMAL PATELLA DJD. AN INTRAMEDULLARY KATHRYN WAS PLACED IN THE FEMUR. A DISTAL FEMORAL CUT WAS MADE IN 5 DEGREES OF VALGUS REMOVING APPROXIMATELY 9 MM OF BONE FROM THE DISTAL FEMUR. THE FEMUR WAS SIZED TO 65. A 65 FEMORAL CUTTING BLOCK WAS PLACED IN 3 DEGREES OF EXTERNAL ROTATION AND IN ALIGNMENT WITH VIDHI'S LINE AND THE TRANSEPICONDYLAR AXIS. ANTERIOR POSTERIOR AND CHAMFER CUTS WERE MADE. THE CUTS WERE EXCELLENT. NEXT AN INTRAMEDULLARY CUTTING GUIDE WAS PLACED IN THE TIBIA. A TRANS TIBIAL CUT WAS MADE ALONG THE LONG AXIS OF THE TIBIA. APPROXIMATELY 10 MM OF BONE WAS REMOVED FROM THE HIGH SIDE OF THE TIBIA. THE TIBIA WAS THEN PLANED TO A SMOOTH SURFACE. POSTERIOR FEMORAL OSTEOPHYTES WERE REMOVED FROM THE FEMORAL CONDYLES. A 75 TIBIAL TRIAL WAS PLACED IN ALIGNMENT WITH THE 1/3 MEDIAL ASPECT OF THE TIBIAL TUBERCLE. THEN A 65 FEMORAL TRIAL COMPONENT WAS PLACED. BOTH HAD EXCELLENT FITS. EVENTUALLY A 10 MM CR POLYETHYLENE TRIAL COMPONENT WAS PLACED. THE KNEE WAS TAKEN THROUGH A RANGE OF MOTION. THE KNEE CAME OUT TO FULL EXTENSION. THERE WAS NO ABNORMAL TILT TO THE PATELLA. THERE WAS GOOD A/P AND VARUS/VALGUS STABILITY. THERE WAS NO EXCESSIVE ROLL BACK WITH FLEXION. THE TRIAL COMPONENTS WERE REMOVED. THEN A 65 FEMORAL COMPONENT AND 75 TIBIAL COMPONENT WITH A 10 CR POLYETHYLENE COMPONENT WERE CEMENTED INTO PLACE. ONCE THE CEMENT WAS HARD THE KNEE WAS TAKEN THROUGH A ROM AGAIN AND FOUND TO BE STABLE WITH NO PATELLA TILT NO EXCESSIVE ROLL BACK WITH FLEXION AND GOOD STABILITY WITH COMPLETE AND FULL EXTENSION. THE KNEE WAS IRRIGATED WITH STERILE BETADINE AND WATER FOR ABOUT 3 MINUTES. THE BLEEDERS WERE CAUTERIZED. THE ARTHROTOMY WAS REPAIRED WITH NUMBER 1 VICRYL. THE SUB CUTANEOUS LAYER WITH 2-0 VICRYL AND THE SKIN WITH REN. THE WOUND WAS WASHED AND A STERILE DRESSING WAS APPLIED. PATIENT WAS EXTUBATED. Estimated Blood Loss -150.0 Pathology None sent Complications No immediate complications Condition Stable Disposition PACU
[2025-01-05] MEDS: fentaNYL CITRATE INJ (*CRX) 100 MCG/2 ML VIAL 25 MCG IV PUSH ×4 (10:34→11:55)
[2025-01-05 10:55] LABS: Glucose Point of Care 184 mg/dl (65-105)
[2025-01-05] MEDS: KETOROLAC 15 MG/ML VIAL (*BKC) IV PUSH ×3 (11:18→17:22)
--- NOTE | 2025-01-05 12:40 | ADMGEN ---
This patient, Sydney Veloz, was admitted to [facility] Surg Room 309-01. Patient/family oriented to hospital policies and general routines including ID bracelet, bed and alarms, visiting hours, pain management, procedures, bathroom and other care routines, personal items, smoking policy, room service/diet, and visiting hours. Information on how to activate the Rapid Response Team has been discussed. Patient/Family are encouraged to report perceived risks to care and to ask questions if they do not understand what they are told or what they should do.
[2025-01-05] MEDS: oxyCODONE/ACETAMINOPHEN (*CRX) 10-325 MG TABLET 1 TAB PO ×2 (12:53→21:18)
[2025-01-05 13:02] LABS: Glucose Point of Care 180 mg/dl (65-105)
[2025-01-05] MEDS: INSULIN ASPART (*BKC) 100 UNITS/ML 15 UNITS SUB-Q ×2 (13:02→17:08)
[2025-01-05] MEDS: SODIUM CHLORIDE 0.9% IV 1,000 ML 125 ML IV CONT (17:03)
[2025-01-05] MEDS: SENNA/DOCUSATE SODIUM TABLET 2 TAB PO (17:03)
[2025-01-05] MEDS: oxyCODONE/ACETAMINOPHEN (*CRX) 5-325 MG TABLET 1 TABLET PO (17:07)
[2025-01-05] MEDS: INSULIN GLARGINE (*BKC) 100 UNITS/ML 34 UNITS SUB-Q (17:12)
[2025-01-05] MEDS: carvediloL 25 MG TABLET PO (21:20)
[2025-01-05] MEDS: FAMOTIDINE 20 MG TABLET PO (21:21)
[2025-01-05] MEDS: ASPIRIN 81 MG ENTERIC TABLET PO (21:21)
[2025-01-05] MEDS: hydrALAZINE HCL 25 MG TABLET PO (21:28)
[2025-01-05] MEDS: FLUTICASONE PROPIONATE 0.05% NA SPR 16 GM BTL (*BKC) 2 SPRAY NASAL (21:29)
[2025-01-05] MEDS: IPRATROPIUM NASAL SPRAY 0.06% 15 ML BOTTLE 2 SPRAY NASAL (21:29)
--- NOTE | ~2025-01-06 | XR_ITS ---
EXAMINATION: [id number] DATE: 01/05/2025 10:44 INDICATION: Postoperative evaluation following left total knee arthroplasty. TECHNIQUE: Anteroposterior and lateral views of the left knee were obtained. COMPARISON: None. FINDINGS: Left total knee arthroplasty without patellar resurfacing appears well seated and in near anatomic al ignment. No fractures identified. Anterior skin isha and expected postoperative subcutaneous, int ramedullary and intra-articular gas. IMPRESSION: 1. Left total knee arthroplasty, negative for postoperative purposes. Reviewed, dictated and finalized at location A.
[2025-01-06] MEDS: KETOROLAC 15 MG/ML VIAL (*BKC) IV PUSH ×3 (01:00→12:27)
[2025-01-06] MEDS: ceFAZolin 2 GM/D5W 50 ML 2 GM/50 ML BAG IVPB ×2 (01:00→12:28)
[2025-01-06 06:00] VITALS: BP 121/66; PULSE 80; RESP 16; TEMP 37; O2SAT 100
[2025-01-06 06:13] LABS: Basophils Percent Auto 0.4 % (0.2-1.2); Eosinophils Absolute Auto 0.2 K/mm3 (0-0.3); Eosinophils Percent Auto 2.2 % (0-4.4); Hematocrit 35.9 % (42.0-52.0); Hemoglobin 11.5 g/dL (14.0-18.0); Immature Granulocyte Absolute 0.04 K/mm3 (0.00-0.031); Immature Granulocyte Percent A 0.4 % (0-0.5); Lymphocytes Absolute Auto 1.66 K/mm3 (0.9-3.2); Mean Corpuscular Hemoglobin 32.7 pg (26-34); Mean Platelet Volume 9.9 fl (7.4-10.4); Monocytes Absolute Auto 1.3 K/mm3 (0.1-0.6); Monocytes Percent Auto 14.2 % (2.6-8.5); Neutrophils Percent Auto 64.8 % (45.5-73.1); Platelet Count Result 216 k/mm3 (150-375); Red Blood Count 3.52 M/mm3 (4.6-6.20); Red Cell Distribution Width 13.3 % (11.5-14.5); White Blood Count 9.2 K/mm3 (4.5-10.0)
[2025-01-06 06:24] LABS: Anion Gap 9 mmol/L (4-12); Blood Urea Nitrogen 36 mg/dL (9-20); Calcium 8.8 mg/dL (8.4-10.2); Carbon Dioxide 26 mmol/L (22-30); Chloride 106 mmol/L (98-107); Estimated CRCL calculation 49 ml/min; Estimated Glomerular Filt Rate 46; Glucose 114 mg/dL (65-110); Potassium 4.8 mmol/L (3.4-5.0); Sodium 141 mmol/L (137-145)
[2025-01-06 08:00] VITALS: BP 134/67; PULSE 88; RESP 16; TEMP 36.2; O2SAT 99
[2025-01-06] MEDS: FLUTICASONE/UMECLIDIN/VILANTER 100-62.5-25 MCG ELLIPTA 1 PUFF INHALATION (08:29)
[2025-01-06] MEDS: INDAPAMIDE 1.25 MG TABLET PO (08:51)
[2025-01-06] MEDS: allopurinoL 100 MG TABLET 200 MG PO (08:51)
[2025-01-06 08:52] VITALS: PULSE 86
[2025-01-06] MEDS: TAMSULOSIN HCL 0.4 MG CAPSULE PO (08:52)
[2025-01-06] MEDS: ATORVASTATIN 20 MG TABLET PO (08:52)
[2025-01-06] MEDS: lisinopriL 20 MG TABLET 40 MG PO (08:52)
[2025-01-06] MEDS: carvediloL 25 MG TABLET PO (08:52)
[2025-01-06] MEDS: dilTIAZem HCL CD 180 MG CAP.24HR 360 MG PO (08:52)
[2025-01-06] MEDS: PANTOPRAZOLE 40 MG TABLET PO (08:53)
[2025-01-06] MEDS: MELOXICAM 7.5 MG TABLET 15 MG PO (08:53)
[2025-01-06] MEDS: FAMOTIDINE 20 MG TABLET PO (08:53)
[2025-01-06] MEDS: ASPIRIN 81 MG ENTERIC TABLET PO (08:53)
[2025-01-06] MEDS: MULTIVITAMINS THERAPEUTIC TAB (*BKC) 1 TABLET PO (08:53)
[2025-01-06] MEDS: hydrALAZINE HCL 25 MG TABLET PO (08:54)
[2025-01-06] MEDS: oxyCODONE/ACETAMINOPHEN (*CRX) 10-325 MG TABLET 1 TAB PO ×2 (08:54→18:03)
[2025-01-06] MEDS: INSULIN ASPART (*BKC) 100 UNITS/ML 15 UNITS SUB-Q ×3 (08:55→17:32)
--- NOTE | 2025-01-06 09:36 | WPDANESPN ---
Anes - Prog Note Post-Op Date/Time: 01/06/25 09:36 Cardiovascular status: normal Respiratory status: normal Airway patency: baseline Mental status: baseline Post-Op hydration status: normal Vital Signs: Last Vital Signs Temp 36.2 C L 01/06/25 08:00 Pulse 86 01/06/25 08:52 Resp 16 01/06/25 08:00 BP 134/67 01/06/25 08:00 Pulse Ox 99 01/06/25 08:00 O2 Del Method Autopap 01/05/25 22:26 O2 Flow Rate 8 01/05/25 10:45 Pain Score (VAS): 11/08 I/O: Intake & Output 01/05/25 01/06/25 01/06/25 23:59 07:59 15:59 Intake Total 250 240 Balance 250 240 Laboratory Tests 01/06/25 05:38 01/06/25 05:38 01/05/25 01/05/25 01/05/25 06:34 10:41 12:59 WBC RBC Hgb Hct MCV MCH MCHC RDW Plt Count MPV Immature Gran % (Auto) Neut % (Auto) Lymph % (Auto) [place] % (Auto) Eos % (Auto) Baso % (Auto) Lymph # (Auto) [place] # (Auto) Eos # (Auto) Baso # (Auto) Abs Immat Gran (auto) Absolute Neuts (auto) Absolute Nucleated RBC Nucleated RBC % Sodium Potassium Chloride Carbon Dioxide Anion Gap BUN Creatinine Estim Creat Clear Calc Estimated GFR Glucose POC Capillary Glucose 184 H 180 H Calcium Blood Type A Positive Antibody Screen Negative 01/06/25 05:38 WBC 9.2 RBC 3.52 L Hgb 11.5 L Hct 35.9 L MCV 102.0 H MCH 32.7 MCHC 32.0 RDW 13.3 Plt Count 216 MPV 9.9 Immature Gran % (Auto) 0.4 Neut % (Auto) 64.8 Lymph % (Auto) 18.0 L [place] % (Auto) 14.2 H Eos % (Auto) 2.2 Baso % (Auto) 0.4 Lymph # (Auto) 1.66 [place] # (Auto) 1.3 H Eos # (Auto) 0.2 Baso # (Auto) 0.0 Abs Immat Gran (auto) 0.04 H Absolute Neuts (auto) 6.0 Absolute Nucleated RBC 0.000 Nucleated RBC % 0.0 Sodium 141 Potassium 4.8 Chloride 106 Carbon Dioxide 26 Anion Gap 9 BUN 36 H Creatinine 1.52 H Estim Creat Clear Calc 49 Estimated GFR 46 L Glucose 114 H POC Capillary Glucose Calcium 8.8 Blood Type Antibody Screen Post-procedural complaints: none Patient Feedback: Patient satisfied with anesthetic care.
[2025-01-06 12:00] VITALS: BP 120/52; PULSE 93; RESP 18; TEMP 36.2; O2SAT 99
[2025-01-06] MEDS: oxyCODONE/ACETAMINOPHEN (*CRX) 5-325 MG TABLET 1 TABLET PO (12:30)
[2025-01-06 16:00] VITALS: BP 141/70; PULSE 88; RESP 14; TEMP 36.6; O2SAT 100
[2025-01-06] MEDS: INSULIN GLARGINE (*BKC) 100 UNITS/ML 34 UNITS SUB-Q (17:34)
--- NOTE | 2025-01-06 17:45 | P.PNOP_ITS ---
Progress Note: A&P Assessment and Plan (1) Right knee DJD: Code(s): M17.11 - Unilateral primary osteoarthritis, right knee Status: Acute (2) Left knee DJD: Code(s): M17.12 - Unilateral primary osteoarthritis, left knee Status: Acute Assessment and Plan: POD 1 DOING WELL. OK TO DC HOME F/U IN 3 WEEKS. Subjective Subjective Date/Time Seen: 01/06/25 17:45 Interval history: POD 1 DOING WELL. GOOD PROGRESS WITH PT, NO CALF PAIN Exam Extrem: Other: VSS AFEBRILE DRESSING DRY NV INTACT NEGATIVE HOMANS SIGN, CALF AND THIGH SOFT Objective Data Vital Signs Vital Signs: Vital Signs - 24 hr 01/05/25 17:47 01/05/25 21:20 01/05/25 21:37 Temperature 36.1 C L 36.7 C Pulse Rate 67 81 84 Respiratory Rate 18 16 Blood Pressure 129/64 155/71 H Pulse Oximetry 99 100 Oxygen Delivery 01/05/25 22:26 01/06/25 06:00 01/06/25 08:00 Temperature 37.0 C 36.2 C L Pulse Rate 77 80 88 Respiratory Rate 16 16 Blood Pressure 121/66 134/67 Pulse Oximetry 95 100 99 Oxygen Delivery Autopap 01/06/25 08:52 01/06/25 12:00 01/06/25 16:00 Temperature 36.2 C L 36.6 C Pulse Rate 86 93 88 Respiratory Rate 18 14 Blood Pressure 120/52 L 141/70 H Pulse Oximetry 99 100 Oxygen Delivery Intake/Output Intake/Output: Intake & Output 01/03/25 01/04/25 01/05/25 01/06/25 23:59 23:59 23:59 23:59 Intake Total 600 780 Balance 600 780 Meds/Results Medications: Active Medications Generic Name Dose Route Start Last Admin Trade Name Freq PRN Reason Stop Dose Admin Acetaminophen 500 mg 01/05/25 12:02 Acetaminophen 500 Mg Tablet PO Q6H PRN Pain Rated 1-3 Albuterol 2 puff 01/05/25 12:02 Albuterol Sulfate (*Sp) Aerosol 1 Puff INHALATION Q4-6H PRN shortness of breath or wheezing Allopurinol 200 mg 01/06/25 09:00 01/06/25 08:51 Allopurinol 100 Mg Tablet PO 200 mg QAM AYANA Administration Aspirin 81 mg 01/05/25 21:00 01/06/25 08:53 Aspirin 81 Mg Enteric Tablet PO 81 mg Q12HR AYANA Administration Atorvastatin Calcium 20 mg 01/06/25 09:00 01/06/25 08:52 Atorvastatin 20 Mg Tablet PO 20 mg QAM AYANA Administration Carvedilol 25 mg 01/05/25 21:00 01/06/25 08:52 Carvedilol 25 Mg Tablet PO 25 mg Q12H AYANA Administration Diazepam 5 mg 01/05/25 12:02 Diazepam (*Crx) 5 Mg Tablet PO Q8H PRN Spasms Diltiazem HCl 360 mg 01/06/25 09:00 01/06/25 08:52 Diltiazem Hcl Cd 180 Mg Cap.24hr PO 360 [facility] Administration Diphenhydramine HCl 25 mg 01/05/25 12:02 Diphenhydramine Hcl Inj 50 Mg/Ml Vial IV PUSH Q6H PRN Itching Famotidine 20 mg 01/05/25 21:00 01/06/25 08:53 Famotidine 20 Mg Tablet PO 20 mg Q12HR [facility] Administration Fluticasone Propionate 2 spray 01/05/25 21:00 01/05/25 21:29 Fluticasone Propionate 0.05% Na Spr 16 Gm Btl (*Bkc) NASAL 2 spray HS [facility] Administration Fluticasone/Umeclidinium/Vilanterol 1 puff 01/06/25 09:00 01/06/25 08:29 Fluticasone/Umeclidin/Vilanter 100-62.5-25 Mcg Ellipta INHALATION 1 puff [facility] Administration Hydralazine HCl 25 mg 01/05/25 21:00 01/06/25 08:54 Hydralazine Hcl 25 Mg Tablet PO 25 mg Q12HR AYANA Administration Hydromorphone HCl 1 mg 01/05/25 12:16 Hydromorphone Hcl Inj (*Crx) 2 Mg/Ml Vial IV PUSH Q2H PRN Pain Rated 7-10 Hydromorphone HCl 0.5 mg 01/05/25 12:16 Hydromorphone Hcl Inj (*Crx) 2 Mg/Ml Vial IV PUSH Q2H PRN Breakthrough Pain Rated 4-6 or NPO Ibuprofen 800 mg in 200 mls @ 400 mls/hr 01/05/25 12:02 Caldolor 800 Mg/200 Ml IVPB Q6H PRN Breakthrough Pain Rated 1-3 or NPO Indapamide 1.25 mg 01/06/25 09:00 01/06/25 08:51 Indapamide 1.25 Mg Tablet PO 1.25 mg QAM AYANA Administration Insulin Aspart 15 units 01/05/25 12:00 01/06/25 17:32 Insulin Aspart (*Bkc) 100 Units/Ml SUB-Q 15 units TIDWM AYANA Administration Insulin Glargine 34 units 01/05/25 18:00 01/06/25 17:34 Insulin Glargine (*Bkc) 100 Units/Ml SUB-Q 34 units QPM AYANA Administration Ipratropium [place] 2 spray 01/05/25 21:00 01/05/25 21:29 Ipratropium Nasal [place] 0.06% 15 Ml Bottle NASAL 2 spray HS AYANA Administration Lisinopril 40 mg 01/06/25 09:00 01/06/25 08:52 Lisinopril 20 Mg Tablet PO 40 mg QAM AYANA Administration Meloxicam 15 mg 01/06/25 09:00 01/06/25 08:53 Meloxicam 7.5 Mg Tablet PO 15 mg QAM AYANA Administration Miscellaneous Information 1 each 01/05/25 00:01 Tramadol Prn Pain Is A Vague Order And Patient Already Has Post Op Pain Meds Covering Th XX 02/04/25 00:00 CLARIFY [facility] Miscellaneous Information 1 each 01/05/25 00:01 Mounjaro On Fridays Is Nonformulary. Hold While Hospitalized? Or Use Home Supply? XX 02/04/25 00:00 CLARIFY [facility] Multivitamins Therapeutic 1 tablet 01/06/25 09:00 01/06/25 08:53 Multivitamins Therapeutic Tab (*Bkc) PO 1 tablet DAILY AYANA Administration Naloxone HCl 0.1 mg 01/05/25 12:02 Naloxone Hcl 0.4 Mg/Ml Vial IV PUSH Q2M PRN Opiate Reversal Non-Formulary Medication 2.5 mg 01/12/25 09:00 Tirzepatide [Mounjaro] SUB-Q 02/11/25 08:59 WEEKLY [facility] Ondansetron HCl 4 mg 01/05/25 12:02 Ondansetron Inj 4 Mg/2 Ml Vial IV PUSH Q4H PRN Nausea And Vomiting Oxycodone/Acetaminophen 1 tablet 01/05/25 12:02 01/06/25 12:30 Oxycodone/Acetaminophen (*Crx) 5-325 Mg Tablet PO 1 tablet Q4H PRN Administration Pain Rated 4-6 Oxycodone/Acetaminophen 1 tab 01/05/25 12:02 01/06/25 08:54 Oxycodone/Acetaminophen (*Crx) 10-325 Mg Tablet PO 1 tab Q6H PRN Administration Pain Rated 7-10 Pantoprazole Sodium 40 mg 01/06/25 09:00 01/06/25 08:53 Pantoprazole 40 Mg Tablet PO 40 mg DAILY AYANA Administration Polyethylene Glycol 17 gm 01/06/25 09:00 01/06/25 10:50 Polyethylene Glycol 3350 17 Gm Powd.Pack PO Not Given QAM AYANA Senna/Docusate Sodium 2 tab 01/05/25 17:00 01/06/25 10:50 Senna/Docusate Sodium Tablet PO Not Given BID AYANA Tamsulosin HCl 0.4 mg 01/06/25 09:00 01/06/25 08:52 Tamsulosin Hcl 0.4 Mg Capsule PO 0.4 mg DAILY AYANA Administration Tramadol HCl 50 mg 01/05/25 12:02 Tramadol Hcl (*Crx) 50 Mg Tablet PO Q8H PRN pain Radiology Results: ITS Impressions Knee X-Ray 01/05/25 10:50 IMPRESSION: 1. Left total knee arthroplasty, negative for postoperative purposes. Labs Labs: Laboratory Results - last 24 hr 01/06/25 05:38 WBC 9.2 RBC 3.52 L Hgb 11.5 L Hct 35.9 L MCV 102.0 H MCH 32.7 MCHC 32.0 RDW 13.3 Plt Count 216 MPV 9.9 Immature Gran % (Auto) 0.4 Neut % (Auto) 64.8 Lymph % (Auto) 18.0 L [place] % (Auto) 14.2 H Eos % (Auto) 2.2 Baso % (Auto) 0.4 Lymph # (Auto) 1.66 [place] # (Auto) 1.3 H Eos # (Auto) 0.2 Baso # (Auto) 0.0 Abs Immat Gran (auto) 0.04 H Absolute Neuts (auto) 6.0 Absolute Nucleated RBC 0.000 Nucleated RBC % 0.0 Sodium 141 Potassium 4.8 Chloride 106 Carbon Dioxide 26 Anion Gap 9 BUN 36 H Creatinine 1.52 H Estim Creat Clear Calc 49 Estimated GFR 46 L Glucose 114 H Calcium 8.8
--- NOTE | 2025-02-08 14:10 | P.DS_ITS ---
DS: Admitting Diagnosis Discharge Date 01/06/25 Admitting Diagnosis LEFT KNEE DJD DS: Discharge Diagnosis Discharge Diagnosis (1) Left knee DJD: Code(s): M17.12 - Unilateral primary osteoarthritis, left knee Status: Acute Assessment and Plan: POD 1 DOING WELL. OK TO DC HOME F/U IN 3 WEEKS. DS: Summary Hospital Course Reason for hospitalization: LEFT TKA Hospital Course: 64 year old male admitted s/p Left TKA for postoperative medical management, pain control and mobilization with PT/OT. Patient progressed well with PT/OT. Pain and vitals remained stable throughout. The patient has been cleared to be discharged home with home health at this time. All discharge care instructions reviewed at depth. New medications reviewed. ?Follow up planned for 3 weeks in the outpatient orthopedic clinic.? Status at Discharge Functional status at discharge: uses cane/walker Overall status at discharge: patient is progressing back to baseline Time Spent with Patient Time attestation: Total time spent providing and/or coordinating discharge services: Exam Extrem: Other: VSS AFEBRILE DRESSING DRY NV INTACT NEGATIVE HOMANS SIGN, CALF AND THIGH SOFT Discharge Plan Discharge Attending physician on discharge: Parish Villa Consulting providers: Tramaine Severino; Pilar Dhillon; Jason Marcelino Discharging Clinician: Parish Villa Anticipated Discharge Date/Time: 01/06/25 17:48 Patient Disposition: Home with Home Health Service Activity: may shower, no driving and follow weight bearing status Diet: as tolerated Wound Care Instructions: follow printed instructions Discharge Instructions: Per Care Coordination. Patient to have [facility] for RN/PT/OT eval and treat [phone]. They will contact patient to schedule first visit. [facility]A [facility] [address] [place] [address] POST OPERATIVE DISCHARGE INSTRUCTIONS FOLLOWING TOTAL KNEE REPLACEMENT SURGERY ? Your dressing will be changed prior to your discharge. You will be sent home with one additional dressing to be changed on post op day 7 by the home health RN. Your isha will be removed on the 14th day after surgery and steri-strips will be placed. Please practice good hand hygiene and do not touch your incision in order to prevent infection. ? You may shower with your dressing but do not submerge in a bath tub. ? Do not drive or operate machinery until you are released by Dr. Villa. ? Do not walk without a walker for any reason until you are released by Dr. Villa. ? Continue to use your ice machine. Please use a towel or pillow case to protect your skin before applying your ice machine. ? Do NOT place a pillow under your knee. You may use a pillow from the calf down if needed. This will prevent a flexion contracture postoperatively. ? You may begin use of your CPM machine at home if you have been given one pre- operatively. DO NOT USE WHILE YOU ARE SLEEPING. ? Your first post op appointment was sent to you via mail preoperatively. If you have any questions or are unable to make your appointment, please contact our office for scheduling questions. ? Your medications have been sent to your pharmacy. You have been sent home with pain medication. We have also sent you with a stool softener as narcotics can cause constipation. Please keep this in mind during your postoperative recovery. If you are not experiencing regular bowel movements, please contact our office for further instruction. ? Please contact our office with any questions/concerns regarding your knee at [phone]. TAKE 2 ADULT STRENGTH ASPIRIN EAC DAY X 3 WEEKS FOR PREVENTION OF BLOOD CLOTS Patient Instructions: Antibiotic Form Patient Language: Irish Stand Alone Forms: General Discharge Information Follow-up/Referrals: Parish Villa MD [Physician] - Discharge Medications: Continued tamsulosin 0.4 mg capsule 0.4 mg PO DAILY Patient Comments: QAM meloxicam 15 mg tablet 15 mg PO DAILY Patient Comments: QAM tramadol 50 mg tablet 50 mg PO Q8H PRN (Reason: pain) Qty: 30 0RF insulin lispro [Humalog KwikPen Insulin] 100 unit/mL insulin pen 15 unit SUBCUT AC Patient Comments: 15 UNITS EACH MEAL, ALSO USES SLIDING SCALE insulin glargine-yfgn 100 unit/mL (3 mL) insulin pen 34 unit SUBCUT QPM Mounjaro 2.5 mg/0.5 mL pen injector 2.5 mg SUBCUT WEEKLY Patient Comments: FRIDAYS Trelegy Ellipta 100-62.5-25 mcg blister with device 1 inh INHALATION QAM albuterol sulfate 90 mcg/actuation HFA aerosol inhaler 2 puff INHALATION Q4-6H PRN (Reason: shortness of breath or wheezing) ipratropium bromide 42 mcg (0.06 %) spray,non-aerosol 2 spray INTRANASAL HS Patient Comments: USES PRIOR TO APPLYING CPAP fluticasone propionate 50 mcg/actuation spray,suspension 2 spray INTRANASAL HS Patient Comments: USES PRIOR TO APPLYING CPAP indapamide 1.25 mg tablet 1.25 mg PO QAM atorvastatin 20 mg tablet 20 mg PO QAM diltiazem HCl 360 mg capsule,extended release 24hr 360 mg PO QAM pantoprazole 40 mg tablet,delayed release (DR/EC) 40 mg PO DAILY Patient Comments: QAM fenofibrate 160 mg tablet 160 mg PO QAM lisinopril 40 mg tablet 40 mg PO QAM allopurinol 200 mg tablet 200 mg PO QAM carvedilol 25 mg tablet 25 mg PO Q12H hydralazine 25 mg tablet 25 mg PO Q12H aspirin [Adult Aspirin Regimen] 81 mg tablet,delayed release (DR/EC) 81 mg PO DAILY multivitamin [Daily Multi-Vitamin] Tablet 1 tablet PO DAILY clotrimazole-betamethasone 1-0.05 % cream 1 applic TOPICAL Q12H PRN (Reason: ECZEMA) chlorhexidine gluconate [Hibiclens] 4 % liquid 1 applic topical DAILY Qty: 237 0RF Rx Instructions: cleanse operative extremity every day for 7 days prior to procedure No Action sulfamethoxazole-trimethoprim [Bactrim DS] 800-160 mg tablet 1 tablet PO Q12H 14 Days Qty: 28 0RF oxycodone-acetaminophen [Percocet] 5-325 mg tablet 1 tablet PO Q6H PRN (Reason: pain) Qty: 40 0RF Date of admission: 01/06/25 16:58 Primary Care Provider: Mitra Garcia Admitting Provider: Parish Villa Attending physician on admission: Parish Villa Condition: Stable
== END 2025-01-06 18:30 | disposition home health service (06) ==
LOC: ANHSURGERY 17:01 → ANH3MEDSUR 17:01
PROVIDERS: Admitting Provider Orthopaedic Surgery; PCP Internal Medicine; Visit Provider Orthopaedic Surgery
PROC: (CPT 27447; principal; 2025-01-05 07:30)
DX: M17.12 Unilateral primary osteoarthritis, left knee (principal); G89.18 Other acute postprocedural pain; E66.9 Obesity, unspecified; Z68.33 Body mass index [BMI] 33.0-33.9, adult; I10 Essential (primary) hypertension; E11.9 Type 2 diabetes mellitus without complications; Z79.4 Long term (current) use of insulin; Z79.51 Long term (current) use of inhaled steroids; Z79.82 Long term (current) use of aspirin; Z79.85 Long-term (current) use of injectable non-insulin antidiabetic drugs; Z79.899 Other long term (current) drug therapy; Z90.49 Acquired absence of other specified parts of digestive tract; Z87.891 Personal history of nicotine dependence
CPT/HCPCS: 64447; 27447; 36415; 73560; 80048; 82948; 85025; 86850; 86900; 86901; 94640; 97110; 97116; 97161; 97165; 97530; 97535; A9270; C1713; C1776; G0378; G0379; J0171; J0690; J1815; J1885; J2003; J2250; J2270; J2405; J2704; J2795; J3010; J7030; J7120

== ENCOUNTER 2025-02-01 10:29 | Outpatient (RCR) | payer MEDICARE, SELFPAY ==
--- NOTE | 2025-02-01 11:45 | OPREHPOC ---
Outpatient Therapy Plan of Care This is a Multidisciplinary Plan of Care that may contain components documented by all disciplines (PT, OT, and ST.) PT Problem 1 PT Problem #1 Knowledge Deficit PT Goal 1 Goal / Goal Update The patient will be independent in a home exercise program. Target Visit 2 PT Problem 2 PT Problem #2 Pain PT Goal 1 Goal / Goal Update The patient will report no greater than 2/10 left knee pain with all daily activities including standing for 30+ minutes. Target Visit 10 PT Problem 3 PT Problem #3 Impaired Range of Motion PT Goal 1 Goal / Goal Update The patient will demonstrate 0-120 degrees left knee AROM to improve gait and daily function. Target Visit 10 PT Problem 4 PT Problem #4 Impaired Functional Mobility PT Goal 1 Goal / Goal Update The patient will demonstrate 40% or less self perceived disability per the LEFS questionnaire. The patient will ambulate 1,000 feet with the least restrictive assistive device and no left knee pain to improve community ambulation. The patient will ascend/descend stairs reciprocally without left knee pain. Target Visit 10
--- NOTE | 2025-02-01 11:45 | PTOPEVAL1 ---
Assessment and note entered by Trinidad Lorenzana, PT Evaluation Information Assessment Status Evaluation Onset 01/05/25 Subjective Information Sydney Veloz reports he had his left knee replaced on 01/05/25. He had home health PT for 2 weeks with his last visit being . He states he was able to bend to 100 degrees at his last home PT appointment. He has been using a wheeled walker for ambulation but feels he is ready to start using a cane instead. He has been performing home exercises daily as well. He notes increased stiffness at night and first thing in the morning. Pain wakes him at night and he has to use pain medication. He is trying to use just OTC Tylenol but occasionally will use an oxycodone. He has 4 steps to enter his home with a handrail on one side. He has been using the handrail and a cane taking one step at a time. He retired recently but enjoys woodworking which requires him to stand for long periods. He is unable to stand for long periods at this time. Reported Pain Level Pain Score 4: Self Report Assessment PT Clinical Summary Sydney Veloz presents nearly 4 weeks s/p L TKA. He is reporting stiffness, difficulty sleeping, decreased standing tolerance, and decreased ability to walk and go up and down stairs. He demonstrates decreased left knee AROM, decreased left knee and hip strength, altered gait, decreased balance, and decreased standing tolerance. He will benefit from skilled PT to address these limitations and return to his PLOF. Plan of Care Interventions Electrical Stimulation,Gait Training,Hot Pack/Cold Pack,Manual Therapy,Neuro Re-education,Patient/ Caregiver Education,Therapeutic Activities, Therapeutic Exercise PT Services Indicated Yes Treatment Frequency and 2 times a week for 10 visits Duration These treatments will address the objective and functional deficits as defined above. The patient will be advanced safely and appropriately in order for the patient to progress towards his/her prior level of function. Additional exercises will be introduced and as well as a comprehensive home exercise program upon discharge, if needed, ?to ensure carryover of functional gains achieved in the clinic. This treatment plan has been reviewed and agreement upon by the patient.
--- NOTE | 2025-03-31 14:15 | OPREHPOC ---
Outpatient Therapy Plan of Care This is a Multidisciplinary Plan of Care that may contain components documented by all disciplines (PT, OT, and ST.) PT Problem 1 PT Problem #1 Knowledge Deficit PT Goal 1 Goal / Goal Update The patient will be independent in a home exercise program. Target Visit 2 Progress Met PT Problem 2 PT Problem #2 Pain PT Goal 1 Goal / Goal Update The patient will report no greater than 2/10 left knee pain with all daily activities including standing for 30+ minutes. Target Visit 10 Progress Met PT Problem 3 PT Problem #3 Impaired Range of Motion PT Goal 1 Goal / Goal Update The patient will demonstrate 0-120 degrees left knee AROM to improve gait and daily function. Target Visit 10 Progress Met PT Problem 4 PT Problem #4 Impaired Functional Mobility PT Goal 1 Goal / Goal Update The patient will demonstrate 40% or less self perceived disability per the LEFS questionnaire. The patient will ambulate 1,000 feet with the least restrictive assistive device and no left knee pain to improve community ambulation. The patient will ascend/descend stairs reciprocally without left knee pain. Target Visit 10 Progress Met
--- NOTE | 2025-03-31 14:15 | PTOPDC ---
Assessment and note entered by JT File, PT Evaluation Information Assessment Status Discharge Onset 01/05/25 Subjective Information patient reports he is moving well and feels good. he reports the knee feels stable. he is walking without an AD, and able to go up and down steps. he reports little to no soreness in the L knee. he reports he is back to all prior level functional activities. Assessment PT Clinical Summary mr. meyers presents to skilled PT for his 10th skilled PT visit today. he has met all goals for skilled PT, and reports no limitations in his daily activities. he will DC skilled PT today, and continue with HEP independent at home. Plan of Care PT Services Indicated Yes
== END 2025-03-03 20:00 | disposition home or self-care (01) ==
LOC: CHSPT 10:29
PROVIDERS: Visit Provider Orthopaedic Surgery
DX: Z96.652 Presence of left artificial knee joint (principal)
CPT/HCPCS: 97014; 97110; 97112; 97116; 97150; 97161; 97530; G0283

== ENCOUNTER 2025-02-14 12:28 | Outpatient (CLI) | payer MEDICARE, SELFPAY ==
--- OUTSIDE RECORDS SUMMARY | 2025-02-14 13:21 | XMS_ITS ---
Author Organization [facility] Address [address] [place], [place] [id number] Care Team Providers Care Mobility Architect Manager Name Role Phone GRADY LINN Unavailable [phone] Mitra Garcia Unavailable Unavailable ALEXIS LY Unavailable [phone] REASON FOR VISIT *Diabetic foot exam, GC Medications Medication SIG (Take, Route, Frequency, Duration) Notes Start Date End Date Status Clotrimazole-Betamethason e 1-0.05 % 1 application Externally Twice a day 08/19/2024 Active Mounjaro 2.5 MG/0.5ML as directed Subcutaneous Active Meloxicam 7.5 MG 1 tablet Orally Once a day Active Clotrimazole 1 % 1 application Morphologist ally Once a day for 30 days 02/03/2025 08/01/2025 Active Atorvastatin Calcium 10 MG 1 tablet Orally Once a day Active Clotrimazole-Betamethason e 1-0.05 % 1 application Externally Twice a day 12/04/2023 Active Vital Signs Height 69 in 02/03/2025 Weight 228 lbs 02/03/2025 BMI 33.67 kg/m2 02/03/2025 Height-cm 175.26 cm 02/03/2025 Weight-kg 103.42 kg 02/03/2025 Encounters Encounter Location Date Provider Diagnosis [address] [id number] 02/03/2025 ALEXIS LY Tinea unguium B35.1 ; Acquired keratosis [keratoderma] palmaris et plantaris L85.1 ; Atherosclerosis of [place] arteries of extremities with intermittent claudication, bilateral [...] utilizing a #15 blade 02/03/2025 Atherosclerosis of [place] arteries of extremities with intermittent claudication, bilateral legs (ICD-10 - I70.213) 02/03/2025 Pain in right foot (ICD-10 - M79.671) 02/03/2025 Pain in left foot (ICD-10 - M79.672) Plan Of Treatment Medication Medication Name Sig Start Date Stop Date Notes Clotrimazole 1 % 1 application Morphologist ally Once a day for 30 days 02/03/2025 08/01/2025 Treatment Notes Assessment [...] Months, Reason: General Care Provider Name:ALEXIS HUMPHREY, 04/07/2025 01:10:00 PM, [address] [place] [address], [phone], Progress Notes * Darnell VELOZOB: 9 (64 yo M)Acc No.[id number]:02/03/2025 Patient: Curt MICHELLESydney Provider: Sheldon LY DOB:1960 A ge:64 Y S ex:Male Date:02/03/2025 Address:[address], [id number] Subjective: * Chief Complaints: * 1 [...] seen by Dr. Garcia was 10/2024., Initials [facility]. * ROS: G eneral / Constitutional: Patient denies w eakness. R espiratory: Patient denies c hronic cough, shortness of breath, sputum production. C ardiovascular: Patient denies c hest pain, history of [place], irregular heartbeat. M usculoskeletal: Patient denies a [...] - L85.1 3 . A therosclerosis of [place] arteries of extremities with intermittent claudication, bilateral [...] Care) * Billing Information: * Visit Code: * Procedure Codes: * Electronic signature of ELIZABETH LY DPM on 02/14/2025 at 01:21 PM CDT Sign off status: Pending * Provider: Sheldon LY Date: 02/03/2025 Generated for Ruel fisher/Delano/Myron on: 02/14/2025 01:21 PM CDT History and Physical Notes * [...]
--- OUTSIDE RECORDS SUMMARY | 2025-02-14 13:21 | XMS_ITS | Referral Summary ---
Author Organization [facility] Address [address] [place] [address] Care Team Providers Care Director Of Education And Training Name Role Phone Mitra Garcia MD Primary Care Provider Encounters Date Type Department Care Team Description 02/09/[address] [facility] [id number] [place] [phone] Fely Faust NP Meter 02/09/2025 Results Follow-Up [facility] Diabetes and Endocrinology [address] [place] [phone] Fely Faust NP TSH, T4, free 02/08/2025 4:36 PM CDT - 02/08/2025 11:59 PM CDT Hospital Encounter [facility] [id number] [place] [id number] Exophthalmos of both eyes Discharge Disposition: Discharge to home or self care 02/08/2025 2:00 PM CDT Lab [facility] Outpatient Lab at [address] [phone] 02/08/2025 Telephone [facility] Diabetes and Endocrinology [address] [place] [phone] Fely Faust NP Med Management ([facility] Pt Assistance) 02/08/2025 1:00 PM CDT Office Visit [facility] Diabetes and Endocrinology [address] [place] [phone] Fely Faust NP Type 2 diabetes mellitus with microalbuminuria, with long-term current use of insulin (HCC) (Primary Dx); Hypertension associated with diabetes (HCC); Hyperlipidemia associated with type 2 diabetes mellitus (HCC); Exophthalmos of both eyes 01/31/2025 Telephone [facility] [address] [place] [phone] Trino Jordan MD 01/13/2025 Telephone [facility] [address] [place] [phone] Trino Jordan MD 01/07/2025 Telephone [facility] of [address] [phone] Fely Faust NP 12/08/2024 Telephone [facility] Diabetes and Endocrinology [address] [place] [phone] Fely Faust NP surgical clearance request from Last 3 Months Allergies No known [...] 08/22/20 23 Active FreeStyle Mary 3 Sensor deviceIndicati ons:Type 2 diabetes mellitus with microalbuminur ia, with long-term current use of insulin (HCC) One sensor every 14 days 2 each 09/17/19 24 Active insulin glargine (SEMGLEE-yfgn) 100 unit/mL (3 mL) pen for injection Inject 40 Units under the skin nightly 45 mL 2 03/05/20 24 Active Additional Information Patient taking differently: 34 Unitssubcutaneous Nightly, Reported on 02/08/2025 albuterol HFA (PROVENTIL HFA,VENTOLIN HFA,PROAIR HFA) 90 mcg/actuation inhaler 03/13/20 24 Active carvediloL (COREG) 25 mg tablet 03/30/20 24 Active clotrimazole-b etamethasone (LOTRISONE) cream 1 Application every 12 hours 12/04/19 24 Active Trelegy Ellipta 100-62.5-25 mcg inhaler 03/29/20 24 Active Monovisc 88 mg/4 mL syringe 04/06/20 24 Active lisinopriL (PRINIVIL,ZEST RIL) 40 mg tablet 03/29/20 24 Active zolpidem (AMBIEN) 5 mg tablet 03/05/20 24 Active indapamide (LOZOL) 1.25 mg tablet 03/29/20 24 Active blood-glucose sensor device One sensor every 14 days 2 each 07/07/20 24 Active atorvastatin (LIPITOR) 20 mg tabletIndicati ons:Hyperlipid emia associated with type 2 diabetes mellitus (HCC) TAKE ONE TABLET BY MOUTH BEDTIME 90 tablet 3 09/15/19 25 Active fluticasone propionate (FLONASE) 50 mcg/actuation nasal spray 09/15/19 25 Active ipratropium (ATROVENT) 42 mcg (0.06 %) nasal spray 09/15/19 25 Active terbinafine (LamiSIL) 250 mg tablet 08/06/20 24 Active zolpidem CR (AMBIEN CR) 12.5 mg CR tablet 10/10/19 25 Active BD Leah 2nd Gen Pen Needle 32 gauge x 32 needleIndicati ons:Type 2 diabetes mellitus with microalbuminur ia, with long-term current use of insulin (HCC) Use to inject insulin 4 times a day as instructed. 120 each 3 01/11/20 25 Active ADMELOG 100 unit/mL pen for injectionIndic ations:Type 2 diabetes mellitus with microalbuminur ia, with long-term current use of insulin ([facility]),Class 1 obesity due to excess calories with serious comorbidity and body mass index (BMI) of 34.0 to 34.9 in adult Inject 15 units under the skin 3 times a day with meals. Max daily dose: 50 units 15 mL 3 02/04/20 25 Active clotrimazole 1 % cream 1 Application daily 02/04/20 25 025 Active hydrALAZINE (APRESOLINE) 25 mg tablet Take 1 tablet (25 mg total) by mouth 01/11/20 25 Active oxyCODONE-acet aminophen (PERCOCET) 5-325 mg per tablet Take by mouth every 6 (six) hours as needed 01/14/[address] (PROTONIX) 40 mg EC tablet Take 1 tablet (40 mg total) by mouth daily 01/11/20 25 Active polymyxin B-trimethoprim (POLYTRIM) ophthalmic solution INSTILL 1 DROP INTO AFFECTED EYE EVERY 6 HOURS 01/28/20 25 Active sulfamethoxazo le-trimethopri m (BACTRIM DS) 800-160 mg per tablet 02/08/20 25 Active traMADoL (ULTRAM) 50 mg tablet 0 11/13/19 25 Active blood glucose diagnostic (OneTouch Verio test strips) stripIndicatio ns:Type 2 diabetes mellitus with microalbuminur ia, with long-term current use of insulin ([facility]) Check blood sugar 4 times daily and/or if CGM failure 400 strip 3 02/09/20 25 Active blood-glucose meter (OneTouch Verio Flex meter) miscIndication s:Type 2 diabetes mellitus with microalbuminur ia, with long-term current use of insulin ([facility]) Check blood sugar 4 times daily if any CGM failure 1 each 02/09/20 25 Active lancing device with lancets (Social Projectuch Delica Plus Lanc Dev) kitIndications :Type 2 diabetes mellitus with microalbuminur ia, with long-term current use of insulin ([facility]) Check blood sugar 4 times daily 1 kit 02/09/20 25 Active lancets (LV SensorsTouch Delica Plus Lancet) 33 gauge miscIndication s:Type 2 diabetes mellitus with microalbuminur ia, with long-term current use of insulin ([facility]) Check blood sugar 4 times daily if CGM failure 400 each 3 02/09/20 25 Active LANTUS 100 unit/mL (3 mL) pen for injection Inject 40 Units under the skin With main meal 03/20/20 21 024 Disconti nued(The rapy complete d) Mounjaro 2.5 mg/0.5 mL pen injector injectionIndic ations:type 2 diabetes mellitus INJECT 0.5 ML (2.5 MG TOTAL) UNDER THE SKIN ONCE A WEEK 2 mL 11 12/18/19 25 025 Disconti nued(Pat ient Reported ) ADMELOG 100 unit/mL pen for injectionIndic ations:Type 2 diabetes mellitus with microalbuminur ia, with long-term current use of insulin ([facility]),Class 1 obesity due to excess calories with serious comorbidity and body mass index (BMI) of 34.0 to 34.9 in adult Inject 15 units under the skin 3 times a day with meals. 15 mL 3 01/14/20 25 025 Disconti nued(Reo rder) ADMELOG 100 unit/mL pen for injectionIndic ations:Type 2 diabetes mellitus with microalbuminur ia, with long-term current use of insulin ([facility]),Class 1 obesity due to excess calories with serious comorbidity and body mass index (BMI) of 34.0 to 34.9 in adult Inject 15 units under the skin 3 times a day with meals. Max daily dose: 50 units 15 mL 3 02/04/20 25 025 Disconti nued(Reo rder) Active Problems Patient Care Coordination No te [...] the past. Problem Noted Date Diagnosed Date Exophthalmos of both eyes 02/08/2025 Assessment & Plan (02/08/2025 1:56 PM CDT): New problem in past 2.5 weeks. Mild hand tremors, looser stool. Exopthalmos bilat. Watery, injected. Will check thyroid labs to r/o hyperthyroidism. Type 2 diabetes mellitus wit h microalbuminuria, with long-term current use of insulin 09/17/2023 Assessment & Plan (02/08/2025 1:51 PM CDT): Chronic problem. A1c at goal but increased slightly from 5.7% 10/18/24 to now 5.8% Will fill out PAP for Jo Ann to see if he qualifies. Unable to afford any GLP1s since residential & on Medicare. Current medications: Semglee 34 units daily Humalog 15 units with mealss DM eye exam (09/2023). Has appt 10/25/24 at [facility]. Letter sent to get copy of report. UTD on labs. Discussed with Sydney Veloz: [...] skin breakdown and infection. Assessment & Plan (10/18/2024 1:34 PM RECEPTION): Chronic problem. A1c improved from 6.1% 08/07/04/07/2423 [...] infection. Assessment & Plan (09/17/2023 10:44 AM RECEPTION): Chronic, overall well controlled A1c 6.2% Counseled on diet and exercise Advised to increase healthy lifestyle habits Patient willing to try GLP 1 agonist therapy Start Mounjaro 2.5 mg subQ weekly for 4 weeks then increase to 5 mg subQ weekly ( discussed about mechanism of action, side effects, benefits ) Also send prescription for freestyle Mayr 3 sensor Advised to cutback on insulin doses to keep his blood sugars between 90-130 range Labs up to date Will try to obtain patient last eye exam Advised to see accounting director Follow-up in 6 months Hyperlipidemia associated with type 2 diabetes delilah hinojosa 09/17/2023 Assessment & Plan (02/08/2025 12:51 PM CDT): Chronic problem. Controlled on current Atorvastatin 20mg & fenofibrate 160mg. Last lipid panel: 10/30/24 LDL=74, TG=81. Assessment & Plan (10/18/2024 1:09 PM RECEPTION): Chronic problem. Controlled on current Atorvastatin 20mg & fenofibrate 160mg. Last lipid panel: 08/07/23 LDL=>160, IK=262. Will update labs. Does not mychart. Verified phone #/address to contact re: results. Assessment & Plan (04/07/2024 2:48 PM CDT): Chronic problem. Controlled on current Atorvastatin 20mg & fenofibrate 160mg. Last lipid panel: 08/07/23 LDL=>160, QN=432. Assessment & Plan (09/17/2023 10:43 AM RECEPTION): Start pt on statin therapy Continue Fenofibrate Hypertension associated with diabetes 09/17/2023 Assessment & Plan (02/08/2025 12:51 PM CDT): Chronic problem. Controlled on current lisinopril 40mg daily, diltiazem CD 360mg daily, lozol 2.5mg daily, carvedilol 25mg bid Assessment & Plan (10/18/2024 1:08 PM RECEPTION): Chronic problem. Controlled on current lisinopril 40mg daily, diltiazem CD 360mg daily, lozol 2.5mg daily, carvedilol 25mg bid Will update labs. Does not mychart. Verified phone #/address to contact re: results. Assessment & Plan (04/07/2024 2:47 PM CDT): Chronic problem. Controlled on current lisinopril-HCTZ 20-12.5mg daily, diltiazem CD 360mg daily, lozol 2.5mg daily Assessment & Plan (09/17/2023 10:43 AM RECEPTION): Chronic, well controlled Continue lisinopril/hydrochlorothiazide Class 1 obesity due to exces s calories with serious comorbidity and body mass index (BMI) of 34.0 to 34.9 in adult 09/17/2023 Assessment & Plan (09/17/2023 10:43 AM RECEPTION): Chronic, progressively worsening Counseled on diet and exercise Hemoptysis 04/06/2021 Overview (04/06/2021): Added automatically from request for surgery [id number] Social History Tobacco Use Types Packs/Day Years Used Date Smoking Tobacco: Former Cigarettes 1 43 1 97 - 2018 Smokeless Tobacco: Never AUDIT-C Answer [...] on file Legal Sex Male 12:31 AM RECEPTION Gender Identity Not on file Sexual Orientation Not on file Last Filed Vital Signs Vital Sign Reading Time Taken Comments Blood Pressure 128/66 02/08/2025 1:08 PM CDT Pulse 80 02/08/2025 1:08 PM CDT Temperature 36.1 C (97 F) 04/18/2021 10:25 AM CDT Respiratory Rate 18 02/08/2025 1:08 PM CDT Oxygen Saturation 94% 04/18/2021 11:30 AM CDT Inhaled Oxygen Concentration - - Weight 101.6 kg (224 lb) 02/08/2025 1:08 PM CDT Height 175.3 cm (5' 9.02) 02/08/2025 1:08 PM CD T Body Mass Index 33.06 02/08/2025 1:08 PM CDT Plan of Treatment Not on file Procedures Procedure Name Priority Date/Time Associated Diagnosis Comments POCT HEMOGLOBIN A1C Routine 02/08/2025 1 :12 PM CDT Type 2 diabetes mellitus with microalbuminuria, with long-term current use of insulin (HCC) POCT GLUCOSE Routine 02/08/2025 1:12 PM CDT Type 2 diabetes mellitus with microalbuminuria, with long-term current use of insulin (HCC) T4, FREE Routine 02/08/2025 12:00 PM CDT Exophthalmos of both eyes TSH Routine 02/08/2025 12:00 PM CDT Exophthalmos of both eyes COMPREHENSIVE METABOLIC PANEL Routine 10/30/2024 9:41 AM RECEPTION Type 2 diabetes mellitus with microalbuminuria, with long-term current use of insulin (HCC) Hypertension associated with diabetes (HCC) LIPID PANEL Routine 10/30/2024 9:41 AM RECEPTION Type 2 diabetes mellitus with microalbuminuria, with long-term current use of insulin (HCC) Hyperlipidemia associated with type 2 diabetes mellitus (HCC) ALBUMIN CREATININE RATIO, URINE Routine 10/30/2024 9:41 AM RECEPTION Type 2 diabetes mellitus with microalbuminuria, with long-term current use of insulin (HCC) DIABETES EYE EXAM Routine 09/24/2023 8:05 AM RECEPTION from Last 3 Months or Most Recently Relevant to Health Maintenance Results * (ABNORMAL) POCT hemoglobin A1c (02/08/2025 1:12 PM CDT) Hemoglobin A1C, POC 5.8(A) 4.0 - 5.6 % Blood 02/08/2025 1:12 PM CDT Fely Faust NP POINT OF CARE TEST ORDERA BLES Final Result * (ABNORMAL) POCT glucose (02/08/2025 1:12 PM CDT) [facility] Glucose Blood, POC 236 Normal Fasting 70 - 100, Random <200 mg/dL Blood 02/08/2025 1:12 PM CDT Fely Faust PECAN HULLER POINT OF CARE TEST ORDERA BLES Final Result * TSH (02/08/2025 12:00 PM CDT) [facility] Thyroid Stimulating Hormone 1.71 0.30 - 4.20 mcIUnit/mL Blood 02/08/2025 12:0 0 PM CDT 02/08/2025 5:54 PM CDT Fely Faust PECAN HULLER LAB BLOOD ORDERABLES Michaela l Result Performing Organization Address City/[facility] Co de Phone Number MYRANDA [address] [address] [place] [address] * (ABNORMAL) T4, free (02/08/2025 12:00 PM CDT) [facility] Free T4 0.83(L) 0.90 - 1.70 ng/dL Blood 02/08/2025 12:0 0 PM CDT 02/08/2025 5:54 PM CDT Fely Faust NP LAB BLOOD ORDERABLES Michaela l Result Performing Organization Address [facility] [place] [address] [address] [place] [address] * (ABNORMAL) Albumin Creatinine Ratio, Urine (10/30/2024 9:41 AM RECEPTION) [facility] SCRIBED Creatinine, Urine 129.55 40 - 278 EXTERNAL LAB SCRIBED Microalbumin >400.0 NA - NA EXTERNAL LAB SCRIBED Microalb/Creat Ratio 308.7(A) 0 - 30 EXTERNAL LAB Urine 10/30/2024 9:41 AM RECEPTION us Fely Faust PECAN [facility]ULLER LAB URINE ORDERABLES Michaela l Result EXTERNAL LAB * Lipid panel (10/30/2024 9:41 AM RECEPTION) SCRIBED Cholesterol, Total 141 0 - 200 EXTERNAL LAB SCRIBED HDL 47 40 - 60 EXTERNAL LAB SCRIBED LDL 74 <130 - NA EXTERNAL LAB SCRIBED Triglycerides 81 0 - 150 EXTERNAL LAB Blood 10/30/2024 9:41 AM RECEPTION us Fely Faust PECAN HULLER LAB BLOOD ORDERABLES Michaela l Result Performing Organization Address [facility] Co de Phone Number EXTERNAL LAB * (ABNORMAL) Comprehensive metabolic panel (10/30/2024 9:41 AM RECEPTION) SCRIBED Sodium 143 136 - 145 mmol/L [...] Units/L EXTERNAL LAB SCRIBED eGFR in NonAfrican Indian >60 >=60 - NA EXTERNAL LAB Blood 10/30/2024 9:41 AM RECEPTION Fely Faust PECAN [facility]ULLER LAB BLOOD ORDERABLES Michaela l Result EXTERNAL LAB * (ABNORMAL) DIABETES EYE EXAM (09/24/2023 8:05 AM RECEPTION) Historical Provider HEALTH MAINTENANCE Final Result from Last 3 Months or Most Recently Relevant to Health Maintenance Insurance [employer] [facility] MEDICARE [facility] Care Teams Director Of Education And Training Relationship Specialty Start Date End Date Mitra Garcia MD [address] [place] [address] PCP - General 06/29/07
--- OUTSIDE RECORDS SUMMARY | 2025-02-14 13:21 | XMS_ITS | Patient Health Record ---
Author Organization [facility] Address [address] [place], [place] [id number] Care Team Providers Care Visitor Services Information Assistant Name Role Phone GRADY LINN Unavailable [phone] Mitra Garcia Unavailable Unavailable VIRY FIGUEROA Unavailable [phone] ALEXIS LY Unavailable [phone] Allergies No Known Allergies Reason For Referral No Information Medications Medication SIG (Take, Route, Frequency, Duration) Notes Start Date End Date Status Clotrimazole-Betamethason e 1-0.05 % 1 application Externally Twice a day 08/19/2024 Active Clotrimazole-Betamethason e 1-0.05 % 1 application Externally Twice a day 12/04/2023 Active Mounjaro 2.5 MG/0.5ML as directed Subcutaneous Active Meloxicam 7.5 MG 1 tablet Orally Once a day Active Clotrimazole 1 % 1 application Last Scourer ally Once a day for 30 days 02/03/2025 08/01/2025 Active Atorvastatin Calcium 10 MG 1 tablet Orally Once a day Active Vital Signs Height-cm 175.26 cm 02/03/2025 Weight-kg 103.42 kg 02/03/2025 Height 69 in 02/03/2025 Weight 228 lbs 02/03/2025 BMI 33.67 kg/m2 02/03/2025 Encounters Encounter Location Date Provider Diagnosis [facility] [address] [place], [place] [id number] 08/19/2024 VIRY FIGUEROA Tinea unguium B35.1 ; Pain in left toe(s) M79.675 ; Pain in right toe(s) M79.674 ; Unspecified atherosclerosis of [place] arteries of extremities, bilateral legs I70.203 ; Acquired keratosis [keratoderma] palmaris et plantaris L85.1 and Type 2 diabetes mellitus with diabetic peripheral angiopathy without gangrene E11.[address] [id number] 02/03/2025 ALEXIS LY Tinea unguium B35.1 ; Acquired keratosis [keratoderma] palmaris et plantaris L85.1 ; Atherosclerosis of [place] arteries of extremities with intermittent claudication, bilateral legs I70.213 ; Pain in right foot M79.671 and Pain in left foot M79.[address] [id number] 04/08/2024 VIRY FIGUEROA Other hammer toe(s) (acquired), right foot M20.41 ; Tinea unguium B35.1 ; Other hammer toe(s) (acquired), left foot M20.42 ; Acquired keratosis [keratoderma] palmaris et plantaris L85.1 ; Unspecified atherosclerosis of [place] arteries of extremities, bilateral legs I70.203 ; Pain in left toe(s) M79.675 ; Pain in right toe(s) M79.674 ; Pain in right foot M79.671 ; Pain in left foot M79.672 and Type 2 diabetes mellitus with diabetic peripheral angiopathy without gangrene E11.51 [facility] [address] [place], [place] [id number] 06/17/2024 VIRY FIGUEROA Tinea unguium B35.1 ; Pain in left toe(s) M79.675 ; Pain in right toe(s) M79.674 ; Unspecified atherosclerosis of [place] arteries of extremities, bilateral legs I70.203 ; Acquired keratosis [keratoderma] palmaris et plantaris L85.1 and Type 2 diabetes mellitus with diabetic peripheral angiopathy without gangrene E11.[address] [id number] 10/21/2024 GRADY SNOOK Tinea unguium B35.1 ; Acquired keratosis [keratoderma] palmaris et plantaris L85.1 ; Atherosclerosis of [place] arteries of extremities with intermittent claudication, bilateral legs I70.213 ; Pain in right foot M79.671 and Pain in left foot M79.672 Assessments Encounter Date Diagnosis (ICD Code) Assessment Notes Treatment Notes Treatment Clinical Notes Section Notes 04/08/2024 Tinea unguium (ICD-10 - B35.1) Aseptic [...] and pared utilizing a #15 blade 02/03/2025 Tinea unguium (ICD-10 - B35.1) Nails [...] utilizing a #15 blade 02/03/2025 Atherosclerosis of [place] arteries of extremities with intermittent claudication, bilateral legs (ICD-10 - I70.213) 10/21/2024 Atherosclerosis of [place] arteries of extremities with intermittent claudication, bilateral legs (ICD-10 - I70.213) 06/17/2024 Pain in right toe(s) (ICD-10 - M79.674) 08/19/2024 Pain in right toe(s) (ICD-10 - M79.674) 04/08/2024 Other hammer toe(s) (acquired), left foot (ICD-10 - M20.42) 04/08/2024 Acquired keratosis [keratoderma] palmaris et plantaris [...] drainage was noted. 08/19/2024 Unspecified atherosclerosis of [place] arteries of extremities, bilateral legs (ICD-10 - I70.203) Patient educated on risks and aggravating factors of PVD, including conservative treatment options such as a diet and exercise regimen to aid in slowing progression of vascular disease 06/17/2024 Unspecified atherosclerosis of [place] arteries of extremities, bilateral legs (ICD-10 - I70.203) Patient educated on risks and aggravating factors of PVD, including conservative treatment options such as a diet and exercise regimen to aid in slowing progression of vascular disease 10/21/2024 Pain in right foot (ICD-10 - M79.671) 02/03/2025 Pain in right foot (ICD-10 - M79.671) 02/03/2025 Pain in left foot (ICD-10 - M79.672) 10/21/2024 Pain in left foot (ICD-10 - [...] drainage was noted. 04/08/2024 Unspecified atherosclerosis of [place] arteries of extremities, bilateral legs (ICD-10 - I70.203) Patient educated on risks and aggravating factors of PVD, including conservative treatment options such as a diet and exercise regimen to aid in slowing progression of vascular disease 04/08/2024 Pain in left toe(s) (ICD-10 - [...] in right toe(s) (ICD-10 - M79.674) 04/08/2024 Pain in right foot (ICD-10 - [...] Of Treatment Next Appt Details Provider Name:ALEXIS Elisha HUMPHREY, 04/07/2025 01:10:00 PM, [address] [place] [address], [phone], Insurance Providers Payer Name Payer Address Payer Phone Subscriber Number Group Number Insured Name Patient Relationship to Insured Coverage Start Date Coverage End Date [facility] [place] [facility] [place]) ATTN CLAIMS [address] [place] [address] [id number] Sydney Veloz Self - patient is the insured Medical (General) History Medical History History ICD Code Diabetic Surgical History Surgery Date(Month/Year) replacement
--- OUTSIDE RECORDS SUMMARY | 2025-02-14 13:21 | XMS_ITS ---
Author Organization [facility] Address [address] [place], [place] [id number] Care Team Providers Care Diet Aide Name Role Phone GRADY LINN Unavailable [phone] Mitra Garcia Unavailable Unavailable ALEXIS LY Unavailable [phone] REASON FOR VISIT *General care Encounters Encounter Location Date Provider Diagnosis [address] [id number] 01/27/2025 ALEXIS LY Plan Of Treatment Next Appt Details Provider Name:ALEXIS HUMPHREY, 04/07/2025 01:10:00 PM, [address] [place] [address], [phone], Progress Notes * KALYAN, MariDavOB: (64 yo M)Acc No.[id number]:01/27/2025 Patient: Sydney CAIN Provider: Sheldon LY :1960 A ge:64 Y S ex:Male Date:01/27/2025 Address:[address] [place], [phone] Subjective: * Chief Complaints: * 1 . *General care. * Medical History: Objective: * Vitals: Assessment: Plan: * Treatment: * Billing Information: * Visit Code: * Procedure Codes: * Electronic signature of ELIZABETH LY DPM on 02/14/2025 at 01:21 PM CDT Sign off status: Pending * Provider: Sheldon LY Date: 0 01/27/2025 Generated for Ruel Smith/Myron on: 0 02/14/2025 01:21 PM CDT
--- OUTSIDE RECORDS SUMMARY | 2025-02-14 13:21 | XMS_ITS | Clinical Summary ---
Author Organization [facility] Address [address] [place] [address] Care Team Providers Care Crate Tier Name Role Phone Unavailable Primary Care Provider Unavailabl e Source Comments [facility],non-owned Affiliates and Associated Physician Practices is amultiple site organization consisting of ambulatory clinics and hospital sitesin [place], [place], [place] and [place]. This disclosure is being madepursuant to the Care Everywhere program and may not contain all information available regarding this patient. Last updated 18.[facility] [employer] Social History Tobacco Use Types Packs/Day Years [...] patient's age to complete this topic Insurance [facility]
--- OUTSIDE RECORDS SUMMARY | 2025-02-14 13:21 | XMS_ITS | Encounter Summary ---
Author Organization [facility] Healthcare Address [address] [place] [address] Care Team Providers Care Casino Operations Supervisor Name Role Phone Mitra Garcia MD Primary Care Provider [phone] Encounter Details Date Type Department Care Team (Late st Contact Info) Description 02/09/2025 Results Follow-Up [facility] Medical Group Diabetes and Endocrinology [address] [place] [phone] Fely Faust, GREIGE GOODS MARKER [address] [facility][1] [address], [place] [id number] TSH, T4, free Social History Tobacco Use Types Packs/Day Years [...] on file Legal Sex Male 12:31 AM DISCHARGE RN Gender Identity Not on file Sexual Orientation Not on file documented as of this encounter Miscellaneous Notes * Result Encounter Note - Fely Faust NP - 02/09/2025 1:13 PM CDT [phone] N/A. LMOVM re: thyroid results normal. Eye issues not r/t hyperthyroidism. Labs forwarded to Dr Garcia's office as discussed yesterday. Office # given if return call needed. documented in this encounter Plan of Treatment Not on file documented as of this encounter Visit Diagnoses Not on filedocumented in this encounter Care Teams Casino Operations Supervisor Relationship Specialty Start Date End Date Mitra Garcia MD [address] [place] [address] PCP - General 06/29/07 documented as of this encounter
--- OUTSIDE RECORDS SUMMARY | 2025-02-14 13:21 | XMS_ITS ---
Author Organization [facility] Address [address] [place], [place] [id number] Care Team Providers Care Silk Screen Frame Assembler Name Role Phone GRADY LINN Unavailable [phone] Mitra Garcia Unavailable Unavailable ALEXIS LY Unavailable [phone] REASON FOR VISIT *General care Encounters Encounter Location Date Provider Diagnosis [address] [id number] 12/30/2024 ALEXIS LY Plan Of Treatment Next Appt Details Provider Name:ALEXIS HUMPHREY, 04/07/2025 01:10:00 PM, [address] [place] [address], [id number], Progress Notes * KALYAN, MariDavOB: (64 yo M)Acc No.[id number]:12/30/2024 Patient: Sydney CAIN Provider: Sheldon LY :1960 A ge:64 Y S ex:Male Date:12/30/2024 Address:[address] [place], [id number] Subjective: * Chief Complaints: * 1 . *General care. * Medical History: Objective: * Vitals: Assessment: Plan: * Treatment: * Billing Information: * Visit Code: * Procedure Codes: * Electronic signature of ELIZABETH LY DPM on 02/14/2025 at 01:21 PM CDT Sign off status: Pending * Provider: Sheldon LY Date: 0 12/30/2024 Generated for Ruel Smith/Myron on: 0 02/14/2025 01:21 PM CDT
--- OUTSIDE RECORDS SUMMARY | 2025-02-14 13:22 | XMS_ITS | Clinical Summary ---
Author Organization [facility] Address [address] [place] [address] Care Team Providers Care Side Boss Name Role Phone Mitra Garcia MD Primary Care Provider [phone] Allergies No known active allergies Medications fenofibrate [...] Gen Pen Needle 32 gauge x 5/32 needleIndicati ons:Type 2 diabetes mellitus with microalbuminur ia, with long-term current use of insulin (HCC) Use to inject insulin 4 times a day as instructed. 120 each 3 01/11/20 25 Active ADMELOG 100 unit/mL pen for injectionIndic ations:Type 2 diabetes mellitus with microalbuminur ia, with long-term current use of insulin ([facility]),Class 1 obesity due to excess calories with [...] ia, with long-term current use of insulin ([facility]) Check blood sugar 4 times daily and/or if CGM failure 400 strip 3 02/09/20 25 Active blood-glucose meter (OneTouch Verio Flex meter) miscIndication s:Type 2 diabetes mellitus with microalbuminur ia, with long-term current use of insulin ([facility]) Check blood sugar 4 times daily if any CGM failure 1 each 02/09/20 25 Active lancing device with lancets (Fixed - Parking Ticketsuch Delica Plus Lanc Dev) kitIndications :Type 2 diabetes mellitus with microalbuminur ia, with long-term current use of insulin ([facility]) Check blood sugar 4 times daily 1 kit 02/09/20 25 Active lancets (Fast AssetTouch Delica Plus Lancet) 33 gauge miscIndication s:Type 2 diabetes mellitus with microalbuminur ia, with long-term current use of insulin ([facility]) Check blood sugar 4 times daily if CGM failure 400 each 3 02/09/20 25 Active LANTUS 100 unit/mL (3 mL) pen for injection Inject 40 Units under the skin With main meal 03/20/20 21 024 Disconti nued(The rapy complete d) Letha 2.5 mg/0.5 mL pen injector injectionIndic ations:type 2 diabetes mellitus INJECT 0.5 ML (2.5 MG TOTAL) UNDER THE SKIN ONCE A WEEK 2 mL 11 12/18/19 025 Disconti nued(Pat ient Reported ) ADMELOG 100 unit/mL pen for injectionIndic ations:Type 2 diabetes mellitus with microalbuminur ia, with long-term current use of insulin (HCC),Class 1 obesity due to excess calories with serious comorbidity and body mass index (BMI) of 34.0 to 34.9 in adult Inject 15 units under the skin 3 times a day with meals. 15 mL 3 01/14/20 25 025 Disconti nued(Reo rder) ADMELOG 100 unit/mL pen for injectionIndic ations:Type 2 diabetes mellitus with microalbuminur ia, with long-term current use of insulin (HCC),Class 1 obesity due to excess calories with [...] eye exam (09/2023). Has appt 10/25/[address] [facility] [place]. Letter sent to get copy of report. [...] infection. Assessment & Plan (10/18/2024 1:34 PM BOILER REPAIRMAN): Chronic problem. A1c improved from 6.1% 08/07/04/07/2423 [...] eye exam (09/2023). Has appt 10/25/[address] [facility] [place]. Letter sent to get copy of report. [...] infection. Assessment & Plan (09/17/2023 10:44 AM BOILER REPAIRMAN): Chronic, overall well controlled A1c 6.2% Counseled [...] patient last eye exam Advised to see polisher numeral Follow-up in 6 months Hyperlipidemia associated with type 2 diabetes delilah hinojosa 09/17/2023 Assessment & Plan (02/08/2025 12:51 PM CDT): Chronic problem. Controlled on current Atorvastatin 20mg & fenofibrate 160mg. Last lipid panel: 10/30/24 LDL=74, TG=81. Assessment & Plan (10/18/2024 1:09 PM BOILER REPAIRMAN): Chronic problem. Controlled on current Atorvastatin 20mg & fenofibrate 160mg. Last lipid panel: 08/07/23 LDL=>160, YX=481. Will update labs. Does not mychart. Verified phone #/address to contact re: results. Assessment & Plan (04/07/2024 2:48 PM CDT): Chronic problem. Controlled on current Atorvastatin 20mg & fenofibrate 160mg. Last lipid panel: 08/07/23 LDL=>160, OX=315. Assessment & Plan (09/17/2023 10:43 AM BOILER REPAIRMAN): Start pt on statin therapy Continue Fenofibrate Hypertension associated with diabetes 09/17/2023 Assessment & Plan (02/08/2025 12:51 PM CDT): Chronic problem. Controlled on current lisinopril 40mg daily, diltiazem CD 360mg daily, lozol 2.5mg daily, carvedilol 25mg bid Assessment & Plan (10/18/2024 1:08 PM BOILER REPAIRMAN): Chronic problem. Controlled on current lisinopril 40mg daily, diltiazem CD 360mg daily, lozol 2.5mg daily, carvedilol 25mg bid Will update labs. Does not mychart. Verified phone #/address to contact re: results. Assessment & Plan (04/07/2024 2:47 PM CDT): Chronic problem. Controlled on current lisinopril-HCTZ 20-12.5mg daily, diltiazem CD 360mg daily, lozol 2.5mg daily Assessment & Plan (09/17/2023 10:43 AM BOILER REPAIRMAN): Chronic, well controlled Continue lisinopril/hydrochlorothiazide Class 1 obesity due to exces s calories with serious comorbidity and body mass index (BMI) of 34.0 to 34.9 in adult 09/17/2023 Assessment & Plan (09/17/2023 10:43 AM BOILER REPAIRMAN): Chronic, progressively worsening Counseled on diet and exercise Hemoptysis 04/06/2021 Overview (04/06/2021): Added automatically from request for surgery [id number] Encounters Date Type Department Care Team Description 02/09/2025 Telephone [facility] [id number] [place] [phone] Fely Fauts NP Meter 02/09/2025 Results Follow-Up [facility] Medical Group Diabetes and Endocrinology [address] [place] [phone] Fely Faust NP TSH, T4, free 02/08/2025 4:36 PM CDT - 02/08/2025 11:59 PM CDT Hospital Encounter [facility] [id number] [place] [phone] Exophthalmos of both eyes Discharge Disposition: Discharge to home or self care 02/08/2025 2:00 PM CDT Lab [facility] Outpatient Lab at [address] [phone] 02/08/2025 1:00 PM CDT Office Visit [facility] Diabetes and Endocrinology [address] [place] [phone] Fely Faust NP Type 2 diabetes mellitus with microalbuminuria, with long-term current use of insulin (HCC) (Primary Dx); Hypertension associated with diabetes (HCC); Hyperlipidemia associated with type 2 diabetes mellitus (HCC); Exophthalmos of both eyes 02/08/2025 Telephone [facility] Medical Group Diabetes and Endocrinology [address] [place] [phone] Fely Faust NP Med Management ([facility] Pt Assistance) 01/31/2025 Telephone [facility] Specialists of [address] [place] [phone] Trino Jordan MD 01/13/2025 Telephone [facility] of [address] [place] [phone] Trino Jordan MD 01/07/2025 Telephone [facility] of [address] [place] [phone] Fely Faust NP 12/08/2024 Telephone [facility] Medical Group Diabetes and Endocrinology [address] [place] [phone] Fely Faust NP surgical clearance request from Last 3 Months Surgical History Surgery Date Site/Laterality Comments CHOLECYSTECTOMY 09/01/2015 - 08/31/2016 TONSILLECTOMY EAR SURGERY whole in ear tdrum Medical History Medical History Date Comments Sleep apnea Mixed hyperlipidemia DM2 (diabetes mellitus, type 2) (HCC) HTN (hypertension) TAMRA (obstructive sleep apnea) BPH with obstruction/lower u rinary tract symptoms 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 Adrenal myelolipoma L [...] on file Legal Sex Male 12:31 AM BOILER REPAIRMAN Gender Identity Not on file Sexual Orientation [...] 02/08/2025 1:08 PM CDT Plan of Treatment Health Maintenance Due Date [...] 65+ 11/04/2023 Dilated Eye Exam 09/24/2024 09/24/2023 Influenza Vaccine (Season Ended) 2025 05/22/2020, 07/28/2019, 06/24/2018, Additional history exists Hemoglobin A1C 08/10/2025 02/08/2025, 10/02, 04/07/2024, Additional history exists Foot Exam 10/18/2025 10/18/2024, [...] COMPREHENSIVE METABOLIC PANEL Routine 10/30/2024 9:41 AM BOILER REPAIRMAN Type 2 diabetes mellitus with microalbuminuria, with long-term current use of insulin (HCC) Hypertension associated with diabetes (HCC) LIPID PANEL Routine 10/30/2024 9:41 AM BOILER REPAIRMAN Type 2 diabetes mellitus with microalbuminuria, with long-term current use of insulin (HCC) Hyperlipidemia associated with type 2 diabetes mellitus (HCC) ALBUMIN CREATININE RATIO, URINE Routine 10/30/2024 9:41 AM BOILER REPAIRMAN Type 2 diabetes mellitus with microalbuminuria, with long-term current use of insulin (HCC) DIABETES EYE EXAM Routine 09/24/2023 8:05 AM BOILER REPAIRMAN from Last 3 Months or Most Recently Relevant to Health Maintenance Results * (ABNORMAL) POCT hemoglobin A1c (02/08/2025 1:12 PM CDT) Hemoglobin A1C, POC 5.8(A) 4.0 - 5.6 % Blood 02/08/2025 1:12 PM CDT us Fely Faust NP POINT OF CARE TEST ORDERA BLES Final Result * (ABNORMAL) POCT glucose (02/08/2025 1:12 PM CDT) [facility] Glucose Blood, POC 236 Normal Fasting 70 - 100, Random <200 mg/dL Blood 02/08/2025 1:12 PM CDT Fely Faust [facility] POINT OF CARE TEST ORDERA BLES Final Result * TSH (02/08/2025 12:00 PM CDT) [facility] Thyroid Stimulating Hormone 1.71 0.30 - 4.20 mcIUnit/mL Blood 02/08/2025 12:0 0 PM CDT 02/08/2025 5:54 PM CDT Fely Faust [facility] LAB BLOOD ORDERABLES Michaela l Result Performing Organization Address City/[facility] Co de Phone Number MYRANDA CABRERA [address] [address] [place] [address] * (ABNORMAL) T4, free (02/08/2025 12:00 PM CDT) [facility] Free T4 0.83(L) 0.90 - 1.70 ng/dL Blood 02/08/2025 12:0 0 PM CDT 02/08/2025 5:54 PM CDT Fely Faust [facility] LAB BLOOD ORDERABLES Michaela l Result Performing Organization Address City/[facility] Co de Phone Number MYRANDA [address] [address] [place] [address] * (ABNORMAL) Albumin Creatinine Ratio, Urine (10/30/2024 9:41 AM BOILER REPAIRMAN) [facility] SCRIBED Creatinine, Urine 129.55 40 - 278 EXTERNAL LAB SCRIBED Microalbumin >400.0 NA - NA EXTERNAL LAB SCRIBED Microalb/Creat Ratio 308.7(A) 0 - 30 EXTERNAL LAB Urine 10/30/2024 9:41 AM BOILER REPAIRMAN us Fely Faust [facility] URINE ORDERABLES Michaela l Result EXTERNAL LAB * Lipid panel (10/30/2024 9:41 AM BOILER REPAIRMAN) SCRIBED Cholesterol, Total 141 0 - 200 EXTERNAL LAB SCRIBED HDL 47 40 - 60 EXTERNAL LAB SCRIBED LDL 74 <130 - NA EXTERNAL LAB SCRIBED Triglycerides 81 0 - 150 EXTERNAL LAB Blood 10/30/2024 9:41 AM BOILER REPAIRMAN us Fely Faust [facility] LAB BLOOD ORDERABLES Michaela l Result Performing Organization Address City/[facility]/ZIP Co de Phone Number EXTERNAL LAB * (ABNORMAL) Comprehensive metabolic panel (10/30/2024 9:41 AM BOILER REPAIRMAN) SCRIBED Sodium 143 136 - 145 mmol/L [...] Units/L EXTERNAL LAB SCRIBED eGFR in NonAfrican [place] >60 >=60 - NA EXTERNAL LAB Blood 10/30/2024 9:41 AM BOILER REPAIRMAN Fely Faust [facility] LAB BLOOD ORDERABLES Michaela grace Result EXTERNAL LAB * (ABNORMAL) DIABETES EYE EXAM (09/24/2023 8:05 AM BOILER REPAIRMAN) Historical Provider HEALTH MAINTENANCE Final Result from Last 3 Months or Most Recently Relevant to Health Maintenance Insurance [employer] [facility] T MEDICARE [facility] Care Teams Side Boss Relationship Specialty Start Date End Date Mitra Garcia MD [address] [place] [address] PCP - General 06/29/07
[2025-02-14 13:31] LABS: Anion Gap 9 mmol/L (4-12); Blood Urea Nitrogen 35 mg/dL (9-20); Calcium 9.2 mg/dL (8.4-10.2); Carbon Dioxide 18 mmol/L (22-30); Chloride 111 mmol/L (98-107); Estimated Glomerular Filt Rate 43; Glucose 169 mg/dL (65-110); Osmolality Calculated 298 mOsm/kg (285-295); Potassium 5.8 mmol/L (3.4-5.0); Sodium 138 mmol/L (137-145)
== END 2025-02-14 12:29 | disposition home or self-care (01) ==
LOC: CHSLAB 12:30
PROVIDERS: PCP Internal Medicine; Visit Provider Internal Medicine
DX: I10 Essential (primary) hypertension (principal)
CPT/HCPCS: 36415; 80048

== ENCOUNTER 2025-03-01 13:27 | Outpatient (CLI) | payer MEDICARE, SELFPAY ==
--- NOTE | ~2025-03-01 | US_ITS ---
EXAMINATION: US venous doppler [facility] DATE: 03/01/2025 14:16 INDICATION: Left lower limb swelling TECHNIQUE: Grayscale ultrasound images without and with compression and Doppler ultrasound images of the left lower extremity veins were obtained. COMPARISON: None. FINDINGS: The visualized portions of left common femoral vein, profunda (deep) femoral vein, femoral vein, popl iteal vein, peroneal veins, posterior tibial veins, gastrocnemius vein and greater saphenous vein out flow are patent. IMPRESSION: 1. No deep venous thrombosis in the left lower limb. Reviewed, dictated and finalized at location B.
--- OUTSIDE RECORDS SUMMARY | 2025-03-01 13:33 | XMS_ITS ---
Author Organization [facility] Address [address] [place], [place] [phone] Care Team Providers Care Fast Food Crew Member Name Role Phone GARDY LINN Unavailable [phone] Mitra Garcia Unavailable Unavailable ALEXIS LY Unavailable [phone] REASON FOR VISIT *General care Encounters Encounter Location Date Provider Diagnosis [address] [phone] 12/30/2024 ALEXIS LY Plan Of Treatment Next Appt Details Provider Name:ALEXIS HUMPHREY, 04/07/2025 01:10:00 PM, [address] [place] [phone], Progress Notes * KALYAN, MariDavOB: (64 yo M)Acc No.[id number]:12/30/2024 Patient: Sydney CAIN Provider: Sheldon LY :1960 A ge:64 Y S ex:Male Date:12/30/2024 Address:[address] [place], [id number] Subjective: * Chief Complaints: * 1 . *General care. * Medical History: Objective: * Vitals: Assessment: Plan: * Treatment: * Billing Information: * Visit Code: * Procedure Codes: * Electronic signature of ELIZABETH LY DPM on 03/01/2025 at 01:32 PM CDT Sign off status: Pending * Provider: Sheldon LY Date: 0 12/30/2024 Generated for Ruel Smith/Myron on: 0 03/01/2025 01:32 PM CDT
--- OUTSIDE RECORDS SUMMARY | 2025-03-01 13:33 | XMS_ITS | Referral Summary ---
Author Organization [facility] Address [address] [place] [address] Care Team Providers Care Sweater Operator Name Role Phone Mitra Garcia MD Primary Care Provider Encounters Date Type Department Care Team Description 02/09/2025 Telephone [facility] [id number] [place] [phone] Fely Faust NP Meter 02/09/2025 Results Follow-Up [facility] Diabetes and Endocrinology [address] [place] [phone] Fely Faust NP TSH, T4, free, Thyroid stimulating immunoglobulin 02/08/2025 4:36 PM CDT - 02/08/2025 11:59 PM CDT Hospital Encounter [facility] [id number] [place] [address] Exophthalmos of both eyes Discharge Disposition: Discharge to home or self care 02/08/2025 2:00 PM CDT Lab [facility] Outpatient Lab at [address] [phone] 02/08/2025 Telephone [facility] Diabetes and Endocrinology [address] [place] [phone] Fely Faust NP Med Management ([facility] Pt Assistance) 02/08/2025 1:00 PM CDT Office Visit [facility] Diabetes and Endocrinology [address] [place] [phone] Fely Faust NP Type 2 diabetes mellitus with microalbuminuria, with long-term current use of insulin (HCC) (Primary Dx); Hypertension associated with diabetes (HCC); Hyperlipidemia associated with type 2 diabetes mellitus (HCC); Exophthalmos of both eyes 01/31/2025 Telephone [facility] [address] [place] [phone] Trino Jordan MD 01/13/2025 Telephone [facility] [address] [place] [phone] Trino Jordan MD 01/07/2025 Telephone [facility] [address] [place] [phone] Fely Faust NP 12/08/2024 Telephone [facility] Diabetes and Endocrinology [address] [place] [phone] Fely Faust NP surgical clearance request [...] 2nd Gen Pen Needle 32 gauge x 532 needleIndicati ons:Type 2 diabetes mellitus with microalbuminur ia, with long-term current use of insulin (HCC) Use to inject insulin 4 times a day as instructed. 120 each 3 01/11/20 25 Active ADMELOG 100 unit/mL pen for injectionIndic ations:Type 2 diabetes mellitus with microalbuminur ia, with long-term current use of insulin ([facility]),Class 1 obesity due to excess calories with [...] 50 mg tablet 0 11/13/19 25 Active lancing device with lancets (500Shopsuch Delica Plus Lanc Dev) kitIndications :Type 2 diabetes mellitus with microalbuminur ia, with long-term current use of insulin ([facility]) Check blood sugar 4 times daily 1 kit 02/09/20 25 Active blood-glucose meter (OneTouch Verio Flex meter) miscIndication s:Type 2 diabetes mellitus with microalbuminur ia, with long-term current use of insulin ([facility]) Check blood sugar 4 times daily if any CGM failure 1 each 02/24/20 25 Active lancets (Re.MuTouch Delica Plus Lancet) 33 gauge miscIndication s:Type 2 diabetes mellitus with microalbuminur ia, with long-term current use of insulin ([facility]) Check blood sugar 4 times daily if CGM failure 400 each 3 02/24/20 25 Active blood glucose diagnostic (OneTouch Verio test strips) stripIndicatio ns:Type 2 diabetes mellitus with microalbuminur ia, with long-term current use of insulin ([facility]) Check blood sugar 3 times daily and/or if CGM failure 400 strip 3 02/29/20 25 Active LANTUS 100 unit/mL (3 mL) pen for injection Inject 40 Units under the skin With main meal 03/20/20 21 024 Disconti nued(The brittanie complete d) Mounjaro 2.5 mg/0.5 mL pen injector injectionIndic ations:type 2 diabetes mellitus INJECT 0.5 ML (2.5 MG TOTAL) UNDER THE SKIN ONCE A WEEK 2 mL 11 12/18/19 25 025 Disconti nued(Pat ient Reported ) ADMELOG 100 unit/mL pen for injectionIndic ations:Type 2 diabetes mellitus with microalbuminur ia, with long-term current use of insulin ([facility]),Class 1 obesity due to excess calories with serious comorbidity and body mass index (BMI) of 34.0 to 34.9 in adult Inject 15 units under the skin 3 times a day with meals. 15 mL 3 01/14/20 25 025 Disconti nued(Reo rder) ADMELOG 100 unit/mL pen for injectionIndic ations:Type 2 diabetes mellitus with microalbuminur ia, with long-term current use of insulin ([facility]),Class 1 obesity due to excess calories with serious comorbidity and body mass index (BMI) of 34.0 to 34.9 in adult Inject 15 units under the skin 3 times a day with meals. Max daily dose: 50 units 15 mL 3 02/04/20 25 025 Disconti nued(Reo rder) blood glucose diagnostic (OneTouch Verio test strips) stripIndicatio ns:Type 2 diabetes mellitus with microalbuminur ia, with long-term current use of insulin ([facility]) Check blood sugar 4 times daily and/or if CGM failure 400 strip 3 02/09/20 25 025 Disconti nued(Reo rder) blood-glucose meter (OneTouch Verio Flex meter) miscIndication s:Type 2 diabetes mellitus with microalbuminur ia, with long-term current use of insulin ([facility]) Check blood sugar 4 times daily if any CGM failure 1 each 02/09/20 025 Disconti nued(Reo rder) lancets (OneTouch Delica Plus Lancet) 33 gauge miscIndication s:Type 2 diabetes mellitus with microalbuminur ia, with long-term current use of insulin (HCC) Check blood sugar 4 times daily if CGM failure 400 each 3 02/09/20 25 025 Disconti nued(Reo rder) blood glucose diagnostic (OneTouch Verio test strips) stripIndicatio ns:Type 2 diabetes mellitus with microalbuminur ia, with long-term current use of insulin (HCC) Check blood sugar 4 times daily and/or if CGM failure 400 strip 3 02/24/20 25 025 Disconti nued(Reo rder) Active Problems [...] now 5.8% Will fill out PAP for Ozempic to see if he qualifies. Unable to afford any GLP1s since custodial & on Medicare. Current medications: Semglee 34 units daily Humalog 15 units with mealss DM eye exam (09/2023). Has appt 10/25/24 at [facility]. Letter sent to get copy of [...] infection. Assessment & Plan (10/18/2024 1:34 PM CREDIT UNION EXAMINER): Chronic problem. A1c improved from 6.1% 08/07/04/07/2423 [...] eye exam (09/2023). Has appt 10/25/24 at [facility]. Letter sent to get copy of [...] infection. Assessment & Plan (09/17/2023 10:44 AM CREDIT UNION EXAMINER): Chronic, overall well controlled A1c 6.2% Counseled [...] patient last eye exam Advised to see medical resident Follow-up in 6 months Hyperlipidemia associated with type 2 diabetes delilah hinojosa 09/17/2023 Assessment & Plan (02/08/2025 12:51 PM CDT): Chronic problem. Controlled on current Atorvastatin 20mg & fenofibrate 160mg. Last lipid panel: 10/30/24 LDL=74, TG=81. Assessment & Plan (10/18/2024 1:09 PM CREDIT UNION EXAMINER): Chronic problem. Controlled on current Atorvastatin 20mg & fenofibrate 160mg. Last lipid panel: 08/07/23 LDL=>160, ZJ=783. Will update labs. Does not mychart. Verified phone #/address to contact re: results. Assessment & Plan (04/07/2024 2:48 PM CDT): Chronic problem. Controlled on current Atorvastatin 20mg & fenofibrate 160mg. Last lipid panel: 08/07/23 LDL=>160, LT=366. Assessment & Plan (09/17/2023 10:43 AM CREDIT UNION EXAMINER): Start pt on statin therapy Continue Fenofibrate Hypertension associated with diabetes 09/17/2023 Assessment & Plan (02/08/2025 12:51 PM CDT): Chronic problem. Controlled on current lisinopril 40mg daily, diltiazem CD 360mg daily, lozol 2.5mg daily, carvedilol 25mg bid Assessment & Plan (10/18/2024 1:08 PM CREDIT UNION EXAMINER): Chronic problem. Controlled on current lisinopril 40mg daily, diltiazem CD 360mg daily, lozol 2.5mg daily, carvedilol 25mg bid Will update labs. Does not mychart. Verified phone #/address to contact re: results. Assessment & Plan (04/07/2024 2:47 PM CDT): Chronic problem. Controlled on current lisinopril-HCTZ 20-12.5mg daily, diltiazem CD 360mg daily, lozol 2.5mg daily Assessment & Plan (09/17/2023 10:43 AM CREDIT UNION EXAMINER): Chronic, well controlled Continue lisinopril/hydrochlorothiazide Class 1 obesity due to exces s calories with serious comorbidity and body mass index (BMI) of 34.0 to 34.9 in adult 09/17/2023 Assessment & Plan (09/17/2023 10:43 AM CREDIT UNION EXAMINER): Chronic, progressively worsening Counseled on diet and exercise Hemoptysis 04/06/2021 Overview (04/06/2021): Added automatically from request for surgery [id number] Social History Tobacco Use Types Packs/Day Years [...] on file Legal Sex Male 12:31 AM CREDIT UNION EXAMINER Gender Identity Not on file Sexual Orientation [...] with long-term current use of insulin (HCC) THYROID STIMULATING IMMUNOGLOBULIN Routine 02/08/2025 12:00 PM CDT Exophthalmos of both eyes T4, FREE Routine 02/08/2025 12:00 PM CDT Exophthalmos of both eyes TSH Routine 02/08/2025 12:00 PM CDT Exophthalmos of both eyes COMPREHENSIVE METABOLIC PANEL Routine 10/30/2024 9:41 AM CREDIT UNION EXAMINER Type 2 diabetes mellitus with microalbuminuria, with long-term current use of insulin (HCC) Hypertension associated with diabetes (HCC) LIPID PANEL Routine 10/30/2024 9:41 AM CREDIT UNION EXAMINER Type 2 diabetes mellitus with microalbuminuria, with long-term current use of insulin (HCC) Hyperlipidemia associated with type 2 diabetes mellitus (HCC) ALBUMIN CREATININE RATIO, URINE Routine 10/30/2024 9:41 AM CREDIT UNION EXAMINER Type 2 diabetes mellitus with microalbuminuria, with long-term current use of insulin (HCC) HM DIABETES EYE EXAM Routine 09/24/2023 8:05 AM CREDIT UNION EXAMINER from Last 3 Months or Most Recently Relevant to Health Maintenance Results * (ABNORMAL) POCT hemoglobin A1c (02/08/2025 1:12 PM CDT) Pathologist [facility] Hemoglobin A1C, POC 5.8(A) 4.0 - 5.6 % Blood 02/08/2025 1:12 PM CDT us Fely Faust NP POINT OF CARE TEST ORDERA BLES Final Result * (ABNORMAL) POCT glucose (02/08/2025 1:12 PM CDT) [facility] Glucose Blood, POC 236 Normal Fasting 70 - 100, Random <200 mg/dL Blood 02/08/2025 1:12 PM CDT us Fely Faust NP POINT OF CARE TEST ORDERA BLES Final Result * Thyroid stimulating immunoglobulin (02/08/2025 12:00 PM CDT) Pathologist [facility] TSIG <1.0 <=1.3 [facility] ref Lab Comment: Test Performed by: [facility] [address] [place] [address] Pmo Manager: Alma Delia Brannon Ph.D.; CLIA# [id number] Blood 02/08/2025 12:0 0 PM CDT 02/08/2025 5:54 PM CDT us Felynamita Faust LUMBER INSPECTOR LAB BLOOD ORDERABLES Michaela l Result Performing Organization Address City/[facility]/ZIP Co de Phone Number MYRANDA REES [address] [employer] [place], [place] [phone] [facility] ref Lab * TSH (02/08/2025 12:00 PM CDT) Pathologist [facility] Thyroid Stimulating Hormone 1.71 0.30 - 4.20 mcIUnit/mL Blood 02/08/2025 12:0 0 PM CDT 02/08/2025 5:54 PM CDT us Felynamita Faust LUMBER INSPECTOR LAB BLOOD ORDERABLES Michaela l Result Performing Organization Address [facility] Co de Phone Number MYRANDA CABRERA [address] [address] [employer] [place], [place] [phone] * (ABNORMAL) T4, free (02/08/2025 12:00 PM CDT) Free T4 0.83(L) 0.90 - 1.70 ng/dL Blood 02/08/2025 12:0 0 PM CDT 02/08/2025 5:54 PM CDT us Fely Faust NP LAB BLOOD ORDERABLES Michaela l Result Performing Organization Address [facility] Co de Phone Number SHYANNESHANELLE REES [address] [address] [facility] [address] [place], [place] [phone] * (ABNORMAL) Albumin Creatinine Ratio, Urine (10/30/2024 9:41 AM CREDIT UNION EXAMINER) SCRIBED Creatinine, Urine 129.55 40 - 278 EXTERNAL LAB SCRIBED Microalbumin >400.0 NA - NA EXTERNAL LAB SCRIBED Microalb/Creat Ratio 308.7(A) 0 - 30 EXTERNAL LAB Urine 10/30/2024 9:41 AM CREDIT UNION EXAMINER us Fely aFust LUMBER INSPECTOR LAB URINE ORDERABLES Michaela l Result Performing Organization Address City/[facility]/ZIP Co de Phone Number EXTERNAL LAB * Lipid panel (10/30/2024 9:41 AM CREDIT UNION EXAMINER) SCRIBED Cholesterol, Total 141 0 - 200 EXTERNAL LAB SCRIBED HDL 47 40 - 60 EXTERNAL LAB SCRIBED LDL 74 <130 - NA EXTERNAL LAB SCRIBED Triglycerides 81 0 - 150 EXTERNAL LAB Blood 10/30/2024 9:41 AM CREDIT UNION EXAMINER us Fely Faust LUMBER INSPECTOR LAB BLOOD ORDERABLES Michaela l Result Performing Organization Address [facility] de Phone Number EXTERNAL LAB * (ABNORMAL) Comprehensive metabolic panel (10/30/2024 9:41 AM CREDIT UNION EXAMINER) SCRIBED Sodium 143 136 - 145 mmol/L [...] NA EXTERNAL LAB Blood 10/30/2024 9:41 AM CREDIT UNION EXAMINER us Fely Faust LUMBER INSPECTOR LAB BLOOD ORDERABLES Michaela l Result EXTERNAL LAB * (ABNORMAL) DIABETES EYE EXAM (09/24/2023 8:05 AM CREDIT UNION EXAMINER) Historical Provider HEALTH MAINTENANCE Final Result from Last 3 Months or Most Recently Relevant to Health Maintenance Insurance [employer] [facility] AET[employer] MEDICARE GOLD Care Teams Sweater Operator Relationship Specialty Start Date End Date Mitra Garcia MD [address] [place] [address] PCP - General 06/29/07
--- OUTSIDE RECORDS SUMMARY | 2025-03-01 13:33 | XMS_ITS ---
Author Organization [facility] Address [address] [place], [place] [phone] Care Team Providers Care Submarine Worker Name Role Phone GRADY LINN Unavailable [phone] Mitra Garcia Unavailable Unavailable ALEXIS LY Unavailable [phone] REASON FOR VISIT *Diabetic foot exam, GC Medications Medication SIG (Take, Route, Frequency, Duration) Notes Start Date End Date Status Clotrimazole-Betamethason e 1-0.05 % 1 application Externally Twice a day 08/19/2024 Active Mounjaro 2.5 MG/0.5ML as directed Subcutaneous Active Meloxicam 7.5 MG 1 tablet Orally Once a day Active Clotrimazole 1 % 1 application Bobbin Trucker ally Once a day; Duration: 30 days 02/03/2025 08/01/2025 Active Atorvastatin Calcium 10 MG 1 tablet Orally Once a day Active Clotrimazole-Betamethason e 1-0.05 % 1 application Externally Twice a day 12/04/2023 Active Vital Signs Height 69 in 02/03/2025 Weight 228 lbs 02/03/2025 BMI 33.67 kg/m2 02/03/2025 Height-cm 175.26 cm 02/03/2025 Weight-kg 103.42 kg 02/03/2025 Encounters Encounter Location Date Provider Diagnosis [address] [id number] 02/03/2025 ALEXIS LY Tinea unguium B35.1 ; Acquired keratosis [keratoderma] palmaris et plantaris L85.1 ; Atherosclerosis of nome arteries of extremities with intermittent claudication, bilateral [...] utilizing a #15 blade 02/03/2025 Atherosclerosis of nome arteries of extremities with intermittent claudication, bilateral legs (ICD-10 - I70.213) 02/03/2025 Pain in right foot (ICD-10 - M79.671) 02/03/2025 Pain in left foot (ICD-10 - M79.672) Plan Of Treatment Medication Medication Name Sig Start Date Stop Date Notes Clotrimazole 1 % 1 application Bobbin Trucker ally Once a day; Duration: 30 days [...] Care Provider Name:ALEXIS HUMPHREY, 04/07/2025 01:10:00 PM, [address] [place] [address], [phone], Progress Notes * Darnell VELOZOB: 9 (64 yo M)Acc No.[id number]:02/03/2025 Patient: Sydney CAIN Provider: Sheldon LY :1960 A ge:64 Y S ex:Male Date:02/03/2025 Address:[address], [facility] Subjective: * Chief Complaints: * 1 [...] Patient denies c hest pain, history of OH, irregular heartbeat. M usculoskeletal: Patient denies a [...] - L85.1 3 . A therosclerosis of nome arteries of extremities with intermittent claudication, bilateral [...] Care) * Billing Information: * Visit Code: 01966 Office Visit, Est Pt., Level 3. * Procedure Codes: * Electronic signature of ELIZABETH LY DPM on 03/01/2025 at 01:32 PM CDT Sign off status: Pending * Provider: Sheldon LY Date: 02/03/2025 Generated for Ruel fisher/Delano/Myron on: 03/01/2025 01:32 PM CDT History and Physical Notes * [...]
--- OUTSIDE RECORDS SUMMARY | 2025-03-01 13:33 | XMS_ITS ---
Author Organization [facility] Address [address] [place], [place] [phone] Care Team Providers Care Post Office Manager Name Role Phone GRADY LINN Unavailable [phone] Mitra Garcia Unavailable Unavailable ALEXIS LY Unavailable [phone] REASON FOR VISIT *General care Encounters Encounter Location Date Provider Diagnosis [address] [id number] 01/27/2025 ALEXIS LY Plan Of Treatment Next Appt Details Provider Name:ALEXIS HUMPHREY, 04/07/2025 01:10:00 PM, [address] [place] [address], [phone], Progress Notes * KALYAN, MariDavOB: (64 yo M)Acc No.[id number]:01/27/2025 Patient: Sydney CAIN Provider: Sheldon LY :1960 A ge:64 Y S ex:Male Date:01/27/2025 Address:[address] [place] [place], [place] Subjective: * Chief Complaints: * 1 . *General care. * Medical History: Objective: * Vitals: Assessment: Plan: * Treatment: * Billing Information: * Visit Code: * Procedure Codes: * Electronic signature of ELIZABETH LY DPM on 03/01/2025 at 01:33 PM CDT Sign off status: Pending * Provider: Sheldon LY Date: 0 01/27/2025 Generated for Ruel Smith/Myron on: 0 03/01/2025 01:33 PM CDT
--- OUTSIDE RECORDS SUMMARY | 2025-03-01 13:33 | XMS_ITS | Encounter Summary ---
Author Organization [facility] Address [address] [place] [address] Care Team Providers Care Registered Diet Technician Name Role Phone Mitra Garcia MD Primary Care Provider [phone] Encounter Details Date Type Department Care Team (Latest Contact Info) Description 02/09/2025 Results Follow-Up [facility] Diabetes and Endocrinology [address] [place] [phone] Fely Faust, WAYS OPERATOR [address] [facility] [address], [place] [phone] TSH, T4, free, Thyroid stimulating immunoglobulin Social History Tobacco Use Types Packs/Day Years Used Date Smoking Tobacco: Former Cigarettes 1 43 1 - 2019 Smokeless Tobacco: Never AUDIT-C Answer [...] on file Legal Sex Male 12:31 AM CUT OFF SAW GRADER Gender Identity Not on file Sexual Orientation Not on file documented as of this encounter Miscellaneous Notes * Result Encounter Note - Maura Zhang LPN - 02/23/2025 12:16 PM CDT Pt aware of all lab results. Pt stated he has no questions or concerns at this time. * Result Encounter Note - Fely Faust NP - 02/16/2025 8:34 AM CDT Moncho Roy, The TSIG (thyroid stimulating immunoglobulin) is normal--you do not have Grave's disease (hyperthyroidism). Please call or send a [employer] message if any questions. Thank you, Artemio Rincon * Result Encounter Note - Fely Faust NP - 02/09/2025 1:13 PM CDT [phone] N/A. LMOVM re: thyroid results normal. Eye issues not r/t hyperthyroidism. Labs forwarded to Dr Garcia's office as discussed yesterday. Office # given if return call needed. documented in this encounter Plan of Treatment Not on file documented as of this encounter Visit Diagnoses Not on filedocumented in this encounter Care Teams Registered Diet Technician Relationship Specialty Start Date End Date Mitra Garcia MD [address] [place] [address] PCP - General 06/29/07 documented as of this encounter
--- OUTSIDE RECORDS SUMMARY | 2025-03-01 13:33 | XMS_ITS | Patient Health Record ---
Author Organization [facility] Address [address] [place], [place] [phone] Care Team Providers Care Bird Cage Assembler Name Role Phone GRADY LINN Unavailable [phone] Mitra Garcia Unavailable Unavailable VIRY FIGUEROA Unavailable [phone] ALEXIS LY Unavailable [phone] Allergies No Known Allergies Reason For Referral [...] day Active Clotrimazole 1 % 1 application Fish Liver Sorter ally Once a day; Duration: 30 days 02/03/2025 08/01/2025 Active Atorvastatin Calcium 10 MG 1 tablet Orally Once a day Active Vital Signs Height-cm 175.26 cm 02/03/2025 Weight-kg 103.42 kg 02/03/2025 Height 69 in 02/03/2025 Weight 228 lbs 02/03/2025 BMI 33.67 kg/m2 02/03/2025 Encounters Encounter Location Date Provider Diagnosis [facility] [address] [place], [place] [phone] 08/19/2024 VIRY DAVYDOV Tinea unguium B35.1 ; Pain in left toe(s) M79.675 ; Pain in right toe(s) M79.674 ; Unspecified atherosclerosis of [place] arteries of extremities, bilateral legs I70.203 ; Acquired keratosis [keratoderma] palmaris et plantaris L85.1 and Type 2 diabetes mellitus with diabetic peripheral angiopathy without gangrene E11.[address] [id number] 02/03/2025 ALEXIS LY Tinea unguium B35.1 ; Acquired keratosis [keratoderma] palmaris et plantaris L85.1 ; Atherosclerosis of [place] arteries of extremities with intermittent claudication, bilateral legs I70.213 ; Pain in right foot M79.671 and Pain in left foot M79.[address] [id number] 04/08/2024 VIRYROCK ROBINSJOSE Other hammer toe(s) (acquired), right foot M20.41 ; Tinea unguium B35.1 ; Other hammer toe(s) (acquired), left foot M20.42 ; Acquired keratosis [keratoderma] palmaris et plantaris L85.1 ; Unspecified atherosclerosis of [place] arteries of extremities, bilateral legs I70.203 ; Pain in left toe(s) M79.675 ; Pain in right toe(s) M79.674 ; Pain in right foot M79.671 ; Pain in left foot M79.672 and Type 2 diabetes mellitus with diabetic peripheral angiopathy without gangrene E11.51 [address] [place], [place] [id number] 06/17/2024 VIRYROCK ROBINSJOSE Tinea unguium B35.1 ; Pain in left toe(s) M79.675 ; Pain in right toe(s) M79.674 ; Unspecified atherosclerosis of [place] arteries of extremities, bilateral legs I70.203 ; Acquired keratosis [keratoderma] palmaris et plantaris L85.1 and Type 2 diabetes mellitus with diabetic peripheral angiopathy without gangrene E11.[address] [id number] 10/21/2024 GRADY LINN Tinea unguium B35.1 ; Acquired keratosis [keratoderma] palmaris et plantaris L85.1 ; Atherosclerosis of [place] arteries of extremities with intermittent claudication, bilateral [...] utilizing a #15 blade 02/03/2025 Atherosclerosis of [place] arteries of extremities with intermittent claudication, bilateral legs (ICD-10 - I70.213) 10/21/2024 Atherosclerosis of [place] arteries of extremities with intermittent claudication, bilateral [...] drainage was noted. 08/19/2024 Unspecified atherosclerosis of [place] arteries of extremities, bilateral legs (ICD-10 - I70.203) Patient educated on risks and aggravating factors of PVD, including conservative treatment options such as a diet and exercise regimen to aid in slowing progression of vascular disease 06/17/2024 Unspecified atherosclerosis of [place] arteries of extremities, bilateral legs (ICD-10 - [...] drainage was noted. 04/08/2024 Unspecified atherosclerosis of [place] arteries of extremities, bilateral legs (ICD-10 - [...] Of Treatment Next Appt Details Provider Name:ALEXIS Tello JOSSUE MILAGRO, 04/07/2025 01:10:00 PM, [address] [place] [address], [phone], Insurance Providers Payer Name Payer Address Payer Phone Subscriber Number Group Number Insured Name Patient Relationship to Insured Coverage Start Date Coverage End Date [employer] [address] [place] [phone] [id number] Sydney Veloz Self - patient is the insured Medical (General) History Medical History History ICD Code Diabetic Surgical History Surgery Date(Month/Year) replacement
--- OUTSIDE RECORDS SUMMARY | 2025-03-01 13:33 | XMS_ITS | Encounter Summary ---
Author Organization [facility] Healthcare Address [address] [place] [address] Care Team Providers Care Lead Network Engineer Name Role Phone Mitra Garcia MD Primary Care Provider + [phone] Reason for Visit * Reason Onset Date Comments Meter 02/09/2025 Encounter Details Date Type Department Care Team (Late st Contact Info) Description 02/09/2025 [place] [facility] [id number] [place] [phone] Fely Faust, TEACHER PHYSICALLY IMPAIRED [id number] [address] Meter Social History Tobacco Use Types Packs/Day Years [...] on file 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 Gender Identity Not on file Sexual Orientation Not on file documented as of this encounter Ordered Prescriptions Prescription Sig Dispense Quantity Refills Last Filled Start Date End Date blood glucose diagnostic (OneTouch Verio test strips) stripIndications:T ype 2 diabetes mellitus with microalbuminuria, with long-term current use of insulin (HCC) Check blood sugar 3 times daily and/or if CGM failure 400 strip 3 02/28/2025 lancets (OneTouch Delica Plus Lancet) 33 gauge miscIndications:Ty pe 2 diabetes mellitus with microalbuminuria, with long-term current use of insulin (HCC) Check blood sugar 4 times daily if CGM failure 400 each 3 02/23/2025 blood-glucose meter (OneTouch Verio Flex meter) miscIndications:Ty pe 2 diabetes mellitus with microalbuminuria, with long-term current use of insulin (HCC) Check blood sugar 4 times daily if any CGM failure 1 each 02/23/2025 blood glucose diagnostic (OneTouch Verio test strips) stripIndications:T ype 2 diabetes mellitus with microalbuminuria, with long-term current use of insulin (HCC) Check blood sugar 4 times daily and/or if CGM failure 400 strip 3 02/23/2025 documented in this encounter Miscellaneous Notes * Telephone Encounter - Ramsey Crain - 03/01/2025 9:23 AM CDT The previous message has been provided verbatim and understanding was acknowledged by the recipient. rx was updated to 3x's and sent to the pharmacy * Addendum Note - Liliana Vega LPN - 02/28/2025 8:58 AM CDTAddended by: LILIANA VEGA on: 02/28/2025 08:58 AM Modules accepted: Orders * Telephone Encounter - Liliana Vega LPN - 02/28/2025 8:57 AM CDT Rx changed to 3x's a day. Rx sent to pharmacy. * Telephone Encounter - Chayito Buck - 02/28/2025 8:20 AM CDT Pt called regarding test strips, pt stated the RX is for 4 times a day & the insurance will notpay for anything over 3 times a day, pt is asking if the RX can be call over differently so he can get the strips. * Addendum Note - Liliana Vega LPN - 02/23/2025 12:10 PM CDTAddended by: LILIANA VEGA on: 02/23/2025 12:10 PM Modules accepted: Orders * Telephone Encounter - Liliana Vega LPN - 02/23/2025 12:04 PM CDT Called pharmacy to confirm. Pharmacist stated that she did not have an order for the meter, lancets, or testing strips. I explained to the pharmacist that we have a receipt confirmation from 02/08/25 at 1338. Pharmacist again stated that they have no order for pt. New script sent over. * Telephone Encounter - Chayito Buck - 02/09/2025 3:16 PM CDT Pt called, stated he had an appointment yesterday with Fely, pt asked about the meter, informed pt meter, test strips & lancets was called into the pharmacy. documented in this encounter Plan of Treatment Not on file documented as of this encounter Visit Diagnoses Diagnosis Type 2 diabetes mellitus with microalbuminuria, with long-term current use of insulin (HCC) documented in this encounter Discontinued Medications Medication Sig Discontinue Reason Start Date End Da te blood glucose diagnostic (OneTouch Verio test strips) stripIndications:Type 2 diabetes mellitus with microalbuminuria, with long-term current use of insulin (HCC) Check blood sugar 4 times daily and/or if CGM failure Reorder 02/08/2025 02/23/2025 blood-glucose meter (OneTouch Verio Flex meter) miscIndications:Type 2 diabetes mellitus with microalbuminuria, with long-term current use of insulin (HCC) Check blood sugar 4 times daily if any CGM failure Reorder 02/08/2025 02/23/2025 lancets (OneTouch Delica Plus Lancet) 33 gauge miscIndications:Type 2 diabetes mellitus with microalbuminuria, with long-term current use of insulin (HCC) Check blood sugar 4 times daily if CGM failure Reorder 02/08/2025 02/23/2025 blood glucose diagnostic (OneTouch Verio test strips) stripIndications:Type 2 diabetes mellitus with microalbuminuria, with long-term current use of insulin (HCC) Check blood sugar 4 times daily and/or if CGM failure Reorder 02/23/2025 02/28/2025 documented as of this encounter Care Teams Lead Network Engineer Relationship Specialty Start Date End Date Mitra Garcia MD [address] [place] [address] PCP - General 06/29/07 documented as of this encounter
--- OUTSIDE RECORDS SUMMARY | 2025-03-01 13:33 | XMS_ITS | Clinical Summary ---
Author Organization [facility] Address [address] [place] [address] Care Team Providers Care Clinical Studies Specialist Name Role Phone Unavailable Primary Care Provider Unavailabl e Source Comments [facility],non-owned Affiliates and Associated Physician Practices is amultiple site organization consisting of ambulatory clinics and hospital sitesin [place], [place], [place] and [place]. This disclosure is being madepursuant to the Care Everywhere program and may not contain all information available regarding this patient. Last updated 18.[facility] Check I'm Here Social History Tobacco Use Types Packs/Day Years [...] patient's age to complete this topic Insurance [facility]
--- OUTSIDE RECORDS SUMMARY | 2025-03-01 13:34 | XMS_ITS | Clinical Summary ---
Author Organization [facility] Address [facility] [place] [address] Care Team Providers Care Grades 9 Through 12 Teacher Name Role Phone Mitra Garcia MD Primary Care Provider + [phone] Allergies No known active allergies Medications fenofibrate [...] ia, with long-term current use of insulin ([facility]),Class 1 obesity due to excess calories [...] 11/13/19 25 Active lancing device with lancets ([employer] Delica Plus Lanc Dev) kitIndications :Type 2 diabetes mellitus with microalbuminur ia, with long-term current use of insulin ([facility]) Check blood sugar 4 times daily 1 kit 02/09/20 25 Active blood-glucose meter (OneTouch Verio Flex meter) miscIndication s:Type 2 diabetes mellitus with microalbuminur ia, with long-term current use of insulin ([facility]) Check blood sugar 4 times daily if any CGM failure 1 each 02/24/20 25 Active lancets (GreenPoint PartnersTouch Delica Plus Lancet) 33 gauge miscIndication s:Type 2 diabetes mellitus with microalbuminur ia, with long-term current use of insulin ([facility]) Check blood sugar 4 times daily if CGM failure 400 each 3 02/24/20 25 Active blood glucose diagnostic (OneTouch Verio test strips) stripIndicatio ns:Type 2 diabetes mellitus with microalbuminur ia, with long-term current use of insulin ([facility]) Check blood sugar 3 times daily [...] SKIN ONCE A WEEK 2 mL 12/18/19 025 Disconti nued(Pat robertnt Reported ) ADMELOG 100 unit/mL pen for injectionIndic ations:Type 2 diabetes mellitus with microalbuminur ia, with long-term current use of insulin ([facility]),Class 1 obesity due to excess calories with serious comorbidity and body mass index (BMI) of 34.0 to 34.9 in adult Inject 15 units under the skin 3 times a day with meals. 15 mL 01/14/20 25 025 Disconti nued(Reo rder) ADMELOG 100 unit/mL pen for injectionIndic ations:Type 2 diabetes mellitus with microalbuminur ia, with long-term current use of insulin ([facility]),Class 1 obesity due to excess calories with serious comorbidity and body mass index (BMI) of 34.0 to 34.9 in adult Inject 15 units under the skin 3 times a day with meals. Max daily dose: 50 units 15 mL 02/04/20 025 Disconti nued(Reo rder) blood glucose diagnostic (OneTouch Verio test strips) stripIndicatio ns:Type 2 diabetes mellitus with microalbuminur ia, with long-term current use of insulin ([facility]) Check blood sugar 4 times daily and/or if CGM failure 400 strip 02/09/20 25 025 Disconti nued(Reo rder) blood-glucose meter (OneTouch Verio Flex meter) miscIndication s:Type 2 diabetes mellitus with microalbuminur ia, with long-term current use of insulin ([facility]) Check blood sugar 4 times daily if any CGM failure 1 each 02/09/20 25 025 Disconti nued(Reo rder) lancets (OneTouch Delica Plus Lancet) 33 gauge miscIndication s:Type 2 diabetes mellitus with microalbuminur ia, with long-term current use of insulin ([facility]) Check blood sugar 4 times daily [...] qualifies. Unable to afford any GLP1s since snf & on Medicare. Current medications: Semglee 34 units daily Humalog 15 units with mealss DM eye exam (09/2023). Has appt 10/25/24 at [facility]. Letter sent to get copy [...] infection. Assessment & Plan (10/18/2024 1:34 PM CARPENTRY TEACHER): Chronic problem. A1c improved from 6.1% 08/07/04/07/2423 [...] eye exam (09/2023). Has appt 10/25/24 at [facility]. Letter sent to get copy [...] infection. Assessment & Plan (09/17/2023 10:44 AM CARPENTRY TEACHER): Chronic, overall well controlled A1c 6.2% Counseled [...] patient last eye exam Advised to see toll bridge attendant Follow-up in 6 months Hyperlipidemia associated with type 2 diabetes delilah hinojosa 09/17/2023 Assessment & Plan (02/08/2025 12:51 PM CDT): Chronic problem. Controlled on current Atorvastatin 20mg & fenofibrate 160mg. Last lipid panel: 10/30/24 LDL=74, TG=81. Assessment & Plan (10/18/2024 1:09 PM CARPENTRY TEACHER): Chronic problem. Controlled on current Atorvastatin 20mg & fenofibrate 160mg. Last lipid panel: 08/07/23 LDL=>160, PY=344. Will update labs. Does not mychart. Verified phone #/address to contact re: results. Assessment & Plan (04/07/2024 2:48 PM CDT): Chronic problem. Controlled on current Atorvastatin 20mg & fenofibrate 160mg. Last lipid panel: 08/07/23 LDL=>160, IT=619. Assessment & Plan (09/17/2023 10:43 AM CARPENTRY TEACHER): Start pt on statin therapy Continue Fenofibrate Hypertension associated with diabetes 09/17/2023 Assessment & Plan (02/08/2025 12:51 PM CDT): Chronic problem. Controlled on current lisinopril 40mg daily, diltiazem CD 360mg daily, lozol 2.5mg daily, carvedilol 25mg bid Assessment & Plan (10/18/2024 1:08 PM CARPENTRY TEACHER): Chronic problem. Controlled on current lisinopril 40mg daily, diltiazem CD 360mg daily, lozol 2.5mg daily, carvedilol 25mg bid Will update labs. Does not mychart. Verified phone #/address to contact re: results. Assessment & Plan (04/07/2024 2:47 PM CDT): Chronic problem. Controlled on current lisinopril-HCTZ 20-12.5mg daily, diltiazem CD 360mg daily, lozol 2.5mg daily Assessment & Plan (09/17/2023 10:43 AM CARPENTRY TEACHER): Chronic, well controlled Continue lisinopril/hydrochlorothiazide Class 1 obesity due to exces s calories with serious comorbidity and body mass index (BMI) of 34.0 to 34.9 in adult 09/17/2023 Assessment & Plan (09/17/2023 10:43 AM CARPENTRY TEACHER): Chronic, progressively worsening Counseled on diet and exercise Hemoptysis 04/06/2021 Overview (04/06/2021): Added automatically from request for surgery [id number] Encounters Date Type Department Care Team Description 02/09/2025 Telephone [facility] [address] [phone] Fely Faust NP [facility] 02/09/2025 Results Follow-Up [facility] Diabetes and Endocrinology [address] [place] [phone] Fely Faust NP TSH, T4, free, Thyroid stimulating immunoglobulin 02/08/2025 4:36 PM CDT - 02/08/2025 11:59 PM CDT Hospital Encounter [address] [address] Exophthalmos of both eyes Discharge Disposition: Discharge to home or self care 02/08/2025 2:[address] [facility] Outpatient Lab at [address] [phone] 02/08/2025 1:00 PM CDT Office Visit [facility] Endocrinology [address] [place] [phone] Fely Faust NP Type 2 diabetes mellitus with microalbuminuria, with long-term current use of insulin (HCC) (Primary Dx); Hypertension associated with diabetes (HCC); Hyperlipidemia associated with type 2 diabetes mellitus (HCC); Exophthalmos of both eyes 02/08/2025 Telephone [facility] [address] [place] [phone] Fely Faust NP Med Management ([facility] Pt Assistance) 01/31/2025 Telephone [facility] [address] [phone] Trino Jordan MD 01/13/2025 Telephone [facility] [address] [phone] Trino Jordan MD 01/07/2025 Telephone [facility] [address] [phone] Fely Faust NP 12/08/[address] 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 Adrenal myelolipoma L [...] Smoking Tobacco: Former Cigarettes 1 43 1 6 - 2018 Smokeless Tobacco: Never AUDIT-C Answer [...] on file Legal Sex Male 12:31 AM CARPENTRY TEACHER Gender Identity Not on file Sexual Orientation [...] Dilated Eye Exam 09/24/2024 09/24/2023 Influenza Vaccine (#1) 2025 , 07/28/2019, 06/24/2018, Additional history exists Hemoglobin A1C [...] COMPREHENSIVE METABOLIC PANEL Routine 10/30/2024 9:41 AM CARPENTRY TEACHER Type 2 diabetes mellitus with microalbuminuria, with long-term current use of insulin (HCC) Hypertension associated with diabetes (HCC) LIPID PANEL Routine 10/30/2024 9:41 AM CARPENTRY TEACHER Type 2 diabetes mellitus with microalbuminuria, with long-term current use of insulin (HCC) Hyperlipidemia associated with type 2 diabetes mellitus (HCC) ALBUMIN CREATININE RATIO, URINE Routine 10/30/2024 9:41 AM CARPENTRY TEACHER Type 2 diabetes mellitus with microalbuminuria, with long-term current use of insulin (HCC) HM DIABETES EYE EXAM Routine 09/24/2023 8:05 AM CARPENTRY TEACHER from Last 3 Months or Most Recently Relevant to Health Maintenance Results * (ABNORMAL) POCT hemoglobin A1c (02/08/2025 1:12 PM CDT) Pathologist [facility] Hemoglobin A1C, POC 5.8(A) 4.0 - 5.6 % Blood 02/08/2025 1:12 PM CDT us Fely Faust NP POINT OF CARE TEST ORDERA BLES Final Result * (ABNORMAL) POCT glucose (02/08/2025 1:12 PM CDT) [facility] Glucose Blood, POC 236 Normal Fasting 70 - 100, Random <200 mg/dL Blood 02/08/2025 1:12 PM CDT us Fely Faust NP POINT OF CARE TEST ORDERA BLES Final Result * Thyroid stimulating immunoglobulin (02/08/2025 12:00 PM CDT) [facility] TSIG <1.0 <=1.3 [place] ref Lab Comment: Test Performed by: [facility] [address] [place] [id number] [employer]er: Alma Delia Brannon Ph.D.; IA# [id number] Blood 02/08/2025 12:0 0 PM CDT 02/08/2025 5:54 PM CDT us Felynamita Faust SHACTOR HELPER LAB BLOOD ORDERABLES Michaela l Result Performing Organization Address [facility]/ZIP Co de Phone Number MYRANDA REES [address] [place] [address] [facility] ref Lab * TSH (02/08/2025 12:00 PM CDT) Thyroid Stimulating Hormone 1.71 0.30 - 4.20 mcIUnit/mL Blood 02/08/2025 12:0 0 PM CDT 02/08/2025 5:54 PM CDT us Felynamita Faust SHACTOR HELPER LAB BLOOD ORDERABLES Michaela l Result Performing Organization Address [facility] Co de Phone Number SHYANNESHANELLE REES [address] Department [employer] [place], [place] [phone] * (ABNORMAL) T4, free (02/08/2025 12:00 PM CDT) Free T4 0.83(L) 0.90 - 1.70 ng/dL Blood 02/08/2025 12:0 0 PM CDT 02/08/2025 5:54 PM CDT us Fely Faust NP LAB BLOOD ORDERABLES Michaela l Result Performing Organization Address [facility] Co de Phone Number MYRANDA REES [address] [facility] [employer] [place], [place] [phone] * (ABNORMAL) Albumin Creatinine Ratio, Urine (10/30/2024 9:41 AM CARPENTRY TEACHER) SCRIBED Creatinine, Urine 129.55 40 - 278 EXTERNAL LAB SCRIBED Microalbumin >400.0 NA - NA EXTERNAL LAB SCRIBED Microalb/Creat Ratio 308.7(A) 0 - 30 EXTERNAL LAB Urine 10/30/2024 9:41 AM CARPENTRY TEACHER us Fely Faust SHACTOR HELPER LAB URINE ORDERABLES Michaela l Result Performing Organization Address City/[facility]/ZIP Co de Phone Number EXTERNAL LAB * Lipid panel (10/30/2024 9:41 AM CARPENTRY TEACHER) SCRIBED Cholesterol, Total 141 0 - 200 EXTERNAL LAB SCRIBED HDL 47 40 - 60 EXTERNAL LAB SCRIBED LDL 74 <130 - NA EXTERNAL LAB SCRIBED Triglycerides 81 0 - 150 EXTERNAL LAB Blood 10/30/2024 9:41 AM CARPENTRY TEACHER us Fely Faust SHACTOR HELPER LAB BLOOD ORDERABLES Michaela l Result Performing Organization Address [facility] Co de Phone Number EXTERNAL LAB * (ABNORMAL) Comprehensive metabolic panel (10/30/2024 9:41 AM CARPENTRY TEACHER) SCRIBED Sodium 143 136 - 145 mmol/L [...] Units/L EXTERNAL LAB SCRIBED eGFR in NonAfrican Nigerien >60 >=60 - NA EXTERNAL LAB Blood 10/30/2024 9:41 AM CARPENTRY TEACHER us Fely Faust SHACTOR HELPER LAB BLOOD ORDERABLES Michaela l Result EXTERNAL LAB * (ABNORMAL) DIABETES EYE EXAM (09/24/2023 8:05 AM CARPENTRY TEACHER) Historical Provider HEALTH MAINTENANCE Final Result from Last 3 Months or Most Recently Relevant to Health Maintenance Insurance [place] [place] [employer] [facility] [employer]ETNA MEDICARE GOLD Care Teams Grades 9 Through 12 Teacher Relationship Specialty Start Date End Date Mitra Garcia MD [address] [place], [place] [phone] PCP - General 06/29/07
[2025-03-01 14:04] LABS: Anion Gap 6 mmol/L (4-12); Blood Urea Nitrogen 26 mg/dL (9-20); Calcium 9.1 mg/dL (8.4-10.2); Carbon Dioxide 23 mmol/L (22-30); Chloride 110 mmol/L (98-107); Estimated Glomerular Filt Rate 56; Glucose 153 mg/dL (65-110); Osmolality Calculated 295 mOsm/kg (285-295); Potassium 4.5 mmol/L (3.4-5.0); Sodium 139 mmol/L (137-145)
== END 2025-03-01 13:28 | disposition home or self-care (01) ==
LOC: CHSLAB 13:29
PROVIDERS: PCP Internal Medicine; Visit Provider Internal Medicine
DX: I10 Essential (primary) hypertension (principal); M79.89 Other specified soft tissue disorders
CPT/HCPCS: 36415; 80048; 93971

== ENCOUNTER 2025-03-29 09:31 | Outpatient (CLI) | payer MEDICARE, SELFPAY ==
--- OUTSIDE RECORDS SUMMARY | 2025-03-29 09:41 | XMS_ITS | Encounter Summary ---
Author Organization [facility] Healthcare Address [address] [place] [address] Care Team Providers Care Public Relations Analyst Name Role Phone Mitra Garcia MD Primary Care Provider [phone] Encounter Details Date Type Department Care Team (Latest Contact Info) Description 02/09/2025 Results Follow-Up 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 Please call or send a Octavian message if any questions. Thank you, Artemio Rincon * Result Encounter Note - Fely Faust NP - 02/09/2025 1:13 PM CDT [phone] N/A. LMOVM re: thyroid results normal. Eye issues not r/t hyperthyroidism. Labs forwarded to Dr Garcia's office as discussed yesterday. Office # given if return call needed. documented in this encounter Plan of Treatment Not on file documented as of this encounter Visit Diagnoses Not on filedocumented in this encounter Care Teams Public Relations Analyst Relationship Specialty Start Date End Date Mitra Garcia MD [address] [place] [address] PCP - General 06/29/07 documented as of this encounter
--- OUTSIDE RECORDS SUMMARY | 2025-03-29 09:41 | XMS_ITS | Referral Summary ---
Author Organization [facility] Address [address] [place] [address] Care Team Providers Care Cleaner Touch Up Worker Name Role Phone Mitra Garcia MD Primary Care Provider [phone] Encounters Date Type Department Care Team Description 03/09/2025 Telephone [facility] Medical [facility] Diabetes and Endocrinology [address] [place] [phone] Fely Faust NP Medication Administration (Insulin Glargine) 03/01/2025 Telephone [facility] Diabetes and Endocrinology [address] [place] [phone] Fely Faust NP Med Refill 02/09/2025 Telephone [facility] Specialists [facility] [id number] [place] [phone] Fely Faust, SLEEVE BOTTOM FELLER Meter 02/09/2025 Results Follow-Up [facility] Diabetes and Endocrinology [address] [place] [phone] Fely Faust, SLEEVE BOTTOM FELLER TSH, T4, free, Thyroid stimulating immunoglobulin 02/08/2025 4:36 PM CDT - 02/08/2025 11:59 PM CDT Hospital Encounter [address] [address] Exophthalmos of both eyes Discharge Disposition: Discharge to home or self care 02/08/2025 2:00 PM CDT Lab [facility] Outpatient Lab at [address] [phone] 02/08/2025 Telephone [facility] Diabetes and Endocrinology [address] [place] [phone] Fely Faust NP Med Management (Clark Nordisk Pt Assistance) 02/08/2025 1:00 PM CDT Office Visit [facility] Diabetes and Endocrinology [address] [place] [phone] Fely Faust NP Type 2 diabetes mellitus with microalbuminuria, with long-term current use of insulin (HCC) (Primary Dx); Hypertension associated with diabetes (HCC); Hyperlipidemia associated with type 2 diabetes mellitus (HCC); Exophthalmos of both eyes 01/31/2025 Telephone [facility] Specialists of [address] [phone] Trino Jordan MD 01/13/2025 Telephone [facility] Specialists of [address] [phone] Trino Jordan MD 01/07/2025 Telephone [facility] Specialists of [address] [phone] Fely Faust NP from Last 3 Months Allergies No known [...] (100 mg total) by mouth daily Active lisinopril-hydr oCHLOROthiazide (ZESTORETIC) 20-12.5 mg per tabletIndicatio ns:hypertension Take 1 tablet by mouth daily Active aspirin 81 mg enteric coated tablet Take 1 tablet (81 mg total) by mouth daily Active diltiaZEM CD (CARDIZEM CD) 360 mg 24 hr capsule 3 Active indapamide (LOZOL) 2.5 mg tablet 3 Active FreeStyle Mary 3 Sensor deviceIndicatio ns:Type 2 diabetes mellitus with microalbuminuri a, with long-term current use of insulin (HCC) One sensor every 14 days 2 each 4 Active albuterol HFA (PROVENTIL HFA,VENTOLIN HFA,PROAIR HFA) 90 mcg/actuation inhaler 4 Active carvediloL (COREG) 25 mg tablet 4 Active clotrimazole-be tamethasone (LOTRISONE) cream 1 Application every 12 hours 4 Active Trelegy Ellipta 100-62.5-25 mcg inhaler 4 Active Monovisc 88 mg/4 mL syringe 4 Active lisinopriL (PRINIVIL,ZESTR IL) 40 mg tablet 4 Active zolpidem (AMBIEN) 5 mg tablet 4 Active indapamide (LOZOL) 1.25 mg tablet 4 Active blood-glucose sensor device One sensor every 14 days 2 each 11 4 Active atorvastatin (LIPITOR) 20 mg tabletIndicatio ns:Hyperlipidem ia associated with type 2 diabetes mellitus (HCC) TAKE ONE TABLET BY MOUTH BEDTIME 90 tablet 3 5 Active fluticasone propionate (FLONASE) 50 mcg/actuation nasal spray 5 Active ipratropium (ATROVENT) 42 mcg (0.06 %) nasal spray 5 Active terbinafine (LamiSIL) 250 mg tablet 4 Active zolpidem CR (AMBIEN CR) 12.5 mg CR tablet 5 Active BD Leah 2nd Gen Pen Needle 32 gauge x 32 needleIndicatio ns:Type 2 diabetes mellitus with microalbuminuri a, with long-term current use of insulin (HCC) Use to inject insulin 4 times a day as instructed. 120 each 3 5 Active ADMELOG 100 unit/mL pen for injectionIndica tions:Type 2 diabetes mellitus with microalbuminuri a, with long-term current use of insulin ([facility]),Class 1 obesity due to excess calories with serious comorbidity and body mass index (BMI) of 34.0 to 34.9 in adult Inject 15 units under the skin 3 times a day with meals. Max daily dose: 50 units 15 mL 3 5 Active clotrimazole 1 % cream 1 Application daily 5 025 Active hydrALAZINE (APRESOLINE) 25 mg tablet Take 1 tablet (25 mg total) by mouth 5 Active oxyCODONE-aceta minophen (PERCOCET) 5-325 mg per tablet Take by mouth every 6 (six) hours as needed [address] (PROTONIX) 40 mg EC tablet Take 1 tablet (40 mg total) by mouth daily 5 Active polymyxin B-trimethoprim (POLYTRIM) ophthalmic solution INSTILL 1 DROP INTO AFFECTED EYE EVERY 6 HOURS 5 Active sulfamethoxazol e-trimethoprim (BACTRIM DS) 800-160 mg per tablet 5 Active traMADoL (ULTRAM) 50 mg tablet 0 5 Active lancing device with lancets ([employer]uch Delica Plus Lanc Dev) kitIndications: Type 2 diabetes mellitus with microalbuminuri a, with long-term current use of insulin ([facility]) Check blood sugar 4 times daily 1 kit 5 Active blood-glucose meter ([employer] Verio Flex meter) miscIndications :Type 2 diabetes mellitus with microalbuminuri a, with long-term current use of insulin ([facility]) Check blood sugar 4 times daily if any CGM failure 1 each 5 Active lancets ([employer] Delica Plus Lancet) 33 gauge miscIndications :Type 2 diabetes mellitus with microalbuminuri a, with long-term current use of insulin ([facility]) Check blood sugar 4 times daily if CGM failure 400 each 3 5 Active blood glucose diagnostic ([employer] Verio test strips) stripIndication s:Type 2 diabetes mellitus with microalbuminuri a, with long-term current use of insulin ([facility]) Check blood sugar 3 times daily and/or if CGM failure 400 strip 3 5 Active insulin glargine (SEMGLEE-yfgn) 100 unit/mL (3 mL) pen for injectionIndica tions:Type 2 diabetes mellitus with microalbuminuri a, with long-term current use of insulin (HCC) Inject 50 Units under the skin nightly Dx: E11.29 45 mL 2 5 Active LANTUS 100 unit/mL (3 mL) pen for injection Inject 50 Units under the skin nightly 45 mL 2 5 Active insulin glargine (SEMGLEE-yfgn) 100 unit/mL (3 mL) pen for injection Inject 40 Units under the skin nightly 45 mL 2 4 025 Discontin ued(Reord er) blood glucose diagnostic (OneTouch Verio test strips) stripIndication s:Type 2 diabetes mellitus with microalbuminuri a, with long-term current use of insulin (HCC) Check blood sugar 4 times daily and/or if CGM failure 400 strip 3 5 025 Discontin ued(Reord er) insulin glargine (SEMGLEE-yfgn) 100 unit/mL (3 mL) pen for injectionIndica tions:Type 2 diabetes mellitus with microalbuminuri a, with long-term current use of insulin (HCC) Inject 40-50 Units under the skin nightly Max daily dose 50 units Dx: E11.29 45 mL 2 5 025 Discontin ued(Reord er) Active Problems Patient Care Coordination No te [...] now 5.8% Will fill out PAP for Hermanempdunia to see if he qualifies. Unable to afford any GLP1s since snf & on Medicare. Current medications: Semglee 34 units daily Humalog 15 units with mealss DM eye exam (09/2023). Has appt 10/25/24 at [facility]. Letter sent to get copy of [...] infection. Assessment & Plan (10/18/2024 1:34 PM ASPHALT SPREADER): Chronic problem. A1c improved from 6.1% 08/07/04/07/2423 [...] eye exam (09/2023). Has appt 10/25/24 at [facility]. Letter sent to get copy of [...] infection. Assessment & Plan (09/17/2023 10:44 AM ASPHALT SPREADER): Chronic, overall well controlled A1c 6.2% Counseled [...] patient last eye exam Advised to see trash man Follow-up in 6 months Hyperlipidemia associated with type 2 diabetes delilah hinojosa 09/17/2023 Assessment & Plan (02/08/2025 12:51 PM CDT): Chronic problem. Controlled on current Atorvastatin 20mg & fenofibrate 160mg. Last lipid panel: 10/30/24 LDL=74, TG=81. Assessment & Plan (10/18/2024 1:09 PM ASPHALT SPREADER): Chronic problem. Controlled on current Atorvastatin 20mg & fenofibrate 160mg. Last lipid panel: 08/07/23 LDL=>160, BQ=320. Will update labs. Does not mychart. Verified phone #/address to contact re: results. Assessment & Plan (04/07/2024 2:48 PM CDT): Chronic problem. Controlled on current Atorvastatin 20mg & fenofibrate 160mg. Last lipid panel: 08/07/23 LDL=>160, JM=148. Assessment & Plan (09/17/2023 10:43 AM ASPHALT SPREADER): Start pt on statin therapy Continue Fenofibrate Hypertension associated with diabetes 09/17/2023 Assessment & Plan (02/08/2025 12:51 PM CDT): Chronic problem. Controlled on current lisinopril 40mg daily, diltiazem CD 360mg daily, lozol 2.5mg daily, carvedilol 25mg bid Assessment & Plan (10/18/2024 1:08 PM ASPHALT SPREADER): Chronic problem. Controlled on current lisinopril 40mg daily, diltiazem CD 360mg daily, lozol 2.5mg daily, carvedilol 25mg bid Will update labs. Does not mychart. Verified phone #/address to contact re: results. Assessment & Plan (04/07/2024 2:47 PM CDT): Chronic problem. Controlled on current lisinopril-HCTZ 20-12.5mg daily, diltiazem CD 360mg daily, lozol 2.5mg daily Assessment & Plan (09/17/2023 10:43 AM ASPHALT SPREADER): Chronic, well controlled Continue lisinopril/hydrochlorothiazide Class 1 obesity due to exces s calories with serious comorbidity and body mass index (BMI) of 34.0 to 34.9 in adult 09/17/2023 Assessment & Plan (09/17/2023 10:43 AM ASPHALT SPREADER): Chronic, progressively worsening Counseled on diet and exercise Hemoptysis 04/06/2021 Overview (04/06/2021): Added automatically from request for surgery [id number] Social History Tobacco Use Types Packs/Day Years Used Date Smoking Tobacco: Former Cigarettes 1 43 1 - 2018 Smokeless Tobacco: Never AUDIT-C Answer [...] on file Legal Sex Male 12:31 AM ASPHALT SPREADER Gender Identity Not on file Sexual Orientation [...] COMPREHENSIVE METABOLIC PANEL Routine 10/30/2024 9:41 AM ASPHALT SPREADER Type 2 diabetes mellitus with microalbuminuria, with long-term current use of insulin (HCC) Hypertension associated with diabetes (HCC) LIPID PANEL Routine 10/30/2024 9:41 AM ASPHALT SPREADER Type 2 diabetes mellitus with microalbuminuria, with long-term current use of insulin ([facility]) Hyperlipidemia associated with type 2 diabetes mellitus (HCC) ALBUMIN CREATININE RATIO, URINE Routine 10/30/2024 9:41 AM ASPHALT SPREADER Type 2 diabetes mellitus with microalbuminuria, with long-term current use of insulin ([facility]) HM DIABETES EYE EXAM Routine 09/24/2023 8:05 AM ASPHALT SPREADER from Last 3 Months or Most Recently Relevant to Health Maintenance Results * (ABNORMAL) POCT hemoglobin A1c (02/08/2025 1:12 PM CDT) Hemoglobin A1C, POC 5.8(A) 4.0 - 5.6 % Blood 02/08/2025 1:12 PM CDT us Fely Faust NP POINT OF CARE TEST ORDERA BLES Final Result * (ABNORMAL) POCT glucose (02/08/2025 1:12 PM CDT) [facility] Glucose Blood, POC 236 Normal Fasting 70 - 100, Random <200 mg/dL Blood 02/08/2025 1:12 PM CDT us Fely Faust NP POINT OF CARE TEST ORDERA BLES Final Result * Thyroid stimulating immunoglobulin (02/08/2025 12:00 PM CDT) [facility] TSIG <1.0 <=1.3 [facility] Comment: Test Performed by: [facility] [address] [place] [address] Information Security Architect: Alma Delia Brannon Ph.D.; CLIA# [id number] Blood 02/08/2025 12:0 0 PM CDT 02/08/2025 5:54 PM CDT us Fely Faust SLEEVE BOTTOM FELLER LAB BLOOD ORDERABLES Michaela l Result MYRANDA REES [address] [employer] [place], [place] [id number] [facility] * TSH (02/08/2025 12:00 PM CDT) [facility] Thyroid Stimulating Hormone 1.71 0.30 - 4.20 mcIUnit/mL Blood 02/08/2025 12:0 0 PM CDT 02/08/2025 5:54 PM CDT us Fely Faust SLEEVE BOTTOM FELLER LAB BLOOD ORDERABLES Michaela l Result Performing Organization Address City/[facility]/ZIP Co de Phone Number MYRANDA REES [address] [facility] [place] [address] * (ABNORMAL) T4, free (02/08/2025 12:00 PM CDT) [facility] Free T4 0.83(L) 0.90 - 1.70 ng/dL Blood 02/08/2025 12:0 0 PM CDT 02/08/2025 5:54 PM CDT us Fely Faust SLEEVE BOTTOM FELLER LAB BLOOD ORDERABLES Michaela l Result MYRANDA [address] [place] [address] * (ABNORMAL) Albumin Creatinine Ratio, Urine (10/30/2024 9:41 AM ASPHALT SPREADER) [facility] SCRIBED Creatinine, Urine 129.55 40 - 278 EXTERNAL LAB SCRIBED Microalbumin >400.0 NA - NA EXTERNAL LAB SCRIBED Microalb/Creat Ratio 308.7(A) 0 - 30 EXTERNAL LAB Urine 10/30/2024 9:41 AM ASPHALT SPREADER us Felynamita Faust SLEEVE BOTTOM FELLER LAB URINE ORDERABLES Michaela l Result Performing Organization Address City/[facility]/ZIP Co de Phone Number EXTERNAL LAB * Lipid panel (10/30/2024 9:41 AM ASPHALT SPREADER) [facility] SCRIBED Cholesterol, Total 141 0 - 200 EXTERNAL LAB SCRIBED HDL 47 40 - 60 EXTERNAL LAB SCRIBED LDL 74 <130 - NA EXTERNAL LAB SCRIBED Triglycerides 81 0 - 150 EXTERNAL LAB Blood 10/30/2024 9:41 AM ASPHALT SPREADER us Fely Faust SLEEVE BOTTOM FELLER LAB BLOOD ORDERABLES Michaela l Result EXTERNAL LAB * (ABNORMAL) Comprehensive metabolic panel (10/30/2024 9:41 AM ASPHALT SPREADER) Pathologist [facility] SCRIBED Sodium 143 136 - 145 mmol/L [...] Units/L EXTERNAL LAB SCRIBED eGFR in NonAfrican Bruneian >60 >=60 - NA EXTERNAL LAB Blood 10/30/2024 9:41 AM ASPHALT SPREADER us Fely Faust NP LAB BLOOD ORDERABLES Michaela grace Result EXTERNAL LAB * (ABNORMAL) DIABETES EYE EXAM (09/24/2023 8:05 AM ASPHALT SPREADER) Historical Provider HEALTH MAINTENANCE Final Result from Last 3 Months or Most Recently Relevant to Health Maintenance Insurance Team Apart [employer] MEDICARE GOLD Care Teams Cleaner Touch Up Worker Relationship Specialty Start Date End Date Mitra Garcia MD [address] [place], [place] [id number] PCP - General 06/29/07
--- OUTSIDE RECORDS SUMMARY | 2025-03-29 09:41 | XMS_ITS ---
Author Organization [facility] Address [address] [place], [place] [id number] Care Team Providers Care Rod Piler Name Role Phone GRADY LINN Unavailable [phone] Mitra Garcia Unavailable Unavailable ALEXIS LY Unavailable [phone] REASON FOR VISIT *Diabetic foot exam, GC Medications Medication SIG (Take, Route, Frequency, Duration) Notes Start Date End Date Status Clotrimazole-Betamethason e 1-0.05 % 1 application Externally Twice a day 08/19/2024 Active Mounjaro 2.5 MG/0.5ML as directed Subcutaneous Active Meloxicam 7.5 MG 1 tablet Orally Once a day Active Clotrimazole 1 % 1 application Neonatal Doctor ally Once a day; Duration: 30 days 02/03/2025 08/01/2025 Active Atorvastatin Calcium 10 MG 1 tablet Orally Once a day Active Clotrimazole-Betamethason e 1-0.05 % 1 application Externally Twice a day 12/04/2023 Active Vital Signs Height 69 in 02/03/2025 Weight 228 lbs 02/03/2025 BMI 33.67 kg/m2 02/03/2025 Height-cm 175.26 cm 02/03/2025 Weight-kg 103.42 kg 02/03/2025 Encounters Encounter Location Date Provider Diagnosis [address] [phone] 02/03/2025 ALEXIS LY Tinea unguium B35.1 ; Acquired keratosis [keratoderma] palmaris et plantaris L85.1 ; Atherosclerosis of [place] arteries of extremities with intermittent claudication, bilateral [...] utilizing a #15 blade 02/03/2025 Atherosclerosis of [place] arteries of extremities with intermittent claudication, bilateral legs (ICD-10 - I70.213) 02/03/2025 Pain in right foot (ICD-10 - M79.671) 02/03/2025 Pain in left foot (ICD-10 - M79.672) Plan Of Treatment Medication Medication Name Sig Start Date Stop Date Notes Clotrimazole 1 % 1 application Neonatal Doctor ally Once a day; Duration: 30 days [...] Care Provider Name:ALEXIS HUMPHREY, 04/07/2025 01:10:00 PM, [address] [place] [address], [phone], Progress Notes * Darnell VELOZOB: 9 (64 yo M)Acc No.[id number]:02/03/2025 Patient: Sydney CAIN Provider: Sheldon LY :1960 A ge:64 Y S ex:Male Date:02/03/2025 Address:[address] Subjective: * Chief Complaints: * 1 [...] Patient denies c hest pain, history of MA, irregular heartbeat. M usculoskeletal: Patient denies a [...] - L85.1 3 . A therosclerosis of [place] arteries of extremities with intermittent claudication, bilateral [...] Care) * Billing Information: * Visit Code: 41540 Office Visit, Est Pt., Level 3. * Procedure Codes: * Electronic signature of ELIZABETH LY DPM on 03/29/2025 at 09:41 AM CDT Sign off status: Pending * Provider: Sheldon LY Date: 02/03/2025 Generated for Ruel fisher/Delano/Gloriaitting on: 03/29/2025 09:41 AM CDT History and Physical Notes * [...]
--- OUTSIDE RECORDS SUMMARY | 2025-03-29 09:41 | XMS_ITS ---
Author Organization [facility] Address [address] [place], [place] [phone] Care Team Providers Care Travel Occupational Therapist Name Role Phone GRADY LINN Unavailable [phone] Mitra Garcia Unavailable Unavailable ALEXIS LY Unavailable [phone] REASON FOR VISIT *General care Encounters Encounter Location Date Provider Diagnosis [address] [id number] 01/27/2025 ALEXIS LY Plan Of Treatment Next Appt Details Provider Name:ALEXIS HUMPHREY, 04/07/2025 01:10:00 PM, [address] [place] [address], [id number], Progress Notes * KALYAN, MariDavOB: (64 yo M)Acc No.[id number]:01/27/2025 Patient: Sydney CAIN Provider: Sheldon LY :1960 A ge:64 Y S ex:Male Date:01/27/2025 Address:[address] [place] [place], [place] Subjective: * Chief Complaints: * 1 . *General care. * Medical History: Objective: * Vitals: Assessment: Plan: * Treatment: * Billing Information: * Visit Code: * Procedure Codes: * Electronic signature of ELIZABETH LY DPM on 03/29/2025 at 09:41 AM CDT Sign off status: Pending * Provider: Sheldon LY Date: 0 01/27/2025 Generated for Ruel Smith/Myron on: 0 03/29/2025 09:41 AM CDT
--- OUTSIDE RECORDS SUMMARY | 2025-03-29 09:41 | XMS_ITS | Clinical Summary ---
Author Organization [facility] Address [address] [place] [address] Care Team Providers Care Roller Shop Utility Worker Name Role Phone Unavailable Primary Care Provider Unavailabl e Source Comments [facility],non-owned Affiliates and Associated Physician Practices is amultiple site organization consisting of ambulatory clinics and hospital sitesin [place], [place], [place] and [place]. This disclosure is being madepursuant to the Care Everywhere program and may not contain all information available regarding this patient. Last updated 18.[facility] [employer] Data Social History Tobacco Use Types Packs/Day Years [...] season) 2024 DEPRESSION SCREENING 09/01/2024 INFLUENZA VACCINE (#1) 2025 Respiratory Syncytial Virus (RSV) Vaccine Pt: [...] patient's age to complete this topic Insurance [facility]
--- OUTSIDE RECORDS SUMMARY | 2025-03-29 09:41 | XMS_ITS ---
Author Organization [facility] Address [address] [place], [place] [id number] Care Team Providers Care Institutional Aide Name Role Phone GRADY LINN Unavailable [phone] Mitra Garcia Unavailable Unavailable ALEXIS LY Unavailable [phone] REASON FOR VISIT *General care Encounters Encounter Location Date Provider Diagnosis [address] [id number] 12/30/2024 ALEXIS LY Plan Of Treatment Next Appt Details Provider Name:ALEXIS HUMPHREY, 04/07/2025 01:10:00 PM, [address] [place] [address], [id number], Progress Notes * KALYANBrittanieDavOB: (64 yo M)Acc No.[id number]:12/30/2024 Patient: Sydney CAIN Provider: Sheldon LY :1960 A ge:64 Y S ex:Male Date:12/30/2024 Address:[address] [place], [place] Subjective: * Chief Complaints: * 1 . *General care. * Medical History: Objective: * Vitals: Assessment: Plan: * Treatment: * Billing Information: * Visit Code: * Procedure Codes: * Electronic signature of ELIZABETH LY DPM on 03/29/2025 at 09:41 AM CDT Sign off status: Pending * Provider: Sheldon LY Date: 0 12/30/2024 Generated for Ruel Smith/Myron on: 0 03/29/2025 09:41 AM CDT
--- OUTSIDE RECORDS SUMMARY | 2025-03-29 09:42 | XMS_ITS | Clinical Summary ---
Author Organization [facility] Address [facility] [place] [address] Care Team Providers Care Glove Tagger Name Role Phone Mitra Garcia MD Primary Care Provider [phone] Allergies No known active allergies Medications fenofibrate [...] 2nd Gen Pen Needle 32 gauge x needleIndicatio ns:Type 2 diabetes mellitus with microalbuminuri a, with long-term current use of insulin (HCC) Use to inject insulin 4 times a day as instructed. 120 each 3 5 Active ADMELOG 100 unit/mL pen for injectionIndica tions:Type 2 diabetes mellitus with microalbuminuri a, with long-term current use of insulin (HCC),Class [...] 0 5 Active lancing device with lancets (BESOSTouch Delica Plus Lanc Dev) kitIndications: Type 2 diabetes mellitus with microalbuminuri a, with long-term current use of insulin ([facility]) Check blood sugar 4 times daily 1 kit 5 Active blood-glucose meter (BESOSTouch Verio Flex meter) miscIndications :Type 2 diabetes mellitus with microalbuminuri a, with long-term current use of insulin ([facility]) Check blood sugar 4 times daily if any CGM failure 1 each 5 Active lancets (BESOSTouch Delica Plus Lancet) 33 gauge miscIndications :Type 2 diabetes mellitus with microalbuminuri a, with long-term current use of insulin ([facility]) Check blood sugar 4 times daily if CGM failure 400 each 3 5 Active blood glucose diagnostic (OneTouch Verio test strips) stripIndication s:Type 2 diabetes mellitus with microalbuminuri a, with long-term current use of insulin ([facility]) Check blood sugar 3 times daily and/or if CGM failure 400 strip 3 5 Active insulin glargine (SEMGLEE-yfgn) 100 unit/mL (3 mL) pen for injectionIndica tions:Type 2 diabetes mellitus with microalbuminuri a, with long-term current use of insulin ([facility]) Inject 50 Units under the skin nightly [...] qualifies. Unable to afford any GLP1s since long term & on Medicare. Current medications: Semglee 34 units daily Humalog 15 units with mealss DM eye exam (09/2023). Has appt 10/25/[address] [facility]. Letter sent to get copy of [...] infection. Assessment & Plan (10/18/2024 1:34 PM RAILWAY SHUNTER): Chronic problem. A1c improved from 6.1% 08/07/04/07/2423 [...] exam (09/2023). Has appt 10/25/[address] [facility]. Letter sent to get copy of [...] infection. Assessment & Plan (09/17/2023 10:44 AM RAILWAY SHUNTER): Chronic, overall well controlled A1c 6.2% Counseled [...] patient last eye exam Advised to see tetryl screen operator Follow-up in 6 months Hyperlipidemia associated with type 2 diabetes delilah hinojosa 09/17/2023 Assessment & Plan (02/08/2025 12:51 PM CDT): Chronic problem. Controlled on current Atorvastatin 20mg & fenofibrate 160mg. Last lipid panel: 10/30/24 LDL=74, TG=81. Assessment & Plan (10/18/2024 1:09 PM RAILWAY SHUNTER): Chronic problem. Controlled on current Atorvastatin 20mg & fenofibrate 160mg. Last lipid panel: 08/07/23 LDL=>160, TL=918. Will update labs. Does not mychart. Verified phone #/address to contact re: results. Assessment & Plan (04/07/2024 2:48 PM CDT): Chronic problem. Controlled on current Atorvastatin 20mg & fenofibrate 160mg. Last lipid panel: 08/07/23 LDL=>160, XE=842. Assessment & Plan (09/17/2023 10:43 AM RAILWAY SHUNTER): Start pt on statin therapy Continue Fenofibrate Hypertension associated with diabetes 09/17/2023 Assessment & Plan (02/08/2025 12:51 PM CDT): Chronic problem. Controlled on current lisinopril 40mg daily, diltiazem CD 360mg daily, lozol 2.5mg daily, carvedilol 25mg bid Assessment & Plan (10/18/2024 1:08 PM RAILWAY SHUNTER): Chronic problem. Controlled on current lisinopril 40mg daily, diltiazem CD 360mg daily, lozol 2.5mg daily, carvedilol 25mg bid Will update labs. Does not mychart. Verified phone #/address to contact re: results. Assessment & Plan (04/07/2024 2:47 PM CDT): Chronic problem. Controlled on current lisinopril-HCTZ 20-12.5mg daily, diltiazem CD 360mg daily, lozol 2.5mg daily Assessment & Plan (09/17/2023 10:43 AM RAILWAY SHUNTER): Chronic, well controlled Continue lisinopril/hydrochlorothiazide Class 1 obesity due to exces s calories with serious comorbidity and body mass index (BMI) of 34.0 to 34.9 in adult 09/17/2023 Assessment & Plan (09/17/2023 10:43 AM RAILWAY SHUNTER): Chronic, progressively worsening Counseled on diet and exercise Hemoptysis 04/06/2021 Overview (04/06/2021): Added automatically from request for surgery [id number] Encounters Date Type Department Care Team Description 03/09/2025 Telephone [facility] Medical [facility] Diabetes and Endocrinology [address] [place] [address] [phone] Fely Faust NP Medication Administration (Insulin Glargine) 03/01/2025 Telephone [facility] Diabetes and Endocrinology [address] [place] [address] [phone] Fely Faust, ZACKERY Med Refill 02/09/2025 Telephone [facility] [id number] [place] [phone] Fely Faust NP Meter 02/09/2025 Results Follow-Up [facility] Diabetes and Endocrinology [address] [place] [phone] Fely Faust, ZACKERY TSH, T4, free, Thyroid stimulating immunoglobulin 02/08/2025 4:36 PM CDT - 02/08/2025 11:59 PM CDT Hospital Encounter [facility] [id number] [place] [id number] Exophthalmos of both eyes Discharge Disposition: Discharge to home or self care 02/08/2025 2:00 PM CDT Lab [facility] Outpatient Lab at [address] [phone] 02/08/2025 1:00 PM CDT Office Visit [facility] Diabetes and Endocrinology [address] [place] [address] [phone] Fely Faust, ZACKERY Type 2 diabetes mellitus with microalbuminuria, with long-term current use of insulin (HCC) (Primary Dx); Hypertension associated with diabetes (HCC); Hyperlipidemia associated with type 2 diabetes mellitus (HCC); Exophthalmos of both eyes 02/08/2025 Telephone [facility] Diabetes and Endocrinology [address] [place] [phone] Fely Faust NP Med Management (Clark Nordisk Pt Assistance) 01/31/2025 Telephone [facility] of [address] [place] [phone] Trino Jordan MD 01/13/2025 Telephone [facility] of [address] [phone] Trino Jordan MD 01/07/2025 Telephone [facility] of [address] [phone] Fely Faust NP from Last 3 Months Surgical History Surgery Date Site/Laterality Comments CHOLECYSTECTOMY 09/01/2015 - 08/31/2016 TONSILLECTOMY EAR SURGERY whole in ear tdrum Medical History Medical History Date Comments Sleep apnea Mixed hyperlipidemia DM2 (diabetes mellitus, type 2) (HCC) HTN (hypertension) TAMRA (obstructive sleep apnea) BPH with obstruction/lower u rinary tract symptoms 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 Adrenal myelolipoma L [...] on file Legal Sex Male 12:31 AM RAILWAY SHUNTER Gender Identity Not on file Sexual Orientation [...] Exam 09/24/2024 09/24/2023 Influenza Vaccine (#1) 2025 0, 07/28/2019, 06/24/2018, Additional history exists Hemoglobin A1C [...] COMPREHENSIVE METABOLIC PANEL Routine 10/30/2024 9:41 AM RAILWAY SHUNTER Type 2 diabetes mellitus with microalbuminuria, with long-term current use of insulin (HCC) Hypertension associated with diabetes (HCC) LIPID PANEL Routine 10/30/2024 9:41 AM RAILWAY SHUNTER Type 2 diabetes mellitus with microalbuminuria, with long-term current use of insulin (HCC) Hyperlipidemia associated with type 2 diabetes mellitus (HCC) ALBUMIN CREATININE RATIO, URINE Routine 10/30/2024 9:41 AM RAILWAY SHUNTER Type 2 diabetes mellitus with microalbuminuria, with long-term current use of insulin (HCC) DIABETES EYE EXAM Routine 09/24/2023 8:05 AM RAILWAY SHUNTER from Last 3 Months or Most Recently Relevant to Health Maintenance Results * (ABNORMAL) POCT hemoglobin A1c (02/08/2025 1:12 PM CDT) Hemoglobin A1C, POC 5.8(A) 4.0 - 5.6 % Blood 02/08/2025 1:12 PM CDT Fely Faust NP POINT OF CARE TEST ORDERA BLES Final Result * (ABNORMAL) POCT glucose (02/08/2025 1:12 PM CDT) [facility] Glucose Blood, POC 236 Normal Fasting 70 - 100, Random <200 mg/dL Blood 02/08/2025 1:12 PM CDT Fely Faust NP POINT OF CARE TEST ORDERA BLES Final Result * Thyroid stimulating immunoglobulin (02/08/2025 12:00 PM CDT) [facility] TSIG <1.0 <=1.3 [place] ref Lab Comment: Test Performed by: [facility] [address] [id number] Gas Welding Equipment Mechanic: Alma Delia Brannon Ph.D.; CLIA# [id number] Blood 02/08/2025 12:0 0 PM CDT 02/08/2025 5:54 PM CDT us Fely Faust SENIOR SALES EXECUTIVE LAB BLOOD ORDERABLES Michaela l Result MYRANDA REES [address] [place] [address] [facility] Lab * TSH (02/08/2025 12:00 PM CDT) [facility] Thyroid Stimulating Hormone 1.71 0.30 - 4.20 mcIUnit/mL Blood 02/08/2025 12:0 0 PM CDT 02/08/2025 5:54 PM CDT us Fely Faust NP LAB BLOOD ORDERABLES Michaela l Result MYRANDA REES [address] [facility] [place] [address] * (ABNORMAL) T4, free (02/08/2025 12:00 PM CDT) [facility] Free T4 0.83(L) 0.90 - 1.70 ng/dL Blood 02/08/2025 12:0 0 PM CDT 02/08/2025 5:54 PM CDT us Felynamita Faust SENIOR SALES EXECUTIVE LAB BLOOD ORDERABLES Michaela l Result Performing Organization Address City/[facility]/ZIP Co de Phone Number MYRANDA REES [address] Department [place] [address] * (ABNORMAL) Albumin Creatinine Ratio, Urine (10/30/2024 9:41 AM RAILWAY SHUNTER) SCRIBED Creatinine, Urine 129.55 40 - 278 EXTERNAL LAB SCRIBED Microalbumin >400.0 NA - NA EXTERNAL LAB SCRIBED Microalb/Creat Ratio 308.7(A) 0 - 30 EXTERNAL LAB Urine 10/30/2024 9:41 AM RAILWAY SHUNTER us Felynamita Faust SENIOR SALES EXECUTIVE LAB URINE ORDERABLES Michaela l Result Performing Organization Address [facility]/ZIP Co de Phone Number EXTERNAL LAB * Lipid panel (10/30/2024 9:41 AM RAILWAY SHUNTER) SCRIBED Cholesterol, Total 141 0 - 200 EXTERNAL LAB SCRIBED HDL 47 40 - 60 EXTERNAL LAB SCRIBED LDL 74 <130 - NA EXTERNAL LAB SCRIBED Triglycerides 81 0 - 150 EXTERNAL LAB Blood 10/30/2024 9:41 AM RAILWAY SHUNTER us Fely Faust SENIOR SALES EXECUTIVE LAB BLOOD ORDERABLES Michaela l Result EXTERNAL LAB * (ABNORMAL) Comprehensive metabolic panel (10/30/2024 9:41 AM RAILWAY SHUNTER) SCRIBED Sodium 143 136 - 145 mmol/L [...] Units/L EXTERNAL LAB SCRIBED eGFR in NonAfrican Ethiopian >60 >=60 - NA EXTERNAL LAB Blood 10/30/2024 9:41 AM RAILWAY SHUNTER Fely Faust SENIOR SALES EXECUTIVE LAB BLOOD ORDERABLES Michaela l Result EXTERNAL LAB * (ABNORMAL) DIABETES EYE EXAM (09/24/2023 8:05 AM RAILWAY SHUNTER) Historical Provider HEALTH MAINTENANCE Final Result from Last 3 Months or Most Recently Relevant to Health Maintenance Insurance Reviv[employer] OOS [employer] MEDICARE GOLD Care Teams Glove Tagger Relationship Specialty Start Date End Date Mitra Garcia MD [address] [place], [place] [id number] PCP - General 06/29/07
--- OUTSIDE RECORDS SUMMARY | 2025-03-29 09:42 | XMS_ITS | Patient Health Record ---
Author Organization [facility] Address [address] [place], [place] [id number] Care Team Providers Care Dry Plasterer Helper Name Role Phone RGADY LINN Unavailable [phone] Mitra Garcia Unavailable Unavailable VIRY FIGUEROA Unavailable [phone] ALEXIS LY Unavailable [phone] Allergies No Known Allergies Reason For Referral [...] day Active Clotrimazole 1 % 1 application Policy Adviser ally Once a day; Duration: 30 days 02/03/2025 08/01/2025 Active Atorvastatin Calcium 10 MG 1 tablet Orally Once a day Active Vital Signs Height-cm 175.26 cm 02/03/2025 Weight-kg 103.42 kg 02/03/2025 Height 69 in 02/03/2025 Weight 228 lbs 02/03/2025 BMI 33.67 kg/m2 02/03/2025 Encounters Encounter Location Date Provider Diagnosis [address] [place], [place] [phone] 08/19/2024 VIRY DAVYDOV Tinea unguium B35.1 ; Pain in left toe(s) M79.675 ; Pain in right toe(s) M79.674 ; Unspecified atherosclerosis of jena arteries of extremities, bilateral legs I70.203 ; Acquired keratosis [keratoderma] palmaris et plantaris L85.1 and Type 2 diabetes mellitus with diabetic peripheral angiopathy without gangrene E11.[address] [phone] 02/03/2025 ALEXIS LY Tinea unguium B35.1 ; Acquired keratosis [keratoderma] palmaris et plantaris L85.1 ; Atherosclerosis of jena arteries of extremities with intermittent claudication, bilateral legs I70.213 ; Pain in right foot M79.671 and Pain in left foot M79.[address] [phone] 04/08/2024 VIRYROCK ROBINSJOSE Other hammer toe(s) (acquired), right foot M20.41 ; Tinea unguium B35.1 ; Other hammer toe(s) (acquired), left foot M20.42 ; Acquired keratosis [keratoderma] palmaris et plantaris L85.1 ; Unspecified atherosclerosis of jena arteries of extremities, bilateral legs I70.203 ; Pain in left toe(s) M79.675 ; Pain in right toe(s) M79.674 ; Pain in right foot M79.671 ; Pain in left foot M79.672 and Type 2 diabetes mellitus with diabetic peripheral angiopathy without gangrene E11.51 [address] [place], [place] [phone] 06/17/2024 VIRYROCK ROBINSJOSE Tinea unguium B35.1 ; Pain in left toe(s) M79.675 ; Pain in right toe(s) M79.674 ; Unspecified atherosclerosis of jena arteries of extremities, bilateral legs I70.203 ; Acquired keratosis [keratoderma] palmaris et plantaris L85.1 and Type 2 diabetes mellitus with diabetic peripheral angiopathy without gangrene E11.[address] [id number] 10/21/2024 GRADY LINN Tinea unguium B35.1 ; Acquired keratosis [keratoderma] palmaris et plantaris L85.1 ; Atherosclerosis of jena arteries of extremities with intermittent claudication, bilateral [...] utilizing a #15 blade 02/03/2025 Atherosclerosis of jena arteries of extremities with intermittent claudication, bilateral legs (ICD-10 - I70.213) 10/21/2024 Atherosclerosis of jena arteries of extremities with intermittent claudication, bilateral [...] drainage was noted. 08/19/2024 Unspecified atherosclerosis of jena arteries of extremities, bilateral legs (ICD-10 - I70.203) Patient educated on risks and aggravating factors of PVD, including conservative treatment options such as a diet and exercise regimen to aid in slowing progression of vascular disease 06/17/2024 Unspecified atherosclerosis of jena arteries of extremities, bilateral legs (ICD-10 - [...] drainage was noted. 04/08/2024 Unspecified atherosclerosis of jena arteries of extremities, bilateral legs (ICD-10 - [...] Name:ALEXIS Tello JOSSUE MILAGRO, 04/07/2025 01:10:00 PM, [address] [place] [address], [phone], Insurance Providers Payer Name Payer Address Payer Phone Subscriber Number Group Number Insured Name Patient Relationship to Insured Coverage Start Date Coverage End Date [employer] [address] [place] [phone] [id number] Sydney Veloz Self - patient is the insured Medical (General) History Medical History History ICD Code Diabetic Surgical History Surgery Date(Month/Year) replacement
[2025-03-29 10:13] LABS: Anion Gap 7 mmol/L (4-12); Blood Urea Nitrogen 37 mg/dL (9-20); Calcium 9.2 mg/dL (8.4-10.2); Carbon Dioxide 23 mmol/L (22-30); Chloride 106 mmol/L (98-107); Estimated Glomerular Filt Rate 54; Glucose 224 mg/dL (65-110); Osmolality Calculated 297 mOsm/kg (285-295); Potassium 4.7 mmol/L (3.4-5.0); Sodium 136 mmol/L (137-145)
== END 2025-03-29 09:32 | disposition home or self-care (01) ==
LOC: CHSLAB 09:32
PROVIDERS: PCP Internal Medicine; Visit Provider Internal Medicine
DX: I10 Essential (primary) hypertension (principal)
CPT/HCPCS: 36415; 80048

== ENCOUNTER 2025-04-14 11:57 | Outpatient (CLI) | payer MEDICARE, SELFPAY ==
--- OUTSIDE RECORDS SUMMARY | 2025-04-14 12:03 | XMS_ITS ---
Author Organization [facility] Address [address] [place], [place] [address] Care Team Providers Care Clinical Audiologist Name Role Phone GRADY LINN Unavailable [phone] Mitra Garcia Unavailable Unavailable ALEXIS LY Unavailable [phone] REASON FOR VISIT *Diabetic foot exam, GC Medications Medication SIG (Take, Route, Frequency, Duration) Notes Start Date End Date Status Clotrimazole-Betamethason e 1-0.05 % 1 application Externally Twice a day 08/19/2024 Active Mounjaro 2.5 MG/0.5ML as directed Subcutaneous Active Meloxicam 7.5 MG 1 tablet Orally Once a day Active Clotrimazole 1 % 1 application Workforce Development Assistant ally Once a day; Duration: 30 days 02/03/2025 08/01/2025 Active Atorvastatin Calcium 10 MG 1 tablet Orally Once a day Active Clotrimazole-Betamethason e 1-0.05 % 1 application Externally Twice a day 12/04/2023 Active Vital Signs Height 69 in 02/03/2025 Weight 228 lbs 02/03/2025 BMI 33.67 kg/m2 02/03/2025 Height-cm 175.26 cm 02/03/2025 Weight-kg 103.42 kg 02/03/2025 Encounters Encounter Location Date Provider Diagnosis [address] [id number] 02/03/2025 ALEXIS LY Tinea unguium B35.1 ; Acquired keratosis [keratoderma] palmaris et plantaris L85.1 ; Atherosclerosis of [place] arteries of extremities with intermittent claudication, bilateral [...] utilizing a #15 blade 02/03/2025 Atherosclerosis of [place] arteries of extremities with intermittent claudication, bilateral legs (ICD-10 - I70.213) 02/03/2025 Pain in right foot (ICD-10 - M79.671) 02/03/2025 Pain in left foot (ICD-10 - M79.672) Plan Of Treatment Medication Medication Name Sig Start Date Stop Date Notes Clotrimazole 1 % 1 application Workforce Development Assistant ally Once a day; Duration: 30 days [...] Months, Reason: General Care Provider Name:ALEXIS HUMPHREY, 04/28/2025 08:10:00 AM, [address] [place] [address], [id number], Progress Notes * Darnell VELOZOB: 9 (64 yo M)Acc No.[id number]:02/03/2025 Patient: Sydney CAIN Provider: Sheldon LY :1960 A ge:64 Y S ex:Male Date:02/03/2025 Address:[address], [id number] Subjective: * Chief Complaints: * 1 . [...] Patient denies c hest pain, history of PA, irregular heartbeat. M usculoskeletal: Patient denies a [...] - L85.1 3 . A therosclerosis of [place] arteries of extremities with intermittent claudication, bilateral [...] Care) * Billing Information: * Visit Code: 29178 Office Visit, Est Pt., Level 3. * Procedure Codes: * Electronic signature of ELIZABETH LY DPM on 04/14/2025 at 12:03 PM CDT Sign off status: Pending * Provider: Sheldon LY Date: 02/03/2025 Generated for Ruel fisher/Delano/Gloriaitting on: 04/14/2025 12:03 PM CDT History and Physical Notes * [...]
--- OUTSIDE RECORDS SUMMARY | 2025-04-14 12:03 | XMS_ITS ---
Author Organization [facility] Address [address] [place], [place] [address] Care Team Providers Care Director Of Occupational Health Name Role Phone GRADY LINN Unavailable [phone] Mitra Garcia Unavailable Unavailable ALEXIS LY Unavailable [phone] Allergies No Known Allergies REASON FOR VISIT [...] Subcutaneous Active Clotrimazole 1 % 1 application Wax Coating Machine Tender ally Once a day; Duration: 30 days Active Meloxicam 7.5 MG 1 tablet Orally Once a day Active Vital Signs Height 69 in 04/07/2025 Weight 228 lbs 04/07/2025 BMI 33.67 kg/m2 04/07/2025 Height-cm 175.26 cm 04/07/2025 Weight-kg 103.42 kg 04/07/2025 Encounters Encounter Location Date Provider Diagnosis [address] [id number] 04/07/2025 ALEXIS LY Tinea unguium B35.1 ; Acquired keratosis [keratoderma] palmaris et plantaris L85.1 ; Atherosclerosis of [place] arteries of extremities with intermittent claudication, bilateral [...] utilizing a #15 blade 04/07/2025 Atherosclerosis of [place] arteries of extremities with intermittent claudication, bilateral [...] 04/07/2025 04/17/2025 Clotrimazole 1 % 1 application Wax Coating Machine Tender ally Once a day; Duration: 30 days [...] infec tion follow up, Reason: Provider Name:ALEXIS MARCUM ALICJARYANNE, 04/28/2025 08:10:00 AM, [address] [place] [address], [id number], Progress Notes * Darnell VELOZOB: 9 (64 yo M)Acc No.[id number]:04/07/2025 Patient: Sydney CAIN Provider: Sheldon LY :1960 A ge:64 Y S ex:Male Date:04/07/2025 Address:[address] [place], [place] [id number] Subjective: * Chief Complaints: * 1 . [...] Patient denies c hest pain, history of NH, irregular heartbeat. M usculoskeletal: Patient denies a [...] - L85.1 3 . A therosclerosis of [place] arteries of extremities with intermittent claudication, bilateral [...] up * Billing Information: * Visit Code: * Procedure Codes: * Electronic signature of ELIZABETH LY DPM on 04/14/2025 at 12:03 PM CDT Sign off status: Pending * Provider: Sheldon LY Date: 04/07/2025 Generated for Ruel fisher/Delano/Myron on: 0 04/14/2025 12:03 PM CDT History and Physical [...]
--- OUTSIDE RECORDS SUMMARY | 2025-04-14 12:03 | XMS_ITS | Clinical Summary ---
Author Organization [facility] Address [address] [place] [address] Care Team Providers Care Pets Salesperson Name Role Phone Unavailable Primary Care Provider Unavailabl e Source Comments [facility],non-owned Affiliates and Associated Physician Practices is amultiple site organization consisting of ambulatory clinics and hospital sitesin [place], [place], [place] and [place]. This disclosure is being madepursuant to the Care Everywhere program and may not contain all information available regarding this patient. Last updated 18.[facility] Social History Tobacco Use Types Packs/Day Years [...] patient's age to complete this topic Insurance [facility]LY [facility]
--- OUTSIDE RECORDS SUMMARY | 2025-04-14 12:04 | XMS_ITS | Clinical Summary ---
Author Organization [facility] Address [address] [place] [address] Care Team Providers Care Camera Systems Engineer Name Role Phone Mitra Garcia MD Primary Care Provider [phone] Allergies No known active allergies Medications fenofibrate [...] (100 mg total) by mouth daily Active lisinopril-hydro CHLOROthiazide (ZESTORETIC) 20-12.5 mg per tabletIndication s:hypertension Take 1 tablet by mouth daily Active aspirin 81 mg enteric coated tablet Take 1 tablet (81 mg total) by mouth daily Active diltiaZEM CD (CARDIZEM CD) 360 mg 24 hr capsule 3 Active indapamide (LOZOL) 2.5 mg tablet 3 Active FreeStyle Mary 3 Sensor deviceIndication s:Type 2 diabetes mellitus with microalbuminuria , with long-term current use of insulin (HCC) One sensor every 14 days 2 each 4 Active albuterol HFA (PROVENTIL HFA,VENTOLIN HFA,PROAIR HFA) 90 mcg/actuation inhaler 4 Active carvediloL (COREG) 25 mg tablet 4 Active clotrimazole-bet amethasone (LOTRISONE) cream 1 Application every 12 hours 4 Active Trelegy Ellipta 100-62.5-25 mcg inhaler 4 Active Monovisc 88 mg/4 mL syringe 4 Active lisinopriL (PRINIVIL,ZESTRI L) 40 mg tablet 4 Active zolpidem (AMBIEN) 5 mg tablet 4 Active indapamide (LOZOL) 1.25 mg tablet 4 Active blood-glucose sensor device One sensor every 14 days 2 each 11 4 Active atorvastatin (LIPITOR) 20 mg tabletIndication s:Hyperlipidemia associated with type 2 diabetes mellitus (HCC) TAKE ONE TABLET BY MOUTH BEDTIME 90 tablet 3 5 Active fluticasone propionate (FLONASE) 50 mcg/actuation nasal spray 5 Active ipratropium (ATROVENT) 42 mcg (0.06 %) nasal spray 5 Active terbinafine (LamiSIL) 250 mg tablet 4 Active zolpidem CR (AMBIEN CR) 12.5 mg CR tablet 5 Active BD Leah 2nd Gen Pen Needle 32 gauge x needleIndication s:Type 2 diabetes mellitus with microalbuminuria , with long-term current use of insulin ([facility]) Use to inject insulin 4 times a day as instructed. 120 each 3 5 Active ADMELOG 100 unit/mL pen for injectionIndicat ions:Type 2 diabetes mellitus with microalbuminuria , with long-term current use of insulin ([facility]),Class 1 obesity due to excess calories with serious comorbidity and body mass index (BMI) of 34.0 to 34.9 in adult Inject 15 units under the skin 3 times a day with meals. Max daily dose: 50 units 15 mL 3 5 Active clotrimazole 1 % cream 1 Application daily 5 08/01/20 25 Active hydrALAZINE (APRESOLINE) 25 mg tablet Take 1 tablet (25 mg total) by mouth 5 Active oxyCODONE-acetam inophen (PERCOCET) 5-325 mg per tablet Take by mouth every 6 (six) hours as needed [address] (PROTONIX) 40 mg EC tablet Take 1 tablet (40 mg total) by mouth daily 5 Active polymyxin B-trimethoprim (POLYTRIM) ophthalmic solution INSTILL 1 DROP INTO AFFECTED EYE EVERY 6 HOURS 5 Active sulfamethoxazole -trimethoprim (BACTRIM DS) 800-160 mg per tablet 5 Active traMADoL (ULTRAM) 50 mg tablet 0 5 Active lancing device with lancets (Price SquidTouch Delica Plus Lanc Dev) kitIndications:T ype 2 diabetes mellitus with microalbuminuria , with long-term current use of insulin (HCC) Check blood sugar 4 times daily 1 kit 5 Active blood-glucose meter (Price SquidTouch Verio Flex meter) miscIndications: Type 2 diabetes mellitus with microalbuminuria , with long-term current use of insulin (HCC) Check blood sugar 4 times daily if any CGM failure 1 each 5 Active lancets (Price SquidTouch Delica Plus Lancet) 33 gauge miscIndications: Type 2 diabetes mellitus with microalbuminuria , with long-term current use of insulin (HCC) Check blood sugar 4 times daily if CGM failure 400 each 3 5 Active blood glucose diagnostic (OneTouch Verio test strips) stripIndications :Type 2 diabetes mellitus with microalbuminuria , with long-term current use of insulin (HCC) Check blood sugar 3 times daily and/or if CGM failure 400 strip 3 5 Active insulin glargine (SEMGLEE-yfgn) 100 unit/mL (3 mL) pen for injectionIndicat ions:Type 2 diabetes mellitus with microalbuminuria , with long-term current use of insulin (HCC) Inject 50 Units under the skin nightly Dx: E11.29 45 mL 2 5 Active LANTUS 100 unit/mL (3 mL) pen for injection Inject 50 Units under the skin nightly 45 mL 2 5 Active Active Problems Patient Care Coordination No te [...] qualifies. Unable to afford any GLP1s since assisted & on Medicare. Current medications: Semglee 34 units daily Humalog 15 units with mealss DM eye exam (09/2023). Has appt 10/25/24 at [facility]. Letter sent to get copy of report. [...] infection. Assessment & Plan (10/18/2024 1:34 PM PACKAGER): Chronic problem. A1c improved from 6.1% 08/07/04/07/2423 [...] eye exam (09/2023). Has appt 10/25/24 at [facility]. Letter sent to get copy of report. [...] infection. Assessment & Plan (09/17/2023 10:44 AM PACKAGER): Chronic, overall well controlled A1c 6.2% Counseled [...] patient last eye exam Advised to see family preservation caseworker Follow-up in 6 months Hyperlipidemia associated with type 2 diabetes delilah hinojosa 09/17/2023 Assessment & Plan (02/08/2025 12:51 PM CDT): Chronic problem. Controlled on current Atorvastatin 20mg & fenofibrate 160mg. Last lipid panel: 10/30/24 LDL=74, TG=81. Assessment & Plan (10/18/2024 1:09 PM PACKAGER): Chronic problem. Controlled on current Atorvastatin 20mg & fenofibrate 160mg. Last lipid panel: 08/07/23 LDL=>160, UW=062. Will update labs. Does not mychart. Verified phone #/address to contact re: results. Assessment & Plan (04/07/2024 2:48 PM CDT): Chronic problem. Controlled on current Atorvastatin 20mg & fenofibrate 160mg. Last lipid panel: 08/07/23 LDL=>160, MH=831. Assessment & Plan (09/17/2023 10:43 AM PACKAGER): Start pt on statin therapy Continue Fenofibrate Hypertension associated with diabetes 09/17/2023 Assessment & Plan (02/08/2025 12:51 PM CDT): Chronic problem. Controlled on current lisinopril 40mg daily, diltiazem CD 360mg daily, lozol 2.5mg daily, carvedilol 25mg bid Assessment & Plan (10/18/2024 1:08 PM PACKAGER): Chronic problem. Controlled on current lisinopril 40mg daily, diltiazem CD 360mg daily, lozol 2.5mg daily, carvedilol 25mg bid Will update labs. Does not mychart. Verified phone #/address to contact re: results. Assessment & Plan (04/07/2024 2:47 PM CDT): Chronic problem. Controlled on current lisinopril-HCTZ 20-12.5mg daily, diltiazem CD 360mg daily, lozol 2.5mg daily Assessment & Plan (09/17/2023 10:43 AM PACKAGER): Chronic, well controlled Continue lisinopril/hydrochlorothiazide Class 1 obesity due to exces s calories with serious comorbidity and body mass index (BMI) of 34.0 to 34.9 in adult 09/17/2023 Assessment & Plan (09/17/2023 10:43 AM PACKAGER): Chronic, progressively worsening Counseled on diet and exercise Hemoptysis 04/06/2021 Overview (04/06/2021): Added automatically from request for surgery [id number] Encounters Date Type Department Care Team Description 03/09/2025 Telephone [facility] Diabetes and Endocrinology [address] [place] [phone] Fely Faust NP Medication Administration (Insulin Glargine) 03/01/2025 Telephone [facility] Diabetes and Endocrinology [address] [place] [phone] Fely Faust, ZACKERY Med Refill 02/09/2025 Telephone [facility] [address], [place] [address] Fely Faust, DINKEY BRAKEMAN Meter 02/09/2025 Results Follow-Up [facility] Diabetes and Endocrinology [address] [place] [phone] Fely Faust, ZACKERY TSH, T4, free, Thyroid stimulating immunoglobulin 02/08/2025 4:36 PM CDT - 02/08/2025 11:59 PM CDT Hospital Encounter [address] [address] Exophthalmos of both eyes Discharge Disposition: Discharge to home or self care 02/08/2025 2:00 PM CDT Lab [facility] Outpatient Lab at [address] [phone] 02/08/2025 1:00 PM CDT Office Visit [facility] Diabetes and Endocrinology [address] [place] [phone] Fely Faust, ZACKERY Type 2 diabetes mellitus with microalbuminuria, with long-term current use of insulin (HCC) (Primary Dx); Hypertension associated with diabetes (HCC); Hyperlipidemia associated with type 2 diabetes mellitus (HCC); Exophthalmos of both eyes 02/08/2025 Telephone [facility] Diabetes and Endocrinology [address] [place] [phone] Fely Faust NP Med Management (Clark Nordisk Pt Assistance) 01/31/2025 Telephone [facility] [address] [phone] Trino Jordan MD 01/13/2025 Telephone [facility] [address] [phone] Trino Jordan MD from Last 3 Months Surgical History Surgery Date Site/Laterality Comments CHOLECYSTECTOMY 09/01/2015 - 08/31/2016 TONSILLECTOMY EAR SURGERY whole in ear tdrum Medical History Medical History Date Comments Sleep apnea Mixed hyperlipidemia DM2 (diabetes mellitus, type 2) (HCC) HTN (hypertension) TAMRA (obstructive sleep apnea) BPH with obstruction/lower u rinary tract symptoms 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 Adrenal myelolipoma L [...] Former Cigarettes 1 43 1 6 - 2019 Smokeless Tobacco: Never AUDIT-C Answer [...] on file Legal Sex Male 12:31 AM PACKAGER Gender Identity Not on file Sexual Orientation [...] COMPREHENSIVE METABOLIC PANEL Routine 10/30/2024 9:41 AM PACKAGER Type 2 diabetes mellitus with microalbuminuria, with long-term current use of insulin (HCC) Hypertension associated with diabetes (HCC) LIPID PANEL Routine 10/30/2024 9:41 AM PACKAGER Type 2 diabetes mellitus with microalbuminuria, with long-term current use of insulin (HCC) Hyperlipidemia associated with type 2 diabetes mellitus (HCC) ALBUMIN CREATININE RATIO, URINE Routine 10/30/2024 9:41 AM PACKAGER Type 2 diabetes mellitus with microalbuminuria, with long-term current use of insulin (HCC) DIABETES EYE EXAM Routine 09/24/2023 8:05 AM PACKAGER from Last 3 Months or Most Recently Relevant to Health Maintenance Results * (ABNORMAL) POCT hemoglobin A1c (02/08/2025 1:12 PM CDT) [facility] Hemoglobin A1C, POC 5.8(A) 4.0 - 5.6 % Blood 02/08/2025 1:12 PM CDT us Felynamita Faust NP POINT OF CARE TEST ORDERA BLES Final Result * (ABNORMAL) POCT glucose (02/08/2025 1:12 PM CDT) [facility] Glucose Blood, POC 236 Normal Fasting 70 - 100, Random <200 mg/dL Blood 02/08/2025 1:12 PM CDT us Fely Faust NP POINT OF CARE TEST ORDERA BLES Final Result * Thyroid stimulating immunoglobulin (02/08/2025 12:00 PM CDT) [facility] TSIG <1.0 <=1.3 [facility] ref Lab Comment: Test Performed by: [facility] [address] [place] [address] Music Teacher: Alma Delia Brannon Ph.D.; CLIA# [id number] Blood 02/08/2025 12:0 0 PM CDT 02/08/2025 5:54 PM CDT us Fely Faust NP LAB BLOOD ORDERABLES Michaela l Result [address] [employer] [place] [address] [facility] ref Lab * TSH (02/08/2025 12:00 PM CDT) Thyroid Stimulating Hormone 1.71 0.30 - 4.20 mcIUnit/mL Blood 02/08/2025 12:0 0 PM CDT 02/08/2025 5:54 PM CDT us Fely Faust DINKEY BRAKEMAN LAB BLOOD ORDERABLES Michaela l Result Performing Organization Address [facility] Co de Phone Number MYRANDA REES [phone] [address] [facility] [place] [address] * (ABNORMAL) T4, free (02/08/2025 12:00 PM CDT) Pathologist [facility] Free T4 0.83(L) 0.90 - 1.70 ng/dL Blood 02/08/2025 12:0 0 PM CDT 02/08/2025 5:54 PM CDT us Felynamita Faust DINKEY BRAKEMAN LAB BLOOD ORDERABLES Michaela l Result Performing Organization Address [facility] de Phone Number MYRANDA REES [phone] [address] [facility] [place] [address] * (ABNORMAL) Albumin Creatinine Ratio, Urine (10/30/2024 9:41 AM PACKAGER) [facility] SCRIBED Creatinine, Urine 129.55 40 - 278 EXTERNAL LAB SCRIBED Microalbumin >400.0 NA - NA EXTERNAL LAB SCRIBED Microalb/Creat Ratio 308.7(A) 0 - 30 EXTERNAL LAB Urine 10/30/2024 9:41 AM PACKAGER us Fely Faust DINKEY BRAKEMAN LAB URINE ORDERABLES Michaela l Result Performing Organization Address [facility] de Phone Number EXTERNAL LAB * Lipid panel (10/30/2024 9:41 AM PACKAGER) Pathologist [facility] SCRIBED Cholesterol, Total 141 0 - 200 EXTERNAL LAB SCRIBED HDL 47 40 - 60 EXTERNAL LAB SCRIBED LDL 74 <130 - NA EXTERNAL LAB SCRIBED Triglycerides 81 0 - 150 EXTERNAL LAB Blood 10/30/2024 9:41 AM PACKAGER us Fely Faust DINKEY BRAKEMAN LAB BLOOD ORDERABLES Michaela l Result EXTERNAL LAB * (ABNORMAL) Comprehensive metabolic panel (10/30/2024 9:41 AM PACKAGER) SCRIBED Sodium 143 136 - 145 mmol/L [...] Units/L EXTERNAL LAB SCRIBED eGFR in NonAfrican Israeli >60 >=60 - NA EXTERNAL LAB Blood 10/30/2024 9:41 AM PACKAGER us Fely Faust DINKEY BRAKEMAN LAB BLOOD ORDERABLES Michaela l Result EXTERNAL LAB * (ABNORMAL) DIABETES EYE EXAM (09/24/2023 8:05 AM PACKAGER) us Historical Provider HEALTH MAINTENANCE Final Result from Last 3 Months or Most Recently Relevant to Health Maintenance Insurance [employer] [facility] [email or web address] MEDICARE [facility] Care Teams Camera Systems Engineer Relationship Specialty Start Date End Date Mitra Garcia MD [facility] [place] [address] [facility] - General 06/29/07
--- OUTSIDE RECORDS SUMMARY | 2025-04-14 12:04 | XMS_ITS | Patient Health Record ---
Author Organization [facility] Address [address] [place], [place] [id number] Care Team Providers Care Quality Control Auditor Name Role Phone GRADY LINN Unavailable [phone] Mitra Garcia Unavailable Unavailable VIRY FIGUEROA Unavailable [phone] ALEXIS LY Unavailable [phone] Allergies No Known Allergies Reason For Referral No Information Medications Medication SIG (Take, Route, Frequency, Duration) Notes Start Date End Date Status Atorvastatin Calcium 10 MG 1 tablet Orally Once a day Active Clotrimazole 1 % 1 application Web Content & Social Media Manager ally Once a day; Duration: 30 days Active Clotrimazole-Betamethason e 1-0.05 % 1 application Externally Twice a day 12/04/2023 Active Clotrimazole-Betamethason e 1-0.05 % 1 application Externally Twice a day 08/19/2024 Active Meloxicam 7.5 MG 1 tablet Orally Once a day Active Cephalexin 250 MG 1 capsule Orally Onc e a day; Duration: 10 days 04/07/2025 04/17/2025 Active Mounjaro 2.5 MG/0.5ML as directed Subcutaneous Active Vital Signs Height-cm 175.26 cm 04/07/2025 Weight-kg 103.42 kg 04/07/2025 Height 69 in 04/07/2025 Weight 228 lbs 04/07/2025 BMI 33.67 kg/m2 04/07/2025 Encounters Encounter Location Date Provider Diagnosis [facility] [address] [place], [place] [id number] 08/19/2024 VIRY DAVYDOV Tinea unguium B35.1 ; Pain in left toe(s) M79.675 ; Pain in right toe(s) M79.674 ; Unspecified atherosclerosis of [place] arteries of extremities, bilateral legs I70.203 ; Acquired keratosis [keratoderma] palmaris et plantaris L85.1 and Type 2 diabetes mellitus with diabetic peripheral angiopathy without gangrene E11.[address] [id number] 02/03/2025 ALEXIS NELSONFORD Tinea unguium B35.1 ; Acquired keratosis [keratoderma] palmaris et plantaris L85.1 ; Atherosclerosis of [place] arteries of extremities with intermittent claudication, bilateral legs I70.213 ; Pain in right foot M79.671 and Pain in left foot M79.[address] [id number] 04/07/2025 ALEXIS LY Tinea unguium B35.1 ; Acquired keratosis [keratoderma] palmaris et plantaris L85.1 ; Atherosclerosis of [place] arteries of extremities with intermittent claudication, bilateral legs I70.213 ; Pain in right foot M79.671 ; Pain in left foot M79.672 ; Cellulitis of right toe L03.031 and Cellulitis of left toe L03.032 [facility] [address], [place] [id number] 06/17/2024 VIRY DAVYDOV Tinea unguium B35.1 ; Pain in left toe(s) M79.675 ; Pain in right toe(s) M79.674 ; Unspecified atherosclerosis of [place]ath arteries of extremities, bilateral legs I70.203 ; Acquired keratosis [keratoderma] palmaris et plantaris L85.1 and Type 2 diabetes mellitus with diabetic peripheral angiopathy without gangrene E11.[address] [id number] 10/21/2024 GRADY LINN Tinea unguium B35.1 ; Acquired keratosis [keratoderma] palmaris et plantaris L85.1 ; Atherosclerosis of [place]grath arteries of extremities with intermittent claudication, bilateral [...] subungual debris and necrotic tissue removed 04/07/2025 Tinea unguium (ICD-10 - B35.1) Nails [...] and pared utilizing a #15 blade 04/07/2025 Acquired keratosis [keratoderma] palmaris et plantaris (ICD-10 - L85.1) A total of 2 corns or calluses, as described in the note above, were cut and pared utilizing a #15 blade 04/07/2025 Atherosclerosis of mcgrath arteries of extremities with intermittent claudication, bilateral legs (ICD-10 - I70.213) 02/03/2025 Atherosclerosis of [place]cgrath arteries of extremities with intermittent claudication, bilateral legs (ICD-10 - I70.213) 10/21/2024 Atherosclerosis of mcgrath arteries of extremities with intermittent claudication, bilateral legs (ICD-10 - I70.213) 06/17/2024 Pain in right toe(s) (ICD-10 - M79.674) 08/19/2024 Pain in right toe(s) (ICD-10 - M79.674) 08/19/2024 Unspecified atherosclerosis of mcgrath arteries of extremities, bilateral legs (ICD-10 - I70.203) Patient educated on risks and aggravating factors of PVD, including conservative treatment options such as a diet and exercise regimen to aid in slowing progression of vascular disease 06/17/2024 Unspecified atherosclerosis of mcgrath arteries of extremities, bilateral legs (ICD-10 - I70.203) Patient educated on risks and aggravating factors of PVD, including conservative treatment options such as a diet and exercise regimen to aid in slowing progression of vascular disease 10/21/2024 Pain in right foot (ICD-10 - M79.671) 04/07/2025 Pain in right foot (ICD-10 - M79.671) 02/03/2025 Pain in right foot (ICD-10 - M79.671) 02/03/2025 Pain in left foot (ICD-10 - M79.672) 04/07/2025 Pain in left foot (ICD-10 - [...] not limited to nausea, vomiting, fever. a 04/07/2025 Cellulitis of right toe (ICD-10 - L03.031) 04/07/2025 Cellulitis of left toe (ICD-10 - L03.032) 06/17/2024 Other The patient was educated regarding [...] Treatment Next Appt Details Provider Name:ALEXIS HUMPHREY, 04/28/2025 08:10:00 AM, [address] [place] [address], [id number], Insurance Providers Payer Name Payer Address Payer Phone Subscriber Number Group Number Insured Name Patient Relationship to Insured Coverage Start Date Coverage End Date [employer] [address] [place] [phone] [id number] Sydney Veloz Self - patient is the insured Medical (General) History Medical History History ICD Code Diabetic Surgical History Surgery Date(Month/Year) replacement
--- OUTSIDE RECORDS SUMMARY | 2025-04-14 12:04 | XMS_ITS ---
Author Organization [facility] Address [address] [place], [place] [id number] Care Team Providers Care Aluminum Boat Inspector Name Role Phone GRADY LINN Unavailable [phone] Mitra Garcia Unavailable Unavailable ALEXIS LY Unavailable [phone] REASON FOR VISIT *General care Encounters Encounter Location Date Provider Diagnosis [address] [id number] 01/27/2025 ALEXIS LY Plan Of Treatment Next Appt Details Provider Name:ALEXIS HUMPHREY, 04/28/2025 08:10:00 AM, [address] [place] [address], [id number], Progress Notes * KALYAN, MariDavOB: (64 yo M)Acc No.[id number]:01/27/2025 Patient: Sydney CAIN Provider: Sheldon LY :1960 A ge:64 Y S ex:Male Date:01/27/2025 Address:[address] [place], [id number] Subjective: * Chief Complaints: * 1 . *General care. * Medical History: Objective: * Vitals: Assessment: Plan: * Treatment: * Billing Information: * Visit Code: * Procedure Codes: * Electronic signature of ELIZABETH LY DPM on 04/14/2025 at 12:03 PM CDT Sign off status: Pending * Provider: Sheldon LY Date: 0 01/27/2025 Generated for Ruel Smith/Myron on: 0 04/14/2025 12:03 PM CDT
[2025-04-14 13:06] LABS: Anion Gap 10 mmol/L (4-12); Blood Urea Nitrogen 31 mg/dL (9-20); Calcium 9.3 mg/dL (8.4-10.2); Carbon Dioxide 22 mmol/L (22-30); Chloride 108 mmol/L (98-107); Estimated Glomerular Filt Rate 46; Glucose 204 mg/dL (65-110); Osmolality Calculated 302 mOsm/kg (285-295); Potassium 4.6 mmol/L (3.4-5.0); Sodium 140 mmol/L (137-145)
== END 2025-04-14 11:58 | disposition home or self-care (01) ==
PROVIDERS: PCP Internal Medicine; Visit Provider Internal Medicine
DX: E86.0 Dehydration (principal)
CPT/HCPCS: 36415; 80048

== ENCOUNTER 2025-05-10 14:23 | Outpatient (CLI) | payer MEDICARE, SELFPAY ==
--- OUTSIDE RECORDS SUMMARY | 2024-12-30 06:20 | XMS_ITS ---
Author Organization [facility] Address [address] [place], [place] [address] Care Team Providers Care Machine Clothing Man Name Role Phone GRADY LINN Unavailable [phone] Mitra Garcia Unavailable Unavailable ALEXIS LY Unavailable [phone] REASON FOR VISIT *General care Encounters Encounter Location Date Provider Diagnosis [address] [id number] 12/30/2024 ALEXIS LY Plan Of Treatment Next Appt Details Provider Name:ALEXIS HUMPHREY, 06/30/2025 08:10:00 AM, [address] [place] [address], [id number], Progress Notes * KALYANBrittanieDavOB: (64 yo M)Acc No.[id number]:12/30/2024 Patient: Sydney CAIN Provider: Sheldon LY :1960 A ge:64 Y S ex:Male Date:12/30/2024 Address:[address] [place], [id number] Subjective: * Chief Complaints: * 1 . *General care. * Medical History: Objective: * Vitals: Assessment: Plan: * Treatment: * Billing Information: * Visit Code: * Procedure Codes: * Electronic signature of ELIZABETH LY DPM on 05/10/2025 at 04:05 PM CDT Sign off status: Pending * Provider: Sheldon LY Date: 0 12/30/2024 Generated for Ruel Smith/Myron on: 0 05/10/2025 04:05 PM CDT
--- OUTSIDE RECORDS SUMMARY | 2025-01-27 05:10 | XMS_ITS ---
Author Organization [facility] Address [address] [place], [place] [id number] Care Team Providers Care System Support Developer Name Role Phone GRADY LINN Unavailable [phone] Mitra Garcia Unavailable Unavailable ALEXIS LY Unavailable [phone] REASON FOR VISIT *General care Encounters Encounter Location Date Provider Diagnosis [address] [phone] 01/27/2025 ALEXIS LY Plan Of Treatment Next Appt Details Provider Name:ALEXIS HUMPHREY, 06/30/2025 08:10:00 AM, [address] [place] [address], [phone], Progress Notes * KALYANBrittanieDavOB: (64 yo M)Acc No.[id number]:01/27/2025 Patient: Sydney CAIN Provider: Sheldon LY :1960 A ge:64 Y S ex:Male Date:01/27/2025 Address:[address] [place], [id number] Subjective: * Chief Complaints: * 1 . *General care. * Medical History: Objective: * Vitals: Assessment: Plan: * Treatment: * Billing Information: * Visit Code: * Procedure Codes: * Electronic signature of ELIZABETH LY DPM on 05/10/2025 at 04:05 PM CDT Sign off status: Pending * Provider: Sheldon LY Date: 0 01/27/2025 Generated for Ruel Smith/Myron on: 0 05/10/2025 04:05 PM CDT
--- OUTSIDE RECORDS SUMMARY | 2025-02-03 08:20 | XMS_ITS ---
Author Organization [facility] Address [address] [place], [place] [id number] Care Team Providers Care Hand Thermal Cutter Name Role Phone GRADY LINN Unavailable [phone] Mitra Garcia Unavailable Unavailable ALEXIS LY Unavailable [phone] REASON FOR VISIT *Diabetic foot exam, GC Medications Medication SIG (Take, Route, Frequency, Duration) Notes Start Date End Date Status Clotrimazole-Betamethason e 1-0.05 % 1 application Externally Twice a day 08/19/2024 Active Mounjaro 2.5 MG/0.5ML as directed Subcutaneous Active Meloxicam 7.5 MG 1 tablet Orally Once a day Active Clotrimazole 1 % 1 application Patient Educator ally Once a day; Duration: 30 days 02/03/2025 08/01/2025 Active Atorvastatin Calcium 10 MG 1 tablet Orally Once a day Active Clotrimazole-Betamethason e 1-0.05 % 1 application Externally Twice a day 12/04/2023 Active Vital Signs Height 69 in 02/03/2025 Weight 228 lbs 02/03/2025 BMI 33.67 kg/m2 02/03/2025 Height-cm 175.26 cm 02/03/2025 Weight-kg 103.42 kg 02/03/2025 Encounters Encounter Location Date Provider Diagnosis [address] [id number] 02/03/2025 ALEXIS LY Tinea unguium B35.1 ; Acquired keratosis [keratoderma] palmaris et plantaris L85.1 ; Atherosclerosis of [place] arteries of extremities with intermittent claudication, bilateral legs I70.213 ; Pain in right foot M79.671 and Pain in left foot M79.672 Assessments Encounter Date Diagnosis (ICD Code) Assessment Notes Treatment Notes Treatment Clinical Notes Section Notes 02/03/2025 Tinea unguium (ICD-10 - B35.1) Nails 1-5 Bilateral were debrided extensively with nail nippers and emery board, reducing length and girth to pink healthy tissue with any subungual debris and necrotic tissue removed 02/03/2025 Acquired keratosis [keratoderma] palmaris et plantaris (ICD-10 - L85.1) A total of 2 corns or calluses, as described in the note above, were cut and pared utilizing a #15 blade 02/03/2025 Atherosclerosis of [place] arteries of extremities with intermittent claudication, bilateral legs (ICD-10 - I70.213) 02/03/2025 Pain in right foot (ICD-10 - M79.671) 02/03/2025 Pain in left foot (ICD-10 - M79.672) Plan Of Treatment Medication Medication Name Sig Start Date Stop Date Notes Clotrimazole 1 % 1 application Patient Educator ally Once a day; Duration: 30 days 02/03/2025 08/01/2025 Treatment Notes Assessment Notes Tinea unguium Nails [...] #15 blade Next Appt Details Follow Up: 3 Months, Reason: General Care Provider Name:ALEXIS HUMPHREY, 06/30/2025 08:10:00 AM, [address] [place] [address], [phone], Progress Notes * Darnell VELOZOB: 9 (64 yo M)Acc No.[id number]:02/03/2025 Patient: Sydney CAIN Provider: Sheldon LY :1960 A ge:64 Y S ex:Male Date:02/03/2025 Address:[address], [id number] Subjective: * Chief Complaints: * 1 . *Diabetic foot exam, GC. * HPI: H PI: General care P atient presents to the office for diabetic foot care. Patient states that their nails are thickened, elongated and painful. Patient states that it is aggravated by shoe gear. Onset is gradual., Patient denies taking prescription blood thinners but does take a daily aspirin., Date last seen by Dr. Garcia was 10/2024., Initials mca. * ROS: G eneral / Constitutional: Patient denies w eakness. R espiratory: Patient denies c hronic cough, shortness of breath, sputum production. C ardiovascular: Patient denies c hest pain, history of [place], irregular heartbeat. M usculoskeletal: Patient denies a rthritis, joint stiffness. ? P eripheral Vascular: Patient denies b lanching of skin, cold extremities, decreased sensation in extremities. S kin: Patient complains of n ail changes, discoloration, fungal nails. N eurologic: Patient denies d izziness, gait abnormality, headache. * Medical History: D iabetic. * Surgical History: r eplacement . * Medications: T aking Meloxicam 7.5 MG Tablet 1 tablet Orally Once a day , Taking Mounjaro 2.5 MG/0.5ML Solution Auto-injector as directed Subcutaneous , Taking Atorvastatin Calcium 10 MG Tablet 1 tablet Orally Once a day , Taking Clotrimazole- Betamethasone 1-0.05 % Cream 1 application Externally Twice a day , Taking Clotrimazole-Betamethasone 1-0.05 % Cream 1 application Externally Twice a day , Medication List reviewed and reconciled with the patient Objective: * Vitals: S hoe Size: 10.5, Wt:228lbs, Wt-k.42 kg, Ht: 69 in, Ht-cm: 175.26 cm, BMI:33.67Index, Body Surface Area: 2.24. * Examination: P hysical Examination: General appearance: [...] - L85.1 3 . A therosclerosis of [place] arteries of extremities with intermittent claudication, bilateral legs - I70.213 4 . P ain in right foot - M79.671 5 . P ain in left foot - M79.672 Plan: * Treatment: 2. A cquired keratosis [keratoderma] palmaris et plantaris Notes: A total of 2 corns or calluses, as described in the note above, were cut and pared utilizing a #15 blade * Follow Up: 3 Months (Reason: General Care) * Billing Information: * Visit Code: 30622 Office Visit, Est Pt., Level 3. * Procedure Codes: * Electronic signature of ELIZABETH LY DPM on 05/10/2025 at 04:05 PM CDT Sign off status: Pending * Provider: Sheldon LY Date: 02/03/2025 Generated for Ruel fisher/Delano/Myron on: 05/10/2025 04:05 PM CDT History and Physical Notes * HPI [...] Date last seen by Dr. Garcia was 10/2024., Initials mca Examination Category Sub-Category Detail Notes [...]
--- OUTSIDE RECORDS SUMMARY | 2025-04-07 08:10 | XMS_ITS ---
Author Organization [facility] Address [address] [place], [place] [id number] Care Team Providers Care Brand Coordinator Name Role Phone GRADY LINN Unavailable [phone] Mitra Garcia Unavailable Unavailable ALEXIS LY Unavailable [phone] Allergies No Known Allergies REASON FOR VISIT *General care Medications Medication SIG (Take, Route, Frequency, Duration) Notes Start Date End Date Status Atorvastatin Calcium 10 MG 1 tablet Orally Once a day Active Clotrimazole-Betamethason e 1-0.05 % 1 application Externally Twice a day 12/04/2023 Active Clotrimazole-Betamethason e 1-0.05 % 1 application Externally Twice a day 08/19/2024 Active Cephalexin 250 MG 1 capsule Orally Onc e a day; Duration: 10 days 04/07/2025 04/17/2025 Active Mounjaro 2.5 MG/0.5ML as directed Subcutaneous Active Clotrimazole 1 % 1 application Engine Cowling Installer ally Once a day; Duration: 30 days Active Meloxicam 7.5 MG 1 tablet Orally Once a day Active Vital Signs Height 69 in 04/07/2025 Weight 228 lbs 04/07/2025 BMI 33.67 kg/m2 04/07/2025 Height-cm 175.26 cm 04/07/2025 Weight-kg 103.42 kg 04/07/2025 Encounters Encounter Location Date Provider Diagnosis [address] [phone] 04/07/2025 ALEXIS LY Tinea unguium B35.1 ; Acquired keratosis [keratoderma] palmaris et plantaris L85.1 ; Atherosclerosis of [place] arteries of extremities with intermittent claudication, bilateral legs I70.213 ; Pain in right foot M79.671 ; Pain in left foot M79.672 ; Cellulitis of right toe L03.031 and Cellulitis of left toe L03.032 Assessments Encounter Date Diagnosis (ICD Code) Assessment Notes Treatment Notes Treatment Clinical Notes Section Notes 04/07/2025 Tinea unguium (ICD-10 - B35.1) Nails 1-5 Bilateral were debrided extensively with nail nippers and emery board, reducing length and girth to pink healthy tissue with any subungual debris and necrotic tissue removed 04/07/2025 Acquired keratosis [keratoderma] palmaris et plantaris (ICD-10 - L85.1) A total of 2 corns or calluses, as described in the note above, were cut and pared utilizing a #15 blade 04/07/2025 Atherosclerosis of [place] arteries of extremities with intermittent claudication, bilateral legs (ICD-10 - I70.213) 04/07/2025 Pain in right foot (ICD-10 - M79.671) 04/07/2025 Pain in left foot (ICD-10 - M79.672) 04/07/2025 Cellulitis of right toe (ICD-10 - L03.031) 04/07/2025 Cellulitis of left toe (ICD-10 - L03.032) Plan Of Treatment Medication Medication Name Sig Start Date Stop Date Notes Cephalexin 250 MG 1 capsule Orally Onc e a day; Duration: 10 days 04/07/2025 04/17/2025 Clotrimazole 1 % 1 application Engine Cowling Installer ally Once a day; Duration: 30 days Treatment Notes Assessment Notes Tinea unguium Nails [...] blade Next Appt Details Follow Up: 3 Weeks,toe infec tion follow up, Reason: Provider Name:ALEXIS HUMPHREY, 06/30/2025 08:10:00 AM, [address] [place] [address], [phone], Progress Notes * Darnell VELOZOB: 9 (64 yo M)Acc No.[id number]:04/07/2025 Patient: Sydney CAIN Provider: Sheldon LY :1960 A ge:64 Y S ex:Male Date:04/07/2025 Address:[address] [place], [place] [phone] Subjective: * Chief Complaints: * 1 . *General care. * HPI: H PI: General care P atient presents to the office for diabetic foot care. Patient states that their nails are thickened, elongated and painful. Patient states that it is aggravated by shoe gear. Onset is gradual., Patient is taking prescription blood thinners., Date last seen by Dr. Garcia was 04/01/2025., Initials nd. * ROS: G eneral / Constitutional: Patient denies w eakness. R espiratory: Patient denies c hronic cough, shortness of breath, sputum production. C ardiovascular: Patient denies c hest pain, history of MT, irregular heartbeat. M usculoskeletal: Patient denies a rthritis, joint stiffness. ? P eripheral Vascular: Patient denies b lanching of skin, cold extremities, decreased sensation in extremities. S kin: Patient complains of n ail changes, discoloration, fungal nails. N eurologic: Patient denies d izziness, gait abnormality, headache. * Medical History: D iabetic. * Surgical History: r eplacement . * Hospitalization/Major Diagno stic Procedure: D enies Past Hospitalization. * Family History: N o Family History documented.. * Medications: T aking Meloxicam 7.5 MG [...] application Externally Twice a day , Taking Clotrimazole 1 % Cream 1 application Externally Once a day , stop date 08/01/2025, Medication List reviewed and reconciled with the patient * Allergies: N .K.D.A. Objective: * Vitals: S hoe Size: 10.5, [...] subungual debris. They are painful to palpation heat and discoloration distal 1st digit bilateral.? V ascular: Dorsalis pedis pulse: 1 /4 [...] - L85.1 3 . A therosclerosis of [place] arteries of extremities with intermittent claudication, bilateral legs - I70.213 4 . P ain in right foot - M79.671 5 . P ain in left foot - M79.672 6 . C ellulitis of right toe - L03.031 7 . C ellulitis of left toe - L03.032 ? Plan: * Treatment: 2. A cquired keratosis [keratoderma] palmaris et plantaris Notes: A total of 2 corns or calluses, as described in the note above, were cut and pared utilizing a #15 blade 3. C ellulitis of left toe Start Cephalexin Capsule, 250 MG, 1 capsule, Orally, Once a day, 10 days, 10 Capsule, Refills 0.? * Follow Up: 3 Weeks,toe infection follow up * Billing Information: * Visit Code: 05986 Office Visit, Est Pt., Level 3. * Procedure Codes: * Electronic signature of ELIZABETH LY DPM on 05/10/2025 at 04:05 PM CDT Sign off status: Pending * Provider: Sheldon LY Date: 0 04/07/2025 Generated for Ruel fisher/Delano/Myron on: 0 05/10/2025 04:05 PM CDT History and Physical Notes * HPI (History of Present Illness) Category Sub-Category Detail Notes Category Not es HPI General care Patient presents to the office for diabetic foot care. Patient states that their nails are thickened, elongated and painful. Patient states that it is aggravated by shoe gear. Onset is gradual., Patient is taking prescription blood thinners., Date last seen by Dr. Garcia was 04/01/2025., Initials nd Examination Category Sub-Category Detail Notes Category Not es Dermatologic Skin findings: Skin is thin, at rophic and lacking pedal hair Nail pathology: Nails 1, 2, 3, 4, an d 5 bilateral are elongated, thick, discolored, and dystrophic with subungual debris. They are painful to palpation heat and discoloration distal 1st digit bilateral Hypertrophic / hyperkeratotic lesion: pl cindi aspect [...]
--- OUTSIDE RECORDS SUMMARY | 2025-04-28 03:10 | XMS_ITS ---
Author Organization [facility] Address [address] [place], [place] [id number] Care Team Providers Care Construction Project Engineer Name Role Phone GRADY LINN Unavailable [phone] Mitra Garcia Unavailable Unavailable ALEXIS LY Unavailable [phone] Allergies No Known Allergies REASON FOR VISIT FOLLOW UP TOE INFECTION Medications Medication SIG (Take, Route, Frequency, Duration) Notes Start Date End Date Status Mounjaro 2.5 MG/0.5ML as directed Subcutaneous Active Clotrimazole-Betamethasone 1-0.05 % 1 application Externally Twice a day 12/04/2023 Active Atorvastatin Calcium 10 MG 1 tablet Orally Once a day Active Clotrimazole-Betamethasone 1-0.05 % 1 application Externally Twice a day 08/19/2024 Active Clotrimazole 1 % 1 application Oil Painter ally Once a day; Duration: 30 days Active Meloxicam 7.5 MG 1 tablet Orally Once a day Active Vital Signs Height 69 in 04/28/2025 Weight 228 lbs 04/28/2025 BMI 33.67 kg/m2 04/28/2025 Height-cm 175.26 cm 04/28/2025 Weight-kg 103.42 kg 04/28/2025 Encounters Encounter Location Date Provider Diagnosis [address] [id number] 04/28/2025 ALEXIS LY Tinea unguium B35.1 ; Acquired [...] Treatment Notes Treatment Clinical Notes Section Notes 04/28/2025 Tinea unguium (ICD-10 - B35.1) Nails 1-5 Bilateral were debrided extensively with nail nippers and emery board, reducing length and girth to pink healthy tissue with any subungual debris and necrotic tissue removed 04/28/2025 Acquired keratosis [keratoderma] palmaris et plantaris (ICD-10 - L85.1) A total of 2 corns or calluses, as described in the note above, were cut and pared utilizing a #15 blade 04/28/2025 Atherosclerosis of nome arteries of extremities with intermittent claudication, bilateral legs (ICD-10 - I70.213) Patient educated on risks and aggravating factors of PVD, including conservative treatment options such as a diet and exercise regimen to aid in slowing progression of vascular disease. Check and protect LE bilateral daily. Call if any changes or concerns. 04/28/2025 Pain in right foot (ICD-10 - M79.671) 04/28/2025 Pain in left foot (ICD-10 - M79.672) 04/28/2025 Cellulitis of right toe (ICD-10 - L03.031) resolved 04/28/2025 Cellulitis of left toe (ICD-10 - L03.032) resolved Plan Of Treatment Medication Medication Name Sig Start Date Stop Date Notes Clotrimazole 1 % 1 application Oil Painter ally Once a day; Duration: 30 days [...] cut and pared utilizing a #15 blade Atherosclerosis of nome ar teries of extremities with intermittent claudication, bilateral legs Patient educated on risks and aggravatin g factors of PVD, including conservative treatment options such as a diet and exercise regimen to aid in slowing progression of vascular disease. Check and protect LE bilateral daily. Call if any changes or concerns. Cellulitis of right toe resolved Cellulitis of left toe resolved Next Appt Details Follow Up: 9 weeks, Reason: Provider Name:ALEXIS HUMPHREY, 06/30/2025 08:10:00 AM, [address] [place] [address], [id number], Progress Notes * Darnell VELOZOB: 9 (64 yo M)Acc No.[id number]:04/28/2025 Patient: Sydney CAIN Provider: Sheldon LY :1960 A ge:64 Y S ex:Male Date:04/28/2025 Address:[address] [place], [place] [id number] Subjective: * Chief Complaints: * 1 . FOLLOW UP TOE INFECTION. * HPI: H PI: Follow Up Visit P atient presents for follow up visit for left big toe infection. , Patient states their problem is, improving., MA: nd. * ROS: G eneral / Constitutional: [...] Family History documented.. * Medications: T aking Clotrimazole 1 % Cream 1 application Externally Once a day , Taking Meloxicam 7.5 MG Tablet 1 tablet Orally Once a day , Taking Mounjaro 2.5 MG/0.5ML Solution Auto-injector as directed Subcutaneous , Taking Atorvastatin Calcium 10 MG Tablet 1 tablet Orally Once a day , Taking Clotrimazole-Betamethasone 1-0.05 % [...] and pared utilizing a #15 blade 3. A therosclerosis of nome arteries of extremities with intermittent claudication, bilateral legs Notes: Patient educated on risks and aggravating factors of PVD, including conservative treatment options such as a diet and exercise regimen to aid in slowing progression of vascular disease. Check and protect LE bilateral daily. Call if any changes or concerns. 4. C ellulitis of right toe Notes: resolved 5. C ellulitis of left toe Notes: resolved * Follow Up: 9 weeks * Billing Information: * Visit Code: * Procedure Codes: * Electronic signature of ELIZABETH LY DPM on 05/10/2025 at 04:06 PM CDT Sign off status: Pending * Provider: Sheldon LY Date: 0 04/28/2025 Generated for Ruel Renteria on: 0 05/10/2025 04:06 PM CDT History and Physical Notes * HPI (History of Present Illness) Category Sub-Category Detail Notes Category Not es HPI Follow Up Visit Patient presents for follow up visit for left big toe infection. , Patient states their problem is, improving., MA: nd Examination Category Sub-Category Detail Notes Category [...]
[2025-05-10 15:00] LABS: Anion Gap 10 mmol/L (4-12); Blood Urea Nitrogen 22 mg/dL (9-20); Calcium 10.0 mg/dL (8.4-10.2); Carbon Dioxide 25 mmol/L (22-30); Chloride 106 mmol/L (98-107); Estimated Glomerular Filt Rate > 60; Glucose 198 mg/dL (65-110); Osmolality Calculated 301 mOsm/kg (285-295); Potassium 4.3 mmol/L (3.4-5.0); Sodium 141 mmol/L (137-145)
--- OUTSIDE RECORDS SUMMARY | 2025-05-10 16:06 | XMS_ITS | Patient Health Record ---
Author Organization [facility] Address [address] [place], [place] [id number] Care Team Providers Care Broadcast News Producer Name Role Phone GRADY LINN Unavailable [phone] Mitra Garcia Unavailable Unavailable VIRY FIGUEROA Unavailable [phone] ALEXIS LY Unavailable [phone] Allergies No Known Allergies Reason For Referral [...] 08/19/2024 Active Clotrimazole 1 % 1 application Ship Fitter ally Once a day; Duration: 30 days Active Vital Signs Height-cm 175.26 cm 04/28/2025 Weight-kg 103.42 kg 04/28/2025 Height 69 in 04/28/2025 Weight 228 lbs 04/28/2025 BMI 33.67 kg/m2 04/28/2025 Encounters Encounter Location Date Provider Diagnosis [facility] [address] [place], [place] [id number] 08/19/2024 VIRY FIGUEROA Tinea unguium B35.1 ; Pain in left toe(s) M79.675 ; Pain in right toe(s) M79.674 ; Unspecified atherosclerosis of [place] arteries of extremities, bilateral legs I70.203 ; Acquired keratosis [keratoderma] palmaris et plantaris L85.1 and Type 2 diabetes mellitus with diabetic peripheral angiopathy without gangrene E11.[address] [id number] 02/03/2025 ALEXIS LY Tinea unguium B35.1 ; Acquired keratosis [keratoderma] palmaris et plantaris L85.1 ; Atherosclerosis of [place] arteries of extremities with intermittent claudication, bilateral legs I70.213 ; Pain in right foot M79.671 and Pain in left foot M79.[address] [id number] 04/07/2025 ALEXIS LY Tinea unguium B35.1 ; Acquired keratosis [keratoderma] palmaris et plantaris L85.1 ; Atherosclerosis of [place] arteries of extremities with intermittent claudication, bilateral legs I70.213 ; Pain in right foot M79.671 ; Pain in left foot M79.672 ; Cellulitis of right toe L03.031 and Cellulitis of left toe L03.[address] [id number] 04/28/2025 ALEXIS LY Tinea unguium B35.1 ; Acquired keratosis [keratoderma] palmaris et plantaris L85.1 ; Atherosclerosis of [place] arteries of extremities with intermittent claudication, bilateral legs I70.213 ; Pain in right foot M79.671 ; Pain in left foot M79.672 ; Cellulitis of right toe L03.031 and Cellulitis of left toe L03.032 [facility] [address] [place], [place] [id number] 06/17/2024 VIRY FIGUEROA Tinea unguium B35.1 ; Pain in left toe(s) M79.675 ; Pain in right toe(s) M79.674 ; Unspecified atherosclerosis of [place] arteries of extremities, bilateral legs I70.203 ; Acquired keratosis [keratoderma] palmaris et plantaris L85.1 and Type 2 diabetes mellitus with diabetic peripheral angiopathy without gangrene E11.[address] [id number] 10/21/2024 GRADY LINN Tinea unguium B35.1 ; Acquired keratosis [keratoderma] palmaris et plantaris L85.1 ; Atherosclerosis of [place] arteries of extremities with intermittent claudication, bilateral [...] and pared utilizing a #15 blade 04/28/2025 Tinea unguium (ICD-10 - B35.1) Nails [...] utilizing a #15 blade 04/28/2025 Atherosclerosis of [place] arteries of extremities with intermittent claudication, bilateral legs (ICD-10 - I70.213) Patient educated on risks and aggravating factors of PVD, including conservative treatment options such as a diet and exercise regimen to aid in slowing progression of vascular disease. Check and protect LE bilateral daily. Call if any changes or concerns. 04/07/2025 Atherosclerosis of [place] arteries of extremities with intermittent claudication, bilateral legs (ICD-10 - I70.213) 02/03/2025 Atherosclerosis of [place] arteries of extremities with intermittent claudication, bilateral legs (ICD-10 - I70.213) 10/21/2024 Atherosclerosis of [place] arteries of extremities with intermittent claudication, bilateral legs (ICD-10 - I70.213) 06/17/2024 Pain in right toe(s) (ICD-10 - M79.674) 08/19/2024 Pain in right toe(s) (ICD-10 - M79.674) 08/19/2024 Unspecified atherosclerosis of [place] arteries of extremities, bilateral legs (ICD-10 - I70.203) Patient educated on risks and aggravating factors of PVD, including conservative treatment options such as a diet and exercise regimen to aid in slowing progression of vascular disease 06/17/2024 Unspecified atherosclerosis of [place] arteries of extremities, bilateral legs (ICD-10 - I70.203) Patient educated on risks and aggravating factors of PVD, including conservative treatment options such as a diet and exercise regimen to aid in slowing progression of vascular disease 10/21/2024 Pain in right foot (ICD-10 - M79.671) 04/07/2025 Pain in right foot (ICD-10 - M79.671) 02/03/2025 Pain in right foot (ICD-10 - M79.671) 04/28/2025 Pain in right foot (ICD-10 - M79.671) 04/28/2025 Pain in left foot (ICD-10 - M79.672) 02/03/2025 Pain in left foot (ICD-10 - [...] Cellulitis of right toe (ICD-10 - L03.031) 04/28/2025 Cellulitis of right toe (ICD-10 - L03.031) resolved 04/28/2025 Cellulitis of left toe (ICD-10 - L03.032) resolved 04/07/2025 Cellulitis of left toe (ICD-10 - [...] Of Treatment Next Appt Details Provider Name:ALEXIS MARCUM MILAGRO, 06/30/2025 08:10:00 AM, [address] [place] [address], [id number], Insurance Providers Payer Name Payer Address Payer Phone Subscriber Number Group Number Insured Name Patient Relationship to Insured Coverage Start Date Coverage End Date [employer] [address] [place] [phone] [id number] Sydney Veloz Self - patient is the insured Medical (General) History Medical History History ICD Code Diabetic Surgical History Surgery Date(Month/Year) replacement
--- OUTSIDE RECORDS SUMMARY | 2025-05-10 16:06 | XMS_ITS | Clinical Summary ---
Author Organization [facility] Address [address] [place] [address] Care Team Providers Care Geological E Logger Name Role Phone Unavailable Primary Care Provider Unavailabl e Source Comments [facility],non-owned Affiliates and Associated Physician Practices is amultiple site organization consisting of ambulatory clinics and hospital sitesin [place] and [place]. This disclosure is being madepursuant to the Care Everywhere program and may not contain all information available regarding this patient. Last updated 18.[facility] [employer] Social History Tobacco Use Types Packs/Day Years [...] age to complete this topic Insurance [facility]
--- OUTSIDE RECORDS SUMMARY | 2025-05-10 16:06 | XMS_ITS | Clinical Summary ---
Author Organization [facility] Address [address] [place] [address] Care Team Providers Care Complaint Investigations Officer Name Role Phone Mitra Garcia MD Primary Care Provider [phone] Allergies No known active allergies Medications fenofibrate [...] , with long-term current use of insulin ([facility]) Use to inject insulin 4 times a day as instructed. 120 each 3 5 Active ADMELOG 100 unit/mL pen for injectionIndicat ions:Type 2 diabetes mellitus with microalbuminuria , with long-term current use of insulin ([facility]),Class 1 obesity due to excess calories with [...] 0 5 Active lancing device with lancets ([email or web address] Delica Plus Lanc Dev) kitIndications:T ype 2 diabetes mellitus with microalbuminuria , with long-term current use of insulin (HCC) Check blood sugar 4 times daily 1 kit 5 Active blood-glucose meter (Mattscloset.comTouch Verio Flex meter) miscIndications: Type 2 diabetes mellitus with microalbuminuria , with long-term current use of insulin (HCC) Check blood sugar 4 times daily if any CGM failure 1 each 5 Active lancets ([email or web address].comTouch Delica Plus Lancet) 33 gauge miscIndications: Type [...] qualifies. Unable to afford any GLP1s since [facility] & on Medicare. Current medications: Semglee 34 units daily Humalog 15 units with mealss DM eye exam (09/2023). Has appt 10/25/24 at [facility]. Letter sent to get copy of [...] infection. Assessment & Plan (10/18/2024 1:34 PM ECONOMIC RESEARCH ANALYST): Chronic problem. A1c improved from 6.1% 08/07/04/07/2423 [...] eye exam (09/2023). Has appt 10/25/24 at [facility]. Letter sent to get copy of [...] infection. Assessment & Plan (09/17/2023 10:44 AM ECONOMIC RESEARCH ANALYST): Chronic, overall well controlled A1c 6.2% Counseled [...] TG=81. Assessment & Plan (10/18/2024 1:09 PM ECONOMIC RESEARCH ANALYST): Chronic problem. Controlled on current Atorvastatin 20mg & fenofibrate 160mg. Last lipid panel: 08/07/23 LDL=>160, FQ=613. Will update labs. Does not mychart. Verified phone #/address to contact re: results. Assessment & Plan (04/07/2024 2:48 PM CDT): Chronic problem. Controlled on current Atorvastatin 20mg & fenofibrate 160mg. Last lipid panel: 08/07/23 LDL=>160, TS=812. Assessment & Plan (09/17/2023 10:43 AM ECONOMIC RESEARCH ANALYST): Start pt on statin therapy Continue Fenofibrate Hypertension associated with diabetes 09/17/2023 Assessment & Plan (02/08/2025 12:51 PM CDT): Chronic problem. Controlled on current lisinopril 40mg daily, diltiazem CD 360mg daily, lozol 2.5mg daily, carvedilol 25mg bid Assessment & Plan (10/18/2024 1:08 PM ECONOMIC RESEARCH ANALYST): Chronic problem. Controlled on current lisinopril 40mg daily, diltiazem CD 360mg daily, lozol 2.5mg daily, carvedilol 25mg bid Will update labs. Does not mychart. Verified phone #/address to contact re: results. Assessment & Plan (04/07/2024 2:47 PM CDT): Chronic problem. Controlled on current lisinopril-HCTZ 20-12.5mg daily, diltiazem CD 360mg daily, lozol 2.5mg daily Assessment & Plan (09/17/2023 10:43 AM ECONOMIC RESEARCH ANALYST): Chronic, well controlled Continue lisinopril/hydrochlorothiazide Class 1 obesity due to exces s calories with serious comorbidity and body mass index (BMI) of 34.0 to 34.9 in adult 09/17/2023 Assessment & Plan (09/17/2023 10:43 AM ECONOMIC RESEARCH ANALYST): Chronic, progressively worsening Counseled on diet and exercise Hemoptysis 04/06/2021 Overview (04/06/2021): Added automatically from request for surgery [id number] Encounters Date Type Department Care Team Description 03/09/2025 Telephone [facility] Diabetes and Endocrinology [address] [place] [phone] Fely Faust NP Medication Administration (Insulin Glargine) 03/01/2025 Telephone [facility] Diabetes and Endocrinology [address] [place] [phone] Fely Faust, ZACKERY Med Refill 02/09/2025 Telephone [facility] of [address], [place] [address] Fely Faust, BRAKE RELINER Meter 02/09/2025 Results Follow-Up [facility] Diabetes and Endocrinology [address] [place] [phone] Fely Faust NP TSH, T4, free, Thyroid stimulating immunoglobulin 02/08/2025 4:36 PM CDT - 02/08/2025 11:59 PM CDT Hospital Encounter [address] [address] Exophthalmos of both eyes Discharge Disposition: Discharge to home or self care 02/08/2025 2:00 PM CDT Lab [facility] Outpatient Lab at [address] [phone] 02/08/2025 1:00 PM CDT Office Visit [facility] Diabetes and Endocrinology [address] [place] [phone] Fely Faust NP Type 2 diabetes mellitus with microalbuminuria, with long-term current use of insulin (HCC) (Primary Dx); Hypertension associated with diabetes (HCC); Hyperlipidemia associated with type 2 diabetes mellitus (HCC); Exophthalmos of both eyes 02/08/2025 Telephone [facility] Diabetes and Endocrinology [address] [place] [phone] Fely Faust NP Med Management ([facility] Pt Assistance) from Last 3 Months Surgical History Surgery Date Site/Laterality Comments CHOLECYSTECTOMY 09/01/2015 - 08/31/2016 TONSILLECTOMY EAR SURGERY whole in ear tdrum Medical History Medical History Date Comments Sleep apnea Mixed hyperlipidemia DM2 (diabetes mellitus, type 2) (HCC) HTN (hypertension) TAMRA (obstructive sleep apnea) BPH with obstruction/lower u rinary tract symptoms 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 [employer] Adrenal myelolipoma L adrenal my elolipoma measuring [...] on file Legal Sex Male 12:31 AM ECONOMIC RESEARCH ANALYST Gender Identity Not on file Sexual Orientation [...] Additional history exists Hemoglobin A1C 08/10/2025 02/08/2025, 02/1 03/2025, 04/07/2024, Additional history exists Foot Exam 10/18/2025 [...] COMPREHENSIVE METABOLIC PANEL Routine 10/30/2024 9:41 AM ECONOMIC RESEARCH ANALYST Type 2 diabetes mellitus with microalbuminuria, with long-term current use of insulin (HCC) Hypertension associated with diabetes (HCC) LIPID PANEL Routine 10/30/2024 9:41 AM ECONOMIC RESEARCH ANALYST Type 2 diabetes mellitus with microalbuminuria, with long-term current use of insulin (HCC) Hyperlipidemia associated with type 2 diabetes mellitus (HCC) ALBUMIN CREATININE RATIO, URINE Routine 10/30/2024 9:41 AM ECONOMIC RESEARCH ANALYST Type 2 diabetes mellitus with microalbuminuria, with long-term current use of insulin (HCC) HM DIABETES EYE EXAM Routine 09/24/2023 8:05 AM ECONOMIC RESEARCH ANALYST from Last 3 Months or Most Recently Relevant to Health Maintenance Results * (ABNORMAL) POCT hemoglobin A1c (02/08/2025 1:12 PM CDT) [facility] Hemoglobin A1C, POC 5.8(A) 4.0 - 5.6 % Blood 02/08/2025 1:12 PM CDT us Fely Fuast NP POINT OF CARE TEST ORDERA BLES Final Result * (ABNORMAL) POCT glucose (02/08/2025 1:12 PM CDT) [facility] Glucose Blood, POC 236 Normal Fasting 70 - 100, Random <200 mg/dL Blood 02/08/2025 1:12 PM CDT us Fely Faust NP POINT OF CARE TEST ORDERA BLES Final Result * Thyroid stimulating immunoglobulin (02/08/2025 12:00 PM CDT) [facility] TSIG <1.0 <=1.3 Rob[facility] ref Lab Comment: Test Performed by: [facility] [place] [address] Snag Grinder: Alma Delia Brannon Ph.D.; CLIA# [id number] Blood 02/08/2025 12:0 0 PM CDT 02/08/2025 5:54 PM CDT us Fely Faust BRAKE RELINER LAB BLOOD [place] [address] [address]és Mensah Department [place] [address] [facility] ref Lab * TSH (02/08/2025 12:00 PM CDT) [facility] Thyroid Stimulating Hormone 1.71 0.30 - 4.20 mcIUnit/mL Blood 02/08/2025 12:0 0 PM CDT 02/08/2025 5:54 PM CDT us Fely R. Schleeper BRAKE RELINER LAB BLOOD ORDERABLES Michaela l Result Performing Organization Address [facility] Co de Phone Number MYRANDA REES [address] [facility] [employer] [place] [address] * (ABNORMAL) T4, free (02/08/2025 12:00 PM CDT) Free T4 0.83(L) 0.90 - 1.70 ng/dL Blood 02/08/2025 12:0 0 PM CDT 02/08/2025 5:54 PM CDT us Felynamita Faust BRAKE RELINER LAB BLOOD ORDERABLES Michaela l Result Performing Organization Address [facility] de Phone Number MYRANDA REES [address] [facility] [employer] [place] [address] * (ABNORMAL) Albumin Creatinine Ratio, Urine (10/30/2024 9:41 AM ECONOMIC RESEARCH ANALYST) SCRIBED Creatinine, Urine 129.55 40 - 278 EXTERNAL LAB SCRIBED Microalbumin >400.0 NA - NA EXTERNAL LAB SCRIBED Microalb/Creat Ratio 308.7(A) 0 - 30 EXTERNAL LAB Urine 10/30/2024 9:41 AM ECONOMIC RESEARCH ANALYST us Fely Faust NP LAB URINE ORDERABLES Michaela l Result Performing Organization Address [facility] Co de Phone Number EXTERNAL LAB * Lipid panel (10/30/2024 9:41 AM ECONOMIC RESEARCH ANALYST) SCRIBED Cholesterol, Total 141 0 - 200 EXTERNAL LAB SCRIBED HDL 47 40 - 60 EXTERNAL LAB SCRIBED LDL 74 <130 - NA EXTERNAL LAB SCRIBED Triglycerides 81 0 - 150 EXTERNAL LAB Blood 10/30/2024 9:41 AM ECONOMIC RESEARCH ANALYST us Fely Faust BRAKE RELINER LAB BLOOD ORDERABLES Michaela l Result EXTERNAL LAB * (ABNORMAL) Comprehensive metabolic panel (10/30/2024 9:41 AM ECONOMIC RESEARCH ANALYST) SCRIBED Sodium 143 136 - 145 mmol/L [...] - 37 Units/L EXTERNAL LAB SCRIBED eGFR >60 >=60 - NA EXTERNAL LAB Blood 10/30/2024 9:41 AM ECONOMIC RESEARCH ANALYST us Feyl Faust BRAKE RELINER LAB BLOOD ORDERABLES Michaela l Result Performing Organization Address City/[facility]/ZIP Co de Phone Number EXTERNAL LAB * (ABNORMAL) DIABETES EYE EXAM (09/24/2023 8:05 AM ECONOMIC RESEARCH ANALYST) us Historical Provider HEALTH MAINTENANCE Final Result from Last 3 Months or Most Recently Relevant to Health Maintenance Insurance BLUE ACCESS OOS [employer] MEDICARE GOLD Care Teams Complaint Investigations Officer Relationship Specialty Start Date End Date Mitra Garcia MD [address] [place] [address] PCP - General 06/29/07
== END 2025-05-10 14:24 | disposition home or self-care (01) ==
LOC: CHSLAB 14:25
PROVIDERS: PCP Internal Medicine; Visit Provider Internal Medicine
DX: I10 Essential (primary) hypertension (principal)
CPT/HCPCS: 36415; 80048